=== PATIENT | female | born 1960 | race Hispanic/Latino ===

== ENCOUNTER 2017-06-12 11:13 | Inpatient (IN) | payer OTHER ==
[~2017-06-12] VITALS: Ht 170.2 cm; Wt 79.5 kg
--- NOTE | 2017-06-12 11:17 | ED GENERAL ADULT ---
See Addendum History of Present Illness General Chief Complaint: Abdominal Pain/Flank Pain Stated Complaint: BIBA FOR ABD. PAIN Source: patient Exam Limitations: no limitations Vital Signs & Intake/Output Vital Signs & Intake/Output Vital Signs Date Time Temp Pulse Resp B/P B/P Pulse O2 O2 Flow FiO2 Mean Ox Delivery Rate 06/12 1130 98.9 100 18 183/81 99 Room Air Allergies Coded Allergies: Penicillins (UNKNOWN 09/27/15) Triage Note: ABD PIAN FOR 1 DAY. PT STATES SHE TOOK OTC MEDS WITHOUT RELIEF. +NAUSEA. NO V/D. GLUCOSE ELEVATED. Triage Nurses Notes Reviewed? yes Onset: Abrupt Duration: day(s): (2), constant, continues in ED, getting worse Timing: single episode today Injury Environment: home Severity: moderate, severe Severity Numbers: 7 No Modifying Factors: none LMP (ages 10-50): post menopausal : No Patient currently breastfeeds: No HPI: 56 y/o female past medical history of diabetes presents for evaluation of abdominal pain. Patient states that she first noticed the pain about 2 days ago and has been getting worse. The pain is located in the epigastric area and does not radiate. She states it feels like there is a "knot" In her epigastric area. She has had these symptoms in the past with GERD and feels like it is similar. She has not eaten or drank anything today. Eating does not seem to make pain worse. She denies any alcohol use. No new medications. She does report a previous history of gallstones. No chest pain shortness of breath back pain urinary symptoms, melena, bright red blood per rectum or any other associated symptoms. Taking Pepto-Bismol and Tums without improvement. She was also hyperglycemic. EMS reports levels greater than 500 in route. Patient states that she is on insulin as needed. She is not taking any insulin today. She also states that she does not take any blood pressure medicine. (Daniel Siegel) Past History Travel History Traveled to [place] past 21 day No Medical History Any Pertinent Medical History? see below for history Surgical History Surgical History: non-contributory Psychosocial History What is your primary language Nigerien Family History Hx Contributory? No (Daniel Siegel) Review of Systems Review of Systems Constitutional: Reports: no symptoms. EENTM: Reports: no symptoms. Respiratory: Reports: no symptoms. Cardiovascular: Reports: no symptoms. GI: Reports: see HPI, abdominal pain. Genitourinary: Reports: no symptoms. Musculoskeletal: Reports: no symptoms. Skin: Reports: no symptoms. Neurological/Psychological: Reports: no symptoms. Hematologic/Endocrine: Reports: no symptoms. Immunologic/Allergic: Reports: no symptoms. All Other Systems: Reviewed and Negative (Daniel Siegel) Physical Exam Physical Exam General Appearance: well developed/nourished, no apparent distress, alert, awake Head: atraumatic, normal appearance Eyes: Bilateral: normal appearance, PERRL, EOMI. Ears, Nose, Throat: normal pharynx, normal ENT inspection, hearing grossly normal Neck: normal inspection, supple, full range of motion Respiratory: normal breath sounds, chest non-tender, no respiratory distress, lungs clear Cardiovascular: regular rate/rhythm, normal peripheral pulses Peripheral Pulses: 2+ radial (R), 2+ radial (L) Gastrointestinal: normal bowel sounds, soft, no organomegaly, tenderness ( epigastric) Back: normal inspection, normal range of motion, no vertebral tenderness Extremities: right below the knee amputation, no swelling in the left lower extremity, full range of motion bilateral upper extremities Neurologic/Psych: no motor/sensory deficits, awake, alert, oriented x 3 Skin: intact, normal color, warm/dry Core Measures ACS in differential dx? Yes No ASA d/t ruled out CVA/TIA Diagnosis: No Sepsis Present: No Sepsis Focused Exam Completed? No (Daniel Siegel) Progress Differential Diagnoses I considered the following diagnoses in my evaluation of the patient: [Peptic ulcer disease, gastritis, GERD, pancreatitis, cholangitis, renal colic, AAA, acute coronary syndrome] Plan of Care: Orders Procedure Date/time Status Nothing by Mouth 06/12 D Active LACTIC ACID 06/12 1417 Active OXYGEN SETUP (GEN) 06/12 1312 Active Saline Lock 06/12 1312 Active Admit to inpatient 06/12 1312 Active Vital Signs 06/12 1312 Active Activity/Ambulation 06/12 1312 Active Code Status 06/12 1312 Active US-LIMITED ABDOMEN 06/12 1259 Active Add-on Test (ER Only) 06/12 1258 Active TRIGLYCERIDES 06/12 1143 Complete MAGNESIUM 06/12 1143 Complete ETHANOL 06/12 1143 Complete MIXED VENOUS BLOOD GAS (GEN) 06/12 1124 Complete Telemetry/Orthopedic Brace Maker 06/12 1118 Active TROPONIN LEVEL 06/12 111 Complete SERUM OSMOLALITY 06/12 111 Complete LACTIC ACID 06/12 111 Complete ACETONE 06/12 111 Complete EKG 06/12 1116 Active URINALYSIS 06/12 111 Complete LIPASE 06/12 111 Complete C-REACTIVE PROTEIN 06/12 1115 Complete COMPREHENSIVE METABOLIC PANEL 06/12 1115 Complete CBC WITHOUT DIFFERENTIAL 06/12 111 Complete Current Medications Sig/Christina Start time Last Medication Dose Stop Time Status Admin Sodium Chloride 1,000 ML BOLUS ONE 06/12 1300 AC (Normal Saline 0.9%) 06/12 1359 Laboratory Tests 06/12/17 1143: Serum Osmolality 307 H, Lactic Acid 2.6 H, Troponin I < 0.01, Serum Alcohol < 10.0 06/12/17 1143: Anion Gap 18 H, Estimated GFR > 60, BUN/Creatinine Ratio 27.1 H, Glucose 841 * H, Calcium 10.1, Magnesium 1.9, Total Bilirubin 0.4, AST 15, ALT 37, Alkaline Phosphatase 191 H, C-Reactive Prot, Quant 4.6 H, Total Protein 6.9, Albumin 3.9, Globulin 3.0, Albumin/Globulin Ratio 1.3, Triglycerides 208 H, Lipase 9655 H, CBC w Diff MAN DIFF ORDERED, RBC 4.59, MCV 82.9, MCH 27.3, RDW 13.9, MPV 11.3 H, Gran % 89.3 H, Lymphocytes % 6.3 L, Monocytes % 3.8, Eosinophils % 0.4, Basophils % 0.2, Absolute Granulocytes 11.5 H, Absolute Lymphocytes 0.8 L , Absolute Monocytes 0.5, Absolute Eosinophils 0, Absolute Basophils 0, Platelet Estimate ADEQUATE, Anisocytosis 1+, PUBS MCHC 32.9 L, Acetone Level NEGATIVE, Urinalysis LIGHT H, Urine Color YEL, Urine Clarity CLEAR, Urine pH 6.5, Ur Specific [place] 1.010, Urine Protein TRACE H, Urine Ketones TRACE H, Urine Nitrite NEG, Urine Bilirubin NEG, Urine Urobilinogen 0.2, Ur Leukocyte Esterase NEG, Ur Microscopic SEDIMENT EXAMINED, Urine RBC 1-3, Urine Bacteria RARE H, Urine Hemoglobin TRACE-INTACT, Urine Glucose >=1000 H 06/12/17 1136: Bicarbonate Actual 21 L, Mixed VBG pH 7.38, Mixed VBG pCO2 37 L, Mixed VBG O2 Saturation 35, Carboxyhemoglobin 1.1 L, O2 Concentration % RA, Phlebotomy Draw Site LAC VENOUS Patient seen and evaluated. She is currently hyperglycemic with a sugar of 841. Potassium is within normal limits. 10 units subcutaneous insulin ordered. Patient will also be given 2 L of normal saline. A repeat sugar an hour. Her anion gap is 18 pH 738 negative acetone. Patient has a lipase of greater than 9000. She denies any alcohol use. No new medications. She has a history of gallstones and is status post cholecystectomy. CT scan does not show any gallstones but does show evidence of pancreatitis. Ultrasound ordered for further evaluation. Triglycerides mildly elevated. Patient will be admitted to the hospital for IV fluids, GI consult, IV pain control, insulin, serial labs, monitoring of vital signs. Case discussed with Dr Paulino and he agrees. Diagnostic Imaging: Viewed by Me: CT Scan. Discussed w/RAD: CT Scan. Radiology Impression: PATIENT: IRENA BUTLER PRESENT AGE: 56 PATIENT ACCOUNT NO: [id number] : 60 LOCATION: [facility] ORDERING PHYSICIAN: Dainel MEADOWS SERVICE DATE: 06/12/17 EXAM TYPE: CAT - CT ABD & PELVIS W/O IV CONTRAS EXAMINATION: CT ABDOMEN AND PELVIS WITHOUT CONTRAST CLINICAL INFORMATION: Epigastric abdominal pain for 2 days. COMPARISON: There are no prior studies for comparison. TECHNIQUE: Multidetector volumetric imaging was performed from the superior aspect of the liver through the pubic symphysis. Sagittal and coronal reformatted images were obtained on the technologist's workstation. DLP: 759.08 mGy-cm FINDINGS: LUNG BASES: The visualized lung bases are unremarkable. LIVER, GALLBLADDER, AND BILIARY TREE: The liver is normal in size, shape, and attenuation. There is a small calcification in the posterior aspect of the right lobe of the liver. No biliary ductal dilatation is present. The gallbladder is surgically absent. PANCREAS: There are prominent peripancreatic inflammatory changes and small stranded areas of fluid present in the region of the uncinate process adjacent to the C-sweep of the duodenum as well as along the tail of the pancreas extending around the left pararenal region. The pancreas is partially fatty replaced, with no focal pancreatic mass lesion identified. No loculated fluid collection is present. SPLEEN: Normal ADRENAL GLANDS: Normal KIDNEYS AND URETERS : The kidneys are normal in size, shape, and attenuation. No hydronephrosis, hydroureter, or calculi seen. No perinephric stranding. BLADDER: Unremarkable. GASTROINTESTINAL TRACT: The small and large bowel are unremarkable. The appendix is nonvisualized. ABDOMINAL WALL: No significant hernia is appreciated. LYMPH NODES: No pathologically enlarged lymph nodes are present.. VASCULAR: Minimal abdominal aortic calcified plaque extending into the iliac arteries. No aneurysmal dilation of the abdominal aorta. PELVIC VISCERA: The uterus is unremarkable, no adnexal mass lesions are noted. OSSEOUS STRUCTURES: No focal osseous lesions, no aggressive osseous lesions noted. IMPRESSION: 1. Peripancreatic inflammatory changes within the mesenteric fat with small strands of free fluid present adjacent to the uncinate process and along the tail of the pancreas. No loculated fluid collections or pancreatic pseudocyst is present at this time. No pancreatic mass lesion is present at this time. The findings are suggestive of acute pancreatitis. 2. As noted above, the gallbladder is surgically absent. DICTATED BY: Huong Combs MD DATE/TIME DICTATED:06/12/171308 EAR NOSE THROAT SURGEON:CRYSTAL DATE/TIME TRANSCRIBED:06/12/171308 CONFIDENTIAL, DO NOT COPY WITHOUT APPROPRIATE AUTHORIZATION. <Electronically signed in Other Vendor System> Initial ED EKG: NORMAL SINUS RHYTHM, PROBABLE LEFT ATRIAL ABN (Daniel Siegel) Departure Departure Disposition: STILL A PATIENT Condition: Stable Clinical Impression Primary Impression: Acute pancreatitis Qualifiers: Pancreatitis type: unspecified pancreatitis type Acute pancreatitis complication: unspecified Qualified Code: K85.90 - Acute pancreatitis without necrosis or infection, unspecified Secondary Impressions: Hyperglycemia Referrals: Moe Ochoa MD Departure Forms: Customer Survey General Discharge Information Admission Note Spoke With: Mirta Chavez MD Documentation of Exam: Documentation of any treatments & extenuating circumstances including Concerns Regarding Discharge (functional status, medication knowledge or non-compliance, living conditions, etc.) that warrant an admission rather than observation: [IV fluids, nothing by mouth, serial labs, IV pain control, insulin, monitoring of vital signs, GI consult, medication management] (Daniel Siegel) PA/UROLOGIST Co-Sign Statement Statement: ED Attending supervision documentation- x I saw and evaluated the patient. I have also reviewed all the pertinent lab results and diagnostic results. I agree with the findings and the plan of care as documented in the PA's/UROLOGIST's documentation. Abdominal pain, nausea hyperglycemia, elevated lipase [] I have reviewed the ED Record and agree with the PA's/UROLOGIST's documentation. [] Additions or exceptions (if any) to the PAs/UROLOGIST's note and plan are summarized below: [] (Jefferson CURIEL,Benito) Critical Care Note Critical Care Note Critical Care Time: non-applicable (Daniel Siegel) ED Attending Observation Initial Observation Note: I have seen and personally examined IRENA BUTLER on 06/12/17 at 1343. I agree with the current emergency department documentation. The disposition (admission or discharge) is uncertain at this time, she needs a period of observation for the following reason(s): The ED Nurse caring for this patient has been personally informed as to what the patient is being observed for. (Daniel Siegel)
[2017-06-12 11:59] LABS: ABSOLUTE BASOPHIL COUNT 0 /CUMM (0.0-0.2); ABSOLUTE EOSINOPHIL COUNT 0 /CUMM (0.0-0.7); ABSOLUTE GRANULOCYTE CT 11.5 /CUMM (1.4-6.5); ABSOLUTE LYMPH COUNT 0.8 /CUMM (1.2-3.4); ABSOLUTE MONOCYTE COUNT 0.5 /CUMM (0.10-0.60); BASOPHIL % 0.2 % (0.0-2.0); EOSINOPHIL % 0.4 % (0-5); GRANULOCYTE % 89.3 % (42.2-75.2); MEAN CORPUSCULAR HGB 27.3 PG (27.0-31.0); MEAN CORPUSCULAR HGB CONC 32.9 G/DL (33.0-37.0); MEAN CORPUSCULAR VOLUME 82.9 FL (81.0-99.0); MEAN PLATELET VOLUME 11.3 FL (7.4-10.4); PLATELET COUNT 282 /CUMM (130-400); RBC DISTRIBUTION WIDTH 13.9 % (11.5-14.5); RED BLOOD CELL CT 4.59 /CUMM (4.20-5.40); WHITE BLOOD CELL COUNT 12.9 /CUMM (4.8-10.8)
--- NOTE | 2017-06-12 13:21 | CT SCAN REPORT ---
EXAMINATION: CT ABDOMEN AND PELVIS WITHOUT CONTRAST CLINICAL INFORMATION: Epigastric abdominal pain for 2 days. COMPARISON: There are no prior studies for comparison. TECHNIQUE: Multidetector volumetric imaging was performed from the superior aspect of the liver through the pubic symphysis. Sagittal and coronal reformatted images were obtained on the technologist's workstation. DLP: 759.08 mGy-cm FINDINGS: LUNG BASES: The visualized lung bases are unremarkable. LIVER, GALLBLADDER, AND BILIARY TREE: The liver is normal in size, shape, and attenuation. There is a small calcification in the posterior aspect of the right lobe of the liver. No biliary ductal dilatation is present. The gallbladder is surgically absent. PANCREAS: There are prominent peripancreatic inflammatory changes and small stranded areas of fluid present in the region of the uncinate process adjacent to the C-sweep of the duodenum as well as along the tail of the pancreas extending around the left pararenal region. The pancreas is partially fatty replaced, with no focal pancreatic mass lesion identified. No loculated fluid collection is present. SPLEEN: Normal ADRENAL GLANDS: Normal KIDNEYS AND URETERS: The kidneys are normal in size, shape, and attenuation. No hydronephrosis, hydroureter, or calculi seen. No perinephric stranding. BLADDER: Unremarkable. GASTROINTESTINAL TRACT: The small and large bowel are unremarkable. The appendix is nonvisualized. ABDOMINAL WALL: No significant hernia is appreciated. LYMPH NODES: No pathologically enlarged lymph nodes are present.. VASCULAR: Minimal abdominal aortic calcified plaque extending into the iliac arteries. No aneurysmal dilation of the abdominal aorta. PELVIC VISCERA: The uterus is unremarkable, no adnexal mass lesions are noted. OSSEOUS STRUCTURES: No focal osseous lesions, no aggressive osseous lesions noted. IMPRESSION: 1. Peripancreatic inflammatory changes within the mesenteric fat with small strands of free fluid present adjacent to the uncinate process and along the tail of the pancreas. No loculated fluid collections or pancreatic pseudocyst is present at this time. No pancreatic mass lesion is present at this time. The findings are suggestive of acute pancreatitis. 2. As noted above, the gallbladder is surgically absent.
--- NOTE | 2017-06-12 15:18 | History & Physical ---
General Information and HPI Allergies/Medications Allergies: Coded Allergies: Penicillins (UNKNOWN 09/27/15) Past History Travel History Traveled to [place] past 21 day No Surgical History Surgical History: non-contributory Core Measures/Misc (02/04) Acute Coronary Syndrome ACS Diagnosis: No Congestive Heart Failure Congestive Heart Failure Diagnosis No Cerebrovascular Accident CVA/TIA Diagnosis: No VTE (View Protocol) VTE Risk Factors Age>40 No Mechanical VTE Prophylaxis d/t N/A MechProphylax Ordered No VTE Pharm Prophylaxis d/t NA PharmProphylax ordered Sepsis (View protocol) Sepsis Present: No
--- NOTE | 2017-06-12 15:21 | ULTRASOUND REPORT ---
EXAMINATION: ABDOMINAL ULTRASOUND LIMITED CLINICAL INFORMATION: Epigastric pain right upper quadrant pain. COMPARISON: Same day abdominal and pelvic CT. TECHNIQUE: Real-time imaging of the right upper quadrant abdominal viscera. FINDINGS: PANCREAS: The pancreas is poorly visualized due to overlying bowel gas. LIVER: The liver is of normal size and diffuse increased echogenicity without focal lesions nor intrahepatic biliary ductal dilation. GALLBLADDER: Due to cholecystectomy COMMON BILE DUCT: The common duct is not visualized. RIGHT KIDNEY: The right kidney is not demonstrated. FREE FLUID: None. IMPRESSION: Liver of diffuse increased echogenicity without focal lesions. The appearance is nonspecific, but consistent with fatty infiltration. Status post cholecystectomy. Limited examination secondary to the patient's inability to recline.
--- NOTE | 2017-06-12 16:00 | History & Physical ---
Christie Garcia 06/12/17 1557: General Information and HPI MD Statement: I have seen and personally examined IRENA BUTLER and documented this H&P. The patient is a 56 year old F who presented with a patient stated chief complaint of [abdominal pain]. Source of Information: patient, family Exam Limitations: poor historian History of Present Illness: 56 y/o female with a PMH of RA, scleroderma, T2DM, PVD s/p below and above knee amputation of RLE at [facility] in 2012 and 2014, and stent placemnt in LLE about 3 months ago, with a chronic non-healing ulcer of the LLE, GERD, hypothyroidism, opioid abuse on Methadone (82 mg daily) who presents to the ED with c/o excruciating epigastric pain asociated with non-bloody, bilous vomitus. According to the patient she was in her USOH until yesterday afternoon when she had tomato soup with a grilled sandwich shortly after which she started to experinece severe non-radiating, epigastric pain associated with multiple episodes of non-bloody, emesis. Deneis any recent URI, NSAID use, or any hx of trauma to her abdomen. States that she took Tumms and peptobismuth taht did not help with her pain. SHe has been unable to tolerate anything PO and so decided to come to [facility] ER today. ROS negative for fever, chills, cough, CP, diarrhea, dysuria. Of note patient follows with Dr. Lopez and was scheduled to see him in office today for dressing and evaluation of her LLE wound. She has no primary fashion photographer. FSGs usually run in the 300's as per the patient. She follows with Dr. Ayala at [facility] for RA and scleroderma and DR. Nguyen did her ampuatation. She gets 82mg of Methadone form [facility] in [place]. Last hospital admission was for a stent in her left leg about 3 months ago at [facility]. Allergies/Medications Allergies: Coded Allergies: Penicillins (UNKNOWN 09/27/15) Home Med list Aspirin (Ecotrin*) 81 MG TABLET.DR 1 TAB PO DAILY PVD (Reported) Bupropion HCl (Bupropion HCl Sr) 200 MG TABLET.ER 1 TAB PO DAILY OPIOID ( Reported) Clopidogrel Bisulfate (Plavix) 75 MG TABLET 1 TAB PO DAILY PVD (Reported) Exenatide Microspheres (Bydureon) 2 MG VIAL 2 MG SC QTUES DM (Reported) Insulin Aspart, Recombinant (Novolog Flexpen) 100 UNIT/ML INSULN.PEN 0 SC TID DM (Reported) Insulin Glargine,Hum.rec.anlog (Lantus Solostar) 100 UNIT/ML (3 ML) INSULN.PEN 48 UNIT SC QPM DM (Reported) Levothyroxine Sodium (Synthroid) 75 MCG TABLET 1 TAB PO DAILY HYPOTHYROIDISM (Reported) Losartan Potassium 25 MG TABLET 1 TAB PO DAILY HTN (Reported) Metformin HCl 1,000 MG TABLET 1 TAB PO BID DM (Reported) Omeprazole 20 MG TABLET.DR 1 TAB PO DAILY GERD (Reported) Pravastatin Sodium (Pravachol) 80 MG TABLET 1 TAB PO DAILY PVD (Reported) Sitagliptin Phosphate (Januvia) 100 MG TABLET 1 TAB PO DAILY DM (Reported) Trazodone HCl 100 MG TABLET 1.5 TAB PO QPM SLEEP (Reported) Compliance With Home Meds: UNKNOWN Past History Travel History Traveled to [place] past 21 day No Medical History Cardiovascular: PVD (s/p stent in left leg ) Endocrine: diabetes, hypothyroidism Surgical History Surgical History: cholecystectomy, bleow and above knee amputation of RLE Past Family/Social History Family History Relations & Conditions if any BROTHER *No pertinent family history FH: diabetes mellitus MOTHER FH: diabetes mellitus FATHER Relation not specified for: FH: colon cancer Psychosocial History Where do you live? Home ETOH Use: denies use Illicit Drug Use: denies illicit drug use Functional Ability ADLs Independent: dressing, eating, toileting, bathing. Ambulation: independent IADLs Independent: shopping, housework, finances, food prep, telephone, transportation , medication admin. Employment History Employment Disability Review of Systems Review of Systems Constitutional: Denies: chills, diaphoresis, fever, weakness. EENTM: Denies: visual changes. Cardiovascular: Denies: chest pain, orthopena, palpitations, syncope. Respiratory: Denies: cough, orthopnea, short of breath, sputum production, wheezing. GI: Reports: abdominal pain, nausea, vomiting. Denies: constipation, diarrhea, bloody stool, changes in stool. Genitourinary: Denies: discharge, dysuria, frequency. Musculoskeletal: Denies: joint pain. Neurological/Psychological: Denies: headache, numbness, tingling, tremors. Exam & Diagnostic Data Last 24 Hrs of Vital Signs/I&O Vital Signs Date Time Temp Pulse Resp B/P B/P Pulse O2 O2 Flow FiO2 Mean Ox Delivery Rate 06/12 1525 97.6 93 18 164/86 100 Room Air 06/12 1130 98.9 100 18 183/81 99 Room Air Intake & Output 06/12 1600 06/12 0800 06/12 0000 Intake Total 2000 Output Total Balance 2000 Intake, IV 2000 Intake, Oral 0 Patient 181 lb Weight Weight Reported by Patient Measurement Method Physical Exam General Appearance Alert, Oriented X3, Cooperative, Mild Distress Sepsis Skin Exam (color): Normal for Ethnicity HEENT Atraumatic, PERRLA, EOMI, dry mucous membranes Neck Supple, No JVD, No thryomegaly, No LAD Cardiovascular Regular Rate, Normal S1, Normal S2, No Murmurs Lungs Clear to Auscultation, Normal Air Movement Abdomen Normal Bowel Sounds, Soft, No Tenderness, no CVA tenderness, has a well healed surgical scar along the right subcostal plane, tenderness in epigastrium Neurological Normal Speech, Strength at 5/5 X4 Ext, Normal Tone, Sensation Intact, Cranial Nerves 3-12 NL Extremities has an above knee amputation on RLE, has a chronic 8cm x3cm draining serosanginuous ulcer on her left anterolateral quiroz; no purulence noted; though foul smelling Body Front and Back (Adult) 1) 8cm x3cm chronic non-helasing draining ulcer Last 24 Hrs of Labs/Nikolas: Laboratory Tests 06/12/17 1508: Lactic Acid 1.2 06/12/17 1508: Anion Gap 14, Estimated GFR > 60, BUN/Creatinine Ratio 28.3 H, Glucose 554 *H, Calcium 9.0, Total Bilirubin 0.3, AST 14, ALT 40, Alkaline Phosphatase 153 H, Total Protein 6.2 L, Albumin 3.3 L, Globulin 2.9, Albumin/Globulin Ratio 1.1 06/12/17 1143: Serum Osmolality 307 H, Lactic Acid 2.6 H, Troponin I < 0.01, Serum Alcohol < 10.0 06/12/17 1143: Anion Gap 18 H, Estimated GFR > 60, BUN/Creatinine Ratio 27.1 H, Glucose 841 * H, Calcium 10.1, Magnesium 1.9, Total Bilirubin 0.4, AST 15, ALT 37, Alkaline Phosphatase 191 H, C-Reactive Prot, Quant 4.6 H, Total Protein 6.9, Albumin 3.9, Globulin 3.0, Albumin/Globulin Ratio 1.3, Triglycerides 208 H, Lipase 9655 H, CBC w Diff MAN DIFF ORDERED, RBC 4.59, MCV 82.9, MCH 27.3, RDW 13.9, MPV 11.3 H, Gran % 89.3 H, Lymphocytes % 6.3 L, Monocytes % 3.8, Eosinophils % 0.4, Basophils % 0.2, Absolute Granulocytes 11.5 H, Absolute Lymphocytes 0.8 L , Absolute Monocytes 0.5, Absolute Eosinophils 0, Absolute Basophils 0, Platelet Estimate ADEQUATE, Anisocytosis 1+, PUBS MCHC 32.9 L, Acetone Level NEGATIVE, Urinalysis LIGHT H, Urine Color YEL, Urine Clarity CLEAR, Urine pH 6.5, Ur Specific [place] 1.010, Urine Protein TRACE H, Urine Ketones TRACE H, Urine Nitrite NEG, Urine Bilirubin NEG, Urine Urobilinogen 0.2, Ur Leukocyte Esterase NEG, Ur Microscopic SEDIMENT EXAMINED, Urine RBC 1-3, Urine Bacteria RARE H, Urine Hemoglobin TRACE-INTACT, Urine Glucose >=1000 H 06/12/17 1136: Bicarbonate Actual 21 L, Mixed VBG pH 7.38, Mixed VBG pCO2 37 L, Mixed VBG O2 Saturation 35, Carboxyhemoglobin 1.1 L, O2 Concentration % RA, Phlebotomy Draw Site LAC VENOUS Diagnostic Data EKG Results ST, with HR: 97, normal axis, no ST-T changes Other Results SERVICE DATE: 06/12/17-1259 EXAM TYPE: US - US-LIMITED ABDOMEN FINDINGS: PANCREAS: The pancreas is poorly visualized due to overlying bowel gas. LIVER: The liver is of normal size and diffuse increased echogenicity without focal lesions nor intrahepatic biliary ductal dilation. GALLBLADDER: Due to cholecystectomy COMMON BILE DUCT: The common duct is not visualized. RIGHT KIDNEY: The right kidney is not demonstrated. FREE FLUID: None. IMPRESSION: Liver of diffuse increased echogenicity without focal lesions. The appearance is nonspecific, but consistent with fatty infiltration. Status post cholecystectomy. Limited examination secondary to the patient's inability to recline. SERVICE DATE: 06/12/17 EXAM TYPE: CAT - CT ABD & PELVIS W/O IV CONTRAS FINDINGS: LUNG BASES: The visualized lung bases are unremarkable. LIVER, GALLBLADDER, AND BILIARY TREE: The liver is normal in size, shape, and attenuation. There is a small calcification in the posterior aspect of the right lobe of the liver. No biliary ductal dilatation is present. The gallbladder is surgically absent. PANCREAS: There are prominent peripancreatic inflammatory changes and small stranded areas of fluid present in the region of the uncinate process adjacent to the C-sweep of the duodenum as well as along the tail of the pancreas extending around the left pararenal region. The pancreas is partially fatty replaced, with no focal pancreatic mass lesion identified. No loculated fluid collection is present. SPLEEN: Normal ADRENAL GLANDS: Normal KIDNEYS AND URETERS: The kidneys are normal in size, shape, and attenuation. No hydronephrosis, hydroureter, or calculi seen. No perinephric stranding. BLADDER: Unremarkable. GASTROINTESTINAL TRACT: The small and large bowel are unremarkable. The appendix is nonvisualized. ABDOMINAL WALL: No significant hernia is appreciated. LYMPH NODES: No pathologically enlarged lymph nodes are present.. VASCULAR: Minimal abdominal aortic calcified plaque extending into the iliac arteries. No aneurysmal dilation of the abdominal aorta. PELVIC VISCERA: The uterus is unremarkable, no adnexal mass lesions are noted. OSSEOUS STRUCTURES: No focal osseous lesions, no aggressive osseous lesions noted. IMPRESSION: 1. Peripancreatic inflammatory changes within the mesenteric fat with small strands of free fluid present adjacent to the uncinate process and along the tail of the pancreas. No loculated fluid collections or pancreatic pseudocyst is present at this time. No pancreatic mass lesion is present at this time. The findings are suggestive of acute pancreatitis. 2. As noted above, the gallbladder is surgically absent. Assessment/Plan Assessment: 56-year-old female with a past medical history of diabetes, GERD presents to the ED with chief complaint of abdominal pain. Vitals at the time of admission hypertensive to 183/81, respiratory rate of 18, tachycardic to 100, afebrile saturating 99% on room air. Labs pertinent for leukocytosis with a white blood cell count of 12,400, H&H of 12.5/38.0 and a normal MCV of 82.9, platelet count of 282,000. Serum chemistries pertinent for hyponatremia with a sodium of 129, potassium of 4.9, bicarbonate of 21, anion gap elevated to 18, BUN 19 with a creatinine of 0.7. Shrimp glucose elevated to 841 with a serum osmolality of 307 and lactic acid of 2.6 with repeat wound down to 1.2. Serum calcium was 10.1, magnesium 1.9. These pertinent for an AST/alt of 13/37, pulse of 191, troponins first set less than 0.01 with a C-reactive protein of 4.6. Triglycerides 208 and a lipase of 9655. UA was likely trace amount of proteinuria and ketones. Her acetone level was negative. Serum alcohol was less than 10. Venous post contrast was done which showed a pH of 7.38, bicarbonate of 21, PCO2 of 37 Abdominal ultrasound showed diffuse increased echogenicity of the liver without focal lesions consistent with fatty infiltration, status post cholecystectomy. T of the abdomen pelvis should. Pancreatic inflammatory changes within the mesenteric fat with small strands of free fluid present adjacent to the uncinate process and along the tail of the pancreas, no loculated fluid collections or pancreatic pseudocyst or pancreatic mass lesion at this time. In the ER she received thousand milligrams IV 1 of Tylenol, working 2 mg IV 1, Zofran 4 mg IV 1 and was given normal saline boluses of thousand and 2 was also given 10 units of subcutaneous Novolin insulin Assessment and plan Patient was evaluated by Endo and plan was to admit for insulin drip to ICU, hwoever after recieving 10 units of SC insulin, her BS came down to 544-->396 and she was downgraded to Gen Med. #Acute Pancreatitis - 2/2 gallstone, given abrupt onset vs [facility]. Of note no hx of URI, NSAId, Ca and TG are WNL. - NPO for now - Hydrate aggresively with IVF @250mls/hr. - Pain management with IV Morphine 4mg Q4 PRN as patent is allergic to Dilaudid and Percocet. - Zofran for nausea. #HHS - 2/2 uncontrolled DM - Her FSG is 396. Will admisnter 24 units of levemir x1 now and place her on Novbolog sliding scale as per Dr. Faye's recs. - f/u Endo consult. - Continueto monitor FSG q 4 hrs. - Holding her home regimen. - COntinue to hydrate with IVF;s - F/U BEP @ 10:00pm - Replete electrolytes - F/U BC x2 to ensure she is not bacteremic (highly unlikely) # PVD s/p above knee amputation of RLE and chonic non-healing wound on LLE - [place] vascular consult in AM to be placed. - Wound care - dry dressing change - continue ASA, Plavix and statin #Lactic acidosis - Resolved - 2/2 HHS # hyponatremia - Pseudo given elevated glucose #RA - Continue hydroxycloroquine #Opiod dependence - Confirm methadone form [facility] in [place] in AM - Patient si on 82mg daily. - Contineu Buproproin #GERD - Continue Omeprazole - DVT prophylaxis - hEPARIN 5000iu tid sc - Diet - NPO - Advance as tolerated in AM - Code Status - Full Code As Ranked By This Provider Problem List: 1. Hyperglycemia 2. Acute pancreatitis Qualifiers Pancreatitis type: unspecified pancreatitis type Acute pancreatitis complication: unspecified Qualified Code: K85.90 - Acute pancreatitis without necrosis or infection, unspecified Core Measures/Misc (02/04) Acute Coronary Syndrome ACS Diagnosis: No Congestive Heart Failure Congestive Heart Failure Diagnosis No Cerebrovascular Accident CVA/TIA Diagnosis: No VTE (View Protocol) VTE Risk Factors Age>40 No Mechanical VTE Prophylaxis d/t N/A MechProphylax Ordered No VTE Pharm Prophylaxis d/t NA PharmProphylax ordered Sepsis (View protocol) Sepsis Present: No Resident Review Statement Resident Statement: admitted by resident Mirta Chavez MD 06/12/17 1643: Attending MD Review Statement Attending Statement Attending MD Statement: examined this patient, discuss w/resident/PA/F[employer]ERY DIVISION CHIEF, agreed w/resident/PA/F[employer]ERY DIVISION CHIEF, reviewed EMR data (avail) Attending Assessment/Plan: 56F PMH T2DM, PVD, right AKA presenting with 1 week of worsening epigastric pain , for the past 2-3 days has been unable to tolerate PO and has been vomiting everything she tries to eat, with significant nausea, found to have acute pancreatitis by labs and imaging. No alcohol intake, no recent medication changes. Tender epigastric area on exam, otherwise patient looks well and is comfortable. Labs significant for glucose 844, anion gap 17, lactate 2.6, WBC 12.6. CT abdomen/pelvic shows acute pancreatitis. LFTs normal, no evidence of gallstones. 1. Acute pancreatitis 2. HHS Type 2 3. Lactic acidosis Plan - Admit to ICU - IV hydration - Tylenol IV PRN mild/moderate pain - Morphine 2mg PRN severe pain (patient has adverse reactions to Percocet and Dilaudid) - NPO - Endocrine consult - Monitor fingersticks q4h until <300 - Monitor LFTs - Contact her primary care for records - DVT PPx
--- NOTE | 2017-06-12 16:47 | Admission Certification ---
Admission Certification Certification Statement - As attending physician, I certify that at the time of - admission, based on clinical presentation, severity of - symptoms, need for further diagnostic testing and - therapeutic interventions, and risk of adverse outcomes - without in-hospital treatment, in my clinical assessment, - this patient requires an acute hospital stay for a minimum - of two nights or longer. I have also considered psychsocial - factors such as support system, advanced age, financial - issues, cognitive issues, and failed out-patient treatments, - past re-admission history, safety of patient, and lack of - compliance as applicable. Specific rationale supporting this admission is: Acute pancreatitis with glucose 844
[2017-06-12] MEDS ORDERED: LOSARTAN POTASS25 M1 PO (16:50)
[2017-06-12] MEDS ORDERED: BUPROPION HCL200 M2 PO (16:53)
[2017-06-12] MEDS ORDERED: PRAVACHOL80 M1 PO (17:20)
[2017-06-12] MEDS ORDERED: ASPIRIN EC81 M1 PO (17:20)
[2017-06-12] MEDS ORDERED: LANTUS SOL100 UNIT/1 SC (17:21)
[2017-06-12] MEDS ORDERED: OMEPRAZOLE20 M3 PO (17:21)
[2017-06-12] MEDS ORDERED: NOVOLOG FL100 UNIT/1 SC (17:21)
[2017-06-12] MEDS ORDERED: PLAVIX75 M1 PO (17:21)
[2017-06-12] MEDS ORDERED: METFORMIN HCL1000 M1 PO (17:22)
[2017-06-12] MEDS ORDERED: TRAZODONE HCL100 M1 PO (17:22)
[2017-06-12] MEDS ORDERED: SYNTHROID75 MCG PO (17:22)
[2017-06-12] MEDS ORDERED: JANUVIA100 M1 PO (17:22)
[2017-06-12] MEDS ORDERED: BYDUREON2 M1 SC (17:27)
[2017-06-12 20:05] VITALS: BP 140/82
--- NOTE | 2017-06-12 20:42 | Cons- Endocrinology ---
See Addendum General Information and HPI Consulting Request Date of Consult: 06/12/17 Requested By: Medical eam Reason for Consult: management of uncontrolled diabetes type 2/ HHS Source of Information: patient Exam Limitations: no limitations History of Present Illness: 56 y/o female with a PMH significant for RA, scleroderma, DM type 2, PVD s/p above knee amputation of right LE, and stent placemnt in left LE, chronic non -healing ulcer of the left LE, GERD, hypothyroidism, opioid abuse on Methadone who presented to the ED with c/o excruciating epigastric pain asociated with non -bloody, bilous vomitus. Blood work showed glucose level of 841 along with elevated lipase of 9655, AG 18 and bicarb 21. She received IVF and regular insulin 10 units in ER. Repeat FSG was still Hi. At home, she was on Lantus 48 units at bedtime, Bydureon, metformin 1000 mg twice a day and Novolog coverage before meals according to the scale. Repeat HbA1c is still pending Allergies/Medications Allergies: Coded Allergies: Penicillins (UNKNOWN 09/27/15) Home Med List: Aspirin (Ecotrin*) 81 MG TABLET.DR 1 TAB PO DAILY PVD (Reported) Bupropion HCl (Bupropion HCl Sr) 200 MG TABLET.ER 1 TAB PO DAILY OPIOID ( Reported) Clopidogrel Bisulfate (Plavix) 75 MG TABLET 1 TAB PO DAILY PVD (Reported) Exenatide Microspheres (Bydureon) 2 MG VIAL 2 MG SC QTUES DM (Reported) Insulin Aspart, Recombinant (Novolog Flexpen) 100 UNIT/ML INSULN.PEN 0 SC TID DM (Reported) Insulin Glargine,Hum.rec.anlog (Lantus Solostar) 100 UNIT/ML (3 ML) INSULN.PEN 48 UNIT SC QPM DM (Reported) Levothyroxine Sodium (Synthroid) 75 MCG TABLET 1 TAB PO DAILY HYPOTHYROIDISM (Reported) Losartan Potassium 25 MG TABLET 1 TAB PO DAILY HTN (Reported) Metformin HCl 1,000 MG TABLET 1 TAB PO BID DM (Reported) Omeprazole 20 MG TABLET.DR 1 TAB PO DAILY GERD (Reported) Pravastatin Sodium (Pravachol) 80 MG TABLET 1 TAB PO DAILY PVD (Reported) Sitagliptin Phosphate (Januvia) 100 MG TABLET 1 TAB PO DAILY DM (Reported) Trazodone HCl 100 MG TABLET 1.5 TAB PO QPM SLEEP (Reported) Review of Systems Review of Systems Constitutional: Reports: see HPI. Cardiovascular: Denies: chest pain. Respiratory: Denies: short of breath. GI: Reports: abdominal pain. Genitourinary: Denies: dysuria. Hematologic/Endocrine: Denies: polyuria, polydipsia. Past History Travel History Traveled to [place] past 21 day No Medical History Cardiovascular: PVD (s/p stent in left leg ) Endocrine: diabetes, hypothyroidism Other Medical Hx: RA, Scleroderma Surgical History Surgical History: cholecystectomy, bleow and above knee amputation of RLE Family History Relations & Conditions If Any: BROTHER *No pertinent family history FH: diabetes mellitus MOTHER FH: diabetes mellitus FATHER Relation not specified for: FH: colon cancer Psychosocial History Where Do You Live? Home ETOH Use: denies use Illicit Drug Use: denies illicit drug use Functional Ability ADLs Independent: dressing, eating, toileting, bathing. Ambulation: independent IADLs Independent: shopping, housework, finances, food prep, telephone, transportation , medication admin. Employment History Employment: Disability Exam & Diagnostic Data Last 24 Hrs of Vital Signs/I&O Vital Signs Date Time Temp Pulse Resp B/P B/P Pulse O2 O2 Flow FiO2 Mean Ox Delivery Rate 06/12 2004 98.3 96 19 140/82 99 Room Air 06/12 1932 97.3 83 17 157/74 97 Room Air 06/12 1758 97.1 85 18 140/72 96 Room Air 06/12 1718 97.7 148/58 06/12 1710 101 20 96 06/12 1525 97.6 93 18 164/86 100 Room Air 06/12 1130 98.9 100 18 183/81 99 Room Air Intake & Output 06/12 1600 06/12 0800 06/12 0000 Intake Total 2000 Output Total Balance 2000 Intake, IV 2000 Intake, Oral 0 Patient 181 lb Weight Weight Reported by Patient Measurement Method Physical Exam General Appearance: no apparent distress Neck: normal inspection Respiratory: lungs clear Cardiovascular: regular rate/rhythm Gastrointestinal: tenderness (epigastric area) Extremities: s/p right above knee amputation Labs/Nikolas Results: Laboratory Tests 06/12 06/12 06/12 1508 1508 1143 Chemistry Sodium (137 - 145 mmol/L) 134 L Potassium (3.5 - 5.1 mmol/L) 4.8 Chloride (98 - 107 mmol/L) 99 Carbon Dioxide (22 - 30 mmol/L) 21 L Anion Gap (5 - 16) 14 BUN (7 - 17 mg/dL) 17 Creatinine (0.5 - 1.0 mg/dL) 0.6 Estimated GFR (>60 ml/min) > 60 BUN/Creatinine Ratio (7 - 25 %) 28.3 H Glucose (65 - 99 mg/dL) 554 *H Serum Osmolality (285 - 295 MOSM/KG) 307 H Lactic Acid (0.7 - 2.1 mmol/L) 1.2 2.6 H Calcium (8.4 - 10.2 mg/dL) 9.0 Phosphorus (2.5 - 4.5 mg/dL) 3.6 Total Bilirubin (0.2 - 1.3 mg/dL) 0.3 AST (14 - 36 U/L) 14 ALT (9 - 52 U/L) 40 Alkaline Phosphatase (<127 U/L) 153 H Troponin I (< 0.11 ng/ml) < 0.01 Total Protein (6.3 - 8.2 g/dL) 6.2 L Albumin (3.5 - 5.0 g/dL) 3.3 L Globulin (1.9 - 4.2 gm/dL) 2.9 Albumin/Globulin Ratio (1.1 - 2.2 %) 1.1 TSH (0.270 - 4.200 uIU/mL) 1.860 Free T4 (0.64 - 1.79 ng/dL) 1.68 Toxicology Serum Alcohol (<10 MG/DL) < 10.0 06/12 06/12 1143 1136 Blood Gas Bicarbonate Actual (22 - 26 MEQ/L) 21 L Mixed VBG pH (7.31 - 7.41 PH) 7.38 Mixed VBG pCO2 (41 - 51 TORR) 37 L Mixed VBG O2 Saturation (35 - 45 TORR) 35 Carboxyhemoglobin (1.5 - 5.0 %) 1.1 L O2 Concentration % RA Chemistry Sodium (137 - 145 mmol/L) 129 L Potassium (3.5 - 5.1 mmol/L) 4.9 Chloride (98 - 107 mmol/L) 90 L Carbon Dioxide (22 - 30 mmol/L) 21 L Anion Gap (5 - 16) 18 H BUN (7 - 17 mg/dL) 19 H Creatinine (0.5 - 1.0 mg/dL) 0.7 Estimated GFR (>60 ml/min) > 60 BUN/Creatinine Ratio (7 - 25 %) 27.1 H Glucose (65 - 99 mg/dL) 841 *H Hemoglobin A1c (4.2 - 5.8 %) Pending Calcium (8.4 - 10.2 mg/dL) 10.1 Magnesium (1.6 - 2.3 mg/dL) 1.9 Total Bilirubin (0.2 - 1.3 mg/dL) 0.4 AST (14 - 36 U/L) 15 ALT (9 - 52 U/L) 37 Alkaline Phosphatase (<127 U/L) 191 H C-Reactive Prot, Quant (<1.0 mg/dL) 4.6 H Total Protein (6.3 - 8.2 g/dL) 6.9 Albumin (3.5 - 5.0 g/dL) 3.9 Globulin (1.9 - 4.2 gm/dL) 3.0 Albumin/Globulin Ratio (1.1 - 2.2 %) 1.3 Triglycerides (<150 mg/dL) 208 H Lipase (23 - 300 U/L) 9655 H Hematology CBC w Diff MAN DIFF ORDERED WBC (4.8 - 10.8 /CUMM) 12.9 H RBC (4.20 - 5.40 /CUMM) 4.59 Hgb (12.0 - 16.0 G/DL) 12.5 Hct (37 - 47 %) 38.0 MCV (81.0 - 99.0 FL) 82.9 MCH (27.0 - 31.0 PG) 27.3 RDW (11.5 - 14.5 %) 13.9 Plt Count (130 - 400 /CUMM) 282 MPV (7.4 - 10.4 FL) 11.3 H Gran % (42.2 - 75.2 %) 89.3 H Lymphocytes % (20.5 - 51.1 %) 6.3 L Monocytes % (1.7 - 9.3 %) 3.8 Eosinophils % (0 - 5 %) 0.4 Basophils % (0.0 - 2.0 %) 0.2 Absolute Granulocytes (1.4 - 6.5 /CUMM) 11.5 H Absolute Lymphocytes (1.2 - 3.4 /CUMM) 0.8 L Absolute Monocytes (0.10 - 0.60 /CUMM) 0.5 Absolute Eosinophils (0.0 - 0.7 /CUMM) 0 Absolute Basophils (0.0 - 0.2 /CUMM) 0 Platelet Estimate (ADEQUATE) ADEQUATE Anisocytosis 1+ PUBS MCHC (33.0 - 37.0 G/DL) 32.9 L Miscellaneous Phlebotomy Draw Site LAC VENOUS Toxicology Acetone Level (NEGATIVE) NEGATIVE Urines Urinalysis LIGHT H Urine Color (YEL,AMB,STR) YEL Urine Clarity (CLEAR) CLEAR Urine pH (5.0 - 8.0) 6.5 Ur Specific [place] (1.001 - 1.035) 1.010 Urine Protein (NEG,<30 MG/DL) TRACE H Urine Ketones (NEG) TRACE H Urine Nitrite (NEG) NEG Urine Bilirubin (NEG) NEG Urine Urobilinogen (0.1 - 1.0 EU/dl) 0.2 Ur Leukocyte Esterase (NEG) NEG Ur Microscopic SEDIMENT EXAMINED Urine RBC (0 - 5 /HPF) 1-3 Urine Bacteria (NEG/NONE) RARE H Urine Hemoglobin (NEG) TRACE-INTACT Urine Glucose (N MG/DL) >=1000 H Assessment/Plan Assessment/Plan 56 y/o female with a PMH significant for RA, scleroderma, DM type 2, PVD s/p above knee amputation of right LE, and stent placemnt in left LE, chronic non -healing ulcer of the left LE, GERD, hypothyroidism, opioid abuse on Methadone who presented to the ED with c/o excruciating epigastric pain asociated with non -bloody, bilous vomitus. Blood work showed severe hyperglycemia along with elevated osmolality consistent with HHS. In addition, her lipase is significantly elevated. CT scan demonstrated acute pancreatitis. Management: 1. recommended insulin drip to lower glucose level by 50-100 mg/dl/hour; 2. continue IVF; 3. kepp patient NPO except for ice chips for now; 4. monitor FSGs every 4-6 hours. will follow. Consult Acknowledgment - Thank you for your consult request.
[2017-06-13 05:50] VITALS: BP 142/68
--- NOTE | 2017-06-13 07:31 | PN- Housestaff ---
See Addendum Subjective Follow-up For: Acute pancreatitis Hyperglycemia Subjective: No new treatments. Patient remained afebrile. Seen and examined this morning patient denied any chest pain, short of breath, vomiting, chills, fever, palpitation, lightheadedness and dysuria. Patient reported having nausea this morning and also have her pain is controlled with pain medication. Patient having nonhealing left leg ulcers we will get the wound consult. We confirm her methadone dose at 78 mg every day. We will get records from [facility] and also try to get in touch with his vascular surgeon. Review of Systems Constitutional: Reports: no symptoms. EENTM: Reports: no symptoms. Cardiovascular: Reports: no symptoms. Respiratory: Reports: no symptoms. Gastrointestinal: Reports: abdominal pain, nausea. Genitourinary: Reports: no symptoms. Musculoskeletal: Reports: see HPI. Neurological/Psychological: Reports: no symptoms. Objective Last 24 Hrs of Vital Signs/I&O Vital Signs Date Time Temp Pulse Resp B/P B/P Pulse O2 O2 Flow FiO2 Mean Ox Delivery Rate 06/13 0550 98.4 82 18 142/68 97 06/12 2005 98.3 96 19 140/82 99 Room Air 06/12 1932 97.3 83 17 157/74 97 Room Air 06/12 1758 97.1 85 18 140/72 96 Room Air 06/12 1718 97.7 148/58 06/12 1710 101 20 96 06/12 1525 97.6 93 18 164/86 100 Room Air 06/12 1130 98.9 100 18 183/81 99 Room Air Intake & Output 06/13 1600 06/13 0800 06/13 0000 Intake Total 2200 600 Output Total Balance 2200 600 Intake, IV 2140 600 Intake, Oral 60 0 Number 0 0 Bowel Movements Patient 175 lb Weight Weight Bed scale Measurement Method Physical Exam General Appearance: Alert, Oriented X3, Cooperative Skin Temp/Moisture Exam: Warm/Dry Sepsis Skin Exam (color): Normal for Ethnicity HEENT: Atraumatic, PERRLA, EOMI Neck: Supple Cardiovascular: Normal S1, Normal S2 Lungs: Clear to Auscultation Abdomen: pain in belly with tenderness Neurological: Normal Speech, Normal Tone, right leg AKA, left leg chronic ulcers Assessment/Plan Assessment: 56-year-old female with a past medical history of diabetes, GERD presents to the ED with chief complaint of abdominal pain. Patient was evaluated by Endo and plan was to admit for insulin drip to ICU, hwoever after recieving 10 units of SC insulin, her BS came down to 544-->396 and she was downgraded to Gen Med. Acute Pancreatitis: - May be due to gallstone, given abrupt onset vs HHS. Of note no hx of URI, NSAId, Ca and TG are WNL. - NPO for now - Hydrate aggresively with IVF @250mls/hr. - Pain management with IV Morphine 4mg Q4 PRN as patent is allergic to Dilaudid and Percocet. - Zofran for nausea. HHS: -Due to uncontrolled DM - Her FSG is 396. Will admisnter 24 units of levemir x1 now and place her on Novbolog sliding scale as per Dr. Faye's recs. - f/u Endo consult. - Continueto monitor FSG q 4 hrs. - Holding her home regimen. 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 - Wound care - dry dressing change - continue ASA, Plavix and statin Lactic acidosis: - Resolved - Due to HHS Hyponatremia: - Pseudo given elevated glucose RA: - Continue hydroxycloroquine Opiod dependence: - Confirm methadone form [facility] clinic in [place] in AM - Patient is on 78mg daily. - Contineu Buproproin GERD: - Continue Omeprazole DVT prophylaxis: - s/c heparin Code Status: - Full Code Problem List: 1. Acute pancreatitis 2. Hyperglycemia Pain Ratin Pain Location: abdomen Pain Goal: Pain 4 or less Pain Plan: dilaudid for severe pain Tomorrow's Labs & Rationales: cbc/bep
[2017-06-13 08:22] LABS: ABSOLUTE BASOPHIL COUNT 0 /CUMM (0.0-0.2); ABSOLUTE EOSINOPHIL COUNT 0.1 /CUMM (0.0-0.7); ABSOLUTE GRANULOCYTE CT 9.7 /CUMM (1.4-6.5); ABSOLUTE LYMPH COUNT 0.8 /CUMM (1.2-3.4); ABSOLUTE MONOCYTE COUNT 0.6 /CUMM (0.10-0.60); BASOPHIL % 0.3 % (0.0-2.0); EOSINOPHIL % 0.8 % (0-5); GRANULOCYTE % 86.8 % (42.2-75.2); MEAN CORPUSCULAR HGB 27.7 PG (27.0-31.0); MEAN CORPUSCULAR VOLUME 83.9 FL (81.0-99.0); PLATELET COUNT 222 /CUMM (130-400); RED BLOOD CELL CT 3.49 /CUMM (4.20-5.40)
[2017-06-13 08:52] LABS: HEMATOCRIT 29.3 % (37-47)
[2017-06-13 09:51] LABS: WHITE BLOOD CELL COUNT 11.2 /CUMM (4.8-10.8)
[2017-06-13 14:58] VITALS: BP 151/76
--- NOTE | 2017-06-13 17:41 | PN- Diabetes ---
Assessment/Plan Assessment: 56 y/o female with a PMH significant for RA, scleroderma, DM type 2, PVD s/p above knee amputation of right LE, and stent placemnt in left LE, chronic non -healing ulcer of the left LE, GERD, hypothyroidism, opioid abuse on Methadone who presented to the ED with c/o excruciating epigastric pain asociated with non -bloody, bilous vomitus. Blood work showed severe hyperglycemia along with elevated osmolality consistent with HHS. In addition, her lipase is significantly elevated. CT scan demonstrated acute pancreatitis. Clinically she has been feeling better. She received Levemir 24 units last night. Now she is on Novolog coverage every 4 hours. She is still kept NPO and receiving NS. Her FSGs were 407, 313, 198, 210 and 198. Plan: 1. start Levemir 15 units twice a day; 2. continue the current Novolog coverage every 4 hours; 3. monitor FSGs and electrolytes. will follow Subjective Subjective: She feels better. Objective Last 24 Hrs of Vital Signs/I&O Vital Signs Date Time Temp Pulse Resp B/P B/P Pulse O2 O2 Flow FiO2 Mean Ox Delivery Rate 06/13 1458 99.1 96 20 151/76 06/13 1238 78 132/80 06/13 0550 98.4 82 18 142/68 97 06/12 2004 98.3 96 19 140/82 99 Room Air 06/12 1932 97.3 83 17 157/74 97 Room Air 06/12 1758 97.1 85 18 140/72 96 Room Air Intake & Output 06/13 1600 06/13 0800 06/13 0000 Intake Total 1999 2200 600 Output Total 1000 Balance 1000 2200 600 Intake, IV 1999 2140 600 Intake, Oral 0 60 0 Number 0 0 0 Bowel Movements Output, Urine 1000 Patient 175 lb Weight Weight Bed scale Measurement Method Findings Pertinent Lab/Nikolas Results: Laboratory Tests 06/13 06/13 0646 0005 Chemistry Sodium (137 - 145 mmol/L) 137 140 Potassium (3.5 - 5.1 mmol/L) 4.0 4.2 Chloride (98 - 107 mmol/L) 107 104 Carbon Dioxide (22 - 30 mmol/L) 19 L 23 Anion Gap (5 - 16) 11 13 BUN (7 - 17 mg/dL) 12 13 Creatinine (0.5 - 1.0 mg/dL) 0.5 0.6 Estimated GFR (>60 ml/min) > 60 > 60 Glucose (65 - 99 mg/dL) 170 H 197 H Calcium (8.4 - 10.2 mg/dL) 7.9 L 8.5 Phosphorus (2.5 - 4.5 mg/dL) 2.7 2.8 Magnesium (1.6 - 2.3 mg/dL) 1.7 1.8 Total Bilirubin (0.2 - 1.3 mg/dL) 0.3 0.3 AST (14 - 36 U/L) 27 28 ALT (9 - 52 U/L) 41 39 Albumin (3.5 - 5.0 g/dL) 2.5 L 3.0 L Hematology CBC w Diff NO MAN DIFF REQ WBC (4.8 - 10.8 /CUMM) 11.2 H RBC (4.20 - 5.40 /CUMM) 3.49 L Hgb (12.0 - 16.0 G/DL) 9.7 L Hct (37 - 47 %) 29.3 L MCV (81.0 - 99.0 FL) 83.9 MCH (27.0 - 31.0 PG) 27.7 RDW (11.5 - 14.5 %) 14.0 Plt Count (130 - 400 /CUMM) 222 MPV (7.4 - 10.4 FL) 11.0 H Gran % (42.2 - 75.2 %) 86.8 H Lymphocytes % (20.5 - 51.1 %) 7.1 L Monocytes % (1.7 - 9.3 %) 5.0 Eosinophils % (0 - 5 %) 0.8 Basophils % (0.0 - 2.0 %) 0.3 Absolute Granulocytes (1.4 - 6.5 /CUMM) 9.7 H Absolute Lymphocytes (1.2 - 3.4 /CUMM) 0.8 L Absolute Monocytes (0.10 - 0.60 /CUMM) 0.6 Absolute Eosinophils (0.0 - 0.7 /CUMM) 0.1 Absolute Basophils (0.0 - 0.2 /CUMM) 0 PUBS MCHC (33.0 - 37.0 G/DL) 33.0
[2017-06-13 22:30] VITALS: BP 140/74
[2017-06-14 05:45] VITALS: BP 136/72
--- NOTE | 2017-06-14 07:29 | PN- Housestaff ---
AleksandarIrwinton 06/14/17 0729: Subjective Follow-up For: Acute pancreatitis Hyperglycemia Subjective: No overnight events. Patient remained afebrile overnight. Seen and examined this morning. Patient reported having abdominal pain 5/10 to control with pain medication. Patient denied any nausea vomiting chest pain, palpitation, short of breath, chills, fever and dysuria. There are no patient is nothing by mouth and on IV fluids. We will give her clear fluids and we will check if she has any nausea vomiting or pain. We will decrease her IV fluids. Review of Systems Constitutional: Reports: no symptoms. EENTM: Reports: no symptoms. Cardiovascular: Reports: no symptoms. Respiratory: Reports: no symptoms. Gastrointestinal: Reports: abdominal pain. Genitourinary: Reports: no symptoms. Musculoskeletal: Reports: no symptoms. Neurological/Psychological: Reports: no symptoms. Objective Last 24 Hrs of Vital Signs/I&O Vital Signs Date Time Temp Pulse Resp B/P B/P Pulse O2 O2 Flow FiO2 Mean Ox Delivery Rate 06/14 0545 97.8 88 18 136/72 94 06/13 2230 98.5 94 20 140/74 95 Room Air 06/13 1458 99.1 96 20 151/76 06/13 1238 78 132/80 Intake & Output 06/14 1600 06/14 0800 06/14 0000 Intake Total 2020 Output Total Balance 2020 Intake, IV 2020 Intake, Oral 0 Number 0 Bowel Movements Physical Exam General Appearance: Alert, Oriented X3, Cooperative, No Acute Distress Skin Temp/Moisture Exam: Warm/Dry HEENT: Atraumatic, PERRLA, EOMI Neck: Supple Cardiovascular: Normal S1, Normal S2 Lungs: Clear to Auscultation Abdomen: Soft Neurological: Normal Speech, Normal Tone, right leg AKA. Extremities: LEFT LEG CHRONIC ULCERS Assessment/Plan Assessment: 56-year-old female with a past medical history of diabetes, GERD presents to the ED with chief complaint of abdominal pain. Patient was evaluated by Endo and plan was to admit for insulin drip to ICU, hwoever after recieving 10 units of SC insulin, her BS came down to 544-->396 and she was downgraded to Gen Med. Acute Pancreatitis: -We will advance to diet to clear liquid. -We will continue IV fluids -IV Zofran as needed -IV pain medication as needed -Patient already had cholecystectomy probably pancreatitis is autoimmune or medication induced. HHS: -Due to uncontrolled DM -Her blood sugar levels are under control. -Patient is on insulin NovoLog according to sliding scale -Insulin Levemir 15 twice a day. -We will follow the endocrinology recommendations. 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 - Contineu Buproproin GERD: - Continue Omeprazole DVT prophylaxis: - s/c heparin Code Status: - Full Code Problem List: 1. Hyperglycemia 2. Acute pancreatitis Pain Ratin Pain Location: ABDOMEN Pain Goal: Pain 4 or less Pain Plan: dilaudid for severe pain Tomorrow's Labs & Rationales: cbc/bep Mirta Chavez MD 06/14/17 1230: Attending MD Review Statement Attending Statement Attending MD Statement: examined this patient, discuss w/resident/PA/PRESSROOM SUPERVISOR, agreed w/resident/PA/PRESSROOM SUPERVISOR, reviewed EMR data (avail) Attending Assessment/Plan: 56F PMH T2DM, PVD, right AKA presenting with 1 week of worsening epigastric pain , for the past 2-3 days has been unable to tolerate PO and has been vomiting everything she tries to eat, with significant nausea, found to have acute pancreatitis by labs and imaging. No alcohol intake, no recent medication changes. Tender epigastric area on exam, otherwise patient looks well and is comfortable. Labs significant for glucose 844, anion gap 17, lactate 2.6, WBC 12.6. CT abdomen/pelvic shows acute pancreatitis. LFTs normal, no evidence of gallstones. Labs and pain improved. Tolerating clear liquid diet. 1. Acute pancreatitis 2. HHS Type 2 3. Lactic acidosis Plan - Continue on general medicine - IV hydration - Tylenol IV PRN mild/moderate pain - Morphine 2mg PRN severe pain (patient has adverse reactions to Percocet and Dilaudid) - Advance diet as tolerated - Endocrine consult - Monitor LFTs - Contact her primary care for records - DVT PPx
[2017-06-14 08:29] LABS: ABSOLUTE BASOPHIL COUNT 0 /CUMM (0.0-0.2); ABSOLUTE EOSINOPHIL COUNT 0.1 /CUMM (0.0-0.7); ABSOLUTE GRANULOCYTE CT 8.5 /CUMM (1.4-6.5); ABSOLUTE MONOCYTE COUNT 0.6 /CUMM (0.10-0.60); BASOPHIL % 0.2 % (0.0-2.0); EOSINOPHIL % 1.2 % (0-5); GRANULOCYTE % 83.4 % (42.2-75.2); HEMATOCRIT 29.6 % (37-47); MEAN CORPUSCULAR HGB CONC 33.1 G/DL (33.0-37.0); MEAN CORPUSCULAR VOLUME 84.7 FL (81.0-99.0); MEAN PLATELET VOLUME 10.8 FL (7.4-10.4); PLATELET COUNT 210 /CUMM (130-400); RBC DISTRIBUTION WIDTH 14.3 % (11.5-14.5); WHITE BLOOD CELL COUNT 10.2 /CUMM (4.8-10.8)
--- NOTE | 2017-06-14 08:32 | PN- Diabetes ---
Assessment/Plan Assessment: 56 y/o female with a PMH significant for RA, scleroderma, DM type 2, PVD s/p above knee amputation of right LE, and stent placemnt in left LE, chronic non -healing ulcer of the left LE, GERD, hypothyroidism, opioid abuse on Methadone who presented to the ED with c/o excruciating epigastric pain asociated with non -bloody, bilous vomitus. Blood work showed severe hyperglycemia along with elevated osmolality consistent with HHS. In addition, her lipase is significantly elevated. CT scan demonstrated acute pancreatitis. Her HbA1c was 14.3%. Clinically she has been feeling better. She is on Levemir 15 units twice a day, Novolog coverage every 4 hours. Her FSGs were 186, 159, 115 and 124. Most likely she will be on clear liquid diet. Plan: 1. continue Levemir 15 units twice a day; 2. stop novolog coverage every 4 hours; 3. start Novolog coverage before meals and Novolog coverage at bedtime; 4. recommend clear liquid diet w/o concentrated sweets. 5. monitor FSGs and electrolytes. will follow. Inpatient Diabetes Orders Before Each Meal: Bolus Insulin: Novolog < 80 mg/dl: no coverage 80-100 mg/dl: no coverage 101-120 mg/dl: no coverage 121-150 mg/dl: no coverage 151-200 mg/dl: 2 units 201-250 mg/dl: 4 units 251-300 mg/dl: 6 units 301-350 mg/dl: 8 units 351-400 mg/dl: 10 units > 400 mg/dl: 12 units Bedtime: Bolus Insulin: Novolog < 80 mg/dl: no coverage 80-100 mg/dl: no coverage 101-120 mg/dl: no coverage 121-150 mg/dl: no coverage 151-200 mg/dl: no coverage 201-250 mg/dl: no coverage 251-300 mg/dl: 2 units 301-350 mg/dl: 3 units 351-400 mg/dl: 4 units > 400 mg/dl: 5 units Subjective Subjective: She feels better and would like to eat. Objective Last 24 Hrs of Vital Signs/I&O Vital Signs Date Time Temp Pulse Resp B/P B/P Pulse O2 O2 Flow FiO2 Mean Ox Delivery Rate 06/14 0545 97.8 88 18 136/72 94 06/13 2230 98.5 94 20 140/74 95 Room Air 06/13 1458 99.1 96 20 151/76 06/13 1238 78 132/80 Intake & Output 06/14 1600 06/14 0800 06/14 0000 Intake Total 2019 Output Total Balance 2019 Intake, IV 2020 Intake, Oral 0 Number 0 Bowel Movements Findings Pertinent Lab/Nikolas Results: Laboratory Tests 06/14 0646 Chemistry Sodium Pending Potassium Pending Chloride Pending Carbon Dioxide Pending Anion Gap Pending BUN Pending Creatinine Pending BUN/Creatinine Ratio Pending Hematology CBC w Diff Pending WBC Pending RBC Pending Hgb Pending Hct Pending MCV Pending MCH Pending MCHC Pending RDW Pending Plt Count Pending MPV Pending
--- NOTE | 2017-06-14 09:19 | Cons- Wound Care ---
General Information and HPI Consulting Request Date of Consult: 06/14/17 Requested By: Mirta Chavez MD Reason for Consult: Left lower extremity ulcers present on admission History of Present Illness: Patient is 56-year-old with diabetes peripheral varices status post right leg amputation admitted with acute pancreatitis and found to have chronic left lower extremity ulcers present on admission. Followed by vascular surgery and she reports improve circulation to her left leg after bypass. Wound care has been dry dressing she denies drainage. She does not believe there is evidence of osteomyelitis. Allergies/Medications Allergies: Coded Allergies: Penicillins (UNKNOWN 09/27/15) Home Med List: Aspirin (Ecotrin*) 81 MG TABLET.DR 1 TAB PO DAILY PVD (Reported) Bupropion HCl (Bupropion HCl Sr) 200 MG TABLET.ER 1 TAB PO DAILY OPIOID ( Reported) Clopidogrel Bisulfate (Plavix) 75 MG TABLET 1 TAB PO DAILY PVD (Reported) Exenatide Microspheres (Bydureon) 2 MG VIAL 2 MG SC QTUES DM (Reported) Insulin Aspart, Recombinant (Novolog Flexpen) 100 UNIT/ML INSULN.PEN 0 SC TID DM (Reported) Insulin Glargine,Hum.rec.anlog (Lantus Solostar) 100 UNIT/ML (3 ML) INSULN.PEN 48 UNIT SC QPM DM (Reported) Levothyroxine Sodium (Synthroid) 75 MCG TABLET 1 TAB PO DAILY HYPOTHYROIDISM (Reported) Losartan Potassium 25 MG TABLET 1 TAB PO DAILY HTN (Reported) Metformin HCl 1,000 MG TABLET 1 TAB PO BID DM (Reported) Omeprazole 20 MG TABLET.DR 1 TAB PO DAILY GERD (Reported) Pravastatin Sodium (Pravachol) 80 MG TABLET 1 TAB PO DAILY PVD (Reported) Sitagliptin Phosphate (Januvia) 100 MG TABLET 1 TAB PO DAILY DM (Reported) Trazodone HCl 100 MG TABLET 1.5 TAB PO QPM SLEEP (Reported) Past History Travel History Traveled to [place] past 21 day No Medical History Blood Transfusion Hx: No Neurological: NONE EENT: NONE Cardiovascular: PVD (s/p stent in left leg ) Respiratory: NONE Gastrointestinal: NONE Hepatic: NONE Renal: NONE Musculoskeletal: NONE Psychiatric: anxiety, depression Endocrine: diabetes, hypothyroidism Blood Disorders: NONE Cancer(s): NONE DIRECTOR MARKET RESEARCH/Reproductive: NONE Other Medical Hx: RA, Scleroderma Surgical History Surgical History: cholecystectomy, bleow and above knee amputation of RLE Family History Relations & Conditions If Any: BROTHER *No pertinent family history FH: diabetes mellitus MOTHER FH: diabetes mellitus FATHER Relation not specified for: FH: colon cancer Psychosocial History Where Do You Live? Home Services at Home: Home Health Aide Smoking Status: Former Smoker ETOH Use: denies use Illicit Drug Use: denies illicit drug use Functional Ability ADLs Independent: dressing, eating, toileting, bathing. Ambulation: independent IADLs Independent: shopping, housework, finances, food prep, telephone, transportation , medication admin. Employment History Employment: Disability Exam & Diagnostic Data Vital Signs and I&O Vital Signs Result Date Time Pulse Ox 94 06/14 0545 B/P 136/72 06/14 0545 Temp 97.8 06/14 0545 Pulse 88 06/14 0545 Resp 18 06/14 0545 O2 Delivery Room Air 06/13 2230 Intake & Output 06/14 0000 06/13 1600 06/13 0800 Intake Total 2019 1999 2199 Output Total 1000 Balance 20190 Intake, IV 2019 1999 2139 Intake, Oral 0 0 60 Number 0 0 0 Bowel Movements Output, Urine 1000 Exam of the left lower extremity shows absent palpable pulses over the anterior left leg are several wounds present on admission there is a stage III ulcer measuring approximately 4.5 x 2.5 cm there is several smaller ulcers approximately 1 x 1 cm all have red fill there is no evidence of epithelialization undermining sinus tracking or periwound erythema there is no drainage there is trace edema Assessment/Plan Impression/Plan: 56-year-old woman with diabetes extensive peripheral vascular disease admitted with pancreatitis. Her albumin is significantly low and formal nutritional evaluation should be obtained. Wound care can be cleansing and daily Xeroform. Further evaluation of her vascular status can be obtained by an arterial ultrasound which can be deferred to the outpatient setting if she wishes to continue to get her care locally otherwise return to the care of her prior physicians Consult Acknowledgment - Thank you for your consult request.
[2017-06-14 12:15] VITALS: BP 140/80
[2017-06-14 21:20] VITALS: BP 144/76
[2017-06-15 06:00] VITALS: BP 142/72
--- NOTE | 2017-06-15 07:47 | PN- Housestaff ---
See Addendum Subjective Follow-up For: Acute Pancreatitis Subjective: Patient reports vomiting yesterday clear liquids and epigastric pain 11/27. She currently has mild epigastric pain but will try to tolerate diet today. Review of Systems Constitutional: Reports: see HPI. Objective Last 24 Hrs of Vital Signs/I&O Vital Signs Date Time Temp Pulse Resp B/P B/P Pulse O2 O2 Flow FiO2 Mean Ox Delivery Rate 06/15 06 98.6 86 20 142/72 99 06/14 2120 98.2 94 20 144/76 97 Room Air 06/14 1215 98.0 106 20 140/80 98 Room Air Intake & Output 06/15 0800 06/15 0000 06/14 1600 Intake Total 1920 2600 Output Total 500 2000 Balance 1420 600 Intake, IV 1200 1700 Intake, Oral 720 900 Number 0 0 Bowel Movements Output, Urine 500 1999 Patient 175 lb Weight Physical Exam General Appearance: Alert, Oriented X3, Cooperative, No Acute Distress HEENT: Atraumatic, PERRLA, EOMI, Mucous Membr. moist/pink Neck: Supple, No JVD, No thryomegaly Cardiovascular: Regular Rate, Normal S1, Normal S2 Lungs: Clear to Auscultation, Normal Air Movement Abdomen: No Tenderness, Epigastric pain Extremities: LLE ulcerative wounds to muscle with serosanguinous drainage and venous stasis Current Medications: Current Medications Sig/Christina Start time Last Medication Dose Route Stop Time Status Admin Acetaminophen 1,000 MG Q8P PRN 06/12 1745 AC 06/14 N/A 1 UNIT IV 0445 Alprazolam 0.25 MG ONCE ONE 06/14 2145 DC PO 06/14 2146 Aspirin Buffered 81 MG DAILY 06/13 1000 AC 06/14 PO 0939 Atorvastatin Calcium 80 MG ONCE ONE 06/14 1545 DC PO 06/14 1546 Bupropion HCl 200 MG DAILY 06/13 1000 AC 06/14 PO 0939 Clopidogrel Bisulfate 75 MG DAILY 06/13 1000 AC 06/14 PO 0939 Docusate Sodium 100 MG BID 06/14 1537 AC 06/14 PO 2134 Heparin Sodium 5,000 UNIT Q8 06/120 AC 06/15 (Porcine) SC 0501 Hydroxychloroquine 200 MG BID 06/12 220 AC 06/14 Sulfate PO 213 Insulin Aspart 0 AC & AT BEDTIME 06/14 0818 AC 06/14 SC 1652 Insulin Detemir 15 UNITS BID 06/13 2200 AC 06/14 SC 2134 Levothyroxine Sodium 0.075 MG DAILY AC 06/13 0700 AC 06/15 PO 0501 Losartan Potassium 25 MG DAILY 06/13 1000 AC 06/14 PO 0939 Methadone HCl 80 MG DAILY 06/14 1700 AC 06/14 PO 1651 Methadone HCl 80 MG DAILY 06/13 1609 AC PO Morphine Sulfate 2 MG Q4P PRN 06/13 0745 AC 06/14 IV 1434 Omeprazole 40 MG DAILY AC 06/13 0700 AC 06/15 PO 0501 Ondansetron HCl 4 MG Q6P PRN 06/12 1630 AC 06/13 IV 0811 Pravastatin Sodium 40 MG 1700 06/13 1700 AC 06/14 PO 1621 Simethicone 40 MG ONCE ONE 06/14 1300 DC 06/14 PO 06/14 1301 1446 Sodium Chloride 1,000 ML Q6H 06/12 1645 AC 06/14 IV 06/15 1044 1622 Trazodone HCl 150 MG QPM 06/12 2200 AC PO Last 24 Hrs of Lab/Nikolas Results Last 24 Hrs of Labs/Mics: Laboratory Tests 06/15/17 0716: Sodium Pending, Potassium Pending, Chloride Pending, Carbon Dioxide Pending, Anion Gap Pending, BUN Pending, Creatinine Pending, BUN/Creatinine Ratio Pending , CBC w Diff Pending, WBC Pending, RBC Pending, Hgb Pending, Hct Pending, MCV Pending, MCH Pending, MCHC Pending, RDW Pending, Plt Count Pending, MPV Pending Assessment/Plan Assessment: 56-year-old female with a past medical history of diabetes, GERD presents to the ED with chief complaint of abdominal pain. Patient was evaluated by Endo and plan was to admit for insulin drip to ICU, hwoever after recieving 10 units of SC insulin, her BS came down to 544-->396 and she was downgraded to Gen Med. Acute Pancreatitis: -We will advance to diet from clear liquid to full as tolerated. -IV Zofran as needed -IV pain medication as needed -Patient already had cholecystectomy probably pancreatitis is autoimmune or medication induced. HHS: -Due to uncontrolled DM -Her blood sugar levels are under control. -Patient is on insulin NovoLog according to sliding scale -Insulin Levemir 15 twice a day. -We will follow the endocrinology recommendations. PVD s/p above knee amputation of RLE and chonic non-healing wound on LLE: - Wound care - dry dressing change - continue ASA, Plavix and statin Lactic acidosis:(resolved) - Resolved - Due to HHS Hyponatremia:(resolved) - Pseudo given elevated glucose RA: - Continue hydroxycloroquine Opiod dependence: - continue methadone 80 mg - Patient is on 78mg daily. - Contineu Buproproin GERD: - Continue Omeprazole DVT prophylaxis: - s/c heparin Code Status: - Full Code Problem List: 1. Acute pancreatitis Pain Ratin Pain Location: Epigastric Pain Goal: Remain pain free Pain Plan: Morphine Tomorrow's Labs & Rationales: CBC, BEP
--- NOTE | 2017-06-15 08:27 | PN- Diabetes ---
Assessment/Plan Assessment: 56 y/o female with a PMH significant for RA, scleroderma, DM type 2, PVD s/p above knee amputation of right LE, and stent placemnt in left LE, chronic non -healing ulcer of the left LE, GERD, hypothyroidism, opioid abuse on Methadone who presented to the ED with c/o excruciating epigastric pain asociated with non -bloody, bilous vomitus. Blood work showed severe hyperglycemia along with elevated osmolality consistent with HHS. In addition, her lipase is significantly elevated. CT scan demonstrated acute pancreatitis. Her HbA1c was 14.3%. Clinically she still has abdominal pain. She is on clear liquid diet. She is on Levemir 15 units twice a day, Novolog coverage before meals and Novolog coverage at bedtime. Her FSGs were 110, 190, 301, 174 and 209. Plan: continue the current insulin regimen for now; monitor FSGs and electrolytes. will follow. Subjective Subjective: she still has abdominal pain. Objective Last 24 Hrs of Vital Signs/I&O Vital Signs Date Time Temp Pulse Resp B/P B/P Pulse O2 O2 Flow FiO2 Mean Ox Delivery Rate 06/15 0600 98.6 86 20 142/72 99 06/14 2120 98.2 94 20 144/76 97 Room Air 06/14 1215 98.0 106 20 140/80 98 Room Air Intake & Output 06/15 1600 06/15 0800 06/15 0000 Intake Total 1920 Output Total 500 Balance 1420 Intake, IV 1200 Intake, Oral 720 Number 0 Bowel Movements Output, Urine 500 Findings Pertinent Lab/Nikolas Results: Laboratory Tests 06/15 0716 Chemistry Sodium Pending Potassium Pending Chloride Pending Carbon Dioxide Pending Anion Gap Pending BUN Pending Creatinine Pending BUN/Creatinine Ratio Pending Hematology CBC w Diff Pending WBC Pending RBC Pending Hgb Pending Hct Pending MCV Pending MCH Pending MCHC Pending RDW Pending Plt Count Pending MPV Pending
[2017-06-15 08:46] LABS: ABSOLUTE BASOPHIL COUNT 0 /CUMM (0.0-0.2); ABSOLUTE EOSINOPHIL COUNT 0.2 /CUMM (0.0-0.7); ABSOLUTE LYMPH COUNT 0.8 /CUMM (1.2-3.4); ABSOLUTE MONOCYTE COUNT 0.7 /CUMM (0.10-0.60); BASOPHIL % 0.2 % (0.0-2.0); EOSINOPHIL % 1.6 % (0-5); GRANULOCYTE % 84.4 % (42.2-75.2); MEAN CORPUSCULAR HGB 27.9 PG (27.0-31.0); MEAN CORPUSCULAR HGB CONC 33.1 G/DL (33.0-37.0); MEAN CORPUSCULAR VOLUME 84.3 FL (81.0-99.0); MEAN PLATELET VOLUME 10.7 FL (7.4-10.4); PLATELET COUNT 219 /CUMM (130-400); RBC DISTRIBUTION WIDTH 13.8 % (11.5-14.5); RED BLOOD CELL CT 3.55 /CUMM (4.20-5.40); WHITE BLOOD CELL COUNT 10.7 /CUMM (4.8-10.8)
[2017-06-15 14:55] VITALS: BP 138/74
[2017-06-15 23:00] VITALS: BP 147/75
[2017-06-16 07:01] VITALS: BP 162/82
--- NOTE | 2017-06-16 07:41 | PN- Housestaff ---
AleksandarWindom 06/16/17 0741: Subjective Follow-up For: Acute pancreatitis HHS/uncontrolled diabetes Left leg venous stasis ulcers Subjective: No overnight events. Patient remained afebrile overnight. Seen and examined this morning. Patient reported having nausea and vomiting yesterday. But this morning she is tolerating clear liquid diet. Patient reported having 4/10 abdominal that's intermittent. Patient denied chest pain, palpitation, short of breath, nausea this morning, vomiting, chills, fever, lightheadedness and dysuria. If patient tolerates clear liquid diet was advanced to full liquid. Patient is getting dressing for left leg. Today her fasting blood sugar level is 102 Review of Systems Constitutional: Reports: no symptoms. EENTM: Reports: no symptoms. Cardiovascular: Reports: no symptoms. Respiratory: Reports: no symptoms. Gastrointestinal: Reports: abdominal pain. Genitourinary: Reports: no symptoms. Musculoskeletal: Reports: no symptoms. Neurological/Psychological: Reports: no symptoms. Objective Last 24 Hrs of Vital Signs/I&O Vital Signs Date Time Temp Pulse Resp B/P B/P Pulse O2 O2 Flow FiO2 Mean Ox Delivery Rate 06/16 0701 98.3 81 18 162/82 98 Room Air 06/15 2300 98.7 82 20 147/75 98 Room Air 06/15 1455 98.3 91 20 138/74 98 Room Air 06/15 0949 88 160/92 Intake & Output 06/16 1600 06/16 0800 06/16 0000 Intake Total 360 800 Output Total 300 Balance 60 800 Intake, Oral 360 800 Number 0 0 Bowel Movements Output, 150 Emesis Output, Urine 150 Physical Exam General Appearance: Alert, Oriented X3, Cooperative Skin Temp/Moisture Exam: Warm/Dry Sepsis Skin Exam (color): Normal for Ethnicity HEENT: Atraumatic, PERRLA, EOMI Neck: Supple Cardiovascular: Normal S1, Normal S2 Lungs: dECREASED BREATH SOUNDS B/L Abdomen: Soft Neurological: Normal Speech, Normal Tone Extremities: RIGHT LEG AKA, LEFT LEG VENOUS STASIS ULCERS Assessment/Plan Assessment: 56-year-old female with a past medical history of diabetes, GERD presents to the ED with chief complaint of abdominal pain. Patient was evaluated by Endo and plan was to admit for insulin drip to ICU, hwoever after recieving 10 units of SC insulin, her BS came down to 544-->396 and she was downgraded to Gen Med. Acute Pancreatitis: -IV Zofran as needed -IV pain medication as needed -Patient already had cholecystectomy probably pancreatitis is autoimmune or medication induced. -We will advance to diet from clear liquid to full as tolerated. HHS: -Due to uncontrolled DM -Her blood sugar levels are under control. -Patient is on insulin NovoLog according to sliding scale -Insulin Levemir 15 twice a day. -We will follow the endocrinology recommendations. PVD s/p above knee amputation of RLE and chonic non-healing wound on LLE: -Patient is getting daily dressing with Xeroform. -We will follow the wound care recommendations. - continue ASA, Plavix and statin Lactic acidosis:(resolved) - Resolved - Due to HHS Hyponatremia:(resolved) - Pseudo given elevated glucose RA: - Continue hydroxycloroquine Opiod dependence: -Methadone 78mg daily. - Contineu Buproproin GERD: - Continue Omeprazole DVT prophylaxis: - s/c heparin Code Status: - Full Code Problem List: 1. Hyperglycemia 2. Acute pancreatitis Pain Ratin Pain Location: ABDOMEN Pain Goal: Remain pain free Pain Plan: DILAUDID FOR SEVERE PAIN Tomorrow's Labs & Rationales: CBC/BEP Mirta Chavez MD 06/16/17 1229: Attending MD Review Statement Attending Statement Attending MD Statement: examined this patient, discuss w/resident/PA/PORTABLE TRACK LINE MARKER, agreed w/resident/PA/PORTABLE TRACK LINE MARKER, reviewed EMR data (avail) Attending Assessment/Plan: 56F PMH T2DM, PVD, right AKA presenting with 1 week of worsening epigastric pain , for the past 2-3 days has been unable to tolerate PO and has been vomiting everything she tries to eat, with significant nausea, found to have acute pancreatitis by labs and imaging. No alcohol intake, no recent medication changes. Tender epigastric area on exam, otherwise patient looks well and is comfortable. Labs significant for glucose 844, anion gap 17, lactate 2.6, WBC 12.6. CT abdomen/pelvic shows acute pancreatitis. LFTs normal, no evidence of gallstones. Abdominal pain is persistent but slowly improving. Vomited this morning after meal. Looks better than yesterday. 1. Acute pancreatitis 2. HHS Type 2 3. Lactic acidosis 4. Left lower leg venous stasis ulcer Plan - Continue on general medicine - Continue clear liquid diet - Tylenol IV PRN mild/moderate pain - Morphine 2mg PRN severe pain (patient has adverse reactions to Percocet and Dilaudid) - Continue Xeroform dressings on LLE - Endocrine consult - Monitor LFTs - DVT PPx
[2017-06-16 09:04] LABS: ABSOLUTE BASOPHIL COUNT 0 /CUMM (0.0-0.2); ABSOLUTE EOSINOPHIL COUNT 0.1 /CUMM (0.0-0.7); ABSOLUTE GRANULOCYTE CT 8.6 /CUMM (1.4-6.5); ABSOLUTE LYMPH COUNT 0.7 /CUMM (1.2-3.4); ABSOLUTE MONOCYTE COUNT 0.7 /CUMM (0.10-0.60); BASOPHIL % 0.3 % (0.0-2.0); EOSINOPHIL % 1.4 % (0-5); GRANULOCYTE % 84.5 % (42.2-75.2); HEMATOCRIT 32.2 % (37-47); MEAN CORPUSCULAR HGB 27.5 PG (27.0-31.0); MEAN CORPUSCULAR HGB CONC 32.7 G/DL (33.0-37.0); MEAN CORPUSCULAR VOLUME 84.1 FL (81.0-99.0); MEAN PLATELET VOLUME 10.8 FL (7.4-10.4); PLATELET COUNT 243 /CUMM (130-400); RBC DISTRIBUTION WIDTH 14.2 % (11.5-14.5); RED BLOOD CELL CT 3.83 /CUMM (4.20-5.40)
[2017-06-16 10:03] LABS: WHITE BLOOD CELL COUNT 10.1 /CUMM (4.8-10.8)
[2017-06-16 14:56] VITALS: BP 160/80
--- NOTE | 2017-06-16 16:03 | PN- Diabetes ---
Assessment/Plan Assessment: 56 y/o female with a PMH significant for RA, scleroderma, DM type 2, PVD s/p above knee amputation of right LE, and stent placemnt in left LE, chronic non -healing ulcer of the left LE, GERD, hypothyroidism, opioid abuse on Methadone who presented to the ED with c/o excruciating epigastric pain asociated with non -bloody, bilous vomitus. Blood work showed severe hyperglycemia along with elevated osmolality consistent with HHS. In addition, her lipase is significantly elevated. CT scan demonstrated acute pancreatitis. Her HbA1c was 14.3%. Clinically she still has nausea. She is on Levemir 15 units twice a day, Novolog coverage before meals and Novolog coverage at bedtime. Her FSGs were 102, 171, 250 and 171. Plan: continue the current insulin regimen for now; monitor FSGs. will follow. Subjective Subjective: She still has abdominal pain. Objective Last 24 Hrs of Vital Signs/I&O Vital Signs Date Time Temp Pulse Resp B/P B/P Pulse O2 O2 Flow FiO2 Mean Ox Delivery Rate 06/16 1456 98.2 94 20 160/80 99 Room Air 06/16 0701 98.3 81 18 162/82 98 Room Air 06/15 2300 98.7 82 20 147/75 98 Room Air Intake & Output 06/16 1600 06/16 0800 06/16 0000 Intake Total 730 360 800 Output Total 600 300 Balance 130 60 800 Intake, IV 30 Intake, Oral 700 360 800 Number 0 0 0 Bowel Movements Output, 150 Emesis Output, Urine 600 150 Findings Pertinent Lab/Nikolas Results: Laboratory Tests 06/16 0800 Chemistry Sodium (137 - 145 mmol/L) 139 Potassium (3.5 - 5.1 mmol/L) 3.5 Chloride (98 - 107 mmol/L) 107 Carbon Dioxide (22 - 30 mmol/L) 20 L Anion Gap (5 - 16) 12 BUN (7 - 17 mg/dL) 7 Creatinine (0.5 - 1.0 mg/dL) 0.5 Estimated GFR (>60 ml/min) > 60 BUN/Creatinine Ratio (7 - 25 %) 14.0 Magnesium (1.6 - 2.3 mg/dL) 1.8 Hematology CBC w Diff NO MAN DIFF REQ WBC (4.8 - 10.8 /CUMM) 10.1 RBC (4.20 - 5.40 /CUMM) 3.83 L Hgb (12.0 - 16.0 G/DL) 10.5 L Hct (37 - 47 %) 32.2 L MCV (81.0 - 99.0 FL) 84.1 MCH (27.0 - 31.0 PG) 27.5 MCHC (33.0 - 37.0 G/DL) 32.7 L RDW (11.5 - 14.5 %) 14.2 Plt Count (130 - 400 /CUMM) 243 MPV (7.4 - 10.4 FL) 10.8 H Gran % (42.2 - 75.2 %) 84.5 H Lymphocytes % (20.5 - 51.1 %) 7.2 L Monocytes % (1.7 - 9.3 %) 6.6 Eosinophils % (0 - 5 %) 1.4 Basophils % (0.0 - 2.0 %) 0.3 Absolute Granulocytes (1.4 - 6.5 /CUMM) 8.6 H Absolute Lymphocytes (1.2 - 3.4 /CUMM) 0.7 L Absolute Monocytes (0.10 - 0.60 /CUMM) 0.7 H Absolute Eosinophils (0.0 - 0.7 /CUMM) 0.1 Absolute Basophils (0.0 - 0.2 /CUMM) 0
[2017-06-16 21:31] VITALS: BP 148/70
[2017-06-17 06:13] VITALS: BP 162/76
--- NOTE | 2017-06-17 07:28 | PN- Housestaff ---
AleksandarMtz 06/17/17 0727: Subjective Follow-up For: Acute pancreatitis HHS/uncontrolled diabetes Left leg venous stasis ulcers Subjective: No overnight events. Patient remained afebrile overnight. Seen and examined this morning. She denied any chest pain, short of breath, chills, fever, headache and dysuria. Patient reported having intermittent nausea and intermittent abdominal pain but she is tolerating clear liquid diet. We will advance her diet to full liquids today. Today her fasting blood sugar level is 167. Review of Systems Constitutional: Reports: no symptoms. EENTM: Reports: no symptoms. Cardiovascular: Reports: no symptoms. Respiratory: Reports: no symptoms. Gastrointestinal: Reports: see HPI. Genitourinary: Reports: no symptoms. Musculoskeletal: Reports: no symptoms. Neurological/Psychological: Reports: no symptoms. Objective Last 24 Hrs of Vital Signs/I&O Vital Signs Date Time Temp Pulse Resp B/P B/P Pulse O2 O2 Flow FiO2 Mean Ox Delivery Rate 06/17 0613 97.8 96 20 162/76 97 06/16 2131 98.2 86 18 148/70 97 Room Air 06/16 1456 98.2 94 20 160/80 99 Room Air Intake & Output 06/17 1600 06/17 0800 06/17 0000 Intake Total 600 1000 Output Total 850 700 Balance -250 300 Intake, Oral 600 1000 Output, 100 Emesis Output, Urine 750 700 Physical Exam General Appearance: Alert, Oriented X3, Cooperative Skin Temp/Moisture Exam: Warm/Dry HEENT: Atraumatic, PERRLA, EOMI Neck: Supple Cardiovascular: Normal S1, Normal S2 Lungs: Clear to Auscultation Abdomen: Soft, No Tenderness Neurological: Normal Speech, Normal Tone Extremities: right leg AKA, Left leg chronic venous ulcers Assessment/Plan Assessment: 56-year-old female with a past medical history of diabetes, GERD presents to the ED with chief complaint of abdominal pain. Patient was evaluated by Endo and plan was to admit for insulin drip to ICU, hwoever after recieving 10 units of SC insulin, her BS came down to 544-->396 and she was downgraded to Gen Med. Acute Pancreatitis: -IV Zofran as needed -IV pain medication as needed -Patient already had cholecystectomy probably pancreatitis is autoimmune or medication induced. -We will advance to diet from clear liquid to full as tolerated. HHS: -Due to uncontrolled DM -Her blood sugar levels are under control. -Patient is on insulin NovoLog according to sliding scale -Insulin Levemir 15 twice a day. -We will follow the endocrinology recommendations. PVD s/p above knee amputation of RLE and chonic non-healing wound on LLE: -Patient is getting daily dressing with Xeroform. -We will follow the wound care recommendations. - continue ASA, Plavix and statin Lactic acidosis:(resolved) - Resolved - Due to HHS Hyponatremia:(resolved) - Pseudo given elevated glucose RA: - Continue hydroxycloroquine Opiod dependence: -Methadone 78mg daily. - Contineu Buproproin GERD: - Continue Omeprazole DVT prophylaxis: - s/c heparin Code Status: - Full Code Problem List: 1. Hyperglycemia 2. Acute pancreatitis Pain Ratin Pain Location: none Pain Goal: Remain pain free Pain Plan: pain pathway Tomorrow's Labs & Rationales: cbc/bep Mirta Chavez MD 06/17/17 1326: Attending MD Review Statement Attending Statement Attending MD Statement: examined this patient, discuss w/resident/PA/SERVICE STATION HELPER, agreed w/resident/PA/SERVICE STATION HELPER, reviewed EMR data (avail) Attending Assessment/Plan: 56F PMH T2DM, PVD, right AKA presenting with 1 week of worsening epigastric pain , for the past 2-3 days has been unable to tolerate PO and has been vomiting everything she tries to eat, with significant nausea, found to have acute pancreatitis by labs and imaging. No alcohol intake, no recent medication changes. Tender epigastric area on exam, otherwise patient looks well and is comfortable. Labs significant for glucose 844, anion gap 17, lactate 2.6, WBC 12.6. CT abdomen/pelvic shows acute pancreatitis. LFTs normal, no evidence of gallstones. Feels better today, wants to eat. Still had small episode of vomiting but she thinks this is because she is hungry and tired of broth. Abdominal pain is better. 1. Acute pancreatitis 2. HHS Type 2 3. Lactic acidosis 4. Left lower leg venous stasis ulcer Plan - Continue on general medicine - Full liquid diet - Tylenol IV PRN mild/moderate pain - Morphine 2mg PRN severe pain (patient has adverse reactions to Percocet and Dilaudid) - Continue Xeroform dressings on LLE - Endocrine consult - Monitor LFTs - DVT PPx
[2017-06-17 08:30] LABS: ABSOLUTE BASOPHIL COUNT 0 /CUMM (0.0-0.2); ABSOLUTE EOSINOPHIL COUNT 0.1 /CUMM (0.0-0.7); ABSOLUTE GRANULOCYTE CT 7.3 /CUMM (1.4-6.5); ABSOLUTE LYMPH COUNT 0.7 /CUMM (1.2-3.4); ABSOLUTE MONOCYTE COUNT 0.6 /CUMM (0.10-0.60); BASOPHIL % 0.2 % (0.0-2.0); EOSINOPHIL % 1.7 % (0-5); HEMATOCRIT 30.8 % (37-47); MEAN CORPUSCULAR HGB CONC 32.1 G/DL (33.0-37.0); MEAN PLATELET VOLUME 9.9 FL (7.4-10.4); PLATELET COUNT 251 /CUMM (130-400); RED BLOOD CELL CT 3.67 /CUMM (4.20-5.40); WHITE BLOOD CELL COUNT 8.7 /CUMM (4.8-10.8)
--- NOTE | 2017-06-17 12:37 | PN- Diabetes ---
Assessment/Plan Assessment: 56 y/o female with a PMH significant for RA, scleroderma, DM type 2, PVD s/p above knee amputation of right LE, and stent placemnt in left LE, chronic non -healing ulcer of the left LE, GERD, hypothyroidism, opioid abuse on Methadone who presented to the ED with c/o excruciating epigastric pain asociated with non -bloody, bilous vomitus. Blood work showed severe hyperglycemia along with elevated osmolality consistent with HHS. In addition, her lipase is significantly elevated. CT scan demonstrated acute pancreatitis. Her HbA1c was 14.3%. She is on Levemir 15 units twice a day, Novolog coverage before meals and Novolog coverage at bedtime. Her FSGs were 171, 136, 212, 167 and 181. Her diet was advanced to full liquid diet. Plan: continue the current insulin regimen for now; monitor FSGs. replete K; monitor electrolytes; will follow. Subjective Subjective: She feels better today. Objective Last 24 Hrs of Vital Signs/I&O Vital Signs Date Time Temp Pulse Resp B/P B/P Pulse O2 O2 Flow FiO2 Mean Ox Delivery Rate 06/17 0613 97.8 96 20 162/76 97 06/16 2131 98.2 86 18 148/70 97 Room Air 06/16 1456 98.2 94 20 160/80 99 Room Air Intake & Output 06/17 1600 06/17 0800 06/17 0000 Intake Total 600 1000 Output Total 850 700 Balance -250 300 Intake, Oral 600 1000 Output, 100 Emesis Output, Urine 750 700 Findings Pertinent Lab/Nikolas Results: Laboratory Tests 06/17 0725 Chemistry Sodium (137 - 145 mmol/L) 141 Potassium (3.5 - 5.1 mmol/L) 3.3 L Chloride (98 - 107 mmol/L) 106 Carbon Dioxide (22 - 30 mmol/L) 22 Anion Gap (5 - 16) 13 BUN (7 - 17 mg/dL) 6 L Creatinine (0.5 - 1.0 mg/dL) 0.5 Estimated GFR (>60 ml/min) > 60 BUN/Creatinine Ratio (7 - 25 %) 12.0 Magnesium (1.6 - 2.3 mg/dL) 1.8 Total Bilirubin (0.2 - 1.3 mg/dL) 0.2 Direct Bilirubin (< 0.4 mg/dL) 0.2 AST (14 - 36 U/L) 20 ALT (9 - 52 U/L) 39 Alkaline Phosphatase (<127 U/L) 181 H Total Protein (6.3 - 8.2 g/dL) 5.2 L Albumin (3.5 - 5.0 g/dL) 2.6 L Hematology CBC w Diff NO MAN DIFF REQ WBC (4.8 - 10.8 /CUMM) 8.7 RBC (4.20 - 5.40 /CUMM) 3.67 L Hgb (12.0 - 16.0 G/DL) 9.9 L Hct (37 - 47 %) 30.8 L MCV (81.0 - 99.0 FL) 84.0 MCH (27.0 - 31.0 PG) 27.0 MCHC (33.0 - 37.0 G/DL) 32.1 L RDW (11.5 - 14.5 %) 14.0 Plt Count (130 - 400 /CUMM) 251 MPV (7.4 - 10.4 FL) 9.9 Gran % (42.2 - 75.2 %) 83.0 H Lymphocytes % (20.5 - 51.1 %) 8.5 L Monocytes % (1.7 - 9.3 %) 6.6 Eosinophils % (0 - 5 %) 1.7 Basophils % (0.0 - 2.0 %) 0.2 Absolute Granulocytes (1.4 - 6.5 /CUMM) 7.3 H Absolute Lymphocytes (1.2 - 3.4 /CUMM) 0.7 L Absolute Monocytes (0.10 - 0.60 /CUMM) 0.6 Absolute Eosinophils (0.0 - 0.7 /CUMM) 0.1 Absolute Basophils (0.0 - 0.2 /CUMM) 0
[2017-06-17 14:39] VITALS: BP 130/62
[2017-06-17 21:41] VITALS: BP 130/62
[2017-06-18 06:32] VITALS: BP 112/64
--- NOTE | 2017-06-18 07:23 | PN- Housestaff ---
[place]and[place]ague 06/18/17 0723: Subjective Follow-up For: Acute pancreatitis HHS/uncontrolled diabetes Left leg venous stasis ulcers Subjective: No overnight events. Patient remained afebrile overnight. Seen and examined this morning. Patient reported having nausea and vomiting last after the meal and also intermittent abdominal pain but it's under control with pain medication. Patient denied any chest pain, short of breath, lightheadedness, headache, chills, fever and dysuria. Review of Systems Constitutional: Reports: no symptoms. EENTM: Reports: no symptoms. Cardiovascular: Reports: no symptoms. Respiratory: Reports: no symptoms. Gastrointestinal: Reports: abdominal pain, nausea, vomiting. Genitourinary: Reports: no symptoms. Musculoskeletal: Reports: no symptoms. Neurological/Psychological: Reports: no symptoms. Objective Last 24 Hrs of Vital Signs/I&O Vital Signs Date Time Temp Pulse Resp B/P B/P Pulse O2 O2 Flow FiO2 Mean Ox Delivery Rate 06/18 0632 98.3 75 20 112/64 98 06/17 2141 98.2 83 18 130/62 97 Room Air 06/17 1439 98.9 94 19 130/62 96 Room Air Intake & Output 06/18 1600 06/18 0800 06/18 0000 Intake Total 1000 Output Total 300 500 Balance -300 500 Intake, Oral 1000 Output, Urine 300 500 Physical Exam General Appearance: Alert, Oriented X3, Cooperative Skin Temp/Moisture Exam: Warm/Dry Sepsis Skin Exam (color): Normal for Ethnicity HEENT: Atraumatic, PERRLA, EOMI Neck: Supple Cardiovascular: Normal S1, Normal S2 Lungs: Clear to Auscultation Abdomen: Soft, No Tenderness Neurological: Normal Speech, Normal Tone Extremities: right AKA, LEFT LEG CHRONUIC VENOUS ULCERS Assessment/Plan Assessment: 56-year-old female with a past medical history of diabetes, GERD presents to the ED with chief complaint of abdominal pain. Patient was evaluated by Endo and plan was to admit for insulin drip to ICU, hwoever after recieving 10 units of SC insulin, her BS came down to 544-->396 and she was downgraded to Gen Med. Acute Pancreatitis: -IV Zofran as needed -IV pain medication as needed -Patient already had cholecystectomy probably pancreatitis is autoimmune or medication induced. -We will advanced diet. -Patient may need metoclopramide trial. HHS: -Due to uncontrolled DM -Her blood sugar levels are under control. -Patient is on insulin NovoLog according to sliding scale -Insulin Levemir 20 twice a day. -We will follow the endocrinology recommendations. PVD s/p above knee amputation of RLE and chonic non-healing wound on LLE: -Patient is getting daily dressing with Xeroform. -We will follow the wound care recommendations. - continue ASA, Plavix and statin Lactic acidosis:(resolved) - Resolved - Due to HHS Hyponatremia:(resolved) - Pseudo given elevated glucose RA: - Continue hydroxycloroquine Opiod dependence: -Methadone 78mg daily. - Contineu Buproproin GERD: - Continue Omeprazole DVT prophylaxis: - s/c heparin Code Status: - Full Code Problem List: 1. Hyperglycemia 2. Acute pancreatitis Pain Ratin Pain Location: NONE Pain Goal: Remain pain free Pain Plan: TYLENOL FOR MILD PAIN Tomorrow's Labs & Rationales: CBC/BEP Mirta Chavez MD 06/18/17 1105: Attending MD Review Statement Attending Statement Attending MD Statement: examined this patient, discuss w/resident/PA/RETAIL PERFORMANCE SPECIALIST, agreed w/resident/PA/RETAIL PERFORMANCE SPECIALIST, reviewed EMR data (avail) Attending Assessment/Plan: 56F PMH T2DM, PVD, right AKA presenting with 1 week of worsening epigastric pain , for the past 2-3 days has been unable to tolerate PO and has been vomiting everything she tries to eat, with significant nausea, found to have acute pancreatitis by labs and imaging. No alcohol intake, no recent medication changes. Tender epigastric area on exam, otherwise patient looks well and is comfortable. Labs significant for glucose 844, anion gap 17, lactate 2.6, WBC 12.6. CT abdomen/pelvic shows acute pancreatitis. LFTs normal, no evidence of gallstones. Ate full liquid diet, vomited some of it about 30 minutes later. She is pain free and feels well, but still a bit nauseous. LLE wound is clean and healing well. 1. Acute pancreatitis 2. HHS Type 2 3. Lactic acidosis 4. Left lower leg venous stasis ulcer Plan - Continue on general medicine - Will give PRN Reglan today - Full liquid diet, advance to regular if lunch is tolerated - Tylenol IV PRN mild/moderate pain - Morphine 2mg PRN severe pain (patient has adverse reactions to Percocet and Dilaudid) - Continue Xeroform dressings on LLE - Endocrine consult - Monitor LFTs - DVT PPx - Potential discharge tomorrow if diet can be advanced
[2017-06-18 08:53] LABS: ABSOLUTE BASOPHIL COUNT 0 /CUMM (0.0-0.2); ABSOLUTE EOSINOPHIL COUNT 0.2 /CUMM (0.0-0.7); ABSOLUTE GRANULOCYTE CT 6.5 /CUMM (1.4-6.5); ABSOLUTE LYMPH COUNT 0.9 /CUMM (1.2-3.4); ABSOLUTE MONOCYTE COUNT 0.7 /CUMM (0.10-0.60); BASOPHIL % 0.3 % (0.0-2.0); EOSINOPHIL % 2.3 % (0-5); GRANULOCYTE % 78.1 % (42.2-75.2); HEMATOCRIT 26.6 % (37-47); MEAN CORPUSCULAR HGB 27.8 PG (27.0-31.0); MEAN CORPUSCULAR HGB CONC 33.2 G/DL (33.0-37.0); MEAN CORPUSCULAR VOLUME 83.9 FL (81.0-99.0); MEAN PLATELET VOLUME 9.9 FL (7.4-10.4); PLATELET COUNT 239 /CUMM (130-400); RBC DISTRIBUTION WIDTH 14.2 % (11.5-14.5); RED BLOOD CELL CT 3.17 /CUMM (4.20-5.40); WHITE BLOOD CELL COUNT 8.3 /CUMM (4.8-10.8)
--- NOTE | 2017-06-18 09:17 | PN- Diabetes ---
Assessment/Plan Assessment: 56 y/o female with a PMH significant for RA, scleroderma, DM type 2, PVD s/p above knee amputation of right LE, and stent placemnt in left LE, chronic non -healing ulcer of the left LE, GERD, hypothyroidism, opioid abuse on Methadone who presented to the ED with c/o excruciating epigastric pain asociated with non -bloody, bilous vomitus. Blood work showed severe hyperglycemia along with elevated osmolality consistent with HHS. In addition, her lipase is significantly elevated. CT scan demonstrated acute pancreatitis. Her HbA1c was 14.3%. Her diet was advanced to full liquid diet. But she still vomited last night. She is on Levemir 15 units twice a day, Novolog coverage before meals and Novolog coverage at bedtime. Her FSGs were 181, 349, 396 and 267. Plan: 1. increase Levemir to 20 units twice a day; 2. adjust Novolog coverage before meals; detail see the inpatient DM order; 3. continue the current Novolog coverage at bedtime; 4. monitor FSGs. will follow. Subjective Subjective: she still vomited last night. Objective Last 24 Hrs of Vital Signs/I&O Vital Signs Date Time Temp Pulse Resp B/P B/P Pulse O2 O2 Flow FiO2 Mean Ox Delivery Rate 06/18 0632 98.3 75 20 112/64 98 06/17 2141 98.2 83 18 130/62 97 Room Air 06/17 1439 98.9 94 19 130/62 96 Room Air Intake & Output 06/18 1600 06/18 0800 06/18 0000 Intake Total 1000 Output Total 300 500 Balance -300 500 Intake, Oral 1000 Output, Urine 300 500 Findings Pertinent Lab/Nikolas Results: Laboratory Tests 06/18 0730 Chemistry Sodium (137 - 145 mmol/L) 139 Potassium (3.5 - 5.1 mmol/L) 4.1 Chloride (98 - 107 mmol/L) 107 Carbon Dioxide (22 - 30 mmol/L) 22 Anion Gap (5 - 16) 11 BUN (7 - 17 mg/dL) 7 Creatinine (0.5 - 1.0 mg/dL) 0.6 Estimated GFR (>60 ml/min) > 60 BUN/Creatinine Ratio (7 - 25 %) 11.7 Magnesium (1.6 - 2.3 mg/dL) 1.8 Total Bilirubin (0.2 - 1.3 mg/dL) 0.3 Direct Bilirubin (< 0.4 mg/dL) 0.3 AST (14 - 36 U/L) 20 ALT (9 - 52 U/L) 32 Alkaline Phosphatase (<127 U/L) 168 H Total Protein (6.3 - 8.2 g/dL) 5.1 L Albumin (3.5 - 5.0 g/dL) 2.5 L Hematology CBC w Diff NO MAN DIFF REQ WBC (4.8 - 10.8 /CUMM) 8.3 RBC (4.20 - 5.40 /CUMM) 3.17 L Hgb (12.0 - 16.0 G/DL) 8.8 L Hct (37 - 47 %) 26.6 L MCV (81.0 - 99.0 FL) 83.9 MCH (27.0 - 31.0 PG) 27.8 MCHC (33.0 - 37.0 G/DL) 33.2 RDW (11.5 - 14.5 %) 14.2 Plt Count (130 - 400 /CUMM) 239 MPV (7.4 - 10.4 FL) 9.9 Gran % (42.2 - 75.2 %) 78.1 H Lymphocytes % (20.5 - 51.1 %) 10.7 L Monocytes % (1.7 - 9.3 %) 8.6 Eosinophils % (0 - 5 %) 2.3 Basophils % (0.0 - 2.0 %) 0.3 Absolute Granulocytes (1.4 - 6.5 /CUMM) 6.5 Absolute Lymphocytes (1.2 - 3.4 /CUMM) 0.9 L Absolute Monocytes (0.10 - 0.60 /CUMM) 0.7 H Absolute Eosinophils (0.0 - 0.7 /CUMM) 0.2 Absolute Basophils (0.0 - 0.2 /CUMM) 0
[2017-06-18 15:00] VITALS: BP 162/84
[2017-06-18 22:35] VITALS: BP 140/80
[2017-06-19 06:48] VITALS: BP 136/78
--- NOTE | 2017-06-19 07:23 | PN- Housestaff ---
[place] 06/19/17 0723: Subjective Follow-up For: Acute pancreatitis (IMPROVING) HHS/uncontrolled diabetes Left leg venous stasis ulcers Subjective: No overnight events. Patient remained afebrile overnight. Seen and examined this morning. She denied any chest pain, short of breath, nausea, vomiting, headache and dysuria. Patient reported having intermittent abdominal pain 5/10. Patient also reported lightheadedness whenever she tries to get out of the bed. Patient is tolerating her diet. Her fasting blood sugar level is 178 today. Review of Systems Constitutional: Reports: no symptoms. EENTM: Reports: no symptoms. Cardiovascular: Reports: no symptoms. Respiratory: Reports: no symptoms. Gastrointestinal: Reports: abdominal pain. Genitourinary: Reports: no symptoms. Musculoskeletal: Reports: no symptoms. Neurological/Psychological: Reports: no symptoms. Objective Last 24 Hrs of Vital Signs/I&O Vital Signs Date Time Temp Pulse Resp B/P B/P Pulse O2 O2 Flow FiO2 Mean Ox Delivery Rate 06/19 0814 78 136/78 06/19 0648 98.4 78 18 136/78 96 06/18 2235 98.0 84 20 140/80 97 Room Air 06/18 1500 98.0 97 18 162/84 97 Room Air Room Air 06/18 0920 90 124/48 Intake & Output 06/19 1600 06/19 0800 06/19 0000 Intake Total 240 480 Output Total 400 1200 Balance -160 -720 Intake, Oral 240 480 Output, Urine 400 1200 Physical Exam General Appearance: Alert, Oriented X3, Cooperative, No Acute Distress Skin Temp/Moisture Exam: Warm/Dry Sepsis Skin Exam (color): Normal for Ethnicity HEENT: Atraumatic, PERRLA, EOMI Neck: Supple Cardiovascular: Normal S1, Normal S2 Lungs: Clear to Auscultation Abdomen: Soft, No Tenderness Neurological: Normal Speech, Normal Tone Extremities: RIGHT AKA, LEFT LEG CHRONIC VENOUS ULCERS Assessment/Plan Assessment: 56-year-old female with a past medical history of diabetes, GERD presents to the ED with chief complaint of abdominal pain. Patient was evaluated by Endo and plan was to admit for insulin drip to ICU, hwoever after recieving 10 units of SC insulin, her BS came down to 544-->396 and she was downgraded to Gen Med. Acute Pancreatitis: -IV Zofran as needed -IV pain medication as needed -Patient already had cholecystectomy probably pancreatitis is autoimmune or medication induced. -We will advanced diet. -Patient may need metoclopramide trial. HHS: -Due to uncontrolled DM -Her blood sugar levels are under control. -Patient is on insulin NovoLog according to sliding scale -Insulin Levemir 20 twice a day. -We will follow the endocrinology recommendations. PVD s/p above knee amputation of RLE and chonic non-healing wound on LLE: -Patient is getting daily dressing with Xeroform. -We will follow the wound care recommendations. - continue ASA, Plavix and statin Lactic acidosis:(resolved) - Resolved - Due to HHS Hyponatremia:(resolved) - Pseudo given elevated glucose RA: - Continue hydroxycloroquine Opiod dependence: -Methadone 78mg daily. - Contineu Buproproin GERD: - Continue Omeprazole DVT prophylaxis: - s/c heparin Code Status: - Full Code Problem List: 1. Hyperglycemia 2. Acute pancreatitis Pain Ratin Pain Location: ABDOMEN Pain Goal: Remain pain free Pain Plan: PAIN PATHWAY Tomorrow's Labs & Rationales: NONE Mirta Chavez MD 06/19/17 1239: Attending MD Review Statement Attending Statement Attending MD Statement: examined this patient, discuss w/resident/PA/RESEARCH AGRICULTURAL ENGINEER, agreed w/resident/PA/RESEARCH AGRICULTURAL ENGINEER, reviewed EMR data (avail) Attending Assessment/Plan: 56F PMH T2DM, PVD, right AKA presenting with 1 week of worsening epigastric pain , for the past 2-3 days has been unable to tolerate PO and has been vomiting everything she tries to eat, with significant nausea, found to have acute pancreatitis by labs and imaging. No alcohol intake, no recent medication changes. Tender epigastric area on exam, otherwise patient looks well and is comfortable. Labs significant for glucose 844, anion gap 17, lactate 2.6, WBC 12.6. CT abdomen/pelvic shows acute pancreatitis. LFTs normal, no evidence of gallstones. Tolerating regular diet with only mild nausea, no pain. LLE wound is clean and healing well. 1. Acute pancreatitis 2. HHS Type 2 3. Lactic acidosis 4. Left lower leg venous stasis ulcer Plan - Stable for discharge home - Follow up in wound care center for LLE - Zofran PRN nausea - Continue home medications - Encouraged to avoid alcohol
[2017-06-19 09:06] LABS: ABSOLUTE BASOPHIL COUNT 0 /CUMM (0.0-0.2); ABSOLUTE EOSINOPHIL COUNT 0.2 /CUMM (0.0-0.7); ABSOLUTE GRANULOCYTE CT 5.8 /CUMM (1.4-6.5); ABSOLUTE LYMPH COUNT 1.2 /CUMM (1.2-3.4); ABSOLUTE MONOCYTE COUNT 0.7 /CUMM (0.10-0.60); BASOPHIL % 0.4 % (0.0-2.0); EOSINOPHIL % 2.6 % (0-5); GRANULOCYTE % 73.4 % (42.2-75.2); HEMATOCRIT 28.3 % (37-47); MEAN CORPUSCULAR HGB 27.4 PG (27.0-31.0); MEAN CORPUSCULAR HGB CONC 32.6 G/DL (33.0-37.0); MEAN PLATELET VOLUME 9.8 FL (7.4-10.4); PLATELET COUNT 261 /CUMM (130-400); RBC DISTRIBUTION WIDTH 14.2 % (11.5-14.5); RED BLOOD CELL CT 3.37 /CUMM (4.20-5.40)
[2017-06-19] MEDS ORDERED: DOCUSATE SODIU100 M3 PO ×2 (11:08→18:34)
[2017-06-19] MEDS ORDERED: PLAQUENIL200 M1 PO ×2 (11:08→18:34)
[2017-06-19] MEDS ORDERED: MIRALAX119 GM PO ×2 (11:08→18:34)
[2017-06-19] MEDS ORDERED: METHADONE HCL10 M1 PO ×2 (11:08→18:34)
[2017-06-19] MEDS ORDERED: ZOFRAN4 M2 PO ×2 (11:10→18:34)
--- NOTE | 2017-06-19 11:14 | Discharge Summary ---
Visit Information Visit Dates Admission Date: 06/12/17 Discharge Date: 06/19/17 Hospital Course Course Attending Physician: Mirta Chavez MD Primary Care Physician: Trae Rosas MD Hospital Course: 56 YO F with a PMH significant for RA, scleroderma, DM, PVD s/p right LE AKA with stent placemnt in left LE, chronic non-healing ulcer of the left LE, GERD , hypothyroidism, opioid abuse on Methadone who presented to the ED with c/o excruciating epigastric pain asociated with non-bloody, bilous vomitus. Blood work showed severe hyperglycemia along with elevated osmolality consistent with HHS. In addition, her lipase is significantly elevated. CT scan demonstrated acute pancreatitis. Her HbA1c was 14.3%. ED course: Vitals: Temperature 98.9, pulse 100, respiratory rate 18, blood pressure 183/81, oxygen saturation 99% on room air. Labs: WBC count 12.9, hemoglobin 12.5, hematocrit 38.0, platelet count 282, sodium 134, potassium 4.8, BUN 17, creatinine 0.6, BUN/creatinine ratio 28.3, glucose 554, alkaline phosphatase 153, AST 14, ALT 40, lipase 9655, triglycerides 208. Patient was evaluated by Endo and plan was to admit for insulin drip to ICU, however after recieving 10 units of SC insulin, her BS came down to 544-->396 and she was downgraded to Gen Med. Acute Pancreatitis: Patient was admitted for acute pancreatitis as his lipase was elevated and CT abdomen/pelvis showed peripancreatic inflammatory changes. Patient's acute pancreatitis could be due to medication induced or autoimmune as her gallbladder was already surgically removed. Initially patient was Nothing by mouth and aggressive IV hydration was done. Patient was given IV Protonix and IV antiemetic medications. Later on patient condition got improved and was started clear liquids. We advanced diet as patient tolerated and her IV fluids for discontinued. Her LFTs were monitored that remained normal. Patient was complaining of intermittent nausea and abdominal pain but that was controlled with IV antiemetic medication and patient was given trial metoclopramide considering her long-standing uncontrolled diabetes that can cause gastroparesis. Later on her condition improved and she was tolerating diabetic diet without any complaint and was discharged. Hyperosmolar hyperglycemic State (HHS): Patient admitted with hyperglycemia secondary to uncontrolled diabetes with lactic acidosis. Ketoacidosis was ruled out. Endocrinology consult was obtained and recommendations were followed. Patient was given IV normal saline 10 units of insulin in her blood sugar level started to decrease. Patient blood sugar level was monitored regularly and she was given Levemir and insulin NovoLog according to sliding scale. Her blood sugar level remained under control. Over discharge patient home medications were changed. Sitagliptin was discontinued considering her pancreatitis. Insulin glargine doses were changed to 20 units twice a day. Patient was instructed to follow endocrinology as outpatient. PVD s/p above knee amputation of RLE and chonic non-healing wound on LLE: We continued ASA, Plavix and statin. Wound consult was obtained and recommendations were followed. Patient was getting Xeroform dressing everyday during the hospital stay. Lactic acidosis: Probably due to dehydration. Patient lactic acidosis resolved after IV hydration. Hyponatremia: Probably pseudohyponatremia due to high blood glucose level. Her sodium level came back to normal after IV hydration and decrease blood glucose level. Her sodium level was monitored during the hospital stay. RA: We Continued hydroxycloroquine. Opiod dependence: We continued methadone. GERD: We Continued Omeprazole. DVT prophylaxis: s/c heparin. Code Status: Full Code. Allergies: Coded Allergies: Penicillins (UNKNOWN 09/27/15) Pertinent Lab Results: Abdomen/pelvic CT scan on 06/12/2017: IMPRESSION: 1. Peripancreatic inflammatory changes within the mesenteric fat with small strands of free fluid present adjacent to the uncinate process and along the tail of the pancreas. No loculated fluid collections or pancreatic pseudocyst is present at this time. No pancreatic mass lesion is present at this time. The findings are suggestive of acute pancreatitis. 2. As noted above, the gallbladder is surgically absent. Abdominal ultrasound on 06/12/2017: IMPRESSION: Liver of diffuse increased echogenicity without focal lesions. The appearance is nonspecific, but consistent with fatty infiltration. Status post cholecystectomy. Limited examination secondary to the patient's inability to recline. WAC count 8.0, hemoglobin 9.2, hematocrit 28.3, platelet count 261, sodium 142, potassium 4.0, BUN 5, creatinine 0.5, anion gap 13, total bilirubin 0.1, AST 20, ALT 33, alkaline phosphatase 154. Disposition Summary Disposition Principal Diagnosis: Acute pancreatitis HHS Additional Diagnosis: RA DM PVD GERD Discharge Disposition: home health services Discharge Instructions General Discharge Information Code Status: Full Code Patient's Diet: Diabetic diet Patient's Activity: Self limited Follow-Up Instructions/Appts: Follow up with PCP in one week. Follow up with endocrinology in one week. Sitagliptin was discontinued due to pancreatitis. Insulin glargine doses has been changed to 20 units BID from 48units QPM. Insulin novolog sliding scale has been changed. Medications at Discharge Discharge Medications: Stop taking the following medications: Sitagliptin Phosphate (Januvia) 100 MG TABLET ORAL DAILY Continue taking these medications: Losartan Potassium (Losartan Potassium) 25 MG TABLET 1 Tablet ORAL DAILY Qty = 90 Comments: Last Taken: 06/19/17 Time: 0815AM Bupropion HCl (Bupropion HCl Sr) 200 MG TABLET.ER 1 Tablet ORAL DAILY Comments: Last Taken: 06/19/17 Time: 0815AM Aspirin (Ecotrin*) 81 MG TABLET.DR 1 Tablet ORAL DAILY Comments: Last Taken: 06/19/17 Time: 0815AM Pravastatin Sodium (Pravachol) 80 MG TABLET 1 Tablet ORAL DAILY Comments: Last Taken: 06/19/17 40MG Time: 5PM Omeprazole (Omeprazole) 20 MG TABLET.DR 1 Tablet ORAL DAILY Comments: Last Taken: 06/19/17 Time: 5AM Clopidogrel Bisulfate (Plavix) 75 MG TABLET 1 Tablet ORAL DAILY Comments: Last Taken: 06/19/17 Time: 0815AM Levothyroxine Sodium (Synthroid) 75 MCG TABLET 1 Tablet ORAL DAILY Comments: Last Taken: 06/19/17 Time: 5AM Metformin HCl (Metformin HCl) 1,000 MG TABLET 1 Tablet ORAL TWICE DAILY Comments: NOT GIVEN IN HOSPITAL Trazodone HCl (Trazodone HCl) 100 MG TABLET 1.5 Tablet ORAL Every night Comments: NOT GIVEN IN HOSPITAL Exenatide Microspheres (Bydureon) 2 MG VIAL 2 Milligram Inject into fatty tissue EVERY SUNDAY Comments: NOT GIVEN IN HOSPITAL Start taking the following new medications: Hydroxychlorquine (Plaquenil) 200 MG TABLET 1 Tablet ORAL TWICE DAILY Qty = 30 No Refills Instructions: . Comments: Last Taken: 06/19/17 Time: 0815AM Methadone Hydrochloride (Methadone HCl) 10 MG TABLET 80 Milligram ORAL DAILY Qty = 30 No Refills Instructions: . Comments: Last Taken: 06/19/17 Time: 5PM Docusate Sodium (Docusate Sodium) 100 MG CAPSULE 1 Capsule ORAL TWICE DAILY as needed for constipation Qty = 30 No Refills Instructions: . Comments: Last Taken: 06/19/17 Time: 0815AM Polyethylene Glycol 3350 (Miralax) 17 GRAM/DOSE POWDER 17 Gram ORAL DAILY NEEDED as needed for CONSTIPATION Qty = 1 No Refills Instructions: . Comments: NOT GIVEN Ondansetron HCl (Zofran) 4 MG TABLET 1 Tablet ORAL Every 6-8 Hours as Needed Qty = 15 No Refills Instructions: . Comments: NOT GIVEN The following medications have been changed: Old: Insulin Glargine,Hum.rec.anlog (Lantus Solostar) 100 UNIT/ML (3 ML) INSULN.PEN 20 Unit Inject into fatty tissue TWICE DAILY Qty = 3 New: Insulin Glargine,Hum.rec.anlog (Lantus Solostar) 100 UNIT/ML (3 ML) INSULN.PEN 20 Unit Inject into fatty tissue TWICE DAILY Qty = 3 Instructions: . Comments: LEVEMIR GIVEN IN HOSPITAL Last Taken: 06/19/17 Time: 0815AM Old: Insulin Aspart, Recombinant (Novolog Flexpen) 100 UNIT/ML INSULN.PEN 0 Inject into fatty tissue BEFORE MEALS AND AT BEDTIME Qty = 3 New: Insulin Aspart, Recombinant (Novolog Flexpen) 100 UNIT/ML INSULN.PEN 0 Inject into fatty tissue BEFORE MEALS AND AT BEDTIME Qty = 3 Instructions: BEFORE MEALS. Blood Insulin Sugar Units <80 0 80-150 0 151-199 6 200-250 8 251-300 10 301-350 12 351-400 14 >400 16 units and Call Doctor AT BEDTIME Blood Insulin Sugar Units <80 0 81-150 0 151-299 0 200-250 0 251-300 2 301-350 3 351-400 4 >400 5 and Call Doctor Comments: Last Taken: 06/19/17 Time: 1215PM Copies To: Alison CURIEL,Trae Gillis; Yunier CURIEL,Delaney
--- NOTE | 2017-06-19 11:14 | Patient Discharge Instructions ---
Discharge Instructions General Discharge Information You were seen/treated for: Acute pancreatitis HHS/uncontrolled diabetes Watch for these problems: Abdominal pain, nausea, vomiting, altered mental status, lightheadedness and chest pain, If you experience any of these symptoms please come to ED or call to her primary care physician. Special Instructions: -Follow-up with her primary care physician in one week. -Follow-up with endocrinology in 1 week. -Sitagliptin has been stoped due to pancreatitia and insulin glargine doses has been changed. -Please follow the instructions for meal and bed time coverage with insulin novolog. Diet Recommended Diet: Diabetic Activity Activity Self Limited: Yes Acute Coronary Syndrome Inclusion Criteria At DC or during hospital stay patient has or had the following: ACS DIAGNOSIS No Discharge Core Measures Meds if any: Prescribed or Continued at Discharge Meds if any: NOT Prescribed or Continued at Discharge Congestive Heart Failure Inclusion Criteria At DC or during hospital stay patient has or had the following: CHF DIAGNOSIS No Discharge Core Measures Meds if any: Prescribed or Continued at Discharge Meds if any: NOT Prescribed or Continued at Discharge Cerebrovascular accident Inclusion Criteria At DC or during hospital stay patient has or had the following: CVA/TIA Diagnosis No Discharge Core Measures Meds if any: Prescribed or Continued at Discharge Meds if any: NOT Prescribed or Continued at Discharge Venous thromboembolism Inclusion Criteria VTE Diagnosis No VTE Type NONE VTE Confirmed by (Test) NONE Discharge Core Measures - Per Current guidelines, there needs to be overlap - treatment for the first 5 days of Warfarin therapy. - If discharged on Warfarin prior to 5 days of - overlap therapy, the patient will need to be - assessed for post discharge needs including - *Post discharge parental anticoagulation - *Warfarin and/or parental anticoagulation education - *Follow up date to check INR post discharge At least 5 days overlap therapy as Inpatient No Meds if any: Prescribed or Continued at Discharge Note: Overlap Therapy is Warfarin and Anticoagulant Meds if any: NOT Prescribed or Continued at Discharge
--- NOTE | 2017-06-19 11:45 | PN- Diabetes ---
Assessment/Plan Assessment: 56 y/o female with a PMH significant for RA, scleroderma, DM type 2, PVD s/p above knee amputation of right LE, and stent placemnt in left LE, chronic non -healing ulcer of the left LE, GERD, hypothyroidism, opioid abuse on Methadone who presented to the ED with c/o excruciating epigastric pain asociated with non -bloody, bilous vomitus. Blood work showed severe hyperglycemia along with elevated osmolality consistent with HHS. In addition, her lipase is significantly elevated. CT scan demonstrated acute pancreatitis. Her HbA1c was 14.3%. Her diet was advanced to full liquid diet. But she still vomited last night. She is on Levemir 20 units twice a day, Novolog coverage before meals was adjusted and she is on Novolog coverage at bedtime as well. Her FSGs were 267, 257, 138 and 164. Plan: continue the current insulin regimen for now; monitor FSGs. will follow. Subjective Subjective: She feels better this morning Objective Last 24 Hrs of Vital Signs/I&O Vital Signs Date Time Temp Pulse Resp B/P B/P Pulse O2 O2 Flow FiO2 Mean Ox Delivery Rate 06/19 0814 78 136/78 06/19 0648 98.4 78 18 136/78 96 06/18 2235 98.0 84 20 140/80 97 Room Air 06/18 1500 98.0 97 18 162/84 97 Room Air Room Air Intake & Output 06/19 1600 06/19 0800 06/19 0000 Intake Total 240 480 Output Total 400 1200 Balance -160 -720 Intake, Oral 240 480 Output, Urine 400 1200 Findings Pertinent Lab/Nikolas Results: Laboratory Tests 06/19 0732 Chemistry Sodium (137 - 145 mmol/L) 142 Potassium (3.5 - 5.1 mmol/L) 4.0 Chloride (98 - 107 mmol/L) 106 Carbon Dioxide (22 - 30 mmol/L) 23 Anion Gap (5 - 16) 13 BUN (7 - 17 mg/dL) 5 L Creatinine (0.5 - 1.0 mg/dL) 0.5 Estimated GFR (>60 ml/min) > 60 BUN/Creatinine Ratio (7 - 25 %) 10.0 Total Bilirubin (0.2 - 1.3 mg/dL) 0.1 L Direct Bilirubin (< 0.4 mg/dL) 0.1 AST (14 - 36 U/L) 20 ALT (9 - 52 U/L) 33 Alkaline Phosphatase (<127 U/L) 154 H Total Protein (6.3 - 8.2 g/dL) 5.2 L Albumin (3.5 - 5.0 g/dL) 2.6 L Hematology CBC w Diff NO MAN DIFF REQ WBC (4.8 - 10.8 /CUMM) 8.0 RBC (4.20 - 5.40 /CUMM) 3.37 L Hgb (12.0 - 16.0 G/DL) 9.2 L Hct (37 - 47 %) 28.3 L MCV (81.0 - 99.0 FL) 84.0 MCH (27.0 - 31.0 PG) 27.4 MCHC (33.0 - 37.0 G/DL) 32.6 L RDW (11.5 - 14.5 %) 14.2 Plt Count (130 - 400 /CUMM) 261 MPV (7.4 - 10.4 FL) 9.8 Gran % (42.2 - 75.2 %) 73.4 Lymphocytes % (20.5 - 51.1 %) 14.5 L Monocytes % (1.7 - 9.3 %) 9.1 Eosinophils % (0 - 5 %) 2.6 Basophils % (0.0 - 2.0 %) 0.4 Absolute Granulocytes (1.4 - 6.5 /CUMM) 5.8 Absolute Lymphocytes (1.2 - 3.4 /CUMM) 1.2 Absolute Monocytes (0.10 - 0.60 /CUMM) 0.7 H Absolute Eosinophils (0.0 - 0.7 /CUMM) 0.2 Absolute Basophils (0.0 - 0.2 /CUMM) 0
[2017-06-19] MEDS ORDERED: NOVOLOG FL100 UNIT/1 SC ×2 (13:31→18:34)
[2017-06-19] MEDS ORDERED: LANTUS SOL100 UNIT/1 SC ×2 (13:31→18:34)
[2017-06-19 14:01] VITALS: BP 150/64
== END 2017-06-19 18:14 | disposition home health service (06) | DRG 282 ==
LOC: ERH 11:13 → 2NB 13:12 → ERHI 13:12 → EDBEDREQ 15:33 → ERHI 15:47 → ENRESERV 18:21 → EDBEDREQ 18:47 → ENTRNSPT 19:35 → 2NB 19:53 → EDTRNSPT 19:54 → 2NB 19:54 → CMPTRNSPT 19:55 → 2NB 06-18 20:06 → ENPENDDIS 06-19 11:38 → 2NB 06-19 18:14
PROVIDERS: Internal Medicine Infectious Disease; Physician Assistant Medical; Student in an Organized Health Care Education/Training Program
DX: K85.90 Acute pancreatitis without necrosis or infection, unspecified (principal); E11.65 Type 2 diabetes mellitus with hyperglycemia; Z79.4 Long term (current) use of insulin; Z79.84 Long term (current) use of oral hypoglycemic drugs; E11.00 Type 2 diabetes mellitus with hyperosmolarity without nonketotic hyperglycemic-hyperosmolar coma (NKHHC); I73.9 Peripheral vascular disease, unspecified; Z89.611 Acquired absence of right leg above knee; E87.1 Hypo-osmolality and hyponatremia; M06.9 Rheumatoid arthritis, unspecified; F11.20 Opioid dependence, uncomplicated; E87.2 Acidosis; M34.9 Systemic sclerosis, unspecified; I83.028 Varicose veins of left lower extremity with ulcer other part of lower leg; L97.825 Non-pressure chronic ulcer of other part of left lower leg with muscle involvement without evidence of necrosis; K21.9 Gastro-esophageal reflux disease without esophagitis; E03.9 Hypothyroidism, unspecified
CPT/HCPCS: 2NBSP; 36415; 74176; 81001; 82436; 87040; 93005; 93010; 96374; G0480; J0131; J1644; J2405; J2765

== ENCOUNTER 2017-07-02 15:20 | Inpatient (IN) | payer OTHER ==
[~2017-07-02] VITALS: Ht 170.2 cm; Wt 73.7 kg
[~2017-07-02 15:20] MED LIST: ASPIRIN EC81 M1 PO; BUPROPION HCL200 M2 PO; BYDUREON2 M1 SC; DOCUSATE SODIU100 M3 PO; JANUVIA100 M1 PO; LANTUS SOL100 UNIT/1 SC; LOSARTAN POTASS25 M1 PO; METFORMIN HCL1000 M1 PO; METHADONE HCL10 M1 PO; MIRALAX119 GM PO; NOVOLOG FL100 UNIT/1 SC; OMEPRAZOLE20 M3 PO; PLAQUENIL200 M1 PO; PLAVIX75 M1 PO; PRAVACHOL80 M1 PO; SYNTHROID75 MCG PO; TRAZODONE HCL100 M1 PO; ZOFRAN4 M2 PO
--- NOTE | 2017-07-02 15:29 | ED GI/GU/ABDOMINAL COMPLAINT ---
History of Present Illness General Chief Complaint: Abdominal Pain/Flank Pain Stated Complaint: BIBA ABDOMINAL PAIN,HYPERGLYCEMIA Source: patient, old records Exam Limitations: no limitations Vital Signs & Intake/Output Vital Signs & Intake/Output Vital Signs Date Time Temp Pulse Resp B/P B/P Pulse O2 O2 Flow FiO2 Mean Ox Delivery Rate 07/02 1607 97.1 07/02 1525 109 17 182/89 97 Room Air Allergies Coded Allergies: Penicillins (UNKNOWN 09/27/15) acetaminophen (From TYLENOL) (TOLD NOT TO TAKE DUE TO LIVER ENZYMES 07/02/17) hydromorphone (From DILAUDID) (HIVES 07/02/17) oxycodone (From PERCOCET) (HIVES 07/02/17) Reconcile Medications Aspirin (Ecotrin*) 81 MG TABLET.DR 1 TAB PO DAILY PVD (Reported) Bupropion HCl (Bupropion HCl Sr) 200 MG TABLET.ER 1 TAB PO DAILY OPIOID ( Reported) Clopidogrel Bisulfate (Plavix) 75 MG TABLET 1 TAB PO DAILY PVD (Reported) Docusate Sodium 100 MG CAPSULE 1 CAP PO BID PRN constipation . Exenatide Microspheres (Bydureon) 2 MG VIAL 2 MG SC QTUES DM (Reported) Hydroxychlorquine (Plaquenil) 200 MG TABLET 1 TAB PO BID RA . Insulin Aspart, Recombinant (Novolog Flexpen) 100 UNIT/ML INSULN.PEN 0 SC AC & AT BEDTIME DM BEFORE MEALS. Blood Insulin Sugar Units <80 0 80-150 0 151-199 6 200-250 8 251-300 10 301-350 12 351-400 14 >400 16 units and Call Doctor AT BEDTIME Blood Insulin Sugar Units <80 0 81-150 0 151-299 0 200-250 0 251-300 2 301-350 3 351-400 4 >400 5 and Call Doctor Insulin Glargine,Hum.rec.anlog (Lantus Solostar) 100 UNIT/ML (3 ML) INSULN.PEN 20 UNIT SC BID DM . Levothyroxine Sodium (Synthroid) 75 MCG TABLET 1 TAB PO DAILY HYPOTHYROIDISM (Reported) Losartan Potassium 25 MG TABLET 1 TAB PO DAILY HTN (Reported) Metformin HCl 1,000 MG TABLET 1 TAB PO BID DM (Reported) Methadone Hydrochloride (Methadone HCl) 10 MG TABLET 80 MG PO DAILY@1700 Opiate dependency . Omeprazole 20 MG TABLET.DR 1 TAB PO DAILY GERD (Reported) Ondansetron HCl (Zofran) 4 MG TABLET 1 TAB PO Q6-8P Nausea/vomiting . Polyethylene Glycol 3350 (Miralax) 17 GRAM/DOSE POWDER 17 GM PO DAILY NEEDED PRN CONSTIPATION . Pravastatin Sodium (Pravachol) 80 MG TABLET 1 TAB PO DAILY PVD (Reported) Trazodone HCl 100 MG TABLET 1.5 TAB PO QPM SLEEP (Reported) Triage Note: TO ED BY AMBULANCE WITH ONE DAY OF EPIGASTRIC PAIN, N/V. HX PANCREATITIS. ALSO REPORTS BLOOD GLUCOSE >500 TODAY. Triage Nurses Notes Reviewed? yes LMP (ages 10-50): unknown ? N Is pt currently ? No Onset: Abrupt Duration: day(s): (1-2), constant, continues in ED, getting worse Timing: recent history Quality/Severity: sharpness Severity Numbers: 9 Location: epigastric Radiation: back Activities at Onset: none Prior Abdominal Problems: similar symptoms (ACUTE PANCREATITIS) Past Sexual History: Unobtainable at this time No Modifying Factors: none Modifying Factors: Worsens With: movement, palpation. Associated Symptoms: abdominal pain, nausea/vomiting HPI: 56 year old female past medical history of insulin dependent diabetes acute pancreatitis presents for evaluation of epigastric pain and elevated blood sugar. Patient was recently admitted with similar symptoms 2 AND A half weeks ago. Her numbers were under control until she was discharged. She is noncompliant with her insulin she is not used any today. She also reports that she was noncompliant with her diet increasing fatty foods. She denies any alcohol use. No fevers. The pain is located in the epigastric area radiates to her back. It feels similar to previous pancreatitis. No chest pain shortness of breath hemoptysis lower extremity edema. She reports associated nausea and multiple episodes of vomiting. She has not been tolerating fluids today. Past History Travel History Traveled to [place] past 21 day No Medical History Any Pertinent Medical History? 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/Reproductive: NONE Other Medical Hx: RA, Scleroderma History of MRSA: No History of VRE: No History of CDIFF: No Surgical History Surgical History: cholecystectomy, bleow and above knee amputation of RLE Psychosocial History Who do you live with Patient/Self Services at Home Home Health Aide What is your primary language Upper Sorbian Tobacco Use: Never used Daily Tobacco Use Amount/Type: =< 4 Cigarettes daily ETOH Use: denies use Illicit Drug Use: denies illicit drug use Family History Family History, If Any: BROTHER *No pertinent family history FH: diabetes mellitus MOTHER FH: diabetes mellitus FATHER Relation not specified for: FH: colon cancer Hx Contributory? No Review of Systems Review of Systems Constitutional: Reports: weakness. EENTM: Reports: no symptoms. Respiratory: Reports: no symptoms. Cardiovascular: Reports: no symptoms. GI: Reports: see HPI, abdominal pain, nausea, vomiting. Genitourinary: Reports: no symptoms. Musculoskeletal: Reports: no symptoms. Skin: Reports: no symptoms. Neurological/Psychological: Reports: no symptoms. Hematologic/Endocrine: Reports: no symptoms. Immunologic/Allergic: Reports: no symptoms. All Other Systems: Reviewed and Negative Physical Exam Physical Exam General Appearance: well developed/nourished, no apparent distress, alert, awake , obese Head: atraumatic, normal appearance Eyes: Bilateral: normal appearance, PERRL, EOMI, normal inspection. Ears, Nose, Throat, Mouth: hearing grossly normal, moist mucous membrane, Tympanic normal Neck: normal inspection, supple, full range of motion, NO jvd Respiratory: normal breath sounds, chest non-tender, no respiratory distress, lungs clear Cardiovascular: regular rate/rhythm, normal peripheral pulses Peripheral Pulses: 2+ radial (R), 2+ radial (L) Gastrointestinal: normal bowel sounds, soft, no organomegaly, tenderness ( EPIGASTRIC) Back: normal inspection, normal range of motion, no vertebral tenderness, LUMBAR SPINE AND PARASPINOUS MUSCLES AND PALPATION BILATERALLY Extremities: normal range of motion Neurologic/Psych: no motor/sensory deficits, awake, alert, oriented x 3, normal gait, normal mood/affect Skin: intact, normal color, warm/dry Core Measures ACS in differential dx? No Sepsis Present: No Sepsis Focused Exam Completed? No Progress Differential Diagnosis: AAA, AMI, appendicitis, biliary colic, cholecystitis, gastritis, hepatitis, intrauterine , kidney stone, pancreatitis, peptic ulcer, PUD/GERD, SBO, UTI/pyelo, dka, hhs, SEPSIS, HYPERGLYCEMIA Plan of Care: Orders Procedure Date/time Status LACTIC ACID 07/02 1827 Active US-LIMITED ABDOMEN 07/02 1725 Active MIXED VENOUS BLOOD GAS (GEN) 07/02 1529 Complete EKG 07/02 1529 Active TROPONIN LEVEL 07/02 1527 Complete SERUM OSMOLALITY 07/02 1527 Complete LIPASE 07/02 1527 Complete LACTIC ACID 07/02 1527 Complete COMPREHENSIVE METABOLIC PANEL 07/02 152 Complete CBC WITHOUT DIFFERENTIAL 07/02 1527 Complete ACETONE 07/02 1527 Complete Current Medications Sig/Christina Start time Last Medication Dose Stop Time Status Admin Sodium Chloride 1,000 ML BOLUS ONE 07/02 1730 UNVr (Normal Saline 0.9%) 07/02 182 Laboratory Tests 07/02/17 1641: Bicarbonate Actual 17 L, Mixed VBG pH 7.32, Mixed VBG pCO2 35 L, Mixed VBG O2 Saturation 40, P-50 (Temp Corrected) 97.1, Carboxyhemoglobin 1.0 L, O2 Concentration % RA, Temperature 97.1, O2 Delivery Method RA, Anion Gap 14, Estimated GFR > 60, BUN/Creatinine Ratio 30.0 H, Glucose 849 *H, Serum Osmolality 317 H, Lactic Acid 2.2 H, Calcium 9.7, Total Bilirubin 0.2, AST 16, ALT 36, Alkaline Phosphatase 301 H, Troponin I < 0.01, Total Protein 6.8, Albumin 3.9, Globulin 2.9, Albumin/Globulin Ratio 1.3, Lipase 704 H, Phlebotomy Draw Site RAC, Acetone Level POSITIVE AT 1:2 DIL 07/02/17 1543: CBC w Diff NO MAN DIFF REQ, RBC 4.94, MCV 84.8, MCH 27.3, MCHC 32.2 L, RDW 14.5 , MPV 13.1 H, Gran % 80.4 H, Lymphocytes % 13.5 L, Monocytes % 4.3, Eosinophils % 1.1, Basophils % 0.7, Absolute Granulocytes 9.8 H, Absolute Lymphocytes 1.7, Absolute Monocytes 0.5, Absolute Eosinophils 0.1, Absolute Basophils 0.1 Patient seen and evaluated. She has history of pancreatitis and has epigastric pain radiates to her back that feels like previous episodes. She also reports nausea and vomiting. She is noncompliant with her insulin has not used any all today. Patient's blood sugar currently is 849. She has a lactic acid of 2.2 serum osmole 317 anion gap of 14. Mixed venous blood gas shows a pH of 7.32. Patient is hemodynamically stable. IV fluids ordered. Patient was given 10 units of subcutaneous insulin and started on insulin drip at 8 per hour. Additionally she will get in ultrasound of her pancreas and gallbladder. troponin is negative. EKG shows some tall peaked T waves with a calcium of 5.2. While this is just a slight elevation of the potassium with some EKG changes patient will be treated with calcium gluconate however with the IV fluids and insulin her potassium will likely improve on its own. Patient NOT HAVE any chest pain. No palpitations. Patient will require admission to the ICU for further evaluation and treatment. She'll need IV insulin/insulin drip endocrinology consult, GI consult, IV pain meds, IV fluids, nothing by mouth, serial labs. Case discussed with Dr. Jackson he agrees. Patient to the ICU. Initial ED EKG: normal sinus rhythm, CONSIDER ANTEROSEPTAL INFARCT , PEAKED T WAVES Rhythm Strip: normal sinus rhythm Departure Departure Disposition: STILL A PATIENT Condition: Stable Clinical Impression Primary Impression: DKA (diabetic ketoacidoses) Qualifiers: Diabetes mellitus type: type 1 Diabetes mellitus complication detail: without coma Qualified Code: E10.10 - Type 1 diabetes mellitus with ketoacidosis without coma Referrals: Alison CURIEL,Trae Gillis (PCP/Family) Departure Forms: Customer Survey General Discharge Information Admission Note Spoke With: Julio Abbott MD Documentation of Exam: Documentation of any treatments & extenuating circumstances including Concerns Regarding Discharge (functional status, medication knowledge or non-compliance, living conditions, etc.) that warrant an admission rather than observation: [IV insulin, serial labs, endocrinology consult, monitoring of vital signs, every hour blood sugars, nothing by mouth, IV fluids, GI consult, abdominal ultrasound ]
[2017-07-02 15:52] LABS: ABSOLUTE BASOPHIL COUNT 0.1 /CUMM (0.0-0.2); ABSOLUTE EOSINOPHIL COUNT 0.1 /CUMM (0.0-0.7); ABSOLUTE GRANULOCYTE CT 9.8 /CUMM (1.4-6.5); ABSOLUTE LYMPH COUNT 1.7 /CUMM (1.2-3.4); ABSOLUTE MONOCYTE COUNT 0.5 /CUMM (0.10-0.60); BASOPHIL % 0.7 % (0.0-2.0); EOSINOPHIL % 1.1 % (0-5); HEMATOCRIT 41.9 % (37-47); MEAN CORPUSCULAR HGB 27.3 PG (27.0-31.0); MEAN CORPUSCULAR HGB CONC 32.2 G/DL (33.0-37.0); MEAN CORPUSCULAR VOLUME 84.8 FL (81.0-99.0); MEAN PLATELET VOLUME 13.1 FL (7.4-10.4); RBC DISTRIBUTION WIDTH 14.5 % (11.5-14.5); RED BLOOD CELL CT 4.94 /CUMM (4.20-5.40); WHITE BLOOD CELL COUNT 12.2 /CUMM (4.8-10.8)
[2017-07-02 16:13] LABS: GRANULOCYTE % 80.4 % (42.2-75.2); PLATELET COUNT 377 /CUMM (130-400)
--- NOTE | 2017-07-02 18:02 | History & Physical ---
Christie Garcia 07/02/17 1801: General Information and HPI MD Statement: I have seen and personally examined IRENA BUTLER and documented this H&P. The patient is a 56 year old F who presented with a patient stated chief complaint of [abdominal pain, N/V]. 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 According to the patient she was in her usual state of health up until 2 days ago when she had Belgian food and around midnight yesterday, started to experience epigastric pain that she grades as a 10 out of 10 that was nonradiating. She also endorses episodes of nonbloody emesis about 3-4 times. Denies any fevers, chills, diarrhea, constipation, dysuria, any recent history of sick contact. Apparently after she was discharged from the hospital on June 19 and has been noncompliant with her medications stating that she has missed insulin at least 3-4 times. She states that she's been taking 42 units of insulin at bedtime and 10 units in the morning and never took the 20 twice a day as was stated on discharge. She was scheduled to F/U with Dr. Faye, however her appointment is not due until later this month. She states that her blood sugars for the most part range within the 300-400's. She states that her pain was really bad this morning. She has a health aid at her place and while in pain, she may have said that she wished that she . At that point the health aid called 911 nad she was brought to the ED. Patient denies any SI, HI, however, states that she does not feel like living any more. She endorses that her kids and grandson are th eonly reason why she is still alive, else would have killed herself earlier. Allergies/Medications Allergies: Coded Allergies: Penicillins (UNKNOWN 09/27/15) acetaminophen (From TYLENOL) (TOLD NOT TO TAKE DUE TO LIVER ENZYMES 07/02/17) hydromorphone (From DILAUDID) (HIVES 07/02/17) oxycodone (From PERCOCET) (HIVES 07/02/17) Home Med list Aspirin (Ecotrin*) 81 MG TABLET.DR 1 TAB PO DAILY PVD (Reported) Bupropion HCl (Bupropion HCl Sr) 200 MG TABLET.ER 1 TAB PO DAILY OPIOID ( Reported) Clopidogrel Bisulfate (Plavix) 75 MG TABLET 1 TAB PO DAILY PVD (Reported) Docusate Sodium 100 MG CAPSULE 1 CAP PO BID PRN constipation . Exenatide Microspheres (Bydureon) 2 MG VIAL 2 MG SC QTUES DM (Reported) Hydroxychlorquine (Plaquenil) 200 MG TABLET 1 TAB PO BID RA . Insulin Aspart, Recombinant (Novolog Flexpen) 100 UNIT/ML INSULN.PEN 0 SC AC & AT BEDTIME DM BEFORE MEALS. Blood Insulin Sugar Units <80 0 80-150 0 151-199 6 200-250 8 251-300 10 301-350 12 351-400 14 >400 16 units and Call Doctor AT BEDTIME Blood Insulin Sugar Units <80 0 81-150 0 151-299 0 200-250 0 251-300 2 301-350 3 351-400 4 >400 5 and Call Doctor Insulin Glargine,Hum.rec.anlog (Lantus Solostar) 100 UNIT/ML (3 ML) INSULN.PEN 20 UNIT SC BID DM . Levothyroxine Sodium (Synthroid) 75 MCG TABLET 1 TAB PO DAILY HYPOTHYROIDISM (Reported) Losartan Potassium 25 MG TABLET 1 TAB PO DAILY HTN (Reported) Metformin HCl 1,000 MG TABLET 1 TAB PO BID DM (Reported) Omeprazole 20 MG TABLET.DR 1 TAB PO DAILY GERD (Reported) Ondansetron HCl (Zofran) 4 MG TABLET 1 TAB PO Q6-8P Nausea/vomiting . Polyethylene Glycol 3350 (Miralax) 17 GRAM/DOSE POWDER 17 GM PO DAILY NEEDED PRN CONSTIPATION . Pravastatin Sodium (Pravachol) 80 MG TABLET 1 TAB PO DAILY PVD (Reported) Trazodone HCl 100 MG TABLET 1.5 TAB PO QPM SLEEP (Reported) Compliance With Home Meds: POOR Past History Travel History Traveled to [place] past 21 day No Medical History Neurological: NONE EENT: NONE Cardiovascular: PVD (s/p stent in left leg ) Respiratory: NONE Gastrointestinal: NONE Hepatic: NONE Renal: NONE Musculoskeletal: NONE Psychiatric: anxiety, depression Endocrine: diabetes, hypothyroidism Blood Disorders: NONE Cancer(s): NONE PROGRAM PROFESSIONAL/Reproductive: NONE Other Medical Hx: RA, Scleroderma History of MRSA: No History of VRE: No History of CDIFF: No Surgical History Surgical History: cholecystectomy, bleow and above knee amputation of RLE Past Family/Social History Family History Relations & Conditions if any BROTHER *No pertinent family history FH: diabetes mellitus MOTHER FH: diabetes mellitus FATHER Relation not specified for: FH: colon cancer Psychosocial History Services at Home: Home Health Aide ETOH Use: denies use Illicit Drug Use: denies illicit drug use Functional Ability ADLs Independent: dressing, eating, toileting, bathing. Ambulation: independent IADLs Independent: shopping, housework, finances, food prep, telephone, transportation , medication admin. Sexual History Past Sexual History Unobtainable at this time Review of Systems Review of Systems Constitutional: Denies: chills, diaphoresis, fever, weakness. EENTM: Denies: visual changes. Cardiovascular: Denies: chest pain, edema, orthopena, palpitations, peripheral edema, syncope. Respiratory: Reports: cough, sputum production. Denies: hemoptysis, orthopnea, short of breath, wheezing. GI: Reports: abdominal pain, nausea, vomiting. Denies: constipation, diarrhea, bloody stool, changes in stool. Genitourinary: Denies: dysuria, frequency, hematuria, urgency. Musculoskeletal: Denies: back pain, joint pain, joint swelling. Neurological/Psychological: Reports: depressed, headache. Denies: confusion, numbness, tingling, tremors, unable to move lower ext, unable to move upper ext, weakness. Exam & Diagnostic Data Last 24 Hrs of Vital Signs/I&O Vital Signs Date Time Temp Pulse Resp B/P B/P Pulse O2 O2 Flow FiO2 Mean Ox Delivery Rate 07/02 1840 94 192/89 07/02 1827 97.5 94 16 192/89 98 Room Air 07/02 1814 98.0 97 18 188/86 100 Room Air 07/02 1607 97.1 07/02 1525 109 17 182/89 97 Room Air Intake & Output 07/02 1600 07/02 0800 07/02 0000 Intake Total Output Total Balance Patient 171 lb Weight Weight Reported by Patient Measurement Method Physical Exam General Appearance Alert, Oriented X3, Cooperative, No Acute Distress HEENT Atraumatic, PERRLA, EOMI, very dry mucous membranes Neck Supple, No JVD, No thryomegaly, No LAD Cardiovascular Regular Rate, Normal S1, Normal S2, No Murmurs Lungs Clear to Auscultation, Normal Air Movement Abdomen Normal Bowel Sounds, Soft, tenderness to palpation in the epigastrium Neurological Normal Speech, Normal Tone Extremities 5CM X3CM - NON HEALING ULCER; chronic venous stasis change sin LLE; AKA and stump of RLE, with a well healed surgical wound. Body Front and Back (Adult) 1) 5cm x3cm chronic non-healing ulcer located bernarda-laterally on left quiroz Last 24 Hrs of Labs/Nikolas: Laboratory Tests 07/02/171999: Lactic Acid 2.7 H 07/02/17 2000: Anion Gap 12, Estimated GFR > 60, BUN/Creatinine Ratio 27.1 H, Calcium 9.2, Phosphorus 2.4 L, Magnesium 1.9, Triglycerides 286 H, TSH 3.690, Free T4 1.37 07/02/17 1641: Bicarbonate Actual 17 L, Mixed VBG pH 7.32, Mixed VBG pCO2 35 L, Mixed VBG O2 Saturation 40, P-50 (Temp Corrected) 97.1, Carboxyhemoglobin 1.0 L, O2 Concentration % RA, Temperature 97.1, O2 Delivery Method RA, Anion Gap 14, Estimated GFR > 60, BUN/Creatinine Ratio 30.0 H, Glucose 849 *H, Serum Osmolality 317 H, Lactic Acid 2.2 H, Calcium 9.7, Total Bilirubin 0.2, GGT 61 H, AST 16, ALT 36, Alkaline Phosphatase 301 H, Troponin I < 0.01, Total Protein 6.8, Albumin 3.9, Globulin 2.9, Albumin/Globulin Ratio 1.3, Lipase 704 H, Phlebotomy Draw Site RAC, Acetone Level POSITIVE AT 1:2 DIL 07/02/17 1543: CBC w Diff NO MAN DIFF REQ, RBC 4.94, MCV 84.8, MCH 27.3, MCHC 32.2 L, RDW 14.5 , MPV 13.1 H, Gran % 80.4 H, Lymphocytes % 13.5 L, Monocytes % 4.3, Eosinophils % 1.1, Basophils % 0.7, Absolute Granulocytes 9.8 H, Absolute Lymphocytes 1.7, Absolute Monocytes 0.5, Absolute Eosinophils 0.1, Absolute Basophils 0.1 Microbiology 07/02 2021 BLOOD: Blood Culture - RECD 07/02 2020 UPPER RESP: Surveillance Culture - ORD 07/02 2020 GI: Surveillance Culture - ORD 07/02 1999 BLOOD: Blood Culture - RECD 07/02 1805 URINE ROUT: Urine Culture - ORD 07/02 1805 LOWER RESP: Respiratory Culture - ORD 07/02 1805 LOWER RESP: Gram Stain - ORD Diagnostic Data EKG Results ST; normal sinus HR: 104; normal axis; Tall T waves; no ST-T changes Other Results SERVICE DATE: 07/02/17-1724 EXAM TYPE: US - US-LIMITED ABDOMEN FINDINGS: Exam limited by bowel gas and body habitus. PANCREAS: Obscured by bowel gas. LIVER: Mild increased echogenicity due to fatty change. No focal liver lesion. No intrahepatic bile duct dilatation. Right lobe of liver measures 16.8 cm superior inferior. GALLBLADDER: Status post cholecystectomy. No fluid collection at the gallbladder fossa. COMMON BILE DUCT: Normal in caliber measuring 0.4 cm in diameter. RIGHT KIDNEY: Normal. No hydronephrosis. No renal calculi or focal parenchymal lesions. The kidney measures 10.9 cm in maximum dimension. FREE FLUID: None. IMPRESSION: Diffuse fatty change of liver. Status post cholecystectomy. No bile duct dilatation. No acute abnormality right upper quadrant. 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 Of note patient recently presented to [facility] on 06/12/2017 with similar complaints forDKA. Vitals at the time of admission blood pressure 182/89, tachycardic to 109, afebrile, respiratory rate of 17 saturating 97% on room air. Labs pertinent for leukocytosis with white blood cell count of 12,200, H&H of 13.5/41.9, MCV of 84.8 and a platelet count of 377,000. Serum chemistries reveal hyponatremia with a sodium of 126, potassium 5.2, bicarbonate of 16, anion gap of 14, BUN 24 with a creatinine of 0.8 serum glucose elevated 1948 with an elevated serum osmolality of 317, lactic acid 2.2. LFTs pertinent for an AST/L2 16/36, alkaline phosphatase of 301, first of troponin negative less than 0.01. Lipase elevated to 704. Acetone was positive. Hemoglobin A1c back in May 2017 was 14.3 We his blood gas was obtained which showed a pH of 7.32. In the ER she received normal saline thousand mL 1, 10 units of subcutaneous Novolin, 2 mg of morphine IV 1 and Zofran 4 mg IV 1. Assessment and Plan Admit patient to ICU given HHS 2/2 to noncompliance with medications. #HHS - Hydrate her with NS @ 150mls/hr for now, and switch to 1/2 NS pending repeat BEP. - Insulin drip 2 8 unit/hr and goal to titrate the drip to maintain FSG's between 160-180. - FSG q 1 hr - Spoke with Dr. Ferrera, plan to continue her on isnulin drip overnight with trasnition to SC insulin in AM. - ICU bundle @ 8:00pm, 00:00 and 4:00am for K, Na. - Adjust and decrease fluids to 125mls/hr, pending Na, and K. - Will start her on KCL 40MEq in fluids, if her K is low on the next set of labs. - Endo consult placed with Dr. Ferrera, F.U recs in AM. - NPo for now - Zofran as needed for nasuea. - F/U LA @ 8:00pm, 11:pm and 1:00AM - F/U BCX2, UC, LRC #Hypothryodism - Contnue home dose of levothyroxine and F/U TSH, FT4 # Pancreatitis - Lipase mildly elevated to 704 - Follow-up ultrasound abdomen. - 2/2 gall stone?? - s/p kimberley; F/U GGT. #HTN - hypertensive to 192 systolic, in the setting of not having taken her medications. - Will administer Lopressor 5mg IV x1 - Will D/C losartan given hyperkalemia - Will satrt AMlodipine 5mg daily. #Depression/ Insomnia/ Opiod depenence - Will continue Trazadone, and Well butrin - Psych eval in AM for passive SI. - No sitter for now. # RA/ Scleroderma - Continue Hydroxychloroquine 200mg BID PO #PVD - Continue ASA, Plavix, statin - Wound consult in AM for left lower extremity ulcer - DVT prophlaxis - Heparin 5000IU TID SC - Diet - Npo for now. - Code status - Full Code As Ranked By This Provider Problem List: 1. Hyperglycemia Core Measures/Misc (02/04) Acute Coronary Syndrome ACS Diagnosis: No Congestive Heart Failure Congestive Heart Failure Diagnosis No Cerebrovascular Accident CVA/TIA Diagnosis: No VTE (View Protocol) VTE Risk Factors Age>40 No Mechanical VTE Prophylaxis d/t N/A MechProphylax Ordered No VTE Pharm Prophylaxis d/t NA PharmProphylax ordered Sepsis (View protocol) Sepsis Present: No Resident Review Statement Resident Statement: admitted by resident Julio Abbott MD 07/02/179: Attending MD Review Statement Attending Statement Attending MD Statement: examined this patient, discuss w/resident/PA/GLOBAL MARKETING SPECIALIST, agreed w/resident/PA/GLOBAL MARKETING SPECIALIST, reviewed EMR data (avail), reviewed images, amended to note Attending Assessment/Plan: The patient is a 56 yo female with h/o DM2, HTN, PVD (s/p stents), hypothyroid, HL, GERD who presented in the ED with c/o 2 day h/o epigastric pain after eating food. She also describes emesis x 4 toady with no fever or chills. In ED blood sugar was over 800, lactate was elevated at 2.2, and lipase 704. There is some non-compliance with medication since her recent discharge. She endorses feeling depressed regarding her condition. In the ED she was placed on an insulin drip. She had a similar admission 06/12/17. She was recently tapered off Methadone (h/o opioid use). Physical Exam: VS: T 97.1, P 109, R 17, BP 182/89, PO 97% HEENT: eyes- PERRLA, EOMI tigre- dry mucosa Neck: suppler, no adenopathy Chest: clear Cor: tachy, nl S1, S2 w/o murm Abd: BS+, soft, + mild to mod epigastric tenderness w/o guarding/rebound Ext: no edema, s/p right AKA, non-healing ulcer improved since last admission Labs/Tests - as above Impression/Plan: #Hyperosmolar Hyperglycemic State - with ketosis/acidosis. Patient has been non- compliant with medications. Similar to prior presentation. Now on insulin drip Plan: Admit to ICU on insulin drip. Monitor sugars closely and adjust drip. IV hydration. Endocrinology consult. #Pancreatitis- has had 2 days of epigastric pain. Lipase 740. Abdominal US shows no gallstones, however pancreas obscured by gas. Prior triglycerides normal. Plan: NPO at present and IV fluids. Follow pain symptoms. If pain worsening may need CT. #DM2- non-compliant with medications. Plan: Insulin drip as above. Will need to discuss compliance when ready for discharge. #Hypothyroid- on Levothyroxine. Plan: Continue Levothyroxine. #Depression- patient endorses feeling depressed regarding condition. Plan: Psychiatry consult. #HTN- on Losartan Plan: Continue Losartan if BP allows.
--- NOTE | 2017-07-02 18:12 | ULTRASOUND REPORT ---
EXAMINATION: US ABDOMEN LIMITED CLINICAL INFORMATION: Epigastric pain.. COMPARISON: Ultrasound Limited abdomen 06/12/2017. CT scan abdomen pelvis 06/12/2017 TECHNIQUE: Real-time imaging of the right upper quadrant abdominal viscera. Color Doppler exam used. FINDINGS: Exam limited by bowel gas and body habitus. PANCREAS: Obscured by bowel gas. LIVER: Mild increased echogenicity due to fatty change. No focal liver lesion. No intrahepatic bile duct dilatation. Right lobe of liver measures 16.8 cm superior inferior. GALLBLADDER: Status post cholecystectomy. No fluid collection at the gallbladder fossa. COMMON BILE DUCT: Normal in caliber measuring 0.4 cm in diameter. RIGHT KIDNEY: Normal. No hydronephrosis. No renal calculi or focal parenchymal lesions. The kidney measures 10.9 cm in maximum dimension. FREE FLUID: None. IMPRESSION: Diffuse fatty change of liver. Status post cholecystectomy. No bile duct dilatation. No acute abnormality right upper quadrant.
--- NOTE | 2017-07-02 21:34 | Admission Certification ---
Admission Certification Certification Statement - As attending physician, I certify that at the time of - admission, based on clinical presentation, severity of - symptoms, need for further diagnostic testing and - therapeutic interventions, and risk of adverse outcomes - without in-hospital treatment, in my clinical assessment, - this patient requires an acute hospital stay for a minimum - of two nights or longer. I have also considered psychsocial - factors such as support system, advanced age, financial - issues, cognitive issues, and failed out-patient treatments, - past re-admission history, safety of patient, and lack of - compliance as applicable. Specific rationale supporting this admission is: The patient presents with hyperosmolar, hyperglycemic state (HHS) requiring IV hydration and insulin drip- ICU admission. Also with pancreatitis with lipase 720. Close follow-up of abdominal exam.
[2017-07-03] VITALS: BP 147/70
[2017-07-03 05:12] LABS: ABSOLUTE BASOPHIL COUNT 0 /CUMM (0.0-0.2); ABSOLUTE EOSINOPHIL COUNT 0.2 /CUMM (0.0-0.7); ABSOLUTE GRANULOCYTE CT 5.7 /CUMM (1.4-6.5); ABSOLUTE LYMPH COUNT 2.6 /CUMM (1.2-3.4); ABSOLUTE MONOCYTE COUNT 0.5 /CUMM (0.10-0.60); BASOPHIL % 0.5 % (0.0-2.0); EOSINOPHIL % 2.3 % (0-5); MEAN CORPUSCULAR VOLUME 83.7 FL (81.0-99.0)
[2017-07-03 05:38] LABS: MEAN CORPUSCULAR HGB 27.3 PG (27.0-31.0); MEAN CORPUSCULAR HGB CONC 32.7 G/DL (33.0-37.0); MEAN PLATELET VOLUME 11.8 FL (7.4-10.4); PLATELET COUNT 268 /CUMM (130-400)
[2017-07-03 05:40] LABS: HEMATOCRIT 33.5 % (37-47)
--- NOTE | 2017-07-03 07:40 | Cons- Endocrinology ---
General Information and HPI Consulting Request Date of Consult: 07/03/17 Requested By: medical team Reason for Consult: Uncontrolled diabetes with hyperosmolar state Source of Information: patient, old records Exam Limitations: no limitations History of Present Illness: This 56-year-old woman was in the hospital during the month of May, with uncontrolled diabetes. She was discharged on Levemir 22 units twice a day as well as NovoLog before meals. She readily admits that she began to skip some of her insulin. She developed severe epigastric pain which made her come back to the emergency room. The patient was found to have evidence of acute pancreatitis on her last admission with a lipase of almost 10,[address] scan of peripancreatic stranding. Patient was treated with an insulin drip last night for a hyperosmolar state with mild ketoacidosis. Her lipase during this admission is. This morning her blood sugar in the lab is 192 with a BUN 15 creatinine 0.7 CO2 is 20 anion gap 6 calcium 8.6 albumin 2.6 liver function tests are normal. White blood count was 9.0 and hematocrit 33.5. The patient is receiving D5 half-normal saline with 40 mEq KCl and also remains on the insulin drip. This patient has a past medical history of rheumatoid arthritis, scleroderma, peripheral vascular disease status post [id number] amputation of the right lower leg, stent replacement in the left lower extremity where there is a nonhealing ulcer, hypothyroidism, and opioid abuse. Allergies/Medications Allergies: Coded Allergies: Penicillins (UNKNOWN 09/27/15) hydromorphone (From DILAUDID) (HIVES 07/02/17) Home Med List: Aspirin (Ecotrin*) 81 MG TABLET.DR 1 TAB PO DAILY PVD (Reported) Bupropion HCl (Wellbutrin XL) 150 MG TAB.ER.24H 1 TAB PO QAM anxiety Clopidogrel Bisulfate (Plavix) 75 MG TABLET 1 TAB PO DAILY PVD (Reported) Docusate Sodium 100 MG CAPSULE 1 CAP PO BID PRN constipation . Exenatide Microspheres (Bydureon) 2 MG VIAL 2 MG SC QTUES DM (Reported) Hydroxychlorquine (Plaquenil) 200 MG TABLET 1 TAB PO BID RA . Insulin Aspart, Recombinant (Novolog Flexpen) 100 UNIT/ML INSULN.PEN 0 SC AC & AT BEDTIME DM BEFORE MEALS. Blood Insulin Sugar Units <80 0 80-150 0 151-199 6 200-250 8 251-300 10 301-350 12 351-400 14 >400 16 units and Call Doctor AT BEDTIME Blood Insulin Sugar Units <80 0 81-150 0 151-299 0 200-250 0 251-300 2 301-350 3 351-400 4 >400 5 and Call Doctor Insulin Glargine,Hum.rec.anlog (Lantus Solostar) 100 UNIT/ML (3 ML) INSULN.PEN 20 UNIT SC BID DM . Levothyroxine Sodium (Synthroid) 75 MCG TABLET 1 TAB PO DAILY HYPOTHYROIDISM (Reported) Losartan Potassium 25 MG TABLET 1 TAB PO DAILY HTN (Reported) Metformin HCl 1,000 MG TABLET 1 TAB PO BID DM (Reported) Omeprazole 20 MG TABLET.DR 1 TAB PO DAILY GERD (Reported) Ondansetron HCl (Zofran) 4 MG TABLET 1 TAB PO Q6-8P Nausea/vomiting . Polyethylene Glycol 3350 (Miralax) 17 GRAM/DOSE POWDER 17 GM PO DAILY NEEDED PRN CONSTIPATION . Pravastatin Sodium (Pravachol) 80 MG TABLET 1 TAB PO DAILY PVD (Reported) Ramelteon (Rozerem) 8 MG TABLET 1 TAB PO QHS PRN INSOMNIA Sertraline HCl (Zoloft) 50 MG TABLET 1.5 TAB PO DAILY anxiety Trazodone HCl 100 MG TABLET 0.5-1 TAB PO QPM PRN INSOMNIA (Reported) 1 HOUR APART Review of Systems Review of Systems Constitutional: Denies: chills, fever. Cardiovascular: Denies: chest pain. GI: Reports: abdominal pain, nausea. Genitourinary: Denies: dysuria. Skin: Reports: no symptoms. Neurological/Psychological: Reports: anxiety. Past History Travel History Traveled to [place] past 21 day No Medical History Blood Transfusion Hx: No Neurological: NONE EENT: NONE Cardiovascular: PVD (s/p stent in left leg ) Respiratory: NONE Gastrointestinal: NONE Hepatic: NONE Renal: NONE Musculoskeletal: NONE Psychiatric: anxiety, depression Endocrine: diabetes, hypothyroidism Blood Disorders: NONE Cancer(s): NONE PERSONAL SHOPPER/Reproductive: NONE Other Medical Hx: RA, Scleroderma Surgical History Surgical History: cholecystectomy, bleow and above knee amputation of RLE Family History Relations & Conditions If Any: BROTHER *No pertinent family history FH: diabetes mellitus MOTHER FH: diabetes mellitus FATHER Relation not specified for: FH: colon cancer Psychosocial History Where Do You Live? Home Services at Home: Home Health Aide Smoking Status: Former Smoker ETOH Use: denies use Illicit Drug Use: denies illicit drug use Functional Ability ADLs Independent: dressing, eating, toileting, bathing. Ambulation: independent IADLs Independent: shopping, housework, finances, food prep, telephone, transportation , medication admin. Exam & Diagnostic Data Last 24 Hrs of Vital Signs/I&O Vital Signs Date Time Temp Pulse Resp B/P B/P Pulse O2 O2 Flow FiO2 Mean Ox Delivery Rate 07/03 0400 97 Room Air 07/03 0000 96.9 71 18 147/70 97 Room Air 07/02 2100 97 Room Air 07/02 2027 97.3 79 17 97 Room Air 07/02 2019 162/74 07/02 1842 75 175/77 07/02 1840 94 192/89 07/02 1827 97.5 94 16 192/89 98 Room Air 07/02 1814 98.0 97 18 188/86 100 Room Air 07/02 1607 97.1 07/02 1525 109 17 182/89 97 Room Air Intake & Output 07/03 0800 07/03 0000 07/02 1600 Intake Total 1013 1000 Output Total Balance 1013 1000 Intake, IV 963 1000 Intake, Oral 50 Patient 166 lb 171 lb Weight Weight Reported by Patient Measurement Method Vital Signs Date Time Temp Pulse Resp B/P B/P Pulse O2 O2 Flow FiO2 Mean Ox Delivery Rate 07/03 0400 97 Room Air 07/03 0000 96.9 71 18 147/70 97 Room Air 07/02 2099 97 Room Air 07/02 2027 97.3 79 17 97 Room Air 07/02 2019 162/74 07/02 1842 75 175/77 12 1840 94 192/89 07/02 1827 97.5 94 16 192/89 98 Room Air 07/02 1814 98.0 97 18 188/86 100 Room Air 07/02 1607 97.1 07/02 1525 109 17 182/89 97 Room Air Intake & Output 07/03 0800 07/03 0000 07/02 1600 Intake Total 1013 1000 Output Total Balance 1013 1000 Intake, IV 963 1000 Intake, Oral 50 Patient 166 lb 171 lb Weight Weight Reported by Patient Measurement Method Physical Exam General Appearance: alert, awake, comfortable Head: normal appearance Eyes: Bilateral: normal appearance. Neck: normal inspection Respiratory: normal breath sounds Cardiovascular: regular rate/rhythm Gastrointestinal: normal bowel sounds, tenderness (uppper abdomen) Extremities: left foot bandaged, Right AKA. Labs/Nikolas Results: Laboratory Tests 07/03/17 0445: Anion Gap 6, Estimated GFR > 60, Glucose 192 H, Calcium 8.6, Phosphorus 2.5, Magnesium 1.8, Total Bilirubin < 0.1 L, AST 15, ALT 32, Albumin 2.6 L, CBC w Diff NO MAN DIFF REQ, RBC 4.00 L, MCV 83.7, MCH 27.3, MCHC 32.7 L, RDW 14.0, MPV 11.8 H, Gran % 63.0, Lymphocytes % 28.4, Monocytes % 5.8, Eosinophils % 2.3 , Basophils % 0.5, Absolute Granulocytes 5.7, Absolute Lymphocytes 2.6, Absolute Monocytes 0.5, Absolute Eosinophils 0.2, Absolute Basophils 0 07/03/17 0200: Lactic Acid Cancelled 07/03/17 0030: Lactic Acid 1.2 07/03/17 0030: Anion Gap 8, Estimated GFR > 60, Glucose 156 H, Calcium 8.7, Phosphorus 2.6, Magnesium 1.8, Total Bilirubin < 0.1 L, AST 14, ALT 27, Albumin 2.9 L 07/03/17 0000: Urine Opiates Screen 2724.00 H, Methadone Screen 135, Barbiturate Screen < 60, Ur Phencyclidine Scrn < 6.00, Amphetamines Screen < 100, U Benzodiazepines Scrn < 85, Urine Cocaine Screen < 50, Urine Cannabis Screen < 5.00, Urinalysis LIGHT H, Urine Color YEL, Urine Clarity CLEAR, Urine pH 6.0, Ur Specific [place] 1.015 , Urine Protein 30 H, Urine Ketones 15 H, Urine Nitrite NEG, Urine Bilirubin NEG, Urine Urobilinogen 0.2, Ur Leukocyte Esterase NEG, Ur Microscopic SEDIMENT EXAMINED, Urine RBC 3-5, Urine WBC 1-3 H, Ur Epithelial Cells FEW, Urine Mucus FEW, Micro UA Comment [place] H, Urine Hemoglobin TRACE-INTACT, Urine Glucose >=1000 H 07/02/171999: Lactic Acid 2.7 H 07/02/171999: Anion Gap 12, Estimated GFR > 60, BUN/Creatinine Ratio 27.1 H, Calcium 9.2, Phosphorus 2.4 L, Magnesium 1.9, Triglycerides 286 H, TSH 3.690, Free T4 1.37 07/02/17 1641: Bicarbonate Actual 17 L, Mixed VBG pH 7.32, Mixed VBG pCO2 35 L, Mixed VBG O2 Saturation 40, P-50 (Temp Corrected) 97.1, Carboxyhemoglobin 1.0 L, O2 Concentration % RA, Temperature 97.1, O2 Delivery Method RA, Anion Gap 14, Estimated GFR > 60, BUN/Creatinine Ratio 30.0 H, Glucose 849 *H, Serum Osmolality 317 H, Lactic Acid 2.2 H, Calcium 9.7, Total Bilirubin 0.2, GGT 61 H, AST 16, ALT 36, Alkaline Phosphatase 301 H, Troponin I < 0.01, Total Protein 6.8, Albumin 3.9, Globulin 2.9, Albumin/Globulin Ratio 1.3, Lipase 704 H, Phlebotomy Draw Site RAC, Acetone Level POSITIVE AT 1:2 DIL 07/02/17 1543: CBC w Diff NO MAN DIFF REQ, RBC 4.94, MCV 84.8, MCH 27.3, MCHC 32.2 L, RDW 14.5 , MPV 13.1 H, Gran % 80.4 H, Lymphocytes % 13.5 L, Monocytes % 4.3, Eosinophils % 1.1, Basophils % 0.7, Absolute Granulocytes 9.8 H, Absolute Lymphocytes 1.7, Absolute Monocytes 0.5, Absolute Eosinophils 0.1, Absolute Basophils 0.1 Microbiology 07/02 2199 UPPER RESP: Surveillance Culture - RECD 07/02 2199 GI: Surveillance Culture - RECD 07/02 2021 BLOOD: Blood Culture - RECD 07/02 1999 BLOOD: Blood Culture - RECD 07/02 1805 URINE ROUT: Urine Culture - COLB 07/02 1805 LOWER RESP: Respiratory Culture - COLB 07/02 1805 LOWER RESP: Gram Stain - COLB Diagnostic Data Other Results CT scan from June 12 which shows cristy-pancreatic stranding consistent with acute pancreatitis. Assessment/Plan Assessment/Plan This 56-year-old woman presented with severe epigastric pain and evidence of uncontrolled diabetes with a hyperosmolar state in mild ketoacidosis. It was the abdominal pain that brought her back to the emergency room. Previous CT scan done during her last admission showed evidence consistent with acute pancreatitis including peripancreatic stranding. The patient has been treated with an insulin drip and fluid and electrolyte repletion overnight. This morning her labs are much improved. In view of findings consistent with pancreatitis we should repeat her lipase this morning. Consider repeat CT scan of the abdomen. We should also start a proton pump inhibitor in view of the epigastric pain. GI consult should be obtained. We can convert the patient to subcu insulin this morning based on IV fluids until we are sure it is safe to feed her. We can begin Levemir 20 units twice a day. We should continue D5 half-normal saline with 20 mEq KCl at 1 25 cc/h. We can also begin sliding scale NovoLog every 4 hours while she is n.p.o. and on IV fluids. Sliding scale NovoLog every 4 hours should be less than 150 give no insulin, 151-200 give 4 units NovoLog, 201-250 give 6 units NovoLog, 251-300 give 7 units NovoLog, 301-350 give 8 units NovoLog, 351-400 give 9 units NovoLog. One hour after the first dose of NovoLog and the first dose of Levemir we can shut off the insulin drip. Consult Acknowledgment - Thank you for your consult request.
[2017-07-03 08:00] VITALS: BP 118/50
--- NOTE | 2017-07-03 10:51 | PN- Housestaff ---
See Addendum Subjective Follow-up For: HHS Subjective: No overnight acute events. Patient continues to complain of epigastric pain 8 out of 10. Also reports nausea. Denies fevers chills or any urinary symptoms. Review of Systems Constitutional: Reports: see HPI. Objective Last 24 Hrs of Vital Signs/I&O Vital Signs Date Time Temp Pulse Resp B/P B/P Pulse O2 O2 Flow FiO2 Mean Ox Delivery Rate 07/03 913 67 103/59 07/03 0800 97.1 70 24 118/50 99 Room Air 07/03 0400 97 Room Air 07/03 0000 96.9 71 18 147/70 97 Room Air 07/02 2100 97 Room Air 07/02 202 97.3 79 17 97 Room Air 07/02 2020 162/74 07/02 1842 75 175/77 07/02 1840 94 192/89 07/02 1827 97.5 94 16 192/89 98 Room Air 07/02 1814 98.0 97 18 188/86 100 Room Air 07/02 1607 97.1 07/02 1525 109 17 182/89 97 Room Air Intake & Output 07/03 1600 07/03 0800 07/03 0000 Intake Total 1013 1415 Output Total 500 Balance 1013 915 Intake, IV 963 1365 Intake, Oral 50 50 Output, Urine 500 Patient 166 lb 166 lb Weight Weight Bed scale Measurement Method Physical Exam General Appearance: Alert, Oriented X3, Cooperative, Mild Distress Skin: No Rashes Cardiovascular: Normal S1, Normal S2, No Murmurs Lungs: Clear to Auscultation, Normal Air Movement Abdomen: Normal Bowel Sounds, Soft, epigastric tenderness Neurological: Normal Speech Extremities: No Edema Current Medications: Current Medications Sig/Christina Start time Last Medication Dose Route Stop Time Status Admin Amlodipine Besylate 5 MG DAILY 07/03 1000 AC 07/03 PO 0914 Aspirin Buffered 81 MG DAILY 07/03 1000 AC 07/03 PO 0913 Bupropion HCl 200 MG DAILY 07/02 1818 AC 07/03 PO 0914 Calcium Gluconate 1 GM ONCE ONE 07/02 1800 CAN Sodium Chloride 100 ML IV 07/02 1859 Clopidogrel Bisulfate 75 MG DAILY 07/03 1000 AC 07/03 PO 0914 Docusate Sodium 100 MG BID PRN 07/02 1830 AC PO Heparin Sodium 5,000 UNIT Q8 07/02 2200 AC 07/03 (Porcine) SC 0647 Hydroxychloroquine 200 MG BID 07/02 2200 AC 07/03 Sulfate PO 0914 Influenza Virus 0.5 ML ONCE ONE 07/03 0615 DC 07/03 Vaccine IM 07/03 0616 0746 Insulin Aspart 0 Q4 07/03 1000 AC 07/03 SC 0815 Insulin Detemir 20 UNITS BID 07/03 1000 AC 07/03 SC 0815 Insulin Human Regular 100 UNIT ONCE ONE 07/02 1730 DC 07/02 Sodium Chloride 100 ML IV 07/02 1731 1802 Insulin Human Regular 10 UNITS ONCE ONE 07/02 1715 DC 07/02 SC 07/02 1716 1721 Levothyroxine Sodium 0.075 MG DAILY AC 07/03 0700 AC 07/03 PO 0645 Losartan Potassium 25 MG DAILY 07/02 1819 DC PO Metoprolol Tartrate 0 .STK-MED ONE 07/02 1835 DC IV Metoprolol Tartrate 5 MG ONCE ONE 07/02 1830 DC 07/02 IV 07/02 1831 1840 Morphine Sulfate 2 MG Q4P PRN 07/02 2200 DC 07/02 IV 1926 Morphine Sulfate 2 MG Q2 HRS NEEDED PRN 07/02 2130 AC 07/03 IV 1046 Morphine Sulfate 0 .STK-MED ONE 07/02 1927 DC .ROUTE Morphine Sulfate 0 .STK-MED ONE 07/02 1738 DC .ROUTE Morphine Sulfate 2 MG ONCE ONE 07/02 1730 DC 07/02 IV 07/02 1731 1735 Omeprazole 20 MG DAILY AC 07/03 0700 AC 07/03 PO 0645 Ondansetron HCl 4 MG ONCE ONE 07/02 2200 DC 07/02 IV 07/02 2201 2201 Ondansetron HCl 4 MG Q6P PRN 07/02 1815 AC IV Ondansetron HCl 0 .STK-MED ONE 07/02 1723 DC .ROUTE Ondansetron HCl 4 MG ONCE ONE 07/02 1545 DC 07/02 IV 07/02 1546 1720 Pantoprazole Sodium 40 MG DAILY 07/03 0800 AC 07/03 IV 0913 Phosphate 250 MG PC AND AT BEDTIME 07/03 0900 CAN PO Potassium Chloride 40 MEQ Q8H 07/03 0830 AC 07/03 Dextrose/Sodium 1,000 ML IV 0913 Chloride Potassium Chloride 40 MEQ Q6H 07/02 2200 DC 07/03 Dextrose/Sodium 1,000 ML IV 0642 Chloride Potassium Chloride 40 MEQ 150 MLS/HR 07/02 2130 DC 07/02 IV 2139 Potassium Chloride 20 MEQ Q6H 07/02 2045 DC Sodium Chloride 1,000 ML IV Pravastatin Sodium 20 MG 1700 07/03 1700 AC PO Sodium Chloride 1,000 ML Q6H 07/02 1830 DC IV Sodium Chloride 1,000 ML BOLUS ONE 07/02 1730 DC 07/02 IV 07/02 1829 1827 Sodium Chloride 1,000 ML BOLUS ONE 07/02 1530 DC 07/02 IV 07/02 1629 1717 Trazodone HCl 150 MG QPM 07/02 2200 AC PO Last 24 Hrs of Lab/Nikolas Results Last 24 Hrs of Labs/Mics: Laboratory Tests 07/03/17 0445: Anion Gap 6, Estimated GFR > 60, Glucose 192 H, Calcium 8.6, Phosphorus 2.5, Magnesium 1.8, Total Bilirubin < 0.1 L, AST 15, ALT 32, Albumin 2.6 L, Lipase 352 H, CBC w Diff NO MAN DIFF REQ, RBC 4.00 L, MCV 83.7, MCH 27.3, MCHC 32.7 L, RDW 14.0, MPV 11.8 H, Gran % 63.0, Lymphocytes % 28.4, Monocytes % 5.8, Eosinophils % 2.3, Basophils % 0.5, Absolute Granulocytes 5.7, Absolute Lymphocytes 2.6, Absolute Monocytes 0.5, Absolute Eosinophils 0.2, Absolute Basophils 0 07/03/17 0200: Lactic Acid Cancelled 07/03/17 0030: Lactic Acid 1.2 07/03/17 0030: Anion Gap 8, Estimated GFR > 60, Glucose 156 H, Calcium 8.7, Phosphorus 2.6, Magnesium 1.8, Total Bilirubin < 0.1 L, AST 14, ALT 27, Albumin 2.9 L 07/03/17 0000: Urine Opiates Screen 2724.00 H, Methadone Screen 135, Barbiturate Screen < 60, Ur Phencyclidine Scrn < 6.00, Amphetamines Screen < 100, U Benzodiazepines Scrn < 85, Urine Cocaine Screen < 50, Urine Cannabis Screen < 5.00, Urinalysis LIGHT H, Urine Color YEL, Urine Clarity CLEAR, Urine pH 6.0, Ur Specific [place] 1.015 , Urine Protein 30 H, Urine Ketones 15 H, Urine Nitrite NEG, Urine Bilirubin NEG, Urine Urobilinogen 0.2, Ur Leukocyte Esterase NEG, Ur Microscopic SEDIMENT EXAMINED, Urine RBC 3-5, Urine WBC 1-3 H, Ur Epithelial Cells FEW, Urine Mucus FEW, Micro UA Comment [place] H, Urine Hemoglobin TRACE-INTACT, Urine Glucose >=1000 H 07/02/171999: Lactic Acid 2.7 H 07/02/17 2000: Anion Gap 12, Estimated GFR > 60, BUN/Creatinine Ratio 27.1 H, Calcium 9.2, Phosphorus 2.4 L, Magnesium 1.9, Triglycerides 286 H, TSH 3.690, Free T4 1.37 07/02/17 1641: Bicarbonate Actual 17 L, Mixed VBG pH 7.32, Mixed VBG pCO2 35 L, Mixed VBG O2 Saturation 40, P-50 (Temp Corrected) 97.1, Carboxyhemoglobin 1.0 L, O2 Concentration % RA, Temperature 97.1, O2 Delivery Method RA, Anion Gap 14, Estimated GFR > 60, BUN/Creatinine Ratio 30.0 H, Glucose 849 *H, Serum Osmolality 317 H, Lactic Acid 2.2 H, Calcium 9.7, Total Bilirubin 0.2, GGT 61 H, AST 16, ALT 36, Alkaline Phosphatase 301 H, Troponin I < 0.01, Total Protein 6.8, Albumin 3.9, Globulin 2.9, Albumin/Globulin Ratio 1.3, Lipase 704 H, Phlebotomy Draw Site RAC, Acetone Level POSITIVE AT 1:2 DIL 07/02/17 1543: CBC w Diff NO MAN DIFF REQ, RBC 4.94, MCV 84.8, MCH 27.3, MCHC 32.2 L, RDW 14.5 , MPV 13.1 H, Gran % 80.4 H, Lymphocytes % 13.5 L, Monocytes % 4.3, Eosinophils % 1.1, Basophils % 0.7, Absolute Granulocytes 9.8 H, Absolute Lymphocytes 1.7, Absolute Monocytes 0.5, Absolute Eosinophils 0.1, Absolute Basophils 0.1 Microbiology 07/02 2199 UPPER RESP: Surveillance Culture - RECD 07/02 2199 GI: Surveillance Culture - RECD 07/02 2021 BLOOD: Blood Culture - RECD 07/02 1999 BLOOD: Blood Culture - RECD 07/02 1805 URINE ROUT: Urine Culture - COLB 07/02 1805 LOWER RESP: Respiratory Culture - COLB 07/02 1805 LOWER RESP: Gram Stain - COLB Assessment/Plan Assessment: 56-year-old female with a past medical history of rheumatoid arthritis, scleroderma, and type 2 diabetes, peripheral vascular disease status post below and above knee amputation of right lower extremity at [facility] in 2012 and 2014, stent placement and left lower extremity about 4 months ago with a 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 The patient was admitted to ICU given HHS 2/2 to noncompliance with medications. She is currently being treated and evaluated for following conditions #HHS The patient is currently receiving D5 half-normal saline with 40 mEq KCl and also remains on the insulin drip. -Continue D5 half-normal saline with 20 mEq KCl at 125 cc/h -We are going to begin patient on NovoLog sliding scale every 4 as per Endo recommendations -We are also going to start patient on Levemir 20 units twice a day -One hour after the first dose of NovoLog and the first dose of Levemir we can continue the insulin drip. -NPO for now -Zofran as needed for [place]. #Suspected Pancreatitis Lipase mildly elevated to 704, patient's status post cholecystectomy. -Consider GI consult -Repeat lipase -Consider CT scan of the abdomen as -NPO for now -Cholesterol panel last admission WNL, TAG 286 -Continue Protonix #HTN On presentation hypertensive to 192 systolic, in the setting of not having taken her medications. She has received 5 mg IV Lopressor -Continue amlodipine 5mg daily. #Hypothryodism -Contnue home dose of levothyroxine -TSH, FT4 WNL #Depression/ Insomnia/ Opiod depenence -Continue Trazadone, and Wellbutrin - Psych eval in AM for passive SI. # RA/ Scleroderma -Continue Hydroxychloroquine 200mg BID PO #PVD -Continue ASA, Plavix, statin -Wound consult in AM for left lower extremity ulcer #NPO/DVT prophlaxis Heparin 5000 SC/FC Problem List: 1. Hyperglycemia Pain Ratin Pain Location: epigastric Pain Goal: Pain 4 or less Pain Plan: prn Tomorrow's Labs & Rationales: cbc bep
--- NOTE | 2017-07-03 15:04 | Cons- Gastroenterology ---
General Information and HPI Consulting Request Date of Consult: 07/03/17 Requested By: Julio Abbott MD Reason for Consult: 1. Epigastric pain 2. Elevated lipase Source of Information: patient, Electronic Medical Record Exam Limitations: no limitations History of Present Illness: Ms. Gonzalez is a 56-year-old female with a past medical history of rheumatoid arthritis, scleroderma, and insulin-dependent type 2 diabetes, who presented to [facility] with nausea, vomiting and epigastric pain. 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 She had been discharged from this hospital on June 19 but since that time has not taken her insulin on at least 3-4 occasions. On admission her blood glucose was 849. She states that her blood sugars for the most part range within the 300-400's. Her lipase on admission was 704 and her alk phos was 317. Her alkaline phosphatase has been chronically elevated at anywhere from 1254 to 199. Her albumin is 2.6 and has been steadily declining. She had a HCO3 of 16. Today her lipase is 352. She reports that the epigastric pain/pinpoint, subxiphoid pain begain after eating Telugu food and was accompanied by nausea and vomiting. When she was admitted on June 12 it was for similar complaints. At that time she had a CT Scan of the abdomen and pelvis which is as follows: FINDINGS: LUNG BASES: The visualized lung bases are unremarkable. LIVER, GALLBLADDER, AND BILIARY TREE: The liver is normal in size, shape, and attenuation. There is a small calcification in the posterior aspect of the right lobe of the liver. No biliary ductal dilatation is present. The gallbladder is surgically absent. PANCREAS: There are prominent peripancreatic inflammatory changes and small stranded areas of fluid present in the region of the uncinate process adjacent to the C-sweep of the duodenum as well as along the tail of the pancreas extending around the left pararenal region. The pancreas is partially fatty replaced, with no focal pancreatic mass lesion identified. No loculated fluid collection is present. SPLEEN: Normal ADRENAL GLANDS: Normal KIDNEYS AND URETERS: The kidneys are normal in size, shape, and attenuation. No hydronephrosis, hydroureter, or calculi seen. No perinephric stranding. BLADDER: Unremarkable. GASTROINTESTINAL TRACT: The small and large bowel are unremarkable. The appendix is nonvisualized. ABDOMINAL WALL: No significant hernia is appreciated. LYMPH NODES: No pathologically enlarged lymph nodes are present.. VASCULAR: Minimal abdominal aortic calcified plaque extending into the iliac arteries. No aneurysmal dilation of the abdominal aorta. PELVIC VISCERA: The uterus is unremarkable, no adnexal mass lesions are noted. OSSEOUS STRUCTURES: No focal osseous lesions, no aggressive osseous lesions noted. IMPRESSION: 1. Peripancreatic inflammatory changes within the mesenteric fat with small strands of free fluid present adjacent to the uncinate process and along the tail of the pancreas. No loculated fluid collections or pancreatic pseudocyst is present at this time. No pancreatic mass lesion is present at this time. The findings are suggestive of acute pancreatitis. 2. As noted above, the gallbladder is surgically absent. During her last admission, no further evaluation of her pancreatitis was done other than a CT Scan. She was treated conservatively and discharged to home. Allergies/Medications Allergies: Coded Allergies: Penicillins (UNKNOWN 09/27/15) acetaminophen (From TYLENOL) (TOLD NOT TO TAKE DUE TO LIVER ENZYMES 07/02/17) hydromorphone (From DILAUDID) (HIVES 07/02/17) oxycodone (From PERCOCET) (HIVES 07/02/17) Home Med List: Aspirin (Ecotrin*) 81 MG TABLET.DR 1 TAB PO DAILY PVD (Reported) Bupropion HCl (Bupropion HCl Sr) 200 MG TABLET.ER 1 TAB PO DAILY OPIOID ( Reported) Clopidogrel Bisulfate (Plavix) 75 MG TABLET 1 TAB PO DAILY PVD (Reported) Docusate Sodium 100 MG CAPSULE 1 CAP PO BID PRN constipation . Exenatide Microspheres (Bydureon) 2 MG VIAL 2 MG SC QTUES DM (Reported) Hydroxychlorquine (Plaquenil) 200 MG TABLET 1 TAB PO BID RA . Insulin Aspart, Recombinant (Novolog Flexpen) 100 UNIT/ML INSULN.PEN 0 SC AC & AT BEDTIME DM BEFORE MEALS. Blood Insulin Sugar Units <80 0 80-150 0 151-199 6 200-250 8 251-300 10 301-350 12 351-400 14 >400 16 units and Call Doctor AT BEDTIME Blood Insulin Sugar Units <80 0 81-150 0 151-299 0 200-250 0 251-300 2 301-350 3 351-400 4 >400 5 and Call Doctor Insulin Glargine,Hum.rec.anlog (Lantus Solostar) 100 UNIT/ML (3 ML) INSULN.PEN 20 UNIT SC BID DM . Levothyroxine Sodium (Synthroid) 75 MCG TABLET 1 TAB PO DAILY HYPOTHYROIDISM (Reported) Losartan Potassium 25 MG TABLET 1 TAB PO DAILY HTN (Reported) Metformin HCl 1,000 MG TABLET 1 TAB PO BID DM (Reported) Omeprazole 20 MG TABLET.DR 1 TAB PO DAILY GERD (Reported) Ondansetron HCl (Zofran) 4 MG TABLET 1 TAB PO Q6-8P Nausea/vomiting . Polyethylene Glycol 3350 (Miralax) 17 GRAM/DOSE POWDER 17 GM PO DAILY NEEDED PRN CONSTIPATION . Pravastatin Sodium (Pravachol) 80 MG TABLET 1 TAB PO DAILY PVD (Reported) Trazodone HCl 100 MG TABLET 1.5 TAB PO QPM SLEEP (Reported) Current Medications: Current Medications Sig/Christina Start time Last Medication Dose Route Stop Time Status Admin Amlodipine Besylate 5 MG DAILY 07/03 1000 AC 07/03 PO 0914 Aspirin Buffered 81 MG DAILY 07/03 1000 AC 07/03 PO 0913 Bupropion HCl 200 MG DAILY 07/02 1818 AC 07/03 PO 0914 Calcium Gluconate 1 GM ONCE ONE 07/02 1800 CAN Sodium Chloride 100 ML IV 07/02 1859 Clopidogrel Bisulfate 75 MG DAILY 07/03 1000 AC 07/03 PO 0914 Docusate Sodium 100 MG BID PRN 07/02 1830 AC PO Heparin Sodium 5,000 UNIT Q8 07/02 2200 AC 07/03 (Porcine) SC 1335 Hydroxychloroquine 200 MG BID 07/02 2200 AC 07/03 Sulfate PO 0914 Influenza Virus 0.5 ML ONCE ONE 07/03 0615 DC 07/03 Vaccine IM 07/03 0616 0746 Insulin Aspart 0 Q4 07/03 1000 AC 07/03 SC 1335 Insulin Detemir 20 UNITS BID 07/03 1000 AC 07/03 SC 0815 Insulin Human Regular 100 UNIT ONCE ONE 07/02 1730 DC 07/02 Sodium Chloride 100 ML IV 07/02 1731 1802 Insulin Human Regular 10 UNITS ONCE ONE 07/02 1715 DC 07/02 SC 07/02 1716 1721 Levothyroxine Sodium 0.075 MG DAILY AC 07/03 0700 AC 07/03 PO 0645 Lorazepam 1 MG ONCE ONE 07/03 1330 DC 07/03 IV 07/03 1331 1335 Losartan Potassium 25 MG DAILY 07/02 1819 DC PO Metoprolol Tartrate 0 .STK-MED ONE 07/02 1835 DC IV Metoprolol Tartrate 5 MG ONCE ONE 07/02 1830 DC 07/02 IV 07/02 1831 1840 Morphine Sulfate 2 MG Q4P PRN 07/02 2200 DC 07/02 IV 1926 Morphine Sulfate 2 MG Q2 HRS NEEDED PRN 07/02 2130 AC 07/03 IV 1046 Morphine Sulfate 0 .STK-MED ONE 07/02 1927 DC .ROUTE Morphine Sulfate 0 .STK-MED ONE 07/02 1738 DC .ROUTE Morphine Sulfate 2 MG ONCE ONE 07/02 1730 DC 07/02 IV 07/02 1731 1735 Omeprazole 20 MG DAILY AC 07/03 0700 07/03 PO 0645 Ondansetron HCl 4 MG ONCE ONE 07/02 2200 DC 07/02 IV 07/02 2201 2201 Ondansetron HCl 4 MG Q6P PRN 07/02 1815 AC IV Ondansetron HCl 0 .STK-MED ONE 07/02 1723 DC .ROUTE Ondansetron HCl 4 MG ONCE ONE 07/02 1545 DC 07/02 IV 07/02 1546 1720 Pantoprazole Sodium 40 MG DAILY 07/03 0800 AC 07/03 IV 0913 Phosphate 250 MG PC AND AT BEDTIME 07/03 0900 CAN PO Potassium Chloride 40 MEQ Q8H 07/03 0830 AC 07/03 Dextrose/Sodium 1,000 ML IV 0913 Chloride Potassium Chloride 40 MEQ Q6H 07/02 2200 DC 07/03 Dextrose/Sodium 1,000 ML IV 0642 Chloride Potassium Chloride 40 MEQ 150 MLS/HR 07/02 2130 DC 07/02 IV 2139 Potassium Chloride 20 MEQ Q6H 07/02 2045 DC Sodium Chloride 1,000 ML IV Pravastatin Sodium 20 MG 1700 07/03 1700 AC PO Sodium Chloride 1,000 ML Q6H 07/02 1830 DC IV Sodium Chloride 1,000 ML BOLUS ONE 07/02 1730 DC 07/02 IV 07/02 1829 1827 Sodium Chloride 1,000 ML BOLUS ONE 07/02 1530 DC 07/02 IV 07/02 1629 1717 Trazodone HCl 150 MG QPM 07/02 2200 AC PO Past History Travel History Traveled to [place] past 21 day No Medical History Blood Transfusion Hx: No Neurological: NONE EENT: NONE Cardiovascular: PVD (s/p stent in left leg ) Respiratory: NONE Gastrointestinal: pancreatitis Hepatic: NONE Renal: NONE Musculoskeletal: NONE Psychiatric: anxiety, depression Endocrine: diabetes, hypothyroidism Blood Disorders: NONE Cancer(s): NONE 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 Home Services at Home: Home Health Aide Smoking Status: Former Smoker ETOH Use: denies use Illicit Drug Use: denies illicit drug use Functional Ability ADLs Independent: dressing, eating, toileting, bathing. Ambulation: independent IADLs Independent: shopping, housework, finances, food prep, telephone, transportation , medication admin. Exam & Diagnostic Data Vital Signs and I&O Vital Signs Date Time Temp Pulse Resp B/P B/P Pulse O2 O2 Flow FiO2 Mean Ox Delivery Rate 07/03 0914 67 103/59 07/03 0800 97.1 70 24 118/50 99 Room Air 07/03 0400 97 Room Air 07/03 0000 96.9 71 18 147/70 97 Room Air 07/02 2100 97 Room Air 07/02 2027 97.3 79 17 97 Room Air 07/02 2020 162/74 07/02 1842 75 175/77 07/02 1840 94 192/89 07/02 1827 97.5 94 16 192/89 98 Room Air 07/02 1814 98.0 97 18 188/86 100 Room Air 07/02 1607 97.1 07/02 1525 109 17 182/89 97 Room Air Intake & Output 07/03 1600 07/03 0400 07/02 1600 07/02 0400 07/01 1600 07/01 0400 Intake Total 1013 1415 Output Total 500 Balance 1013 915 Intake, IV 963 1365 Intake, Oral 50 50 Output, Urine 500 Patient 166 lb 166 lb 171 lb Weight Weight Bed scale Reported by Patient Measurement Method Physical Exam General Appearance: alert, awake, anxious Head: atraumatic, normal appearance Eyes: Bilateral: normal appearance. Ears, Nose, Throat: hearing grossly normal Neck: supple, full range of motion Respiratory: normal breath sounds, lungs clear Cardiovascular: regular rate/rhythm, Normal S1 and S2 witout rub, murmur or gallop Gastrointestinal: normal bowel sounds, soft, no organomegaly, tenderness, No rebound or guarding, tenderness in the upper abdomen Extremities: Right Above the knee amputation Neurologic/Psych: alert, oriented x 3 Cranial Nerves: Cranial Nerves II-XII grossly intact Skin: normal color, warm/dry Results Pertinent Lab Results: Laboratory Tests 07/03 07/03 07/03 0445 0200 0030 Chemistry Sodium (137 - 145 mmol/L) 138 Potassium (3.5 - 5.1 mmol/L) 4.4 Chloride (98 - 107 mmol/L) 111 H Carbon Dioxide (22 - 30 mmol/L) 20 L Anion Gap (5 - 16) 6 BUN (7 - 17 mg/dL) 15 Creatinine (0.5 - 1.0 mg/dL) 0.7 Estimated GFR (>60 ml/min) > 60 Glucose (65 - 99 mg/dL) 192 H Lactic Acid (0.7 - 2.1 mmol/L) Cancelled 1.2 Calcium (8.4 - 10.2 mg/dL) 8.6 Phosphorus (2.5 - 4.5 mg/dL) 2.5 Magnesium (1.6 - 2.3 mg/dL) 1.8 Total Bilirubin (0.2 - 1.3 mg/dL) < 0.1 L AST (14 - 36 U/L) 15 ALT (9 - 52 U/L) 32 Albumin (3.5 - 5.0 g/dL) 2.6 L Lipase (23 - 300 U/L) 352 H Hematology CBC w Diff NO MAN DIFF REQ WBC (4.8 - 10.8 /CUMM) 9.0 RBC (4.20 - 5.40 /CUMM) 4.00 L Hgb (12.0 - 16.0 G/DL) 10.9 L Hct (37 - 47 %) 33.5 L MCV (81.0 - 99.0 FL) 83.7 MCH (27.0 - 31.0 PG) 27.3 MCHC (33.0 - 37.0 G/DL) 32.7 L RDW (11.5 - 14.5 %) 14.0 Plt Count (130 - 400 /CUMM) 268 MPV (7.4 - 10.4 FL) 11.8 H Gran % (42.2 - 75.2 %) 63.0 Lymphocytes % (20.5 - 51.1 %) 28.4 Monocytes % (1.7 - 9.3 %) 5.8 Eosinophils % (0 - 5 %) 2.3 Basophils % (0.0 - 2.0 %) 0.5 Absolute Granulocytes (1.4 - 6.5 /CUMM) 5.7 Absolute Lymphocytes (1.2 - 3.4 /CUMM) 2.6 Absolute Monocytes (0.10 - 0.60 /CUMM) 0.5 Absolute Eosinophils (0.0 - 0.7 /CUMM) 0.2 Absolute Basophils (0.0 - 0.2 /CUMM) 0 07/03 07/03 07/02 0030 0000 2000 Chemistry Sodium (137 - 145 mmol/L) 139 Potassium (3.5 - 5.1 mmol/L) 4.4 Chloride (98 - 107 mmol/L) 111 H Carbon Dioxide (22 - 30 mmol/L) 21 L Anion Gap (5 - 16) 8 BUN (7 - 17 mg/dL) 17 Creatinine (0.5 - 1.0 mg/dL) 0.6 Estimated GFR (>60 ml/min) > 60 Glucose (65 - 99 mg/dL) 156 H Lactic Acid (0.7 - 2.1 mmol/L) 2.7 H Calcium (8.4 - 10.2 mg/dL) 8.7 Phosphorus (2.5 - 4.5 mg/dL) 2.6 Magnesium (1.6 - 2.3 mg/dL) 1.8 Total Bilirubin (0.2 - 1.3 mg/dL) < 0.1 L AST (14 - 36 U/L) 14 ALT (9 - 52 U/L) 27 Albumin (3.5 - 5.0 g/dL) 2.9 L Toxicology Urine Opiates Screen (>2000 NG/ML) 2724.00 H Methadone Screen (>300 NG/ML) 135 Barbiturate Screen (>200 NG/ML) < 60 Ur Phencyclidine Scrn (>25 NG/ML) < 6.00 Amphetamines Screen (>1000 NG/ML) < 100 U Benzodiazepines Scrn (>200 NG/ML) < 85 Urine Cocaine Screen (>300 NG/ML) < 50 Urine Cannabis Screen (>50 NG/ML) < 5.00 Urines Urinalysis LIGHT H Urine Color (YEL,AMB,STR) YEL Urine Clarity (CLEAR) CLEAR Urine pH (5.0 - 8.0) 6.0 Ur Specific Noonan (1.001 - 1.035) 1.015 Urine Protein (NEG,<30 MG/DL) 30 H Urine Ketones (NEG) 15 H Urine Nitrite (NEG) NEG Urine Bilirubin (NEG) NEG Urine Urobilinogen (0.1 - 1.0 EU/dl) 0.2 Ur Leukocyte Esterase (NEG) NEG Ur Microscopic SEDIMENT EXAMINED Urine RBC (0 - 5 /HPF) 3-5 Urine WBC (0 - 2 /HPF) 1-3 H Ur Epithelial Cells (NONE,FEW) FEW Urine Mucus (FEW,NONE) FEW Micro UA Comment BUDDING YEAST H Urine Hemoglobin (NEG) TRACE-INTACT Urine Glucose (N MG/DL) >=1000 H 07/02 1641 Blood Gas Bicarbonate Actual (22 - 26 MEQ/L) 17 L Mixed VBG pH (7.31 - 7.41 PH) 7.32 Mixed VBG pCO2 (41 - 51 TORR) 35 L Mixed VBG O2 Saturation (35 - 45 TORR) 40 P-50 (Temp Corrected) 97.1 Carboxyhemoglobin (1.5 - 5.0 %) 1.0 L O2 Concentration % RA Temperature (97.0 - 100.0 FARH) 97.1 O2 Delivery Method RA Chemistry Sodium (137 - 145 mmol/L) 137 126 L Potassium (3.5 - 5.1 mmol/L) 4.0 5.2 H Chloride (98 - 107 mmol/L) 106 96 L Carbon Dioxide (22 - 30 mmol/L) 18 L 16 L Anion Gap (5 - 16) 12 14 BUN (7 - 17 mg/dL) 19 H 24 H Creatinine (0.5 - 1.0 mg/dL) 0.7 0.8 Estimated GFR (>60 ml/min) > 60 > 60 BUN/Creatinine Ratio (7 - 25 %) 27.1 H 30.0 H Glucose (65 - 99 mg/dL) 849 *H Serum Osmolality (285 - 295 MOSM/KG) 317 H Lactic Acid (0.7 - 2.1 mmol/L) 2.2 H Calcium (8.4 - 10.2 mg/dL) 9.2 9.7 Phosphorus (2.5 - 4.5 mg/dL) 2.4 L Magnesium (1.6 - 2.3 mg/dL) 1.9 Total Bilirubin (0.2 - 1.3 mg/dL) 0.2 GGT (12 - 43 U/L) 61 H AST (14 - 36 U/L) 16 ALT (9 - 52 U/L) 36 Alkaline Phosphatase (<127 U/L) 301 H Troponin I (< 0.11 ng/ml) < 0.01 Total Protein (6.3 - 8.2 g/dL) 6.8 Albumin (3.5 - 5.0 g/dL) 3.9 Globulin (1.9 - 4.2 gm/dL) 2.9 Albumin/Globulin Ratio (1.1 - 2.2 %) 1.3 Triglycerides (<150 mg/dL) 286 H Lipase (23 - 300 U/L) 704 H TSH (0.270 - 4.200 uIU/mL) 3.690 Free T4 (0.64 - 1.79 ng/dL) 1.37 Miscellaneous Phlebotomy Draw Site RAC Toxicology Acetone Level (NEGATIVE) POSITIVE AT 1:2 DIL 07/02 1543 Hematology CBC w Diff NO MAN DIFF REQ WBC (4.8 - 10.8 /CUMM) 12.2 H RBC (4.20 - 5.40 /CUMM) 4.94 Hgb (12.0 - 16.0 G/DL) 13.5 Hct (37 - 47 %) 41.9 MCV (81.0 - 99.0 FL) 84.8 MCH (27.0 - 31.0 PG) 27.3 MCHC (33.0 - 37.0 G/DL) 32.2 L RDW (11.5 - 14.5 %) 14.5 Plt Count (130 - 400 /CUMM) 377 MPV (7.4 - 10.4 FL) 13.1 H Gran % (42.2 - 75.2 %) 80.4 H Lymphocytes % (20.5 - 51.1 %) 13.5 L Monocytes % (1.7 - 9.3 %) 4.3 Eosinophils % (0 - 5 %) 1.1 Basophils % (0.0 - 2.0 %) 0.7 Absolute Granulocytes (1.4 - 6.5 /CUMM) 9.8 H Absolute Lymphocytes (1.2 - 3.4 /CUMM) 1.7 Absolute Monocytes (0.10 - 0.60 /CUMM) 0.5 Absolute Eosinophils (0.0 - 0.7 /CUMM) 0.1 Absolute Basophils (0.0 - 0.2 /CUMM) 0.1 Assessment/Plan Assessment/Recommendations: ASSESSMENT: 1. Epigastric Pain. ? whether patient has recurrent acute pancreatitis. No imaging study has been done. Patient has US of the abdomen which is unrevealing. Lipase may be due to lingual lipase in the setting of nausea and vomiting. Epigastric pain may be related as well to nausea and vomiting or due to something other than pancreatitis such as peptic ulcer disease. 2. Hyperosmolar Hyperglycemia -- now treated. 3. Elevated alkaline phosphatase -- ? PBC ? whether underlying problem related to osteoporosis, or other bony problem 4. Rheumatoid Arthritis / Scleroderma -- ? whether it is well controlled or whether these rheumatologic diseases are contributing factors to acute on chronic pancreatitis (intermittent acute recurrent pancreatitis) 5. Elevated Lipase / Pancreatitis -- Unclear whether patient does have pancreatitis or whether this is merely a lab abnormality. TG only high 200s on admission. There do not appear to be any incriminating medications. RECOMMENDATIONS: 1. MRI/MRCP -- to rule out de-isidro stones as well as to evaluate pancreatic body itself. Must be done with and without contrast for pancreatic protocol 2. Check antimitrochondrial antibody 3. after MRI/MRCP and pending those results EGD to rule out peptic ulcer disease. Will also need screening colonoscopy if that has not been done. 4. If above are negative patient will need EUS to look for small duct disease. 5. Serum IgG4. Consult Acknowledgment - Thank you for your consult request.
--- NOTE | 2017-07-03 15:50 | CT SCAN REPORT ---
EXAMINATION: CT ABDOMEN AND PELVIS WITHOUT CONTRAST CLINICAL INFORMATION: Epigastric pain. Evaluate for pancreatic inflammation. COMPARISON: Ultrasound of the right upper quadrant dated 07/02/2017 and 06/12/2017. TECHNIQUE: Multidetector volumetric imaging was performed from the superior aspect of the liver through the pubic symphysis. Sagittal and coronal reformatted images were obtained on the technologist workstation. DLP: 444.38 mGy-cm. FINDINGS: LUNG BASES: Minimal dependent atelectatic changes as seen in the lung bases bilaterally. LIVER, GALLBLADDER, AND BILIARY TREE: The liver is normal in size, shape, and attenuation. The previously seen hepatic steatosis has resolved. No focal hepatic lesion on noncontrast imaging. No biliary ductal dilatation is present. The gallbladder is surgically absent with multiple raulito seen in the gallbladder fossa. No focal fluid collection is seen in the gallbladder fossa. PANCREAS: There is mild residual peripancreatic edema seen, improved when compared to the prior exam. Previously noted thickening of the anterior Gerota's fascia has resolved. Fatty infiltration of the pancreatic head is seen. No pancreatic ductal dilatation is seen. No focal mass is noted. SPLEEN, ADRENAL GLANDS: Unremarkable on noncontrast imaging. KIDNEYS AND URETERS: The kidneys are normal in size, shape, and attenuation. No hydronephrosis, hydroureter, or calculi seen. No perinephric stranding. BLADDER: Unremarkable. PELVIC VISCERA: Unremarkable. GASTROINTESTINAL TRACT: The small and large bowel are unremarkable. The appendix is not seen. ABDOMINAL WALL: No significant hernia is appreciated. Injection granulomas are seen in the anterior abdominal wall. LYMPH NODES, VASCULAR: Mild atherosclerotic vascular calcifications are seen involving the distal abdominal aorta and bifurcation. Abdominal aorta is normal in caliber. No periaortic collections. No significant abdominal or pelvic adenopathy or free fluid collection is seen. OSSEOUS STRUCTURES: There is diffuse osteopenia. No focal suspicious bone lesion noted. Moderate degenerative changes as seen in the hip joints bilaterally. IMPRESSION: 1. Significant decrease in the peripancreatic fat infiltration and edema is seen when compared to the prior exam. Findings are consistent with resolving pancreatitis. Fatty infiltration in the pancreatic head persists. 2. Previously seen hepatic steatosis has also resolved. 3. Status post cholecystectomy with no evidence of biliary obstruction or focal collection in the right upper quadrant.
[2017-07-03 16:00] VITALS: BP 100/52
[2017-07-04] VITALS: BP 108/70
[2017-07-04 06:43] VITALS: BP 124/64
--- NOTE | 2017-07-04 07:34 | PN- Diabetes ---
"Assessment/Plan Assessment: The patient continues to have epigastric pain. She has remained n.p.o. and on IV fluids. The patient is on Levemir 20 units twice a day as well as sliding scale NovoLog every 4 hours. Her last fingerstick blood sugar is 240. The patient also has nausea. She is going to undergo further studies of her pancreas today with an MR||I. CT scan of the abdomen done yesterday shows a significant decrease in the peripancreatic fat infiltration and edema that was seen on the previous scan done a few weeks ago. There is fatty infiltration in the pancreatic head. Plan: Suggest continue with D5 half-normal saline with 20 mEq KCl at 100 cc/h while the patient is n.p.o. Continue the present insulin Including Levemir 20 units twice a day and sliding scale NovoLog every 4 hours. Subjective Subjective: Severe epigastric pain awakened her out of sleep this morning Review of Systems Constitutional: Denies: chills, fever. Cardiovascular: Denies: chest pain. Gastrointestinal: Reports: abdominal pain, nausea. Skin: Reports: no symptoms. Objective Last 24 Hrs of Vital Signs/I&O Vital Signs Date Time Temp Pulse Resp B/P B/P Pulse O2 O2 Flow FiO2 Mean Ox Delivery Rate 07/04 0643 98.3 71 12 124/64 98 Room Air 07/04 0000 97.9 79 18 108/70 99 Room Air 07/03 1600 97.3 68 20 100/52 98 Room Air 07/03 0814 67 103/59 07/03 0800 97.1 70 24 118/50 99 Room Air Intake & Output 07/04 0800 07/04 0000 07/03 1600 Intake Total 900 1083 976.5 Output Total 400 500 Balance 900 683 476.5 Intake, IV 800 963 896.5 Intake, Oral 100 120 80 Number 0 0 Bowel Movements Output, Urine 400 500 Patient 166 lb Weight Weight Bed scale Measurement Method Vital Signs Date Time Temp Pulse Resp B/P B/P Pulse O2 O2 Flow FiO2 Mean Ox Delivery Rate 07/04 0643 98.3 71 12 124/64 98 Room Air 07/04 0000 97.9 79 18 108/70 99 Room Air 07/03 1600 97.3 68 20 100/52 98 Room Air 07/03 0914 67 103/59 07/03 0800 97.1 70 24 118/50 99 Room Air Intake & Output 07/04 0800 07/04 0000 07/03 1600 Intake Total 900 1083 976.5 Output Total 400 500 Balance 900 683 476.5 Intake, IV 800 963 896.5 Intake, Oral 100 120 80 Number 0 0 Bowel Movements Output, Urine 400 500 Patient 166 lb Weight Weight Bed scale Measurement Method Physical Exam General Appearance: alert, awake, mild distress Head: normal appearance Neck: normal inspection Respiratory: normal breath sounds Cardiovascular: regular rate/rhythm Abdomen: tenderness (epigastric) Extremities: left foot bandaged Current Medications: Current Medications Sig/Christina Start time Last Medication Dose Route Stop Time Status Admin Amlodipine Besylate 5 MG DAILY 07/03 1000 AC 07/03 PO 0914 Aspirin Buffered 81 MG DAILY 07/03 1000 AC 07/03 PO 0913 Bupropion HCl 200 MG DAILY 07/02 1818 AC 07/03 PO 0914 Clopidogrel Bisulfate 75 MG DAILY 07/03 1000 AC 07/03 PO 0914 Docusate Sodium 100 MG .STK-MED ONE 07/03 2227 DC PO 07/03 2228 Docusate Sodium 100 MG BID PRN 07/02 1830 AC 07/03 PO 2231 Heparin Sodium 5,000 UNIT Q8 07/02 2200 AC 07/04 (Porcine) SC 0604 Hydroxychloroquine 200 MG BID 07/02 2200 AC 07/03 Sulfate PO 2226 Insulin Aspart 0 Q4 07/03 1000 AC 07/04 SC 0615 Insulin Detemir 20 UNITS BID 07/03 1000 AC 07/03 SC 2224 Levothyroxine Sodium 0.075 MG DAILY AC 07/03 0700 AC 07/04 PO 0604 Lorazepam 1 MG ONCE ONE 07/03 1330 DC 07/03 IV 07/03 1331 1335 Morphine Sulfate 2 MG Q2 HRS NEEDED PRN 07/02 2130 AC 07/04 IV 0616 Omeprazole 20 MG DAILY AC 07/03 0700 AC 07/04 PO 0604 Ondansetron HCl 4 MG Q6P PRN 07/02 1815 AC 07/03 IV 1546 Pantoprazole Sodium 40 MG DAILY 07/03 0800 AC 07/03 IV 0913 Potassium Chloride 40 MEQ Q8H 07/03 0830 AC 07/03 Dextrose/Sodium 1,000 ML IV 2223 Chloride Potassium Chloride 40 MEQ Q6H 07/02 2200 DC 07/03 Dextrose/Sodium 1,000 ML IV 0642 Chloride Pravastatin Sodium 20 MG 1700 07/03 1700 AC 07/03 PO 1629 Trazodone HCl 150 MG QPM 07/02 2200 AC PO Findings Pertinent Lab/Nikolas Results: Laboratory Tests 07/04 0624 Chemistry Sodium Pending Potassium Pending Chloride Pending Carbon Dioxide Pending Anion Gap Pending BUN Pending Creatinine Pending Glucose Pending Calcium Pending Phosphorus Pending Magnesium Pending Total Bilirubin Pending AST Pending ALT Pending Albumin Pending Hematology CBC w Diff Pending WBC Pending RBC Pending Hgb Pending Hct Pending MCV Pending MCH Pending MCHC Pending RDW Pending Plt Count Pending MPV Pending"
[2017-07-04 08:07] LABS: ABSOLUTE BASOPHIL COUNT 0 /CUMM (0.0-0.2); ABSOLUTE EOSINOPHIL COUNT 0.2 /CUMM (0.0-0.7); ABSOLUTE GRANULOCYTE CT 3.8 /CUMM (1.4-6.5); ABSOLUTE LYMPH COUNT 1.6 /CUMM (1.2-3.4); ABSOLUTE MONOCYTE COUNT 0.4 /CUMM (0.10-0.60); BASOPHIL % 0.6 % (0.0-2.0); EOSINOPHIL % 3.8 % (0-5); GRANULOCYTE % 62.4 % (42.2-75.2); HEMATOCRIT 31.3 % (37-47); MEAN CORPUSCULAR HGB 27.9 PG (27.0-31.0); MEAN CORPUSCULAR HGB CONC 33.3 G/DL (33.0-37.0); MEAN CORPUSCULAR VOLUME 83.8 FL (81.0-99.0); MEAN PLATELET VOLUME 12.6 FL (7.4-10.4); PLATELET COUNT 229 /CUMM (130-400); RBC DISTRIBUTION WIDTH 14.6 % (11.5-14.5); RED BLOOD CELL CT 3.73 /CUMM (4.20-5.40)
--- NOTE | 2017-07-04 08:20 | PN- Housestaff ---
See Addendum Subjective Follow-up For: HHS Epigastric pain - likely 2/2 pancreatitis Elevated Alk Phos H/O Scleroderma, RA Subjective: Patient was seen and examined today. Patient reports epigastric pain that is a 7 out of 10 in severity. Patient reports no nausea or vomiting. Denies any chest pain, palpitations, shortness of breath, dysuria/hematuria. Review of Systems Constitutional: Reports: see HPI. Cardiovascular: Reports: no symptoms. Respiratory: Reports: no symptoms. Gastrointestinal: Reports: see HPI. Genitourinary: Reports: no symptoms. Musculoskeletal: Reports: no symptoms. Neurological/Psychological: Reports: anxiety. Objective Last 24 Hrs of Vital Signs/I&O Vital Signs Date Time Temp Pulse Resp B/P B/P Pulse O2 O2 Flow FiO2 Mean Ox Delivery Rate 07/04 1426 97.6 86 18 100/60 100 Room Air 07/04 0958 71 124/64 07/04 0643 98.3 71 12 124/64 98 Room Air 07/04 0000 97.9 79 18 108/70 99 Room Air Intake & Output 07/04 1600 07/04 0800 07/04 0000 Intake Total 989 013 9924 Output Total 560 400 Balance 40 900 683 Intake, IV 500 800 963 Intake, Oral 100 100 120 Number 0 Bowel Movements Output, Urine 560 400 Patient 167 lb Weight Weight Bed scale Measurement Method Physical Exam General Appearance: Alert, Oriented X3, Cooperative, No Acute Distress HEENT: Atraumatic, PERRLA, EOMI, Mucous Membr. moist/pink Cardiovascular: Regular Rate, Normal S1, Normal S2 Lungs: Clear to Auscultation, Normal Air Movement Abdomen: Normal Bowel Sounds, Soft, No Hepatospenomegaly, extremely tender to mild palpation of the epigastric region Neurological: Normal Speech Extremities: No Clubbing, No Cyanosis, No Edema, Normal Pulses, No Tenderness/ Swelling Vascular: Normal Pulses, Pulses Symmetrical Current Medications: Current Medications Sig/Christina Start time Last Medication Dose Route Stop Time Status Admin Amlodipine Besylate 5 MG DAILY 07/03 999 AC 07/04 PO 09 Aspirin Buffered 81 MG DAILY 07/03 1000 AC 07/04 PO 09 Bupropion HCl 200 MG DAILY 07/02 1818 AC 07/04 PO 09 Clopidogrel Bisulfate 75 MG DAILY 07/03 1000 AC 07/04 PO 09 Docusate Sodium 100 MG .STK-MED ONE 07/03 2227 DC PO 07/03 2228 Docusate Sodium 100 MG BID PRN 07/02 1830 AC 07/03 PO 2231 Heparin Sodium 5,000 UNIT Q8 07/02 2200 AC 07/04 (Porcine) SC 1427 Hydroxychloroquine 200 MG BID 07/02 2200 AC 07/04 Sulfate PO 0958 Insulin Aspart 0 Q4 07/03 1000 AC 07/04 SC 1417 Insulin Detemir 20 UNITS BID 07/03 1000 AC 07/04 SC 1012 Levothyroxine Sodium 0.075 MG DAILY AC 07/03 0700 AC 07/04 PO 0604 Lorazepam 1 MG ONCE ONE 07/04 1200 DC 07/04 IV 07/04 1201 1200 Morphine Sulfate 2 MG Q2 HRS NEEDED PRN 07/02 2130 AC 07/04 IV 1751 Omeprazole 20 MG DAILY AC 07/03 0700 AC 07/04 PO 0604 Ondansetron HCl 4 MG Q6P PRN 07/02 1815 AC 07/03 IV 1546 Pantoprazole Sodium 40 MG DAILY 07/03 0800 AC 07/04 IV 1416 Potassium Chloride 40 MEQ Q8H 07/03 0830 AC 07/04 Dextrose/Sodium 1,000 ML IV 0845 Chloride Pravastatin Sodium 20 MG 1700 07/03 1700 AC 07/04 PO 1751 Trazodone HCl 150 MG QPM 07/02 2200 AC PO Last 24 Hrs of Lab/Nikolas Results Last 24 Hrs of Labs/Mics: Laboratory Tests 07/04/17 0624: Anion Gap 7, Estimated GFR > 60, Glucose 235 H, Calcium 9.0, Phosphorus 3.0, Magnesium 1.8, Total Bilirubin 0.1 L, AST 17, ALT 31, Albumin 2.6 L, CBC w Diff NO MAN DIFF REQ, RBC 3.73 L, MCV 83.8, MCH 27.9, MCHC 33.3, RDW 14.6 H, MPV 12.6 H, Gran % 62.4, Lymphocytes % 26.6, Monocytes % 6.6, Eosinophils % 3.8 , Basophils % 0.6, Absolute Granulocytes 3.8, Absolute Lymphocytes 1.6, Absolute Monocytes 0.4, Absolute Eosinophils 0.2, Absolute Basophils 0 Assessment/Plan Assessment: 56-year-old female with a past medical history of rheumatoid arthritis, scleroderma, and type 2 diabetes, peripheral vascular disease status post below and above knee amputation of right lower extremity at [facility] in 2012 and 2014, stent placement and left lower extremity about 4 months ago with a 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 The patient was admitted to ICU given HHS 2/2 to noncompliance with medications. Patient was transferred to telemetry this morning. Patient was seen and evaluated by GI for epigastric pain and suspected pancreatitis state and abdominal CT. Patient had been an MRCP today which showed mild peripancreatic edema with no evidence of pancreatic necrosis or pancreatic fluid collection. Findings consistent with prior CT. There was a small filling defect in the proximal common hepatic bile duct which is likely an artifact. Patient also has mild hepatic steatosis. Other possibilities of pancreatitis include uncontrolled diabetes which is more likely but also autoimmune causes potentially secondary to patient's rheumatoid arthritis/scleroderma. Antimitochondrial antibodies and immunoglobulin panel pending. Patient continues to have epigastric pain however with like to eat today. Have started her on a clear liquid diet today and will advance as tolerated. Patient's sugars are currently the 200s. Patient is being seen by endocrinology. Per recommendations Will continue Levemir 20 units twice a day and NovoLog every 4 hours. She is currently being treated and evaluated for following conditions #HHS/ uncontrolled diabetes The patient is currently receiving D5 half-normal saline with 40 mEq KCl and also remains on the insulin drip. -Continue D5 half-normal saline with 20 mEq KCl at 125 cc/h -We are going to begin patient on NovoLog sliding scale every 4 as per Endo recommendations -We are also going to start patient on Levemir 20 units twice a day -Restarted on a clear liquid diet -Zofran as needed for nasuea. #Mild pancreatitis status post MRCP -GI consulted. Appreciate recommendations -Continue workup for possible etiologies of pancreatitis. -Morphine when necessary for epigastric pain -Continue IV fluid hydration. Advance diet as tolerated. #Elevated Alkaline phosphatase Anti-mitochondrial antibody pending #HTN On presentation hypertensive to 192 systolic, in the setting of not having taken her medications. She has received 5 mg IV Lopressor. Patient's blood pressure is now controlled. -Continue amlodipine 5mg daily. #Hypothryodism -Contnue home dose of levothyroxine -TSH, FT4 WNL #Depression/ Insomnia/ Opiod depenence -Continue Trazadone, and Wellbutrin - Psych eval in AM for passive SI. # RA/ Scleroderma -Continue Hydroxychloroquine 200mg BID PO #PVD -Continue ASA, Plavix, statin -Wound consult in AM for left lower extremity ulcer #Clear liquid diet/DVT prophlaxis Heparin 5000 SC/FC Problem List: 1. Hyperglycemia 2. Acute pancreatitis 3. Uncontrolled diabetes mellitus 4. Elevated serum alkaline phosphatase level Pain Ratin Pain Location: epigastric region Pain Goal: Pain 7 or less Pain Plan: Morphine PRN Tomorrow's Labs & Rationales: cbc bep
--- NOTE | 2017-07-04 09:20 | PN- Gastroenterology ---
Assessment/Plan Assessment/Recommendations: ASSESSMENT: 1. Epigastric Pain. Gradually resolving. Etiology likely multifactorial, due to nausea and vomiting as well as pancreatitis. 3. Elevated alkaline phosphatase -- await AMA. 4. Rheumatoid Arthritis / Scleroderma -- ? whether it is well controlled or whether these rheumatologic diseases are contributing factors to acute on chronic pancreatitis (intermittent acute recurrent pancreatitis) 5. Elevated Lipase / Pancreatitis -- MRI is pending. RECOMMENDATIONS: 1. MRI/MRCP -- pending. Discussed with housestaff that study should be with and without contrast/triple phase for pancreatic protocol. 2. Check antimitrochondrial antibody 3. EGD to rule out peptic ulcer disease which can be done as outpatient. Would change IV protonix to PO q am 30-45 minutes before breakfast. Will also need screening colonoscopy if that has not been done. 4. If above are negative patient will need EUS to look for small duct disease. 5. Serum IgG4. At this time no need for PRSS1, SPINK, etc. Subjective Subjective: Patient is having less abdominal pain. Tolerating diet. No nausea or vomiting. Objective Vital Signs and I&Os Vital Signs Date Time Temp Pulse Resp B/P B/P Pulse O2 O2 Flow FiO2 Mean Ox Delivery Rate 07/04 0643 98.3 71 12 124/64 98 Room Air 07/04 0000 97.9 79 18 108/70 99 Room Air 07/03 1600 97.3 68 20 100/52 98 Room Air Intake & Output 07/04 1600 07/04 0400 07/03 1600 07/03 0400 07/02 1600 07/02 0400 Intake Total 900 1083 1989.5 1415 Output Total 400 500 500 Balance 186 871 7096.5 915 Intake, IV 198 442 6811.5 1365 Intake, Oral 100 120 130 50 Number 0 0 Bowel Movements Output, Urine 400 500 500 Patient 167 lb 166 lb 166 lb 171 lb Weight Weight Bed scale Bed scale Reported by Patient Measurement Method Physical Exam General Appearance: alert, awake, comfortable Head: normal appearance Respiratory: normal breath sounds, lungs clear Cardiovascular: regular rate/rhythm, Normal S1 and S2 Abdomen: normal bowel sounds, soft, non-tender, no organomegaly Neurologic/Psychiatric: oriented x 3, normal mood/affect Skin: normal color, warm/dry Current Medications: Current Medications Sig/Christina Start time Last Medication Dose Route Stop Time Status Admin Amlodipine Besylate 5 MG DAILY 07/03 1000 AC 07/03 PO 0914 Aspirin Buffered 81 MG DAILY 07/03 1000 AC 07/03 PO 0913 Bupropion HCl 200 MG DAILY 07/02 1818 AC 07/03 PO 0914 Clopidogrel Bisulfate 75 MG DAILY 07/03 1000 AC 07/03 PO 0914 Docusate Sodium 100 MG .STK-MED ONE 07/03 2227 DC PO 07/03 2228 Docusate Sodium 100 MG BID PRN 07/02 1830 AC 07/03 PO 2231 Heparin Sodium 5,000 UNIT Q8 07/02 2200 AC 07/04 (Porcine) SC 0604 Hydroxychloroquine 200 MG BID 07/02 2200 AC 07/03 Sulfate PO 2226 Insulin Aspart 0 Q4 07/03 1000 AC 07/04 SC 0615 Insulin Detemir 20 UNITS BID 07/03 1000 AC 07/03 SC 2224 Levothyroxine Sodium 0.075 MG DAILY AC 07/03 0700 AC 07/04 PO 0604 Lorazepam 1 MG ONCE ONE 07/03 1330 DC 07/03 IV 07/03 1331 1335 Morphine Sulfate 2 MG Q2 HRS NEEDED PRN 07/02 2130 AC 07/04 IV 0616 Omeprazole 20 MG DAILY AC 07/03 0700 AC 07/04 PO 0604 Ondansetron HCl 4 MG Q6P PRN 07/02 1815 AC 07/03 IV 1546 Pantoprazole Sodium 40 MG DAILY 07/03 0800 AC 07/03 IV 0913 Potassium Chloride 40 MEQ Q8H 07/03 0830 AC 07/03 Dextrose/Sodium 1,000 ML IV 2223 Chloride Pravastatin Sodium 20 MG 1700 07/03 1700 AC 07/03 PO 1629 Trazodone HCl 150 MG QPM 07/02 2200 AC PO Results Pertinent Lab Results: Laboratory Tests 07/04 07/03 0624 0500 Chemistry Sodium (137 - 145 mmol/L) 139 Potassium (3.5 - 5.1 mmol/L) 4.9 Chloride (98 - 107 mmol/L) 115 H Carbon Dioxide (22 - 30 mmol/L) 16 L Anion Gap (5 - 16) 7 BUN (7 - 17 mg/dL) 8 Creatinine (0.5 - 1.0 mg/dL) 0.6 Estimated GFR (>60 ml/min) > 60 Glucose (65 - 99 mg/dL) 235 H Calcium (8.4 - 10.2 mg/dL) 9.0 Phosphorus (2.5 - 4.5 mg/dL) 3.0 Magnesium (1.6 - 2.3 mg/dL) 1.8 Total Bilirubin (0.2 - 1.3 mg/dL) 0.1 L AST (14 - 36 U/L) 17 ALT (9 - 52 U/L) 31 Albumin (3.5 - 5.0 g/dL) 2.6 L Hematology CBC w Diff NO MAN DIFF REQ WBC (4.8 - 10.8 /CUMM) 6.0 RBC (4.20 - 5.40 /CUMM) 3.73 L Hgb (12.0 - 16.0 G/DL) 10.4 L Hct (37 - 47 %) 31.3 L MCV (81.0 - 99.0 FL) 83.8 MCH (27.0 - 31.0 PG) 27.9 MCHC (33.0 - 37.0 G/DL) 33.3 RDW (11.5 - 14.5 %) 14.6 H Plt Count (130 - 400 /CUMM) 229 MPV (7.4 - 10.4 FL) 12.6 H Gran % (42.2 - 75.2 %) 62.4 Lymphocytes % (20.5 - 51.1 %) 26.6 Monocytes % (1.7 - 9.3 %) 6.6 Eosinophils % (0 - 5 %) 3.8 Basophils % (0.0 - 2.0 %) 0.6 Absolute Granulocytes (1.4 - 6.5 /CUMM) 3.8 Absolute Lymphocytes (1.2 - 3.4 /CUMM) 1.6 Absolute Monocytes (0.10 - 0.60 /CUMM) 0.4 Absolute Eosinophils (0.0 - 0.7 /CUMM) 0.2 Absolute Basophils (0.0 - 0.2 /CUMM) 0 Immunology IgG Total Pending IgG1 Pending IgG2 Pending IgG3 Pending IgG4 Pending Anti-Mitochondrial Ab Pending 07/03 07/03 07/03 2645 0200 0030 Chemistry Sodium (137 - 145 mmol/L) 138 Potassium (3.5 - 5.1 mmol/L) 4.4 Chloride (98 - 107 mmol/L) 111 H Carbon Dioxide (22 - 30 mmol/L) 20 L Anion Gap (5 - 16) 6 BUN (7 - 17 mg/dL) 15 Creatinine (0.5 - 1.0 mg/dL) 0.7 Estimated GFR (>60 ml/min) > 60 Glucose (65 - 99 mg/dL) 192 H Lactic Acid (0.7 - 2.1 mmol/L) Cancelled 1.2 Calcium (8.4 - 10.2 mg/dL) 8.6 Phosphorus (2.5 - 4.5 mg/dL) 2.5 Magnesium (1.6 - 2.3 mg/dL) 1.8 Total Bilirubin (0.2 - 1.3 mg/dL) < 0.1 L AST (14 - 36 U/L) 15 ALT (9 - 52 U/L) 32 Albumin (3.5 - 5.0 g/dL) 2.6 L Triglycerides (<150 mg/dL) 283 H Lipase (23 - 300 U/L) 352 H Hematology CBC w Diff NO MAN DIFF REQ WBC (4.8 - 10.8 /CUMM) 9.0 RBC (4.20 - 5.40 /CUMM) 4.00 L Hgb (12.0 - 16.0 G/DL) 10.9 L Hct (37 - 47 %) 33.5 L MCV (81.0 - 99.0 FL) 83.7 MCH (27.0 - 31.0 PG) 27.3 MCHC (33.0 - 37.0 G/DL) 32.7 L RDW (11.5 - 14.5 %) 14.0 Plt Count (130 - 400 /CUMM) 268 MPV (7.4 - 10.4 FL) 11.8 H Gran % (42.2 - 75.2 %) 63.0 Lymphocytes % (20.5 - 51.1 %) 28.4 Monocytes % (1.7 - 9.3 %) 5.8 Eosinophils % (0 - 5 %) 2.3 Basophils % (0.0 - 2.0 %) 0.5 Absolute Granulocytes (1.4 - 6.5 /CUMM) 5.7 Absolute Lymphocytes (1.2 - 3.4 /CUMM) 2.6 Absolute Monocytes (0.10 - 0.60 /CUMM) 0.5 Absolute Eosinophils (0.0 - 0.7 /CUMM) 0.2 Absolute Basophils (0.0 - 0.2 /CUMM) 0 07/03 07/03 07/02 0030 0000 2000 Chemistry Sodium (137 - 145 mmol/L) 139 Potassium (3.5 - 5.1 mmol/L) 4.4 Chloride (98 - 107 mmol/L) 111 H Carbon Dioxide (22 - 30 mmol/L) 21 L Anion Gap (5 - 16) 8 BUN (7 - 17 mg/dL) 17 Creatinine (0.5 - 1.0 mg/dL) 0.6 Estimated GFR (>60 ml/min) > 60 Glucose (65 - 99 mg/dL) 156 H Lactic Acid (0.7 - 2.1 mmol/L) 2.7 H Calcium (8.4 - 10.2 mg/dL) 8.7 Phosphorus (2.5 - 4.5 mg/dL) 2.6 Magnesium (1.6 - 2.3 mg/dL) 1.8 Total Bilirubin (0.2 - 1.3 mg/dL) < 0.1 L AST (14 - 36 U/L) 14 ALT (9 - 52 U/L) 27 Albumin (3.5 - 5.0 g/dL) 2.9 L Toxicology Urine Opiates Screen (>2000 NG/ML) 2724.00 H Methadone Screen (>300 NG/ML) 135 Barbiturate Screen (>200 NG/ML) < 60 Ur Phencyclidine Scrn (>25 NG/ML) < 6.00 Amphetamines Screen (>1000 NG/ML) < 100 U Benzodiazepines Scrn (>200 NG/ML) < 85 Urine Cocaine Screen (>300 NG/ML) < 50 Urine Cannabis Screen (>50 NG/ML) < 5.00 Urines Urinalysis LIGHT H Urine Color (YEL,AMB,STR) YEL Urine Clarity (CLEAR) CLEAR Urine pH (5.0 - 8.0) 6.0 Ur Specific [place] (1.001 - 1.035) 1.015 Urine Protein (NEG,<30 MG/DL) 30 H Urine Ketones (NEG) 15 H Urine Nitrite (NEG) NEG Urine Bilirubin (NEG) NEG Urine Urobilinogen (0.1 - 1.0 EU/dl) 0.2 Ur Leukocyte Esterase (NEG) NEG Ur Microscopic SEDIMENT EXAMINED Urine RBC (0 - 5 /HPF) 3-5 Urine WBC (0 - 2 /HPF) 1-3 H Ur Epithelial Cells (NONE,FEW) FEW Urine Mucus (FEW,NONE) FEW Micro UA Comment BUDDING YEAST H Urine Hemoglobin (NEG) TRACE-INTACT Urine Glucose (N MG/DL) >=1000 H 07/02 1641 Blood Gas Bicarbonate Actual (22 - 26 MEQ/L) 17 L Mixed VBG pH (7.31 - 7.41 PH) 7.32 Mixed VBG pCO2 (41 - 51 TORR) 35 L Mixed VBG O2 Saturation (35 - 45 TORR) 40 P-50 (Temp Corrected) 97.1 Carboxyhemoglobin (1.5 - 5.0 %) 1.0 L O2 Concentration % RA Temperature (97.0 - 100.0 FARH) 97.1 O2 Delivery Method RA Chemistry Sodium (137 - 145 mmol/L) 137 126 L Potassium (3.5 - 5.1 mmol/L) 4.0 5.2 H Chloride (98 - 107 mmol/L) 106 96 L Carbon Dioxide (22 - 30 mmol/L) 18 L 16 L Anion Gap (5 - 16) 12 14 BUN (7 - 17 mg/dL) 19 H 24 H Creatinine (0.5 - 1.0 mg/dL) 0.7 0.8 Estimated GFR (>60 ml/min) > 60 > 60 BUN/Creatinine Ratio (7 - 25 %) 27.1 H 30.0 H Glucose (65 - 99 mg/dL) 849 *H Serum Osmolality (285 - 295 MOSM/KG) 317 H Lactic Acid (0.7 - 2.1 mmol/L) 2.2 H Calcium (8.4 - 10.2 mg/dL) 9.2 9.7 Phosphorus (2.5 - 4.5 mg/dL) 2.4 L Magnesium (1.6 - 2.3 mg/dL) 1.9 Total Bilirubin (0.2 - 1.3 mg/dL) 0.2 GGT (12 - 43 U/L) 61 H AST (14 - 36 U/L) 16 ALT (9 - 52 U/L) 36 Alkaline Phosphatase (<127 U/L) 301 H Troponin I (< 0.11 ng/ml) < 0.01 Total Protein (6.3 - 8.2 g/dL) 6.8 Albumin (3.5 - 5.0 g/dL) 3.9 Globulin (1.9 - 4.2 gm/dL) 2.9 Albumin/Globulin Ratio (1.1 - 2.2 %) 1.3 Triglycerides (<150 mg/dL) 286 H Lipase (23 - 300 U/L) 704 H TSH (0.270 - 4.200 uIU/mL) 3.690 Free T4 (0.64 - 1.79 ng/dL) 1.37 Miscellaneous Phlebotomy Draw Site RAC Toxicology Acetone Level (NEGATIVE) POSITIVE AT 1:2 DIL 07/02 1543 Hematology CBC w Diff NO MAN DIFF REQ WBC (4.8 - 10.8 /CUMM) 12.2 H RBC (4.20 - 5.40 /CUMM) 4.94 Hgb (12.0 - 16.0 G/DL) 13.5 Hct (37 - 47 %) 41.9 MCV (81.0 - 99.0 FL) 84.8 MCH (27.0 - 31.0 PG) 27.3 MCHC (33.0 - 37.0 G/DL) 32.2 L RDW (11.5 - 14.5 %) 14.5 Plt Count (130 - 400 /CUMM) 377 MPV (7.4 - 10.4 FL) 13.1 H Gran % (42.2 - 75.2 %) 80.4 H Lymphocytes % (20.5 - 51.1 %) 13.5 L Monocytes % (1.7 - 9.3 %) 4.3 Eosinophils % (0 - 5 %) 1.1 Basophils % (0.0 - 2.0 %) 0.7 Absolute Granulocytes (1.4 - 6.5 /CUMM) 9.8 H Absolute Lymphocytes (1.2 - 3.4 /CUMM) 1.7 Absolute Monocytes (0.10 - 0.60 /CUMM) 0.5 Absolute Eosinophils (0.0 - 0.7 /CUMM) 0.1 Absolute Basophils (0.0 - 0.2 /CUMM) 0.1
--- NOTE | 2017-07-04 14:04 | Cons- Psychiatry ---
Psychiatric Consult Date of Consult: 07/04/17 Reason for Consult: "Feels lonely and depressed. ?Passive suicidal ideation." History of Present Illness: 56 but living separately, female, MARQUES from home 07/02/17 @ 1546 with a CC of one day of epigastric pain, N/V, and Hx of pancreatitis. She has a history of methadone maintenance therapy, for opiate use disorder, which she states she weaned herself off in April,. Three years ago, she had a R BKA for complicaiton of her diabetes, and was recovering in [facility]. She subsequently had two revision above the knee, and spent most of the intervening time in that rehab. She had lived in [place] with her and family, but her is no longer able to take care of her. The remain in close contact. [employer] the Person helped place her in [place], where she is in elderly housing, and is the youngest person there. She is lonely, as her family has a difficult time getting to [place] to visit. Her current PP in [place], Dr. Trae Rosas, prescribed bupropion SR 200 mg daily, last filled on 06/13/17 for #30 for 30 days. Also, he prescribes trazodone 150 mg at bedtime, #15 for 30 days. The patient is hoping to get referrals for local PCP and director of government sales, as it is difficult for her to get to [place]. She requires medical transportation with her wheelchair. Allergies: Coded Allergies: Penicillins (UNKNOWN 09/27/15) acetaminophen (From TYLENOL) (TOLD NOT TO TAKE DUE TO LIVER ENZYMES 07/02/17) hydromorphone (From DILAUDID) (HIVES 07/02/17) oxycodone (From PERCOCET) (HIVES 07/02/17) Current Medications: Current Medications Sig/Christina Start time Last Medication Dose Route Stop Time Status Admin Amlodipine Besylate 5 MG DAILY 07/03 1000 AC 07/04 PO 957 Aspirin Buffered 81 MG DAILY 07/03 1000 AC 07/04 PO 957 Bupropion HCl 200 MG DAILY 07/02 1818 AC 07/04 PO 0958 Clopidogrel Bisulfate 75 MG DAILY 07/03 1000 AC 07/04 PO 957 Docusate Sodium 100 MG .STK-MED ONE 02/13 2227 DC PO 02/13 2228 Docusate Sodium 100 MG BID PRN 07/02 1830 AC 07/03 PO 2231 Heparin Sodium 5,000 UNIT Q8 07/02 2200 AC 07/04 (Porcine) SC 0604 Hydroxychloroquine 200 MG BID 07/02 2200 AC 07/04 Sulfate PO 0958 Insulin Aspart 0 Q4 07/03 1000 AC 07/04 SC 1004 Insulin Detemir 20 UNITS BID 07/03 1000 AC 07/04 SC 1012 Levothyroxine Sodium 0.075 MG DAILY AC 07/03 0700 AC 07/04 PO 0604 Lorazepam 1 MG ONCE ONE 07/04 1200 DC IV 07/04 1201 Morphine Sulfate 2 MG Q2 HRS NEEDED PRN 07/02 2130 AC 07/04 IV 1012 Omeprazole 20 MG DAILY AC 07/03 0700 AC 07/04 PO 0604 Ondansetron HCl 4 MG Q6P PRN 07/02 1815 AC 07/03 IV 1546 Pantoprazole Sodium 40 MG DAILY 07/03 0800 AC 07/03 IV 0913 Potassium Chloride 40 MEQ Q8H 07/03 0830 AC 07/04 Dextrose/Sodium 1,000 ML IV 0845 Chloride Pravastatin Sodium 20 MG 1700 07/03 1700 AC 07/03 PO 1629 Trazodone HCl 150 MG QPM 07/02 2200 AC PO Past History Past Medical History Neurological: NONE EENT: NONE Cardiovascular: PVD (s/p stent in left leg ) Respiratory: NONE Gastrointestinal: pancreatitis Hepatic: NONE Renal: NONE Musculoskeletal: NONE Psychiatric: anxiety, depression Endocrine: diabetes, hypothyroidism Blood Disorders: NONE Cancer(s): NONE CORD TIRE BUILDER/Reproductive: NONE Past Surgical History Surgical History: cholecystectomy, below and above knee amputation of RLE Stent to LLE Psychosocial History Strengths/Capabilities: Motivated for treatment. Physical Limitations (Interventions): Right above the knee amputation, uses a wheel chair. Psychiatric Treatment History Psych Treatment Psychiatric Treatment Yes Inpatient Treatment No Outpatient Treatment Yes Location of Treatment Originally at [facility], now with PCP Reason for Treatment Depression Dates of Treatment Current Response to Treatment Unknown Diagnosis: F32.9 MDD, unspecified Hx opiate use disorder, in remission, and recently off methadone maint. Tx. R/O Anxiety, unspecified. Risk Factors: history of suicide atmpts, isolate/no social support, lives alone Substance Use/Abuse History Drug Use/Abuse Substances Used/Abused Yes Substance Used/Abused Other (list in comments) (Prescribed, then street opiate) First Use 15-20 years ago after left knee injury, opiates prescribed by Last Used Ten years ago, the patient entered methadone treatment program How much used/taken UNK How often Daily For how long 5-10 years Substance Abuse Treatment Substance Abuse Treatment Past Substance Abuse TX Yes Inpatient Treatment No Outpatient Treatment Yes Location of Treatment Unknown methadone clinic Reason for Treatment Opiate use d/o Dates of Treatment Approx. [id number] Response to Treatment Improved Assessment/Plan Mental Status Orientation: Person, Place, Situation Affect: WNL Speech: WNL Neuro-vegetative: Anhedonia, Sleep Disturbance Mental Status Exam: Alert and oriented. Denies current AH or VH, but describes a male and a female arguing, the content is not recognizable. She also reports seeing shadows once in a while. She reports 1-1/2 to 2 hours of sleep at home. She is happy that she had 3 hours of sleep last night. She describes having bad mood swings. The patient denies current suicidal or homicidal ideation. She reports a suicide attempt in 1983 by taking a handful (?10) of unknown pills. The stressor was the continual screaming of her one year old son, while caring for her daughter, now 34 y.o. Her mother came over, discovered the attempt and induced vomiting; the patient did not receive follow up treatment. She denies use of alcohol or other street drugs; she denies cravings. Denies SI or HI. Lab Results: Laboratory Tests 07/04 0624 Chemistry Sodium (137 - 145 mmol/L) 139 Potassium (3.5 - 5.1 mmol/L) 4.9 Chloride (98 - 107 mmol/L) 115 H Carbon Dioxide (22 - 30 mmol/L) 16 L Anion Gap (5 - 16) 7 BUN (7 - 17 mg/dL) 8 Creatinine (0.5 - 1.0 mg/dL) 0.6 Estimated GFR (>60 ml/min) > 60 Glucose (65 - 99 mg/dL) 235 H Calcium (8.4 - 10.2 mg/dL) 9.0 Phosphorus (2.5 - 4.5 mg/dL) 3.0 Magnesium (1.6 - 2.3 mg/dL) 1.8 Total Bilirubin (0.2 - 1.3 mg/dL) 0.1 L AST (14 - 36 U/L) 17 ALT (9 - 52 U/L) 31 Albumin (3.5 - 5.0 g/dL) 2.6 L Hematology CBC w Diff NO MAN DIFF REQ WBC (4.8 - 10.8 /CUMM) 6.0 RBC (4.20 - 5.40 /CUMM) 3.73 L Hgb (12.0 - 16.0 G/DL) 10.4 L Hct (37 - 47 %) 31.3 L MCV (81.0 - 99.0 FL) 83.8 MCH (27.0 - 31.0 PG) 27.9 MCHC (33.0 - 37.0 G/DL) 33.3 RDW (11.5 - 14.5 %) 14.6 H Plt Count (130 - 400 /CUMM) 229 MPV (7.4 - 10.4 FL) 12.6 H Gran % (42.2 - 75.2 %) 62.4 Lymphocytes % (20.5 - 51.1 %) 26.6 Monocytes % (1.7 - 9.3 %) 6.6 Eosinophils % (0 - 5 %) 3.8 Basophils % (0.0 - 2.0 %) 0.6 Absolute Granulocytes (1.4 - 6.5 /CUMM) 3.8 Absolute Lymphocytes (1.2 - 3.4 /CUMM) 1.6 Absolute Monocytes (0.10 - 0.60 /CUMM) 0.4 Absolute Eosinophils (0.0 - 0.7 /CUMM) 0.2 Absolute Basophils (0.0 - 0.2 /CUMM) 0 Diffential Diagnosis: F32.9 MDD, unspecified Hx of post- depression, resulting in a suicide attempt by pharmacy. Hx opiate use disorder, in remission, and recently off methadone maint. Tx. R/O Anxiety, unspecified. Impression: The patient feels abandoned in [place], but tried to maintain contact with her family in [place]. She would like to move closer. She is not currently suicidal, but thinks that her loneliness is a stress factor that caused her to express passive SI several days ago. She is interested in coming to [facility], and we will get her an intake appointment when her discharge date is known. Failed medications: Lyrica - Stopped due to increased suicidal ideation. Gabapentin - For neuropathic pain, but ineffective. Zoloft - On a small dose, her estimate, for 6 months, not effective. This may be worth another trial. Lexapro - She is uncertain if she has tried this. Provisional Treatment Plan: 1. The patient will need psychiatric followup after discharge. Please advise of the discharge date when known, and we will procur an intake appointment. 2. Minimize the use of benzodiazepines. 3. Referral to local PCP and endocrinology. 4. If assured followup, we may initiate an SSRI for depression and anxiety. Patient: [phone] Daughter, Rosy: [phone] We will continue to follow.
[2017-07-04 14:26] VITALS: BP 100/60
--- NOTE | 2017-07-04 16:07 | MRI REPORT ---
EXAMINATION: MR ABDOMEN WITHOUT AND WITH CONTRAST CLINICAL INFORMATION: Epigastric pain. Nausea, vomiting, elevated lipase. CT findings positive. MRP with and without contrast, pancreatic protocol. Triple phase. Presumptive diagnosis of pancreatitis. COMPARISON: CT scan of the abdomen and pelvis dated 07/03/2017 and ultrasound of the right upper quadrant dated 07/02/2017 and 06/12/2017. CT scan of the abdomen and pelvis dated 06/12/2017. TECHNIQUE: An MRI scan of the abdomen was performed using multiple imaging sequences and imaging planes. As per the MRCP protocol, heavily T2-weighted 3-D high-resolution MRCP sequences were obtained in the coronal plane along with thin and thick slab coronal images and coronal MIP reconstructions on the technologist workstation under concurrent physician supervision. Gadavist 8 mL intravenous was given and postcontrast enhanced dynamic evaluation was performed. FINDINGS: Evaluation is limited due to patient's extreme claustrophobia and anxiety, despite premedication with IV Ativan. Patient would not tolerate repeat image acquisition. LIVER, GALLBLADDER, BILIARY TREE: Liver normal size and demonstrates diffuse loss in signal on opposed phase sequences, consistent with hepatic steatosis. No focal cystic or solid mass. The patient is status post cholecystectomy. Mild central intrahepatic and extrahepatic ductal dilatation is seen. The common bile duct measures 1.0 cm and tapers distally to approximately 0.6 cm. In region of the common hepatic duct, which measures approximately 0.9 cm in diameter, an elongated 1.4 x 0.4 cm low signal filling defect is seen (series 3, image 13). This is seen on a single image and is most consistent with volume averaging with adjacent postcholecystectomy clips, as seen on the CT scan. Less likely, findings may be related to volume averaging with adjacent gas-filled loops of bowel. Subtle nonobstructing common hepatic duct stone is felt to be also much less likely. The cystic duct remnant appears unremarkable. Hepatic and portal veins patent. PANCREAS: There is mild diffuse atrophy of the pancreas with fatty infiltration in the pancreatic head seen. Postcontrast, there is uniform enhancement of the pancreas with no evidence of pancreatic necrosis. No pancreatic ductal dilatation is seen. Pancreatic duct measures approximately 0.2 cm in diameter. There is minimal edema in the peripancreatic fat, similar to the previous CT scan. No peripancreatic collection is seen. SPLEEN: Normal size and appearance. Splenic vein patent. ADRENAL GLANDS AND KIDNEYS: Adrenal glands normal. Kidneys bilaterally symmetric in size and function. No focal mass, hydronephrosis, or perinephric stranding. BOWEL LOOPS: Grossly within normal limits. LYMPHOVASCULAR STRUCTURES: Abdominal aorta normal in caliber. No periaortic collections. No abdominal adenopathy or free fluid collection. BONES: Within normal limits to the extent included. IMPRESSION: 1. Very mild peripancreatic edema is seen, consistent with mild pancreatitis. No evidence of pancreatic necrosis or walled off peripancreatic fluid collection is seen. Findings are similar to the prior CT scan from yesterday. 2. Small filling defect is seen in the proximal common hepatic duct, likely artifactual, related to volume averaging with adjacent postcholecystectomy clip. Subtle choledocholithiasis is not entirely excluded, but is felt to be much less likely. Serial MRI scan followup could be performed for reassessment if clinically indicated. 3. Mild hepatic steatosis.
[2017-07-04 20:40] VITALS: BP 140/70
[2017-07-05 06:46] VITALS: BP 140/72
--- NOTE | 2017-07-05 08:27 | PN- Diabetes ---
Assessment/Plan Assessment: The patient continues to have epigastric pain. The patient is on Levemir 20 units twice a day as well as sliding scale NovoLog every 4 hours. He is still on IV fluids with D5 half-normal saline. She is eating breakfast this morning. Plan: Suggest that we can change her NovoLog to before meals. Continue Levemir 20 units twice a day. Reduce the rate of the patient's IV fluid to 50 cc/h. If the patient eats well we can discontinue her IV fluids. Sliding scale NovoLog before meals should be 80-150 give 4 units NovoLog, 151- 200 give 6 units NovoLog, 201-250 give 7 units NovoLog, 251-300 give 8 units NovoLog, 301-350 give 9 units NovoLog, 351-400 give 10 units NovoLog. Objective Last 24 Hrs of Vital Signs/I&O Vital Signs Date Time Temp Pulse Resp B/P B/P Pulse O2 O2 Flow FiO2 Mean Ox Delivery Rate 07/05 0804 7 140/72 07/05 0646 98.2 76 19 140/72 98 Room Air 07/04 2040 98.1 90 19 140/70 100 Room Air 07/04 1426 97.6 86 18 100/60 100 Room Air 07/04 0958 71 124/64 Intake & Output 07/05 1600 07/05 0800 07/05 0000 Intake Total 680 440 Output Total 600 350 Balance 80 90 Intake, IV 200 200 Intake, Oral 480 240 Output, Urine 600 350 Patient 167 lb Weight Vital Signs Date Time Temp Pulse Resp B/P B/P Pulse O2 O2 Flow FiO2 Mean Ox Delivery Rate 07/05 0804 7 140/72 07/05 0646 98.2 76 19 140/72 98 Room Air 07/04 2040 98.1 90 19 140/70 100 Room Air 07/04 1426 97.6 86 18 100/60 100 Room Air 07/04 0958 71 124/64 Intake & Output 07/05 1600 07/05 0800 07/05 0000 Intake Total 680 440 Output Total 600 350 Balance 80 90 Intake, IV 200 200 Intake, Oral 480 240 Output, Urine 600 350 Patient 167 lb Weight Current Medications: Current Medications Sig/Christina Start time Last Medication Dose Route Stop Time Status Admin Amlodipine Besylate 5 MG DAILY 07/03 1000 AC 07/05 PO 08 Aspirin Buffered 81 MG DAILY 07/03 1000 AC 07/05 PO 0804 Bupropion HCl 200 MG DAILY 07/02 1818 AC 07/05 PO 0804 Clopidogrel Bisulfate 75 MG DAILY 07/03 1000 AC 07/05 PO 0804 Docusate Sodium 100 MG BID PRN 07/02 1830 AC 07/03 PO 2231 Heparin Sodium 5,000 UNIT Q8 07/02 2200 AC 07/05 (Porcine) SC 0551 Hydroxychloroquine 200 MG BID 07/02 2200 AC 07/05 Sulfate PO 0804 Insulin Aspart 0 Q4 07/03 1000 AC 07/05 SC 0803 Insulin Detemir 20 UNITS BID 07/03 1000 AC 07/05 SC 0803 Levothyroxine Sodium 0.075 MG DAILY AC 07/03 0700 AC 07/05 PO 0551 Lorazepam 1 MG ONCE ONE 07/04 2030 DC 07/04 IV 07/04 2030 221 Lorazepam 1 MG ONCE ONE 07/04 1200 DC 07/04 IV 07/04 1201 1200 Morphine Sulfate 2 MG Q2 HRS NEEDED PRN 07/02 2130 AC 07/05 IV 0801 Omeprazole 20 MG DAILY AC 07/03 0700 AC 07/05 PO 0551 Ondansetron HCl 4 MG Q6P PRN 07/02 1815 AC 07/03 IV 1546 Pantoprazole Sodium 40 MG DAILY 07/03 0800 AC 07/05 IV 0733 Potassium Chloride 40 MEQ Q8H 07/03 0830 AC 07/05 Dextrose/Sodium 1,000 ML IV 0148 Chloride Pravastatin Sodium 20 MG 1700 07/03 1700 AC 07/04 PO 1751 Trazodone HCl 150 MG QPM 07/02 2200 AC 07/04 PO 2139 Findings Pertinent Lab/Nikolas Results: Laboratory Tests 07/05 0646 Chemistry Sodium (137 - 145 mmol/L) 141 Potassium (3.5 - 5.1 mmol/L) 4.4 Chloride (98 - 107 mmol/L) 115 H Carbon Dioxide (22 - 30 mmol/L) 18 L Anion Gap (5 - 16) 8 BUN (7 - 17 mg/dL) 4 L Creatinine (0.5 - 1.0 mg/dL) 0.7 Estimated GFR (>60 ml/min) > 60 BUN/Creatinine Ratio (7 - 25 %) 5.7 L Hematology CBC w Diff Pending WBC Pending RBC Pending Hgb Pending Hct Pending MCV Pending MCH Pending MCHC Pending RDW Pending Plt Count Pending MPV Pending
--- NOTE | 2017-07-05 08:28 | PN- Housestaff ---
Matthew Licea MD 07/05/1727: Subjective Follow-up For: dka/hhs pancreatitis dm Subjective: patient is sitting in bed and eating breakfast her only complaint is epigastric tenderness at this time no fevers or chills Review of Systems Constitutional: Reports: see HPI. Objective Last 24 Hrs of Vital Signs/I&O Vital Signs Date Time Temp Pulse Resp B/P B/P Pulse O2 O2 Flow FiO2 Mean Ox Delivery Rate 07/05 1330 98.6 97 20 110/60 98 07/05 0804 7 140/72 07/05 0646 98.2 76 19 140/72 98 Room Air 07/04 2040 98.1 90 19 140/70 100 Room Air Intake & Output 07/05 1600 07/05 0800 07/05 0000 Intake Total 240 680 440 Output Total 850 600 350 Balance -610 80 90 Intake, IV 200 200 Intake, Oral 240 480 240 Number 1 Bowel Movements Output, Urine 850 600 350 Patient 73.709 kg 75.75 kg Weight Weight Bed scale Measurement Method Physical Exam General Appearance: Alert, Oriented X3, Cooperative, No Acute Distress Cardiovascular: Regular Rate, Normal S1, Normal S2, No Murmurs Lungs: Clear to Auscultation, Normal Air Movement Abdomen: Normal Bowel Sounds, Soft, No Masses, significant epigastric tenderness on palpation Extremities: No Clubbing, No Cyanosis, No Edema, Normal Pulses Assessment/Plan Assessment: 56 year old female with a PMH of rheumatoid arthritis, scleroderma, diabetes mellitus, peripheral vascular disease s/p AKA, LLE stent placement and chronic nonhealing ulcer, GERD, hypothyroidism, and opioid abuse (presently off methadone) presented to the ED with abdominal pain, nausea and vomiting. HHS-DM: Acetone positive, low bicarbonate, VBG 7.32, serum glucose 850 on presentation Was previously on insulin drip and dextrose intravenous fluids with potassium Endocrinology consulted, appreciate recommendations Continue Levemir 20 units BID Accuchecks TIDAC/HS Advanced to regular diet Novolog insulin sliding scale Zofran as needed for nausea Mild pancreatitis status post MRCP Lipase 700 -> 350, ~10,000 last month Triglycerides 280, denies EtOH Recurrent acute pancreatitis GI consulted, appreciate recommendations MRCP Very mild peripancreatic edema is seen, consistent with mild pancreatitis. No evidence of pancreatic necrosis or walled off peripancreatic fluidcollection is seen. Findings are similar to the prior CT scan from yesterday. Small filling defect is seen in the proximal common hepatic duct, likely artifactual, related to volume averaging with adjacent postcholecystectomy clip. Subtle choledocholithiasis is not entirely excluded. Sendouts for possible etiologies of pancreatitis pending Outpatient colonoscopy with GI Elevated Alkaline phosphatase Anti-mitochondrial antibody pending HTN: Continue amlodipine 5mg daily Hypothyroidism: TSH and free T4 wnl Continue home dose of levothyroxine Depression/ Insomnia/Opioid dependence Continue Trazadone and Wellbutrin Psych evaluation, trial SSRI, minimize benzoes, outpatient followup Patient requesting ativan for sleep, ordered melatonin, avoid benzoes during the night RA/Scleroderma Continue Hydroxychloroquine 200mg BID PO PVD Continue ASA, Plavix, statin Wound consult in AM for left lower extremity ulcer Diabetic diet DVT ppx-heparin 5000 units subcutaneous q8h Full Code Problem List: 1. DKA (diabetic ketoacidoses) 2. Hyperglycemia 3. Acute pancreatitis 4. Uncontrolled diabetes mellitus 5. Elevated serum alkaline phosphatase level Pain Ratin Pain Location: epigastric Pain Goal: Pain 4 or less Pain Plan: prn Tomorrow's Labs & Rationales: Mirta Ratliff MD 07/05/17 1403: Attending MD Review Statement Attending Statement Attending MD Statement: examined this patient, discuss w/resident/PA/ROTOR COIL TAPER, agreed w/resident/PA/ROTOR COIL TAPER, reviewed EMR data (avail) Attending Assessment/Plan: 56F PMH T2DM, PVD, right AKA presenting with 1 week of worsening epigastric pain , for the past 2-3 days has been unable to tolerate PO and has been vomiting everything she tries to eat, with significant nausea, found to have acute pancreatitis by labs and imaging. No alcohol intake, no recent medication changes. Tender epigastric area on exam, otherwise patient looks well and is comfortable. Found to have HHS on admission, placed on insulin drip, now improved. MRCP shows only acute pancreatitis. Abdominal pain is persistent but slowly improving. Vomited this morning after meal. Looks better than yesterday. 1. Acute pancreatitis 2. HHS Type 2 3. Lactic acidosis 4. Left lower leg venous stasis ulcer Plan - Continue on general medicine - Continue clear liquid diet - Tylenol IV PRN mild/moderate pain - Morphine 2mg PRN severe pain (patient has adverse reactions to Percocet and Dilaudid) - Continue Xeroform dressings on LLE - Endocrine consult - Monitor LFTs - DVT PPx
[2017-07-05 08:31] LABS: ABSOLUTE BASOPHIL COUNT 0 /CUMM (0.0-0.2); ABSOLUTE EOSINOPHIL COUNT 0.2 /CUMM (0.0-0.7); ABSOLUTE GRANULOCYTE CT 2.6 /CUMM (1.4-6.5); ABSOLUTE LYMPH COUNT 1.7 /CUMM (1.2-3.4); ABSOLUTE MONOCYTE COUNT 0.4 /CUMM (0.10-0.60); BASOPHIL % 0.5 % (0.0-2.0); EOSINOPHIL % 4.5 % (0-5); GRANULOCYTE % 52.8 % (42.2-75.2); HEMATOCRIT 31.1 % (37-47); MEAN CORPUSCULAR HGB 27.9 PG (27.0-31.0); MEAN CORPUSCULAR HGB CONC 33.3 G/DL (33.0-37.0); MEAN CORPUSCULAR VOLUME 83.9 FL (81.0-99.0); MEAN PLATELET VOLUME 11.9 FL (7.4-10.4); PLATELET COUNT 220 /CUMM (130-400); RBC DISTRIBUTION WIDTH 14.8 % (11.5-14.5); RED BLOOD CELL CT 3.71 /CUMM (4.20-5.40); WHITE BLOOD CELL COUNT 4.9 /CUMM (4.8-10.8)
[2017-07-05 13:30] VITALS: BP 110/60
[2017-07-05 22:21] VITALS: BP 122/60
[2017-07-06 07:19] VITALS: BP 118/54
--- NOTE | 2017-07-06 07:58 | PN- Diabetes ---
Assessment/Plan Assessment: The patient continues to have epigastric pain. The patient is on Levemir 20 units twice a day as well as sliding scale NovoLog every 4 hours. She is eating breakfast well this morning. Her blood sugars began to run high late in the day yesterday. Fingerstick blood sugar at 8 AM was 194, noontime 345, suppertime 278, and bedtime to 235. This morning her fingerstick blood sugar is 315. Plan: Suggest increase Levemir to 24 units twice a day. In addition increased sliding scale NovoLog before meals. Sliding scale NovoLog before meals should be 80-150 give 6 units NovoLog, 151-200 give 8 units NovoLog, 201-250 give 9 units NovoLog , 251 -300 give 10 units NovoLog, 301-350 give 11 units NovoLog, 351-400 give 12 units NovoLog. A separate bedtime sliding scale should be written. Bedtime sliding scale NovoLog should be less than 250 give no insulin to 251-300 give 2 units NovoLog, 301-350 give 3 units NovoLog, 351-400 give 4 units NovoLog. Subjective Subjective: Feels very anxious Review of Systems Constitutional: Denies: chills, fever. Cardiovascular: Denies: chest pain. Respiratory: Denies: short of breath. Gastrointestinal: Reports: abdominal pain, nausea. Objective Last 24 Hrs of Vital Signs/I&O Vital Signs Date Time Temp Pulse Resp B/P B/P Pulse O2 O2 Flow FiO2 Mean Ox Delivery Rate 07/0619 97.4 74 20 118/54 98 07/05 2221 97.7 84 20 122/60 97 Room Air 07/05 1330 98.6 97 20 110/60 98 Intake & Output 07/06 1600 07/06 0800 07/06 0000 Intake Total 240 240 Output Total 800 375 Balance -560 -135 Intake, Oral 240 240 Output, Urine 800 375 Vital Signs Date Time Temp Pulse Resp B/P B/P Pulse O2 O2 Flow FiO2 Mean Ox Delivery Rate 07/06/84 07/06 0719 97.4 74 20 118/54 98 07/05 2221 97.7 84 20 122/60 97 Room Air 07/05 1330 98.6 97 20 110/60 98 Intake & Output 07/06 1600 07/06 0800 07/06 0000 Intake Total 240 240 Output Total 800 375 Balance -560 -135 Intake, Oral 240 240 Output, Urine 800 375 Physical Exam General Appearance: alert, awake, comfortable Head: normal appearance Neck: normal inspection Respiratory: normal breath sounds Cardiovascular: regular rate/rhythm Abdomen: normal bowel sounds Current Medications: Current Medications Sig/Christina Start time Last Medication Dose Route Stop Time Status Admin Amlodipine Besylate 5 MG DAILY 07/03 1000 AC 07/06 PO 0745 Aspirin Buffered 81 MG DAILY 07/03 1000 AC 07/06 PO 0745 Bupropion HCl 200 MG DAILY 07/02 1818 AC 07/06 PO 0745 Clopidogrel Bisulfate 75 MG DAILY 07/03 1000 AC 07/06 PO 0745 Docusate Sodium 100 MG BID PRN 07/02 1830 AC 07/03 PO 2231 Heparin Sodium 5,000 UNIT Q8 07/02 2200 AC 07/06 (Porcine) SC 0609 Hydroxychloroquine 200 MG BID 07/02 2200 AC 07/06 Sulfate PO 0745 Insulin Aspart 0 TIDAC 07/05 1200 AC 07/06 SC 0746 Insulin Aspart 0 Q4 07/03 1000 DC 07/05 SC 0803 Insulin Detemir 20 UNITS BID 07/03 1000 AC 07/06 SC 0746 Levothyroxine Sodium 0.075 MG DAILY AC 07/03 0700 AC 07/06 PO 0608 Melatonin 5 MG AT BEDTIME 07/05 2200 AC 07/05 PO 2237 Morphine Sulfate 2 MG Q2 HRS NEEDED PRN 07/02 2130 AC 07/06 IV 0801 Omeprazole 20 MG DAILY AC 07/03 0700 AC 07/06 PO 0608 Ondansetron HCl 4 MG Q6P PRN 07/02 1815 AC 07/03 IV 1546 Pantoprazole Sodium 40 MG DAILY 07/03 0800 DC 07/05 IV 0733 Potassium Chloride 40 MEQ Q8H 07/03 0830 DC 07/05 Dextrose/Sodium 1,000 ML IV 0148 Chloride Pravastatin Sodium 20 MG 1700 07/03 1700 AC 07/05 PO 1658 Sertraline HCl 50 MG DAILY 07/06 1000 AC 07/06 PO 0801 Trazodone HCl 150 MG QPM 07/02 2200 AC 07/04 PO 2139 Findings Pertinent Lab/Nikolas Results: Laboratory Tests 07/06 0652 Chemistry Sodium Pending Potassium Pending Chloride Pending Carbon Dioxide Pending Anion Gap Pending BUN Pending Creatinine Pending BUN/Creatinine Ratio Pending Total Bilirubin Pending Direct Bilirubin Pending AST Pending ALT Pending Alkaline Phosphatase Pending Total Protein Pending Albumin Pending
--- NOTE | 2017-07-06 08:47 | PN- Housestaff ---
See Addendum Subjective Follow-up For: dka/hhs pancreatitis dm SI Subjective: patient currently has a sitter after expressing SI yesterday she states she is extremely anxious about being discharged from the hospital she doesn't want to return to her [address]th floor apartment in [place] she is unhappy and lonely there she states her SI was a threat said in anger to her catalytic case operator Marquita at [facility] but hedges that she doesn't know what she is capable of and had attempt in the past patients blood sugars remain high >300 this morning, complains of abdominal pain not related to eating Review of Systems Constitutional: Reports: see HPI. Objective Last 24 Hrs of Vital Signs/I&O Vital Signs Date Time Temp Pulse Resp B/P B/P Pulse O2 O2 Flow FiO2 Mean Ox Delivery Rate 07/06 0745 118/84 07/06 0719 97.4 74 20 118/54 98 07/05 2221 97.7 84 20 122/60 97 Room Air 07/05 1330 98.6 97 20 110/60 98 Intake & Output 07/06 1600 07/06 0800 07/06 0000 Intake Total 240 240 Output Total 800 375 Balance -560 -135 Intake, Oral 240 240 Output, Urine 800 375 Physical Exam General Appearance: Alert, Oriented X3, Cooperative, No Acute Distress, eating breakfast, doesnt appear to be in pain at rest Cardiovascular: Regular Rate, Normal S1, Normal S2, No Murmurs Lungs: Clear to Auscultation, Normal Air Movement Abdomen: Normal Bowel Sounds, Soft, No Masses, epigastric tenderness, with voluntary guarding Extremities: No Clubbing, No Cyanosis, No Edema, R AKA, LLE chronic ulcer Current Medications: Current Medications Sig/Christina Start time Last Medication Dose Route Stop Time Status Admin Amlodipine Besylate 5 MG DAILY 07/03 1000 AC 07/06 PO 0745 Aspirin Buffered 81 MG DAILY 07/03 1000 AC 07/06 PO 0745 Bupropion HCl 200 MG DAILY 07/02 1818 AC 07/06 PO 0745 Clopidogrel Bisulfate 75 MG DAILY 07/03 1000 AC 07/06 PO 0745 Docusate Sodium 100 MG BID PRN 07/02 1830 AC 07/03 PO 2231 Heparin Sodium 5,000 UNIT Q8 07/02 2199 AC 07/06 (Porcine) SC 0609 Hydroxychloroquine 200 MG BID 07/02 2199 AC 07/06 Sulfate PO 0745 Insulin Aspart 0 AT BEDTIME 07/06 2200 AC SC Insulin Aspart 0 TIDAC 07/05 1200 AC 07/06 SC 0746 Insulin Detemir 24 UNITS BID 07/06 1000 AC SC Insulin Detemir 20 UNITS BID 07/03 1000 DC 07/06 SC 0746 Levothyroxine Sodium 0.075 MG DAILY AC 07/03 0700 AC 07/06 PO 0608 Melatonin 5 MG AT BEDTIME 07/05 2200 AC 07/05 PO 2237 Morphine Sulfate 2 MG Q2 HRS NEEDED PRN 07/02 2130 AC 07/06 IV 0801 Omeprazole 20 MG DAILY AC 07/03 0700 AC 07/06 PO 0608 Ondansetron HCl 4 MG Q6P PRN 07/02 1815 AC 07/03 IV 1546 Pantoprazole Sodium 40 MG DAILY 07/03 0800 DC 07/05 IV 0733 Pravastatin Sodium 20 MG 1700 07/03 1700 AC 07/05 PO 1658 Sertraline HCl 50 MG DAILY 07/06 1000 AC 07/06 PO 0801 Trazodone HCl 150 MG QPM 07/02 2200 AC 07/04 PO 2139 Last 24 Hrs of Lab/Nikolas Results Last 24 Hrs of Labs/Mics: Laboratory Tests 07/06/17 0652: Anion Gap 8, Estimated GFR > 60, BUN/Creatinine Ratio 10.0, Total Bilirubin 0.1 L, Direct Bilirubin 0.1, AST 13 L, ALT 28, Alkaline Phosphatase 116, Total Protein 5.0 L, Albumin 2.6 L Assessment/Plan Assessment: 56 year old female with a PMH of rheumatoid arthritis, scleroderma, diabetes mellitus, peripheral vascular disease s/p AKA, LLE stent placement and chronic nonhealing ulcer, GERD, hypothyroidism, and opioid abuse (presently off methadone) presented to the ED with abdominal pain, nausea and vomiting. HHS-DM: Acetone positive, low bicarbonate, VBG 7.32, serum glucose 850 on presentation Was previously on insulin drip and dextrose intravenous fluids with potassium Endocrinology consulted, appreciate recommendations Increased Levemir to 24 units BID Accuchecks TIDAC/HS Tolerating diet Novolog insulin sliding scale increased and night time coverage Zofran as needed for nausea Mild pancreatitis: Epigastric tenderness persists Lipase 700 -> 350, ~10,000 last month Triglycerides 280, denies EtOH Recurrent acute pancreatitis GI consulted, appreciate recommendations MRCP Very mild peripancreatic edema is seen, consistent with mild pancreatitis. No evidence of pancreatic necrosis or walled off peripancreatic fluidcollection is seen. Findings are similar to the prior CT scan from yesterday. Small filling defect is seen in the proximal common hepatic duct, likely artifactual, related to volume averaging with adjacent postcholecystectomy clip. Subtle choledocholithiasis is not entirely excluded. Sendouts for possible etiologies of pancreatitis pending Outpatient colonoscopy with GI Elevated Alkaline phosphatase Anti-mitochondrial antibody pending HTN: Continue amlodipine 5mg daily Hypothyroidism: TSH and free T4 wnl Continue home dose of levothyroxine Depression/ Insomnia/Opioid dependence: Expressed SI, 1:1 sitter pending psychiatry reevaluation Continue Trazadone and Wellbutrin, added Zoloft 50mg daily Psych evaluation, minimize benzoes, outpatient intake appointment 07/19/17 Patient requesting ativan for sleep, ordered melatonin, avoid benzoes during the night RA/Scleroderma Continue Hydroxychloroquine 200mg BID PO PVD Continue ASA, Plavix, statin Daily xeroform with DPD dressing change daily for wound care of left lower extremity ulcer Diabetic diet-restrict carbohydrates DVT ppx-heparin 5000 units subcutaneous q8h Full Code Problem List: 1. Acute pancreatitis 2. Hyperglycemia 3. DKA (diabetic ketoacidoses) 4. Uncontrolled diabetes mellitus 5. Elevated serum alkaline phosphatase level Pain Ratin Pain Location: epigastric Pain Goal: Pain 4 or less Pain Plan: prn Tomorrow's Labs & Rationales: bep
--- NOTE | 2017-07-06 10:18 | PN- Psychiatry ---
Assessment/Plan Impression: The patient was distraught about going home to [place], where she live in elderly housing and is isolated from her family. She made the suicidal statement because she had an unrealistic expectation that we could help her find a better living situation closer to her former home in [facility]. She is depressed and lonely, and said she would jump out of the window at the housing out of anger, with no intent. Due to her remote history of a suicide attempt by taking ten pills as a young mother, the team was concerned, and placed a 1:1 safety monitor with her yesterday. The patient is not suicidal and has been counseled on making suicidal statements that are not true. She is encouraged to report intrusive suicidal thoughts by calling 911 immediately. She verbalizes understanding of this safety plan, and promises to remain safe at home and here in the hospital. The patient had received one dose of sertraline 50 mg PO daily today, but she remains on bupropion SR 200 mg PO daily. Rather than discharge the patient on a cross-taper, there would be less chance of complications arising if we discontinue the sertraline and continue the bupropion, as before the hospital. She can discuss with her new gamewell operator at [facility] a change in antidepressant, preferably one with better efficacy in anxiety disorder. She recently had several one-time doses of lorazepam, which she is asking to be discharged with, but we have concerns about this, due to increased chance of fall. Suggestion: 1. Stop sertraline. 2. Change trazodone to 50 mg PO one hour before bedtime, as needed, for insomnia. 3. The patient has an intake appointment at [facility] on 07/19/17 at 1030. She has the card with this information. Thank you for this consult. Psychiatry is signing off. Subjective Subjective: Alert and oriented Denies current visual or auditory hallucinations. She reports that sometimes during the day, she sees a shadow. She denies suicidal or homicidal ideation and states that the statement she made yesterday about jumping through the window was in anger, and she had no intent. She reports anxiety, but is calm and appropriate without psychomotor agitation or retardation. She reports racing thoughts at night and poor sleep. As noted before, her sleep is disturbed, and is likely responsible for her visual disturbances. She has taken trazodone in the past. At trazodone 50 or 100 mg, she had no symptoms, but developed pruritis at 150 mg PO at bedtime. She is willing to consider trazodone at 50 mg to help with sleep. She has never taken risperidone, Abilify, Zyprexa or lithium, and there is no family history of bipolar disorder. Insight and judgement are moderate. Review of Systems Neurological/Psychological: Reports: anxiety. Objective Last 24 Hrs of Vital Signs/I&O Vital Signs Date Time Temp Pulse Resp B/P B/P Pulse O2 O2 Flow FiO2 Mean Ox Delivery Rate 07/06 0745 118/84 07/06 0719 97.4 74 20 118/54 98 07/05 2221 97.7 84 20 122/60 97 Room Air 07/05 1330 98.6 97 20 110/60 98 Intake & Output 07/06 1600 07/06 0800 07/06 0000 Intake Total 240 240 Output Total 800 375 Balance -560 -135 Intake, Oral 240 240 Output, Urine 800 375 Physical Exam: Not performed. Physical Exam General Appearance: no apparent distress, alert, awake Neurologic/Psychiatric: alert, oriented x 3 Current Medications: Current Medications Sig/Christina Start time Last Medication Dose Route Stop Time Status Admin Amlodipine Besylate 5 MG DAILY 07/03 1000 AC 07/06 PO 0745 Aspirin Buffered 81 MG DAILY 07/03 1000 AC 07/06 PO 0745 Bupropion HCl 200 MG DAILY 07/02 1818 AC 07/06 PO 0745 Clopidogrel Bisulfate 75 MG DAILY 07/03 1000 AC 07/06 PO 0745 Docusate Sodium 100 MG BID PRN 07/02 1830 AC 07/03 PO 2231 Heparin Sodium 5,000 UNIT Q8 07/02 2200 AC 07/06 (Porcine) SC 0609 Hydroxychloroquine 200 MG BID 07/02 220 AC 07/06 Sulfate PO 0745 Insulin Aspart 0 AT BEDTIME 07/06 2200 AC SC Insulin Aspart 0 TIDAC 07/05 1200 AC 07/06 SC 0746 Insulin Detemir 24 UNITS BID 07/06 1000 AC SC Insulin Detemir 20 UNITS BID 07/03 1000 DC 07/06 SC 0746 Levothyroxine Sodium 0.075 MG DAILY AC 07/03 0700 AC 07/06 PO 0608 Melatonin 5 MG AT BEDTIME 07/05 2200 AC 07/05 PO 2237 Morphine Sulfate 2 MG Q2 HRS NEEDED PRN 07/02 2130 AC 07/06 IV 0801 Omeprazole 20 MG DAILY AC 07/03 0700 AC 07/06 PO 0608 Ondansetron HCl 4 MG Q6P PRN 07/02 1815 AC 07/03 IV 1546 Pantoprazole Sodium 40 MG DAILY 07/03 0800 DC 07/05 IV 0733 Pravastatin Sodium 20 MG 1700 07/03 1700 AC 07/05 PO 1658 Sertraline HCl 50 MG DAILY 07/06 1000 AC 07/06 PO 0801 Trazodone HCl 150 MG QPM 07/02 2200 AC 07/04 PO 2139 Results Last 24 Hrs of Labs/Mics: Laboratory Tests 07/06 0652 Chemistry Sodium (137 - 145 mmol/L) 138 Potassium (3.5 - 5.1 mmol/L) 4.6 Chloride (98 - 107 mmol/L) 112 H Carbon Dioxide (22 - 30 mmol/L) 18 L Anion Gap (5 - 16) 8 BUN (7 - 17 mg/dL) 7 Creatinine (0.5 - 1.0 mg/dL) 0.7 Estimated GFR (>60 ml/min) > 60 BUN/Creatinine Ratio (7 - 25 %) 10.0 Total Bilirubin (0.2 - 1.3 mg/dL) 0.1 L Direct Bilirubin (< 0.4 mg/dL) 0.1 AST (14 - 36 U/L) 13 L ALT (9 - 52 U/L) 28 Alkaline Phosphatase (<127 U/L) 116 Total Protein (6.3 - 8.2 g/dL) 5.0 L Albumin (3.5 - 5.0 g/dL) 2.6 L
[2017-07-06 13:58] VITALS: BP 120/60
--- NOTE | 2017-07-06 16:53 | PN- Gastroenterology ---
Assessment/Plan GI Assessment/Recommendations: ASSESSMENT: 1. Diabetes Mellitus, Insulin-Dependent. Generally poor diabetic control 2. Pancreatitis -- Mild by MRI. Has intra and extra-hepatic ductal dilatation. This may be related to post-cholecystectomy ampullary stenosis. However, other etiologies must also be ruled out. No CBD or intrahepatic stones noted. 3. Rheumatoid Arthritis 4. Elevated Alk Phos -- Await AMA. Although most likely related to bony destruction in the setting of RA. RECOMMENDATIONS: 1. Would refer to Department of GI at [facility] for outpatient follow up. 2, Counselling regarding improvement of diabetic control 3. GI will see intermittently. At this time no acute GI intervention warranted. Please do not hesitate to contact us as needed. Subjective Subjective: Patient complains of mild epigastric pain. Tolerating diet. No nausea or vomiting. Is with sitter due to expression of suicidal ideation. Had MRI yesterday, the results area as follows: IMPRESSION: 1. Very mild peripancreatic edema is seen, consistent with mild pancreatitis. No evidence of pancreatic necrosis or walled off peripancreatic fluid collection is seen. Findings are similar to the prior CT scan from yesterday. 2. Small filling defect is seen in the proximal common hepatic duct, likely artifactual, related to volume averaging with adjacent postcholecystectomy clip. Subtle choledocholithiasis is not entirely excluded, but is felt to be much less likely. Serial MRI scan followup could be performed for reassessment if clinically indicated. 3. Mild hepatic steatosis. Objective Vital Signs and I&Os Vital Signs Date Time Temp Pulse Resp B/P B/P Pulse O2 O2 Flow FiO2 Mean Ox Delivery Rate 07/06 1358 97.6 83 20 120/60 94 Room Air 07/06 1204 Room Air 07/06 0745 118/84 07/06 0719 97.4 74 20 118/54 98 07/05 2221 97.7 84 20 122/60 97 Room Air Intake & Output 07/06 1600 07/06 0400 07/05 1600 07/05 0400 07/04 0400 Intake Total 890 240 025 926 2600 1083 Output Total 849 657 5141 350 560 400 Balance 90 -135 -530 90 940 683 Intake, IV 045 577 4961 963 Intake, Oral 890 240 720 240 200 120 Number 1 0 Bowel Movements Output, Urine 215 746 0446 350 560 400 Patient 163 lb 167 lb 167 lb Weight Weight Bed scale Bed scale Measurement Method Physical Exam General Appearance: alert, awake, anxious Head: atraumatic Respiratory: normal breath sounds, lungs clear Cardiovascular: regular rate/rhythm, Normal S1 and S2 Abdomen: normal bowel sounds, soft, non-tender Neurologic/Psychiatric: awake, alert, oriented x 3, abnormal mood and affect Skin: normal color, warm/dry Current Medications: Current Medications Sig/Christina Start time Last Medication Dose Route Stop Time Status Admin Amlodipine Besylate 5 MG DAILY 07/03 1000 AC 07/06 PO 0745 Aspirin Buffered 81 MG DAILY 07/03 1000 AC 07/06 PO 0745 Bupropion HCl 200 MG DAILY 07/02 1818 AC 07/06 PO 0745 Clopidogrel Bisulfate 75 MG DAILY 07/03 1000 AC 07/06 PO 0745 Docusate Sodium 100 MG BID PRN 07/02 1830 AC 07/03 PO 2231 Heparin Sodium 5,000 UNIT Q8 07/02 2200 AC 07/06 (Porcine) SC 1344 Hydroxychloroquine 200 MG BID 07/02 2200 AC 07/06 Sulfate PO 0745 Insulin Aspart 0 AT BEDTIME 07/06 2200 AC SC Insulin Aspart 0 TIDAC 07/05 1200 AC 07/06 SC 1235 Insulin Detemir 24 UNITS BID 07/06 1000 AC 07/06 SC 1120 Insulin Detemir 20 UNITS BID 07/03 1000 DC 07/06 SC 0746 Levothyroxine Sodium 0.075 MG DAILY AC 07/03 0700 AC 07/06 PO 0608 Melatonin 5 MG AT BEDTIME 07/05 2200 AC 07/05 PO 2237 Morphine Sulfate 2 MG Q2 HRS NEEDED PRN 07/02 2130 AC 07/06 IV 1344 Omeprazole 20 MG DAILY AC 07/03 0700 AC 07/06 PO 0608 Ondansetron HCl 4 MG Q6P PRN 07/02 1815 AC 07/03 IV 1546 Patient Medication 1 ED ONE ONE 07/06 1145 DC Teaching ED 07/06 1146 Pravastatin Sodium 20 MG 1700 07/03 1700 AC 07/05 PO 1658 Sertraline HCl 50 MG DAILY 07/06 1000 DC 07/06 PO 0801 Trazodone HCl 50 MG QPM 07/06 2200 AC PO Trazodone HCl 150 MG QPM 07/02 2200 DC 07/04 PO 2139 Results Pertinent Lab Results: Laboratory Tests 07/06 07/05 0652 0646 Chemistry Sodium (137 - 145 mmol/L) 138 141 Potassium (3.5 - 5.1 mmol/L) 4.6 4.4 Chloride (98 - 107 mmol/L) 112 H 115 H Carbon Dioxide (22 - 30 mmol/L) 18 L 18 L Anion Gap (5 - 16) 8 8 BUN (7 - 17 mg/dL) 7 4 L Creatinine (0.5 - 1.0 mg/dL) 0.7 0.7 Estimated GFR (>60 ml/min) > 60 > 60 BUN/Creatinine Ratio (7 - 25 %) 10.0 5.7 L Total Bilirubin (0.2 - 1.3 mg/dL) 0.1 L Direct Bilirubin (< 0.4 mg/dL) 0.1 AST (14 - 36 U/L) 13 L ALT (9 - 52 U/L) 28 Alkaline Phosphatase (<127 U/L) 116 Total Protein (6.3 - 8.2 g/dL) 5.0 L Albumin (3.5 - 5.0 g/dL) 2.6 L Hematology CBC w Diff NO MAN DIFF REQ WBC (4.8 - 10.8 /CUMM) 4.9 RBC (4.20 - 5.40 /CUMM) 3.71 L Hgb (12.0 - 16.0 G/DL) 10.4 L Hct (37 - 47 %) 31.1 L MCV (81.0 - 99.0 FL) 83.9 MCH (27.0 - 31.0 PG) 27.9 MCHC (33.0 - 37.0 G/DL) 33.3 RDW (11.5 - 14.5 %) 14.8 H Plt Count (130 - 400 /CUMM) 220 MPV (7.4 - 10.4 FL) 11.9 H Gran % (42.2 - 75.2 %) 52.8 Lymphocytes % (20.5 - 51.1 %) 33.8 Monocytes % (1.7 - 9.3 %) 8.4 Eosinophils % (0 - 5 %) 4.5 Basophils % (0.0 - 2.0 %) 0.5 Absolute Granulocytes (1.4 - 6.5 /CUMM) 2.6 Absolute Lymphocytes (1.2 - 3.4 /CUMM) 1.7 Absolute Monocytes (0.10 - 0.60 /CUMM) 0.4 Absolute Eosinophils (0.0 - 0.7 /CUMM) 0.2 Absolute Basophils (0.0 - 0.2 /CUMM) 0 07/04 0624 Chemistry Sodium (137 - 145 mmol/L) 139 Potassium (3.5 - 5.1 mmol/L) 4.9 Chloride (98 - 107 mmol/L) 115 H Carbon Dioxide (22 - 30 mmol/L) 16 L Anion Gap (5 - 16) 7 BUN (7 - 17 mg/dL) 8 Creatinine (0.5 - 1.0 mg/dL) 0.6 Estimated GFR (>60 ml/min) > 60 Glucose (65 - 99 mg/dL) 235 H Calcium (8.4 - 10.2 mg/dL) 9.0 Phosphorus (2.5 - 4.5 mg/dL) 3.0 Magnesium (1.6 - 2.3 mg/dL) 1.8 Total Bilirubin (0.2 - 1.3 mg/dL) 0.1 L AST (14 - 36 U/L) 17 ALT (9 - 52 U/L) 31 Albumin (3.5 - 5.0 g/dL) 2.6 L Hematology CBC w Diff NO MAN DIFF REQ WBC (4.8 - 10.8 /CUMM) 6.0 RBC (4.20 - 5.40 /CUMM) 3.73 L Hgb (12.0 - 16.0 G/DL) 10.4 L Hct (37 - 47 %) 31.3 L MCV (81.0 - 99.0 FL) 83.8 MCH (27.0 - 31.0 PG) 27.9 MCHC (33.0 - 37.0 G/DL) 33.3 RDW (11.5 - 14.5 %) 14.6 H Plt Count (130 - 400 /CUMM) 229 MPV (7.4 - 10.4 FL) 12.6 H Gran % (42.2 - 75.2 %) 62.4 Lymphocytes % (20.5 - 51.1 %) 26.6 Monocytes % (1.7 - 9.3 %) 6.6 Eosinophils % (0 - 5 %) 3.8 Basophils % (0.0 - 2.0 %) 0.6 Absolute Granulocytes (1.4 - 6.5 /CUMM) 3.8 Absolute Lymphocytes (1.2 - 3.4 /CUMM) 1.6 Absolute Monocytes (0.10 - 0.60 /CUMM) 0.4 Absolute Eosinophils (0.0 - 0.7 /CUMM) 0.2 Absolute Basophils (0.0 - 0.2 /CUMM) 0
--- NOTE | 2017-07-06 17:05 | Patient Discharge Instructions ---
Discharge Instructions General Discharge Information You were seen/treated for: acute pancreatitis diabetic ketoacidosis Special Instructions: Please follow up with your library specialist, bailing machine operator, and primary care physican within two weeks of discharge. Acute Coronary Syndrome Inclusion Criteria At DC or during hospital stay patient has or had the following: ACS DIAGNOSIS No Discharge Core Measures Meds if any: Prescribed or Continued at Discharge Meds if any: NOT Prescribed or Continued at Discharge Congestive Heart Failure Inclusion Criteria At DC or during hospital stay patient has or had the following: CHF DIAGNOSIS No Discharge Core Measures Meds if any: Prescribed or Continued at Discharge Meds if any: NOT Prescribed or Continued at Discharge Cerebrovascular accident Inclusion Criteria At DC or during hospital stay patient has or had the following: CVA/TIA Diagnosis No Discharge Core Measures Meds if any: Prescribed or Continued at Discharge Meds if any: NOT Prescribed or Continued at Discharge Venous thromboembolism Inclusion Criteria VTE Diagnosis No VTE Type NONE VTE Confirmed by (Test) NONE Discharge Core Measures - Per Current guidelines, there needs to be overlap - treatment for the first 5 days of Warfarin therapy. - If discharged on Warfarin prior to 5 days of - overlap therapy, the patient will need to be - assessed for post discharge needs including - *Post discharge parental anticoagulation - *Warfarin and/or parental anticoagulation education - *Follow up date to check INR post discharge At least 5 days overlap therapy as Inpatient No Meds if any: Prescribed or Continued at Discharge Note: Overlap Therapy is Warfarin and Anticoagulant Meds if any: NOT Prescribed or Continued at Discharge
[2017-07-06 21:43] VITALS: BP 122/70
--- NOTE | 2017-07-06 23:06 | Proc Note Colonoscopy ---
See Addendum Colonoscopy Procedure Medical History: unchanged Mental Status: alert/oriented Heart/Lung Eval Prior to Sedation: within normal limits Candidate for Sedation? Yes Date of Last Colonoscopy: 07/06/2017 a.m. Procedure Date: 07/06/17 Procedure Type: Proctoscopy with Control of Bleeding Collection Supervisor: MD Chua Deborah E. Indications: 1. Rectal Bleeding 2. Acute Drop in Hgb/Hct 3. Acute Blood Loss Anemia 4. Hypotension Meds Received: GETA Patient's Tolerance: good Complications: none Extent Reached: Rectum Prep: good Procedure: The patient took a split dose colonic preparation after which they were NPO for an appropriate time prior to procedure. Note: Informed consent was obtained prior to procedure. Risks and benefits of procedure were discussed with patient. Potential complications discussed included perforation, bleeding, abdominal pain, and adverse reaction to medications. It was explained that iany or all of these complications could result in the need for extended hospitalization, emergency surgery, transfusion of packed red blood cells (with the risk of HIV or hepatitis virus), intubation with mechanical ventilation, and possible need for antibiotics. It was further explained that an existing tumor polyp or mucosal abnormality might not be identified at the time of the procedure thus resulting in a missed opportunity for early diagnosis and treatment of a gastrointestinal malignancy or disease with possible interval development of a gastrointestinal cancer or other disease with possible worsening of clinical condition in the interval between endoscopies. It was also discussed that complications are not limited to those listed above. Possible alternatives to endoscopic treatment or evaluation were discussed. All questions were answered. Continuous EKG and blood pressure monitors were attached. Supplemental oxygen was provided with O2 Sat monitoring. Patient was placed in the left lateral decubitus position. A surgical timeout was performed. All persons in the room were identified. All concerns were expressed and answered. Intubation and Sedation was administered by anesthesia and titrated to comfort prior to starting procdedure. A digital rectal exam was performed. There was normal tone and no masses. The Olympus CHF 180AL video colonoscope was advanced under direct vision to the rectum. There was a large clot filling the rectum which the patient expelled. The large 1.5 cm diverticulum with 2 endoclips was visualized. 1:10,000 and epinephrine 12 mL was injected around the diverticulum but not within the diverticulum. Injections were made approximately 1/2-1 cm from the diverticular at. There is appropriate blanching of the mucosa. The area was irrigated and continued oozing was noted. A large clot was evacuated from the rectum. Using a cold polypectomy snare and cold biopsy forceps the roof of the clot within the diverticulum was removed. The base of the diverticulum had stable adherent clot which was not removed. Oozing was noted at the base of the diverticulum adjacent to the endoclips. Using BiCAP electrocautery at a setting of 10 W 3 applications were made to the area. The area was irrigated and observed for 2 minutes. There was no further oozing noted. Specimens Removed: None Findings: 1.5 cm diverticulum with active oozing in the rectum with [address] Impression: 1.5 cm diverticulum with active oozing in the rectum with [address] Recommendations: 1. After current unit of blood has finished transfusing would obtain stat H&H 2. Would transfuse to keep hemoglobin greater than 7 3. For recurrent bleeding would call Josefa Chua M.D. immediately. I have given the attending physician, Dr. Kerns, my cell phone number so that she can call me directly at home. I will help facilitate a call to interventional radiology. I do not believe that a third attempt at endoscopic control of bleeding would be warranted at this point 4. Serial H&H every 4 hours 4 5. Call Josefa Chua M.D. immediately for any change in clinical condition 6. IV normal saline Followup Colonscopy Screen In: in 10 years CC: Katherine CURIEL,Maggy
[2017-07-07 07:40] VITALS: BP 128/74
--- NOTE | 2017-07-07 09:26 | PN- Housestaff ---
Shilo CURIEL,[facility] 07/07/17 0925: Subjective Follow-up For: Pancreatitis Subjective: Patient is seen and examined at bedside. She is complaining of intermittent epigastric pain and was requesting additional pain medication. She otherwise does not endorse any vomiting, increased nausea, fever or diarrhea. Review of Systems Constitutional: Reports: see HPI. Objective Last 24 Hrs of Vital Signs/I&O Vital Signs Date Time Temp Pulse Resp B/P B/P Pulse O2 O2 Flow FiO2 Mean Ox Delivery Rate 07/07 0752 82 124/80 07/07 0740 98.4 82 20 128/74 97 Room Air 07/06 2143 98.2 90 20 122/70 97 Room Air 07/06 1935 Room Air 07/06 1540 Room Air 07/06 1358 97.6 83 20 120/60 94 Room Air Intake & Output 07/07 1600 07/07 0800 07/07 0000 Intake Total Output Total 1000 500 Balance -1000 -500 Output, Urine 1000 500 Physical Exam General Appearance: Alert, Oriented X3, Cooperative Other Physical Findings: Cardiovascular: Regular Rate, Normal S1, Normal S2, No Murmurs Lungs: Clear to Auscultation, Normal Air Movement Abdomen: Normal Bowel Sounds, Soft, No Masses, mild epigastric tenderness, with voluntary guarding Extremities: No Clubbing, No Cyanosis, No Edema, R AKA, LLE chronic ulcer Current Medications: Current Medications Sig/Christina Start time Last Medication Dose Route Stop Time Status Admin Amlodipine Besylate 5 MG DAILY 07/03 1000 AC 07/07 PO 0752 Aspirin Buffered 81 MG DAILY 07/03 1000 AC 07/07 PO 0751 Bupropion HCl 200 MG DAILY 07/02 1818 AC 07/07 PO 0753 Clopidogrel Bisulfate 75 MG DAILY 07/03 1000 AC 07/07 PO 0753 Docusate Sodium 100 MG BID PRN 07/02 1830 AC 07/03 PO 2231 Heparin Sodium 5,000 UNIT Q8 07/02 2199 AC 07/07 (Porcine) SC 0548 Hydroxychloroquine 200 MG BID 07/02 2199 AC 07/07 Sulfate PO 0752 Insulin Aspart 0 AT BEDTIME 07/06 2200 AC 07/06 SC 2150 Insulin Aspart 0 TIDAC 07/05 1200 AC 07/07 SC 0754 Insulin Detemir 24 UNITS BID 07/06 1000 AC 07/07 SC 0754 Levothyroxine Sodium 0.075 MG DAILY AC 07/03 0700 AC 07/07 PO 0548 Melatonin 5 MG AT BEDTIME 07/05 2200 AC 07/06 PO 2151 Morphine Sulfate 2 MG Q2 HRS NEEDED PRN 07/02 2130 AC 07/07 IV 1049 Omeprazole 20 MG DAILY AC 07/03 0700 AC 07/07 PO 0548 Ondansetron HCl 4 MG Q6P PRN 07/02 1815 AC 07/03 IV 1546 Pravastatin Sodium 20 MG 1700 07/03 1700 AC 07/06 PO 1656 Trazodone HCl 50 MG QPM 07/06 2200 AC PO Assessment/Plan Assessment: 56 year old female with a PMH of rheumatoid arthritis, scleroderma, diabetes mellitus, peripheral vascular disease s/p AKA, LLE stent placement and chronic nonhealing ulcer, GERD, hypothyroidism, and opioid abuse (presently off methadone) presented to the ED with abdominal pain, nausea and vomiting. Mild pancreatitis: Epigastric tenderness persists. Switch patient's diet from regular to liquids for now and will advance as tolerated. Her persistent epigastric discomfort which is also associated with food intake secondary form gastroparesis and that the patient is diabetic with very poor glycemic control for a while. Lipase 700 -> 350, ~10,000 last month Triglycerides 280, denies EtOH Recurrent acute pancreatitis GI consulted, appreciate recommendations MRCP Very mild peripancreatic edema is seen, consistent with mild pancreatitis. No evidence of pancreatic necrosis or walled off peripancreatic fluidcollection is seen. Findings are similar to the prior CT scan from yesterday. Small filling defect is seen in the proximal common hepatic duct, likely artifactual, related to volume averaging with adjacent postcholecystectomy clip. Subtle choledocholithiasis is not entirely excluded. Sendouts for possible etiologies of pancreatitis pending Outpatient colonoscopy with GI Elevated Alkaline phosphatase Anti-mitochondrial antibody pending HTN: Continue amlodipine 5mg daily Hypothyroidism: TSH and free T4 wnl Continue home dose of levothyroxine RA/Scleroderma Continue Hydroxychloroquine 200mg BID PO PVD Continue ASA, Plavix, statin Daily xeroform with DPD dressing change daily for wound care of left lower extremity ulcer Diabetic diet-restrict carbohydrates DVT ppx-heparin 5000 units subcutaneous q8h Full Code Problem List: 1. Hyperglycemia 2. Acute pancreatitis Pain Ratin Pain Location: EPIGASTRIC Pain Goal: Remain pain free Pain Plan: PER PATHWAY Tomorrow's Labs & Rationales: CBC BEP Kathy CURIELRomajia 07/07/17 1627: Attending MD Review Statement Attending Statement Attending MD Statement: examined this patient, discuss w/resident/PA/EGG SORTER, agreed w/resident/PA/EGG SORTER, reviewed EMR data (avail) Attending Assessment/Plan: 56F PMH T2DM, PVD, right AKA presenting with 1 week of worsening epigastric pain , for the past 2-3 days has been unable to tolerate PO and has been vomiting everything she tries to eat, with significant nausea, found to have acute pancreatitis by labs and imaging. No alcohol intake, no recent medication changes. Tender epigastric area on exam, otherwise patient looks well and is comfortable. Found to have HHS on admission, placed on insulin drip, now improved. MRCP shows only acute pancreatitis. Abdominal pain is persistent but slowly improving. Able to tolerate regular diet today, did not vomit, but still has pain. She reported depression due to her living situation. 1. Acute pancreatitis 2. HHS Type 2 3. Left lower leg venous stasis ulcer Plan - Continue on general medicine - Regular diet - Tylenol IV PRN mild/moderate pain - Morphine 2mg PRN severe pain (patient has adverse reactions to Percocet and Dilaudid) - Continue Xeroform dressings on LLE - Endocrine consult - Monitor LFTs - DVT PPx - PT eval for possible STR
--- NOTE | 2017-07-07 12:36 | PN- Diabetes ---
Assessment/Plan Diabetes Assessment: The patient states that her upper abdominal pain is severe. Her diet was changed back to full liquids because of the pain. Her blood sugars yesterday were high and this morning her blood sugars 266 before breakfast and 266 again before lunch. Plan: Suggest continue 24 units of Levemir twice a day. We will adjust the patient's sliding scale NovoLog. Suggest NovoLog sliding scale before meals be changed to 80-150 give 8 units NovoLog, 151-200 give 10 units NovoLog, 201-250 give 11 units NovoLog, 251-300 give 12 units NovoLog, 301-350 give 13 units NovoLog, 351-400 give 14 units NovoLog. Bedtime sliding scale NovoLog should stay the same. Subjective Subjective: Complains of epigastric pain Review of Systems Constitutional: Denies: chills, fever. Cardiovascular: Denies: chest pain. Respiratory: Denies: cough, short of breath. Gastrointestinal: Reports: abdominal pain (epigastric). Skin: Reports: no symptoms. Objective Last 24 Hrs of Vital Signs/I&O Vital Signs Date Time Temp Pulse Resp B/P B/P Pulse O2 O2 Flow FiO2 Mean Ox Delivery Rate 07/07 0752 82 124/80 07/07 0740 98.4 82 20 128/74 97 Room Air 07/06 2143 98.2 90 20 122/70 97 Room Air 07/06 1935 Room Air 07/06 1540 Room Air 07/06 1358 97.6 83 20 120/60 94 Room Air Intake & Output 07/07 1600 07/07 0800 07/07 0000 Intake Total Output Total 1000 500 Balance -1000 -500 Output, Urine 1000 500 Vital Signs Date Time Temp Pulse Resp B/P B/P Pulse O2 O2 Flow FiO2 Mean Ox Delivery Rate 07/07 0752 82 124/80 07/07 0740 98.4 82 20 128/74 97 Room Air 07/063 98.2 90 20 122/70 97 Room Air 07/06 1935 Room Air 07/06 1540 Room Air 07/06 1358 97.6 83 20 120/60 94 Room Air Intake & Output 07/07 1600 07/07 0800 07/07 0000 Intake Total Output Total 1000 500 Balance -1000 -500 Output, Urine 1000 500 Physical Exam General Appearance: alert, awake, comfortable Head: normal appearance Neck: normal inspection Respiratory: normal breath sounds Cardiovascular: regular rate/rhythm Abdomen: normal bowel sounds Current Medications: Current Medications Sig/Christina Start time Last Medication Dose Route Stop Time Status Admin Amlodipine Besylate 5 MG DAILY 07/03 1000 AC 07/07 PO 0752 Aspirin Buffered 81 MG DAILY 07/03 1000 AC 07/07 PO 0751 Bupropion HCl 200 MG DAILY 07/02 1818 AC 07/07 PO 0753 Clopidogrel Bisulfate 75 MG DAILY 07/03 1000 AC 07/07 PO 0753 Docusate Sodium 100 MG BID PRN 07/02 1830 AC 07/03 PO 2231 Heparin Sodium 5,000 UNIT Q8 07/02 2200 AC 07/07 (Porcine) SC 0548 Hydroxychloroquine 200 MG BID 07/02 2200 AC 07/07 Sulfate PO 0752 Insulin Aspart 0 AT BEDTIME 07/06 2200 AC 07/06 SC 2150 Insulin Aspart 0 TIDAC 07/05 1200 AC 07/07 SC 0754 Insulin Detemir 24 UNITS BID 07/06 1000 AC 07/07 SC 0754 Levothyroxine Sodium 0.075 MG DAILY AC 07/03 0700 AC 07/07 PO 0548 Melatonin 5 MG AT BEDTIME 07/05 2200 AC 07/06 PO 2151 Morphine Sulfate 2 MG Q2 HRS NEEDED PRN 07/02 2130 AC 07/07 IV 1049 Omeprazole 20 MG DAILY AC 07/03 0700 AC 07/07 PO 0548 Ondansetron HCl 4 MG Q6P PRN 07/02 1815 AC 07/03 IV 1546 Pravastatin Sodium 20 MG 1700 07/03 1700 AC 07/06 PO 1656 Trazodone HCl 50 MG QPM 07/06 2200 AC PO
[2017-07-07 13:52] VITALS: BP 100/52
[2017-07-07 21:31] VITALS: BP 118/64
[2017-07-08 07:00] VITALS: BP 138/76
[2017-07-08 08:02] LABS: ABSOLUTE BASOPHIL COUNT 0 /CUMM (0.0-0.2); ABSOLUTE EOSINOPHIL COUNT 0.3 /CUMM (0.0-0.7); ABSOLUTE GRANULOCYTE CT 3.5 /CUMM (1.4-6.5); ABSOLUTE LYMPH COUNT 1.6 /CUMM (1.2-3.4); ABSOLUTE MONOCYTE COUNT 0.5 /CUMM (0.10-0.60); BASOPHIL % 0.5 % (0.0-2.0); GRANULOCYTE % 59.1 % (42.2-75.2); HEMATOCRIT 32.5 % (37-47); MEAN CORPUSCULAR HGB CONC 33.3 G/DL (33.0-37.0); MEAN CORPUSCULAR VOLUME 84.1 FL (81.0-99.0); MEAN PLATELET VOLUME 11.1 FL (7.4-10.4); PLATELET COUNT 244 /CUMM (130-400); RBC DISTRIBUTION WIDTH 14.9 % (11.5-14.5); RED BLOOD CELL CT 3.86 /CUMM (4.20-5.40); WHITE BLOOD CELL COUNT 5.9 /CUMM (4.8-10.8)
--- NOTE | 2017-07-08 08:13 | PN- Housestaff ---
See Addendum Subjective Follow-up For: dka/hhs pancreatitis dm SI Subjective: patient is still having complaints of epigastric abdominal pain that radiates to her back but is tolerating her diet well, improved with oral analgesics awaiting discharge planning blood sugars in 200s on current insulin regimen Review of Systems Constitutional: Reports: see HPI. Objective Last 24 Hrs of Vital Signs/I&O Vital Signs Date Time Temp Pulse Resp B/P B/P Pulse O2 O2 Flow FiO2 Mean Ox Delivery Rate 07/08 0827 74 138/76 07/08 0700 98.7 74 20 138/76 94 07/07 2131 97.7 77 20 118/64 97 Room Air 07/07 1352 98.3 79 20 100/52 96 Physical Exam General Appearance: Alert, Oriented X3, Cooperative, No Acute Distress Lungs: Clear to Auscultation, Normal Air Movement Abdomen: Normal Bowel Sounds, Soft, No Masses, epigastric pain on palpation Extremities: No Clubbing, No Cyanosis, No Edema, Normal Pulses, R AKA Current Medications: Current Medications Sig/Christina Start time Last Medication Dose Route Stop Time Status Admin Acetaminophen 650 MG Q6P PRN 07/08 1000 AC PO Acetaminophen 1,000 MG Q8P PRN 07/07 1930 DC 07/08 N/A 1 UNIT IV 0226 Amlodipine Besylate 5 MG DAILY 07/03 1000 AC 07/08 PO 0827 Aspirin Buffered 81 MG DAILY 07/03 1000 AC 07/08 PO 0823 Bupropion HCl 200 MG DAILY 07/02 1818 AC 07/08 PO 0827 Clopidogrel Bisulfate 75 MG DAILY 07/03 1000 AC 07/08 PO 0827 Docusate Sodium 100 MG BID PRN 07/02 1830 AC 07/03 PO 2231 Heparin Sodium 5,000 UNIT Q8 07/02 2200 AC 07/08 (Porcine) SC 0536 Hydroxychloroquine 200 MG BID 07/02 220 AC 07/08 Sulfate PO 0827 Insulin Aspart 0 AT BEDTIME 07/06 2200 AC 07/07 SC 2151 Insulin Aspart 0 TIDAC 07/05 1200 AC 07/08 SC 0821 Insulin Detemir 24 UNITS BID 07/06 1000 AC 07/08 SC 0822 Levothyroxine Sodium 0.075 MG DAILY AC 07/03 0700 AC 07/08 PO 0536 Melatonin 5 MG AT BEDTIME 07/05 2200 AC 07/07 PO 2150 Morphine Sulfate 2 MG Q4 HRS NEEDED PRN 07/07 1930 DC 07/08 IV 0740 Morphine Sulfate 2 MG Q2 HRS NEEDED PRN 07/02 2130 DC 07/07 IV 1607 Omeprazole 20 MG DAILY AC 07/03 0700 AC 07/08 PO 0536 Ondansetron HCl 4 MG Q6P PRN 07/02 1815 AC 07/03 IV 1546 Oxycodone HCl 5 MG Q6P PRN 07/08 1000 AC 07/08 PO 1059 Pravastatin Sodium 20 MG 1700 07/03 1700 AC 07/07 PO 1606 Trazodone HCl 50 MG QPM 07/06 2200 AC PO Last 24 Hrs of Lab/Nikolas Results Last 24 Hrs of Labs/Mics: Laboratory Tests 07/08/17 0701: Anion Gap 8, Estimated GFR > 60, BUN/Creatinine Ratio 18.6, Total Bilirubin 0.1 L, Direct Bilirubin 0.1, AST 20, ALT 25, Alkaline Phosphatase 108, Total Protein 5.4 L, Albumin 3.0 L, CBC w Diff NO MAN DIFF REQ, RBC 3.86 L, MCV 84.1, MCH 28.0, MCHC 33.3, RDW 14.9 H, MPV 11.1 H, Gran % 59.1, Lymphocytes % 27.2, Monocytes % 8.2, Eosinophils % 5.0, Basophils % 0.5, Absolute Granulocytes 3.5, Absolute Lymphocytes 1.6, Absolute Monocytes 0.5, Absolute Eosinophils 0.3, Absolute Basophils 0 Assessment/Plan Assessment: 56 year old female with a PMH of rheumatoid arthritis, scleroderma, diabetes mellitus, peripheral vascular disease s/p AKA, LLE stent placement and chronic nonhealing ulcer, GERD, hypothyroidism, and opioid abuse (presently off methadone) presented to the ED with abdominal pain, nausea and vomiting. HHS-DM: Acetone positive, low bicarbonate, VBG 7.32, serum glucose 850 on presentation Was previously on insulin drip and dextrose intravenous fluids with potassium Endocrinology consulted, appreciate recommendations Increased Levemir to 24 units BID Accuchecks TIDAC/HS Restricted carbohydrate diet Novolog insulin sliding scale increased and night time coverage Zofran as needed for nausea Mild pancreatitis: Epigastric tenderness persists Lipase 700 -> 350, ~10,000 last month Triglycerides 280, denies EtOH Recurrent acute pancreatitis MRCP Very mild peripancreatic edema is seen, consistent with mild pancreatitis. No evidence of pancreatic necrosis or walled off peripancreatic fluidcollection is seen. Findings are similar to the prior CT scan from yesterday. Small filling defect is seen in the proximal common hepatic duct, likely artifactual, related to volume averaging with adjacent postcholecystectomy clip. Subtle choledocholithiasis is not entirely excluded. Outpatient colonoscopy with GI Elevated Alkaline phosphatase Anti-mitochondrial antibody negative HTN: Continue amlodipine 5mg daily Hypothyroidism: TSH and free T4 wnl Continue home dose of levothyroxine Depression/ Insomnia/Opioid dependence: Expressed SI, not actively suicidal Continue Trazadone and Wellbutrin Psych evaluation, minimize benzoes, outpatient intake appointment 07/19/17 Patient requesting ativan for sleep, ordered melatonin, avoid benzoes during the night RA/Scleroderma Continue Hydroxychloroquine 200mg BID PO PVD Continue ASA, Plavix, statin Daily xeroform with DPD dressing change daily for wound care of left lower extremity ulcer Diabetic diet-restrict carbohydrates DVT ppx-heparin 5000 units subcutaneous q8h Full Code PT evaluation for discharge planning Problem List: 1. Acute pancreatitis 2. Hyperglycemia 3. DKA (diabetic ketoacidoses) 4. Uncontrolled diabetes mellitus 5. Elevated serum alkaline phosphatase level Pain Ratin Pain Location: epigastric Pain Goal: Pain 4 or less Pain Plan: prn Tomorrow's Labs & Rationales: none Pain Plan: prn Tomorrow's Labs & Rationales: none
--- NOTE | 2017-07-08 10:18 | PN- Diabetes ---
Assessment/Plan Diabetes Assessment: Patient still complains of some abdominal pain in the epigastric area. She is able to eat. The patient's blood sugars yesterday were 266 before breakfast, 253 before lunch , 307 before dinner, and 191 at bedtime. Her sugar before breakfast this morning is 199. Plan: Suggest continue the same insulin. The patient's diet has been advanced to solids again and we will see how her sugars do today. Subjective Subjective: Still has epigastric pain Review of Systems Constitutional: Denies: chills, fever. Cardiovascular: Denies: chest pain. Respiratory: Denies: short of breath. Gastrointestinal: Reports: abdominal pain (epigastric), nausea. Denies: vomiting. Skin: Reports: no symptoms. Objective Last 24 Hrs of Vital Signs/I&O Vital Signs Date Time Temp Pulse Resp B/P B/P Pulse O2 O2 Flow FiO2 Mean Ox Delivery Rate 07/08 826 74 138/76 02/ 0700 98.7 74 20 138/76 94 07/07 2131 97.7 77 20 118/64 97 Room Air 07/07 1352 98.3 79 20 100/52 96 Vital Signs Date Time Temp Pulse Resp B/P B/P Pulse O2 O2 Flow FiO2 Mean Ox Delivery Rate 07/08 826 74 138/76 02/18 0700 98.7 74 20 138/76 94 07/07 2131 97.7 77 20 118/64 97 Room Air 07/07 1352 98.3 79 20 100/52 96 Physical Exam General Appearance: alert, awake, comfortable Head: normal appearance Neck: normal inspection Respiratory: normal breath sounds Cardiovascular: regular rate/rhythm Abdomen: normal bowel sounds, soft Current Medications: Current Medications Sig/Christina Start time Last Medication Dose Route Stop Time Status Admin Acetaminophen 650 MG Q6P PRN 07/08 1000 AC PO Acetaminophen 1,000 MG Q8P PRN 07/07 1930 DC 07/08 N/A 1 UNIT IV 0226 Amlodipine Besylate 5 MG DAILY 07/03 1000 AC 07/08 PO 08 Aspirin Buffered 81 MG DAILY 07/03 1000 AC 07/08 PO 08 Bupropion HCl 200 MG DAILY 07/02 1818 AC 07/08 PO 08 Clopidogrel Bisulfate 75 MG DAILY 07/03 1000 AC 07/08 PO 08 Docusate Sodium 100 MG BID PRN 07/02 1830 AC 07/03 PO 2231 Heparin Sodium 5,000 UNIT Q8 07/02 2199 AC 07/08 (Porcine) SC 0536 Hydroxychloroquine 200 MG BID 07/02 2199 AC 07/08 Sulfate PO 0827 Insulin Aspart 0 AT BEDTIME 07/06 220 AC 07/07 SC 2151 Insulin Aspart 0 TIDAC 07/05 1200 AC 07/08 SC 0821 Insulin Detemir 24 UNITS BID 07/06 1000 AC 07/08 SC 0822 Levothyroxine Sodium 0.075 MG DAILY AC 07/03 07 AC 07/08 PO 0536 Melatonin 5 MG AT BEDTIME 07/05 220 AC 07/07 PO 2150 Morphine Sulfate 2 MG Q4 HRS NEEDED PRN 07/07 1930 DC 07/08 IV 0740 Morphine Sulfate 2 MG Q2 HRS NEEDED PRN 07/02 2130 DC 07/07 IV 1607 Omeprazole 20 MG DAILY AC 07/03 0700 AC 07/08 PO 0536 Ondansetron HCl 4 MG Q6P PRN 07/02 1815 AC 07/03 IV 1546 Oxycodone HCl 5 MG Q6P PRN 07/08 1000 AC PO Pravastatin Sodium 20 MG 1700 07/03 1700 AC 07/07 PO 1606 Trazodone HCl 50 MG QPM 07/06 220 AC PO Findings Pertinent Lab/Nikolas Results: Laboratory Tests 07/08 0701 Chemistry Sodium (137 - 145 mmol/L) 141 Potassium (3.5 - 5.1 mmol/L) 4.2 Chloride (98 - 107 mmol/L) 108 H Carbon Dioxide (22 - 30 mmol/L) 25 Anion Gap (5 - 16) 8 BUN (7 - 17 mg/dL) 13 Creatinine (0.5 - 1.0 mg/dL) 0.7 Estimated GFR (>60 ml/min) > 60 BUN/Creatinine Ratio (7 - 25 %) 18.6 Total Bilirubin (0.2 - 1.3 mg/dL) 0.1 L Direct Bilirubin (< 0.4 mg/dL) 0.1 AST (14 - 36 U/L) 20 ALT (9 - 52 U/L) 25 Alkaline Phosphatase (<127 U/L) 108 Total Protein (6.3 - 8.2 g/dL) 5.4 L Albumin (3.5 - 5.0 g/dL) 3.0 L Hematology CBC w Diff NO MAN DIFF REQ WBC (4.8 - 10.8 /CUMM) 5.9 RBC (4.20 - 5.40 /CUMM) 3.86 L Hgb (12.0 - 16.0 G/DL) 10.8 L Hct (37 - 47 %) 32.5 L MCV (81.0 - 99.0 FL) 84.1 MCH (27.0 - 31.0 PG) 28.0 MCHC (33.0 - 37.0 G/DL) 33.3 RDW (11.5 - 14.5 %) 14.9 H Plt Count (130 - 400 /CUMM) 244 MPV (7.4 - 10.4 FL) 11.1 H Gran % (42.2 - 75.2 %) 59.1 Lymphocytes % (20.5 - 51.1 %) 27.2 Monocytes % (1.7 - 9.3 %) 8.2 Eosinophils % (0 - 5 %) 5.0 Basophils % (0.0 - 2.0 %) 0.5 Absolute Granulocytes (1.4 - 6.5 /CUMM) 3.5 Absolute Lymphocytes (1.2 - 3.4 /CUMM) 1.6 Absolute Monocytes (0.10 - 0.60 /CUMM) 0.5 Absolute Eosinophils (0.0 - 0.7 /CUMM) 0.3 Absolute Basophils (0.0 - 0.2 /CUMM) 0
[2017-07-08 13:57] VITALS: BP 110/68
[2017-07-08 22:01] VITALS: BP 134/70
[2017-07-09 06:58] VITALS: BP 128/68
--- NOTE | 2017-07-09 08:15 | PN- Housestaff ---
See Addendum Subjective Follow-up For: DKA Subjective: patients abdominal pain is much improved today tolerating a diet without much discomfort reportedly feeling very anxious still desires to go to rehab for physical therapy Review of Systems Constitutional: Reports: see HPI. Objective Last 24 Hrs of Vital Signs/I&O Vital Signs Date Time Temp Pulse Resp B/P B/P Pulse O2 O2 Flow FiO2 Mean Ox Delivery Rate 07/09 1008 Room Air 07/09 0946 Room Air 07/09 0938 Room Air 07/09 0919 128/68 07/09 0658 98.7 85 20 128/68 97 07/08 2201 98.2 88 20 134/70 98 Room Air 07/08 1357 98.2 85 18 110/68 97 Intake & Output 07/09 1600 07/09 0800 07/09 0000 Intake Total 480 250 Output Total 350 Balance 480 -100 Intake, IV 0 10 Intake, Oral 480 240 Number 0 0 Bowel Movements Output, Urine 350 Physical Exam General Appearance: Alert, Oriented X3, Cooperative, No Acute Distress Cardiovascular: Regular Rate, Normal S1, Normal S2, No Murmurs Lungs: Clear to Auscultation, Normal Air Movement Abdomen: Normal Bowel Sounds, Soft, No Masses, mild epigastric tenderness to palpation, improved Extremities: right AKA, LLE ulcer dressed Current Medications: Current Medications Sig/Christina Start time Last Medication Dose Route Stop Time Status Admin Acetaminophen 650 MG Q6P PRN 07/08 1000 AC PO Amlodipine Besylate 5 MG DAILY 07/03 1000 AC 07/09 PO 0919 Aspirin Buffered 81 MG DAILY 07/03 1000 AC 07/09 PO 0918 Bupropion HCl 200 MG DAILY 07/02 1818 AC 07/09 PO 0918 Clopidogrel Bisulfate 75 MG DAILY 07/03 1000 AC 07/09 PO 0918 Docusate Sodium 100 MG BID PRN 07/02 1830 AC 07/03 PO 2231 Heparin Sodium 5,000 UNIT Q8 07/02 2199 AC 07/09 (Porcine) SC 0526 Hydroxychloroquine 200 MG BID 07/02 220 AC 07/09 Sulfate PO 0918 Insulin Aspart 0 AT BEDTIME 07/06 2200 AC 07/08 SC 2200 Insulin Aspart 0 TIDAC 07/05 1200 AC 07/09 SC 0920 Insulin Detemir 24 UNITS BID 07/06 1000 AC 07/09 SC 0919 Levothyroxine Sodium 0.075 MG DAILY AC 07/03 0700 AC 07/09 PO 0526 Melatonin 5 MG AT BEDTIME 07/05 2200 AC 07/08 PO 2159 Omeprazole 20 MG DAILY AC 07/03 0700 AC 07/09 PO 0526 Ondansetron HCl 4 MG Q6P PRN 07/02 1815 AC 07/03 IV 1546 Oxycodone HCl 5 MG Q6P PRN 07/08 1000 AC 07/09 PO 0920 Pravastatin Sodium 20 MG 1700 07/03 1700 AC 07/08 PO 1616 Trazodone HCl 50 MG QPM 07/06 2200 AC PO Assessment/Plan Assessment: 56 year old female with a PMH of rheumatoid arthritis, scleroderma, diabetes mellitus, peripheral vascular disease s/p AKA, LLE stent placement and chronic nonhealing ulcer, GERD, hypothyroidism, and opioid abuse (presently off methadone) presented to the ED with abdominal pain, nausea and vomiting. HHS-DM: Acetone positive, low bicarbonate, VBG 7.32, serum glucose 850 on presentation Was previously on insulin drip and dextrose intravenous fluids with potassium Endocrinology consulted, appreciate recommendations Increased Levemir to 24 units BID Accuchecks TIDAC/HS Restricted carbohydrate diet Novolog insulin sliding scale increased and night time coverage Zofran as needed for nausea Will continue current insulin regimen on discharge Mild pancreatitis: Epigastric tenderness persists Lipase 700 -> 350, ~10,000 last month Triglycerides 280, denies EtOH Recurrent acute pancreatitis MRCP Very mild peripancreatic edema is seen, consistent with mild pancreatitis. No evidence of pancreatic necrosis or walled off peripancreatic fluidcollection is seen. Findings are similar to the prior CT scan from yesterday. Small filling defect is seen in the proximal common hepatic duct, likely artifactual, related to volume averaging with adjacent postcholecystectomy clip. Subtle choledocholithiasis is not entirely excluded. Outpatient colonoscopy with GI Elevated Alkaline phosphatase Anti-mitochondrial antibody negative HTN: Continue amlodipine 5mg daily Hypothyroidism: TSH and free T4 wnl Continue home dose of levothyroxine Depression/ Insomnia/Opioid dependence: Expressed SI, not actively suicidal Continue Trazadone and Wellbutrin Psych evaluation, minimize benzoes, outpatient intake appointment 07/19/17 Patient requesting ativan for sleep Consider adding low dose benzodiazepine to bridge until psychiatry followup RA/Scleroderma Continue Hydroxychloroquine 200mg BID PO PVD Continue ASA, Plavix, statin Daily xeroform with DPD dressing change daily for wound care of left lower extremity ulcer Diabetic diet-restrict carbohydrates DVT ppx-heparin 5000 units subcutaneous q8h Full Code PT evaluating for discharge planning, likely STR Problem List: 1. Acute pancreatitis 2. Hyperglycemia 3. Uncontrolled diabetes mellitus 4. Elevated serum alkaline phosphatase level Pain Ratin Pain Location: n/a Pain Goal: Pain 4 or less Pain Plan: prn Tomorrow's Labs & Rationales: none
--- NOTE | 2017-07-09 08:21 | PN- Diabetes ---
Assessment/Plan Diabetes Assessment: Patient is feeling a little better. Her abdominal pain she states is less. She feels very agitated however. Plan: Suggest if the patient goes to rehab today that she be discharged on her present insulin. Subjective Subjective: Abdominal pain is less but feels agitated Review of Systems Constitutional: Denies: chills, fever. Cardiovascular: Denies: chest pain. Respiratory: Denies: short of breath. Skin: Reports: no symptoms. Objective Last 24 Hrs of Vital Signs/I&O Vital Signs Date Time Temp Pulse Resp B/P B/P Pulse O2 O2 Flow FiO2 Mean Ox Delivery Rate 07/09 0658 98.7 85 20 128/68 97 07/08 2201 98.2 88 20 134/70 98 Room Air 07/08 1357 98.2 85 18 110/68 97 07/08 0827 74 138/76 Intake & Output 07/09 1600 07/09 0800 07/09 0000 Intake Total 480 250 Output Total 350 Balance 480 -100 Intake, IV 0 10 Intake, Oral 480 240 Number 0 0 Bowel Movements Output, Urine 350 Vital Signs Date Time Temp Pulse Resp B/P B/P Pulse O2 O2 Flow FiO2 Mean Ox Delivery Rate 07/09 0658 98.7 85 20 128/68 97 07/08 2201 98.2 88 20 134/70 98 Room Air 07/08 1357 98.2 85 18 110/68 97 07/08 0827 74 138/76 Intake & Output 07/09 1600 07/09 0800 07/09 0000 Intake Total 480 250 Output Total 350 Balance 480 -100 Intake, IV 0 10 Intake, Oral 480 240 Number 0 0 Bowel Movements Output, Urine 350 Current Medications: Current Medications Sig/Christina Start time Last Medication Dose Route Stop Time Status Admin Acetaminophen 650 MG Q6P PRN 07/08 1000 AC PO Acetaminophen 1,000 MG Q8P PRN 07/07 1930 DC 07/08 N/A 1 UNIT IV 0226 Amlodipine Besylate 5 MG DAILY 07/03 1000 AC 07/08 PO 08 Aspirin Buffered 81 MG DAILY 07/03 1000 AC 07/08 PO 0823 Bupropion HCl 200 MG DAILY 07/02 1818 AC 07/08 PO 08 Clopidogrel Bisulfate 75 MG DAILY 07/03 1000 AC 07/08 PO 08 Docusate Sodium 100 MG BID PRN 07/02 1830 AC 07/03 PO 2231 Heparin Sodium 5,000 UNIT Q8 07/02 2199 AC 07/09 (Porcine) SC 0526 Hydroxychloroquine 200 MG BID 07/02 2199 AC 07/08 Sulfate PO 2159 Insulin Aspart 0 AT BEDTIME 07/06 2200 AC 07/08 SC 2200 Insulin Aspart 0 TIDAC 07/05 1200 AC 07/08 SC 1748 Insulin Detemir 24 UNITS BID 07/06 1000 AC 07/08 SC 2200 Levothyroxine Sodium 0.075 MG DAILY AC 07/03 0700 AC 07/09 PO 0526 Melatonin 5 MG AT BEDTIME 07/05 2199 AC 07/08 PO 2159 Morphine Sulfate 2 MG Q4 HRS NEEDED PRN 07/07 1930 DC 07/08 IV 0740 Omeprazole 20 MG DAILY AC 07/03 0700 AC 07/09 PO 0526 Ondansetron HCl 4 MG Q6P PRN 07/02 1815 AC 07/03 IV 1546 Oxycodone HCl 5 MG Q6P PRN 07/08 1000 AC 07/09 PO 0346 Pravastatin Sodium 20 MG 1700 07/03 1700 AC 07/08 PO 1616 Trazodone HCl 50 MG QPM 07/06 220 AC PO
--- NOTE | 2017-07-09 09:32 | Discharge Summary ---
Visit Information Visit Dates Admission Date: 07/02/17 Discharge Date: 07/10/17 Hospital Course Course Attending Physician: Mirta Chavez MD Primary Care Physician: Trae Rosas MD Hospital Course: 56 year old female with a PMH of rheumatoid arthritis, scleroderma, diabetes mellitus, PVD s/p AKA, LLE stent placement and chronic nonhealing ulcer, GERD, hypothyroidism, and history of opioid dependence presented with abdominal pain, nausea and vomiting and was found to be in diabetic ketoacidosis/HHS type II and recurrent acute pancreatitis. The patient's symptoms began with abdominal pain, nausea, and vomiting after eating. The patient had a previous hospitalization for acute pancreatitis. She stopped taking her insulin and on arrival was found to be in a non anion gap metabolic acidosis with detectable ketones in the serum and severe hyperglycemia >800. The patient was started on an insulin drip in intensive care and given intravascular volume replacement with crystalloid and potassium. The patient's metabolic abnormalities resolved quickly thereafter the patient's long and short acting insulin regimen were restarted and titrated as her diet was gradually advanced because of recurrent acute pancreatitis. The patient was evaluated by both endocrinology and gastroenterology because of her abdominal pain.The patient underwent an MRCP that showed very mild peripancreatic edema, consistent with mild pancreatitis. The patient's pain gradually improved with bowel rest and analgesics. Outpatient follow up with gastroenterology to evaluate for peptic ulcer disease and screening colonoscopy was recommended. The patient's hospital course was notable for suicidal ideation for which psychiatry was consulted. She was continued on trazodone and wellbutrin. SSRI/SNRI initiation was deferred until an outpatient intake appoint at [facility] on 07/19/17. The patient was requesting benzodiazepines for severe anxiety which were not given, her wellbutrin was titrated down from 200mg to 150mg and zoloft started at 75mg, with the goal of stopping wellbutrin and achieving a therapeutic dose of zoloft alone as an outpatient. The patient was determined to not be at increased risk to her self or others at this time. Physical therapy evaluated the patient and recommended discharging to short term rehabilitation to return patient to baseline given her right above the knee amputation, severe peripheral vascular disease, and left lower extremity wound. The patient was recommended to follow up with endocrinology, gastroenterology, psychiatry, and her primary care physician within two weeks of discharge. The patient should also have follow up for dressing changes and local wound care for her chronic left lower extremity ulcer. Allergies: Coded Allergies: Penicillins (UNKNOWN 09/27/15) hydromorphone (From DILAUDID) (HIVES 07/02/17) Disposition Summary Disposition Principal Diagnosis: Diabetic ketoacidosis HHS Type II Acute pancreatitis Left lower extremity ulcer Additional Diagnosis: Diabetes mellitus, PVD s/p R AKA, LLE stent placement and chronic nonhealing ulcer Rheumatoid arthritis Discharge Disposition: SNF Discharge Instructions General Discharge Information Code Status: Full Code Patient's Diet: Diabetic diet Patient's Activity: Requires assistance, right AKA, goals to return to baseline Follow-Up Instructions/Appts: Please follow up with endocrinology, gastroenterology, and your primary care physician within two weeks of discharge. Medications at Discharge Discharge Medications: Stop taking the following medications: Bupropion HCl (Bupropion HCl Sr) 200 MG TABLET.ER ORAL DAILY Continue taking these medications: Losartan Potassium (Losartan Potassium) 25 MG TABLET 1 Tablet ORAL DAILY Qty = 90 Comments: Last Taken: 06/19/17 Time: 0815AM Aspirin (Ecotrin*) 81 MG TABLET.DR 1 Tablet ORAL DAILY Comments: Last Taken: 06/19/17 Time: 0815AM Pravastatin Sodium (Pravachol) 80 MG TABLET 1 Tablet ORAL DAILY Comments: Last Taken: 06/19/17 40MG Time: 5PM Omeprazole (Omeprazole) 20 MG TABLET.DR 1 Tablet ORAL DAILY Comments: Last Taken: 06/19/17 Time: 5AM Clopidogrel Bisulfate (Plavix) 75 MG TABLET 1 Tablet ORAL DAILY Comments: Last Taken: 06/19/17 Time: 0815AM Levothyroxine Sodium (Synthroid) 75 MCG TABLET 1 Tablet ORAL DAILY Comments: Last Taken: 06/19/17 Time: 5AM Metformin HCl (Metformin HCl) 1,000 MG TABLET 1 Tablet ORAL TWICE DAILY Comments: NOT GIVEN IN HOSPITAL Trazodone HCl (Trazodone HCl) 100 MG TABLET 0.5-1 Tablet ORAL Every night as needed for INSOMNIA Qty = 30 Instructions: 1 HOUR APART Comments: NOT GIVEN IN HOSPITAL Exenatide Microspheres (Bydureon) 2 MG VIAL 2 Milligram Inject into fatty tissue EVERY SUNDAY Comments: NOT GIVEN IN HOSPITAL Hydroxychlorquine (Plaquenil) 200 MG TABLET 1 Tablet ORAL TWICE DAILY Qty = 30 Instructions: . Comments: Last Taken: 06/19/17 Time: 0815AM Docusate Sodium (Docusate Sodium) 100 MG CAPSULE 1 Capsule ORAL TWICE DAILY as needed for constipation Qty = 30 Instructions: . Comments: Last Taken: 06/19/17 Time: 0815AM Polyethylene Glycol 3350 (Miralax) 17 GRAM/DOSE POWDER 17 Gram ORAL DAILY NEEDED as needed for CONSTIPATION Qty = 1 Instructions: . Comments: NOT GIVEN Ondansetron HCl (Zofran) 4 MG TABLET 1 Tablet ORAL Every 6-8 Hours as Needed Qty = 15 Instructions: . Comments: NOT GIVEN Insulin Aspart, Recombinant (Novolog Flexpen) 100 UNIT/ML INSULN.PEN 0 Inject into fatty tissue BEFORE MEALS AND AT BEDTIME Qty = 3 Instructions: BEFORE MEALS. Blood Insulin Sugar Units <80 0 80-150 0 151-199 6 200-250 8 251-300 10 301-350 12 351-400 14 >400 16 units and Call Doctor AT BEDTIME Blood Insulin Sugar Units <80 0 81-150 0 151-299 0 200-250 0 251-300 2 301-350 3 351-400 4 >400 5 and Call Doctor Comments: Last Taken: 06/19/17 Time: 1215PM Insulin Glargine,Hum.rec.anlog (Lantus Solostar) 100 UNIT/ML (3 ML) INSULN.PEN 20 Unit Inject into fatty tissue TWICE DAILY Qty = 3 Instructions: . Comments: LEVEMIR GIVEN IN HOSPITAL Last Taken: 06/19/17 Time: 0815AM Start taking the following new medications: Sertraline HCl (Zoloft) 50 MG TABLET 1.5 Tablet ORAL DAILY Qty = 45 No Refills Bupropion HCl (Wellbutrin XL) 150 MG TAB.ER.24H 1 Tablet ORAL Every Morning Qty = 30 No Refills Ramelteon (Rozerem) 8 MG TABLET 1 Tablet ORAL TAKE AT BEDTIME as needed for INSOMNIA Qty = 30 No Refills Copies To: Alison CURIEL,Trae Gillis; Iban CURIEL,Gilberto Tuttle Attending MD Review Statement Documenting Attending: Kathy CURIEL,Mirta
--- NOTE | 2017-07-09 14:04 | PN- Psychiatry ---
Assessment/Plan Impression: The patient's chief compliant during the interview is inability to sleep. She had not taken the trazodone 50 mg qHS, as she had forgotten our discussion 3 days ago, acknowledging that she had had pruritis with a higher dose, but had had success with 50 or 100 mg. We had not started a cross-taper from bupropion sr 200 mg PO daily to sertraline on 07/06/17, as she was discharging to home over the weekend, and we did not want her to risk instability on a change in these medications. Today, we understand that she will discharge to a STR today, where she can be monitored during the taper. The purpose of the taper is to help relieve her anxiety, which we feel bupropion may be antagonizing. The patient has tolerated sertraline in the past, but does not recall the reason for discontinuation. Suggestion: 1. Please begin to cross-taper from bupropion SR/Wellbutrin 200 mg PO daily to sertraline/Zoloft: a. Reduce bupropion SR to 150 mg PO daily b. Start sertraline 75 mg PO daily c. Further cross-taper by psychiatry at the STR/receiving facility 2. Please request a psychiatric evaluation at the STR. 3. Please continue trazodone 50 mg PO at bedtime as needed for insomnia. May repeat one hour later. 4. The patient has an intake appointment at [facility] on 07/19/17 at 1030, at [address] [place] [address]. She has the card with this information. If the patient will be unable to make this appointment, please ask the receiving facility to call us at [phone] to reset the appointment. Subjective Subjective: Alert and oriented. Denies auditory or visual hallucinations, but is having some blurry vision. Poor sleep, and has not been taking trazodone 50 mg PO qHS PRN Denies suicidal ideation. Review of Systems Neurological/Psychological: Reports: anxiety, other (Insomnia). Objective Last 24 Hrs of Vital Signs/I&O Vital Signs Date Time Temp Pulse Resp B/P B/P Pulse O2 O2 Flow FiO2 Mean Ox Delivery Rate 07/09 1008 Room Air 07/09 0946 Room Air 07/09 0938 Room Air 07/09 0919 128/68 07/09 0658 98.7 85 20 128/68 97 07/08 220 98.2 88 20 134/70 98 Room Air Intake & Output 07/09 1600 07/09 0800 07/09 0000 Intake Total 480 250 Output Total 350 Balance 480 -100 Intake, IV 0 10 Intake, Oral 480 240 Number 0 0 Bowel Movements Output, Urine 350 Physical Exam: Not performed Physical Exam Neurologic/Psychiatric: awake, alert, oriented x 3 Current Medications: Current Medications Sig/Christina Start time Last Medication Dose Route Stop Time Status Admin Acetaminophen 650 MG Q6P PRN 07/08 1000 AC PO Amlodipine Besylate 5 MG DAILY 07/03 1000 AC 07/09 PO 0919 Aspirin Buffered 81 MG DAILY 07/03 1000 AC 07/09 PO 0918 Bupropion HCl 200 MG DAILY 07/02 1818 AC 07/09 PO 0918 Clopidogrel Bisulfate 75 MG DAILY 07/03 1000 AC 07/09 PO 0918 Docusate Sodium 100 MG BID PRN 07/02 1830 AC 07/03 PO 2231 Heparin Sodium 5,000 UNIT Q8 07/02 2200 AC 07/09 (Porcine) SC 0526 Hydroxychloroquine 200 MG BID 07/02 220 AC 07/09 Sulfate PO 0918 Insulin Aspart 0 AT BEDTIME 07/06 2200 AC 07/08 SC 2200 Insulin Aspart 0 TIDAC 07/05 1200 AC 07/09 SC 1204 Insulin Detemir 24 UNITS BID 07/06 1000 AC 07/09 SC 0919 Levothyroxine Sodium 0.075 MG DAILY AC 07/03 0700 AC 07/09 PO 0526 Melatonin 5 MG AT BEDTIME 07/05 2200 AC 07/08 PO 2159 Omeprazole 20 MG DAILY AC 07/03 0700 AC 07/09 PO 0526 Ondansetron HCl 4 MG Q6P PRN 07/02 1815 AC 07/03 IV 1546 Oxycodone HCl 5 MG Q6P PRN 07/08 1000 AC 07/09 PO 0920 Pravastatin Sodium 20 MG 1700 07/03 1700 AC 07/08 PO 1616 Trazodone HCl 50 MG QPM 07/06 2200 AC PO Results Last 24 Hrs of Labs/Mics: Laboratory Tests 07/08 0701 Chemistry Sodium (137 - 145 mmol/L) 141 Potassium (3.5 - 5.1 mmol/L) 4.2 Chloride (98 - 107 mmol/L) 108 H Carbon Dioxide (22 - 30 mmol/L) 25 Anion Gap (5 - 16) 8 BUN (7 - 17 mg/dL) 13 Creatinine (0.5 - 1.0 mg/dL) 0.7 Estimated GFR (>60 ml/min) > 60 BUN/Creatinine Ratio (7 - 25 %) 18.6 Total Bilirubin (0.2 - 1.3 mg/dL) 0.1 L Direct Bilirubin (< 0.4 mg/dL) 0.1 AST (14 - 36 U/L) 20 ALT (9 - 52 U/L) 25 Alkaline Phosphatase (<127 U/L) 108 Total Protein (6.3 - 8.2 g/dL) 5.4 L Albumin (3.5 - 5.0 g/dL) 3.0 L Hematology CBC w Diff NO MAN DIFF REQ WBC (4.8 - 10.8 /CUMM) 5.9 RBC (4.20 - 5.40 /CUMM) 3.86 L Hgb (12.0 - 16.0 G/DL) 10.8 L Hct (37 - 47 %) 32.5 L MCV (81.0 - 99.0 FL) 84.1 MCH (27.0 - 31.0 PG) 28.0 MCHC (33.0 - 37.0 G/DL) 33.3 RDW (11.5 - 14.5 %) 14.9 H Plt Count (130 - 400 /CUMM) 244 MPV (7.4 - 10.4 FL) 11.1 H Gran % (42.2 - 75.2 %) 59.1 Lymphocytes % (20.5 - 51.1 %) 27.2 Monocytes % (1.7 - 9.3 %) 8.2 Eosinophils % (0 - 5 %) 5.0 Basophils % (0.0 - 2.0 %) 0.5 Absolute Granulocytes (1.4 - 6.5 /CUMM) 3.5 Absolute Lymphocytes (1.2 - 3.4 /CUMM) 1.6 Absolute Monocytes (0.10 - 0.60 /CUMM) 0.5 Absolute Eosinophils (0.0 - 0.7 /CUMM) 0.3 Absolute Basophils (0.0 - 0.2 /CUMM) 0
[2017-07-09 15:09] VITALS: BP 142/70
[2017-07-09 21:32] VITALS: BP 146/72
[2017-07-10 05:46] VITALS: BP 128/64
--- NOTE | 2017-07-10 07:01 | PN- Housestaff ---
Anuja CURIEL,Matthew 07/10/17 0701: Subjective Follow-up For: DKA acute pancreatitis Subjective: no complaints of abdominal pain today tolerating a diet without discomfort reporting less anxiety today slept well overnight Review of Systems Constitutional: Reports: see HPI. Objective Last 24 Hrs of Vital Signs/I&O Vital Signs Date Time Temp Pulse Resp B/P B/P Pulse O2 O2 Flow FiO2 Mean Ox Delivery Rate 07/10 0910 128/64 07/10 0546 98.8 84 20 128/64 97 07/09 2132 98.1 86 17 146/72 98 07/09 1509 98.4 93 18 142/70 97 Room Air Intake & Output 07/10 1600 07/10 0800 07/10 0000 Intake Total 480 240 Output Total Balance 480 240 Intake, IV 0 0 Intake, Oral 480 240 Number 0 0 Bowel Movements Physical Exam General Appearance: Alert, Oriented X3, Cooperative, No Acute Distress Cardiovascular: Regular Rate, Normal S1, Normal S2, No Murmurs Lungs: Clear to Auscultation, Normal Air Movement Abdomen: Normal Bowel Sounds, Soft, No Tenderness, No Masses Extremities: No Clubbing, No Cyanosis, No Edema, Normal Pulses, R AKA, LLE ulcer Current Medications: Current Medications Sig/Christina Start time Last Medication Dose Route Stop Time Status Admin Acetaminophen 650 MG Q6P PRN 07/08 1000 AC PO Amlodipine Besylate 5 MG DAILY 07/03 1000 AC 07/10 PO 0910 Aspirin Buffered 81 MG DAILY 07/03 1000 AC 07/10 PO 0910 Bupropion HCl 150 MG DAILY 07/10 1000 AC 07/10 PO 0759 Bupropion HCl 200 MG DAILY 07/02 1818 DC 07/09 PO 0918 Clopidogrel Bisulfate 75 MG DAILY 07/03 1000 AC 07/10 PO 0910 Docusate Sodium 100 MG BID PRN 07/02 1830 AC 07/03 PO 2231 Heparin Sodium 5,000 UNIT Q8 07/02 2199 AC 07/10 (Porcine) SC 0605 Hydroxychloroquine 200 MG BID 07/02 2199 AC 07/10 Sulfate PO 0910 Insulin Aspart 0 AT BEDTIME 07/06 2200 AC 07/08 SC 2200 Insulin Aspart 0 TIDAC 07/05 1200 AC 07/10 SC 0800 Insulin Detemir 24 UNITS BID 07/06 1000 AC 07/10 SC 0910 Levothyroxine Sodium 0.075 MG DAILY AC 07/03 0700 AC 07/10 PO 0605 Melatonin 5 MG AT BEDTIME 07/05 2200 AC 07/09 PO 213 Omeprazole 20 MG DAILY AC 07/03 0700 AC 07/10 PO 0605 Ondansetron HCl 4 MG Q6P PRN 07/02 1815 AC 07/03 IV 1546 Oxycodone HCl 5 MG Q6P PRN 07/08 1000 AC 07/10 PO 0312 Pravastatin Sodium 20 MG 1700 07/03 1700 AC 07/09 PO 1733 Ramelteon 8 MG ONCE A WEEK 07/09 2330 AC 07/09 PO 2350 Sertraline HCl 75 MG 0800 07/10 0800 AC 07/10 PO 0800 Trazodone HCl 50 MG QPM 07/06 220 AC 07/09 PO 2138 Assessment/Plan Assessment: 56 year old female with a PMH of rheumatoid arthritis, scleroderma, diabetes mellitus, peripheral vascular disease s/p AKA, LLE stent placement and chronic nonhealing ulcer, GERD, hypothyroidism, and opioid abuse (presently off methadone) presented to the ED with abdominal pain, nausea and vomiting. HHS-DM: Acetone positive, low bicarbonate, VBG 7.32, serum glucose 850 on presentation Was previously on insulin drip and dextrose intravenous fluids with potassium Endocrinology consulted, appreciate recommendations Increased Levemir to 24 units BID Accuchecks TIDAC/HS Restricted carbohydrate diet Novolog insulin sliding scale increased and night time coverage Zofran as needed for nausea Will continue current insulin regimen on discharge Mild pancreatitis: Epigastric tenderness persists Lipase 700 -> 350, ~10,000 last month Triglycerides 280, denies EtOH Recurrent acute pancreatitis MRCP Very mild peripancreatic edema is seen, consistent with mild pancreatitis. No evidence of pancreatic necrosis or walled off peripancreatic fluidcollection is seen. Findings are similar to the prior CT scan from yesterday. Small filling defect is seen in the proximal common hepatic duct, likely artifactual, related to volume averaging with adjacent postcholecystectomy clip. Subtle choledocholithiasis is not entirely excluded. Outpatient colonoscopy with GI Elevated Alkaline phosphatase Anti-mitochondrial antibody negative HTN: Continue amlodipine 5mg daily Hypothyroidism: TSH and free T4 wnl Continue home dose of levothyroxine Depression/ Insomnia/Opioid dependence: Expressed SI, not actively suicidal Continue Trazadone qhs prn Wellbutrin decreased to 150mg Zoloft started at 75mg daily Goal of titrating off wellbutrin until therapeutic dose of zoloft obtained Psych evaluation, minimize benzoes, outpatient intake appointment 07/19/17 RA/Scleroderma Continue Hydroxychloroquine 200mg BID PO PVD Continue ASA, Plavix, statin Daily xeroform with DPD dressing change daily for wound care of left lower extremity ulcer Diabetic diet-restrict carbohydrates DVT ppx-heparin 5000 units subcutaneous q8h Full Code Discharge today to [facility] Problem List: 1. Acute pancreatitis 2. DKA (diabetic ketoacidoses) 3. Hyperglycemia 4. Uncontrolled diabetes mellitus Pain Ratin Pain Location: n/a Pain Goal: Pain 4 or less Pain Plan: prn Tomorrow's Labs & Rationales: none, discharge Mirta Chavez MD 07/10/17 1052: Attending MD Review Statement Attending Statement Attending MD Statement: examined this patient, discuss w/resident/PA/ASH CONVEYOR OPERATOR, agreed w/resident/PA/ASH CONVEYOR OPERATOR, reviewed EMR data (avail) Attending Assessment/Plan: 56F PMH T2DM, PVD, right AKA presenting with 1 week of worsening epigastric pain , for the past 2-3 days has been unable to tolerate PO and has been vomiting everything she tries to eat, with significant nausea, found to have acute pancreatitis by labs and imaging. No alcohol intake, no recent medication changes. Tender epigastric area on exam, otherwise patient looks well and is comfortable. Found to have HHS on admission, placed on insulin drip, now improved. MRCP shows only acute pancreatitis. 1. Acute pancreatitis 2. Type 2 DKA 3. Left lower leg venous stasis ulcer Plan - Stable for discharge to [facility] - Regular diet - Continue Xeroform dressings on LLE - Tylenol for pain - Follow endocrine recommendations - Outpatient endocrine follow up
[2017-07-10] MEDS ORDERED: WELLBUTRIN XL150 M2 PO (07:52)
[2017-07-10] MEDS ORDERED: ZOLOFT50 M1 PO (07:52)
[2017-07-10] MEDS ORDERED: ROZEREM8 M1 PO (07:52)
--- NOTE | 2017-07-10 08:22 | PN- Diabetes ---
Assessment/Plan Diabetes Assessment: The patient states her abdominal pain is somewhat less. Her fingerstick blood sugars yesterday were 252 before breakfast, 286 before lunch, 212 at suppertime and 208 at bedtime. This morning her sugar was also 208 before breakfast. The patient is on Levemir 24 units twice a day and NovoLog sliding scale before meals starting with 8 units for 80-150. Plan: Suggest continue the present insulin. The patient sugars are in a satisfactory range. If she wishes to use Lantus instead of Levemir when she is outside of the hospital I would give Lantus 24 units twice a day. Her NovoLog dose should be continued as written. Subjective Subjective: Feels somewhat anxious Objective Last 24 Hrs of Vital Signs/I&O Vital Signs Date Time Temp Pulse Resp B/P B/P Pulse O2 O2 Flow FiO2 Mean Ox Delivery Rate 07/10 0546 98.8 84 20 128/64 97 07/09 2132 98.1 86 17 146/72 98 07/09 1509 98.4 93 18 142/70 97 Room Air 07/09 1008 Room Air 07/09 0946 Room Air 07/09 0938 Room Air 07/09 918 128/68 Intake & Output 07/10 1600 07/10 0800 07/10 0000 Intake Total 480 240 Output Total Balance 480 240 Intake, IV 0 0 Intake, Oral 480 240 Number 0 0 Bowel Movements Vital Signs Date Time Temp Pulse Resp B/P B/P Pulse O2 O2 Flow FiO2 Mean Ox Delivery Rate 07/10 0546 98.8 84 20 128/64 97 07/09 2132 98.1 86 17 146/72 98 07/09 1509 98.4 93 18 142/70 97 Room Air 07/09 1008 Room Air 07/09 0946 Room Air 07/09 0938 Room Air 07/09 918 128/68 Intake & Output 07/10 1600 07/10 0800 07/10 0000 Intake Total 480 240 Output Total Balance 480 240 Intake, IV 0 0 Intake, Oral 480 240 Number 0 0 Bowel Movements Current Medications: Current Medications Sig/Christina Start time Last Medication Dose Route Stop Time Status Admin Acetaminophen 650 MG Q6P PRN 07/08 1000 AC PO Amlodipine Besylate 5 MG DAILY 07/03 1000 AC 07/09 PO 09 Aspirin Buffered 81 MG DAILY 07/03 1000 AC 07/09 PO 09 Bupropion HCl 150 MG DAILY 07/10 1000 AC 07/10 PO 0759 Bupropion HCl 200 MG DAILY 07/02 1818 DC 07/09 PO 0918 Clopidogrel Bisulfate 75 MG DAILY 07/03 1000 AC 07/09 PO 0918 Docusate Sodium 100 MG BID PRN 07/02 1830 AC 07/03 PO 2231 Heparin Sodium 5,000 UNIT Q8 07/02 2200 AC 07/10 (Porcine) SC 06 Hydroxychloroquine 200 MG BID 07/02 2200 AC 07/09 Sulfate PO 2139 Insulin Aspart 0 AT BEDTIME 07/06 2200 AC 07/08 SC 2200 Insulin Aspart 0 TIDAC 07/05 1200 AC 07/10 SC 0800 Insulin Detemir 24 UNITS BID 07/06 1000 AC 07/09 SC 2140 Levothyroxine Sodium 0.075 MG DAILY AC 07/03 0700 AC 07/10 PO 0605 Melatonin 5 MG AT BEDTIME 07/05 2200 AC 07/09 PO 2139 Omeprazole 20 MG DAILY AC 07/03 0700 AC 07/10 PO 0605 Ondansetron HCl 4 MG Q6P PRN 07/02 1815 AC 07/03 IV 1546 Oxycodone HCl 5 MG Q6P PRN 07/08 1000 AC 07/10 PO 0312 Pravastatin Sodium 20 MG 1700 07/03 1700 AC 07/09 PO 1733 Ramelteon 8 MG ONCE A WEEK 07/09 2330 AC 07/09 PO 2350 Sertraline HCl 75 MG 0800 07/10 0800 AC 07/10 PO 0800 Trazodone HCl 50 MG QPM 07/06 2200 AC 07/09 PO 2139 Findings Pertinent Lab/Nikolas Results:
[2017-07-10 11:34] VITALS: BP 128/64
== END 2017-07-10 13:45 | DRG 420 ==
LOC: ERH 15:20 → CRI 17:46 → ERHI 17:46 → ENTRNSPT 20:38 → CMPTRNSPT 21:06 → CRI 21:11 → 1NO 07-03 22:44 → 2NB 07-04 19:47 → ENPENDDIS 07-10 10:54 → 2NB 07-10 13:45
PROVIDERS: Internal Medicine; Internal Medicine Infectious Disease; Physician Assistant Medical; Radiology Vascular & Interventional Radiology; Student in an Organized Health Care Education/Training Program
DX: E11.00 Type 2 diabetes mellitus with hyperosmolarity without nonketotic hyperglycemic-hyperosmolar coma (NKHHC) (principal); Z79.4 Long term (current) use of insulin; E87.2 Acidosis; K85.90 Acute pancreatitis without necrosis or infection, unspecified; L97.829 Non-pressure chronic ulcer of other part of left lower leg with unspecified severity; I73.9 Peripheral vascular disease, unspecified; M06.9 Rheumatoid arthritis, unspecified; M34.9 Systemic sclerosis, unspecified; Z89.611 Acquired absence of right leg above knee; Z95.9 Presence of cardiac and vascular implant and graft, unspecified; K21.9 Gastro-esophageal reflux disease without esophagitis; F11.10 Opioid abuse, uncomplicated; Z88.6 Allergy status to analgesic agent; Z88.5 Allergy status to narcotic agent; Z88.0 Allergy status to penicillin; Z79.82 Long term (current) use of aspirin; F41.9 Anxiety disorder, unspecified; F32.9 Major depressive disorder, single episode, unspecified; Z90.49 Acquired absence of other specified parts of digestive tract; Z83.3 Family history of diabetes mellitus; R00.0 Tachycardia, unspecified; G47.00 Insomnia, unspecified; Z87.891 Personal history of nicotine dependence; Z91.14 Patient's other noncompliance with medication regimen; R74.8 Abnormal levels of other serum enzymes
CPT/HCPCS: 1NSP; 2NBSP; 75661; 83520; CCU; 36415; 36592; 74176; 74183; 80307; 81001; 82436; 87040; 87070; 87086; 93005; 93010; 96372; 96374; 96375; 97162-GP; 99232; A9579; J0131; J0610; J1644; J1815; J2060; J2405; J3480; J3490; J7042

== ENCOUNTER 2017-07-14 14:27 | Emergency (ER) | payer OTHER ==
[~2017-07-14] VITALS: Ht 170.2 cm; Wt 73.0 kg
[~2017-07-14 14:27] MED LIST changes: +ROZEREM8 M1 PO; +WELLBUTRIN XL150 M2 PO; +ZOLOFT50 M1 PO
--- NOTE | 2017-07-14 14:28 | ED GENERAL ADULT ---
History of Present Illness General Chief Complaint: Abdominal Pain/Flank Pain Stated Complaint: BIBA ABD PAIN Source: patient Exam Limitations: poor historian Vital Signs & Intake/Output Vital Signs & Intake/Output Vital Signs Date Time Temp Pulse Resp B/P B/P Pulse O2 O2 Flow FiO2 Mean Ox Delivery Rate 07/14 1432 98.3 99 16 141/93 99 Room Air Room Air Allergies Coded Allergies: Penicillins (UNKNOWN 09/27/15) hydromorphone (From DILAUDID) (HIVES 07/02/17) Reconcile Medications Aspirin (Ecotrin*) 81 MG TABLET.DR 1 TAB PO DAILY PVD (Reported) Bupropion HCl (Wellbutrin XL) 150 MG TAB.ER.24H 1 TAB PO QAM anxiety Clopidogrel Bisulfate (Plavix) 75 MG TABLET 1 TAB PO DAILY PVD (Reported) Docusate Sodium 100 MG CAPSULE 1 CAP PO BID PRN constipation . Exenatide Microspheres (Bydureon) 2 MG VIAL 2 MG SC QTUES DM (Reported) Hydroxychlorquine (Plaquenil) 200 MG TABLET 1 TAB PO BID RA . Insulin Aspart, Recombinant (Novolog Flexpen) 100 UNIT/ML INSULN.PEN 0 SC AC & AT BEDTIME DM BEFORE MEALS. Blood Insulin Sugar Units <80 0 80-150 0 151-199 6 200-250 8 251-300 10 301-350 12 351-400 14 >400 16 units and Call Doctor AT BEDTIME Blood Insulin Sugar Units <80 0 81-150 0 151-299 0 200-250 0 251-300 2 301-350 3 351-400 4 >400 5 and Call Doctor Insulin Glargine,Hum.rec.anlog (Lantus Solostar) 100 UNIT/ML (3 ML) INSULN.PEN 20 UNIT SC BID DM . Levothyroxine Sodium (Synthroid) 75 MCG TABLET 1 TAB PO DAILY HYPOTHYROIDISM (Reported) Losartan Potassium 25 MG TABLET 1 TAB PO DAILY HTN (Reported) Metformin HCl 1,000 MG TABLET 1 TAB PO BID DM (Reported) Omeprazole 20 MG TABLET.DR 1 TAB PO DAILY GERD (Reported) Ondansetron HCl (Zofran) 4 MG TABLET 1 TAB PO Q6-8P Nausea/vomiting . Polyethylene Glycol 3350 (Miralax) 17 GRAM/DOSE POWDER 17 GM PO DAILY NEEDED PRN CONSTIPATION . Pravastatin Sodium (Pravachol) 80 MG TABLET 1 TAB PO DAILY PVD (Reported) Ramelteon (Rozerem) 8 MG TABLET 1 TAB PO QHS PRN INSOMNIA Sertraline HCl (Zoloft) 50 MG TABLET 1.5 TAB PO DAILY anxiety Trazodone HCl 100 MG TABLET 0.5-1 TAB PO QPM PRN INSOMNIA (Reported) 1 HOUR APART Triage Nurses Notes Reviewed? yes Onset: Abrupt Duration: day(s): Timing: recent history HPI: 07/14/17 2:46 PM 56-year-old female presents to the emergency department for epigastric and periumbilical abdominal pain. She also admits to one episode of vomiting no fever. No diarrhea. She says she has a past medical history of pancreatitis. Past History Medical History Any Pertinent Medical History? 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 No Review of Systems Review of Systems Constitutional: Denies: fever. EENTM: Reports: no symptoms. Respiratory: Reports: no symptoms. Cardiovascular: Reports: no symptoms. GI: Reports: abdominal pain, vomiting. Genitourinary: Reports: no symptoms. Musculoskeletal: Reports: no symptoms. Skin: Reports: no symptoms. Neurological/Psychological: Reports: no symptoms. Hematologic/Endocrine: Reports: no symptoms. Immunologic/Allergic: Reports: no symptoms. Physical Exam Physical Exam General Appearance: alert, awake, anxious, moderate distress Head: atraumatic, normal appearance Eyes: Bilateral: normal appearance, PERRL, EOMI. Ears, Nose, Throat: normal pharynx, normal ENT inspection Neck: normal inspection, supple, full range of motion Respiratory: normal breath sounds, chest non-tender, no respiratory distress Cardiovascular: tachycardia Peripheral Pulses: 4+ radial (R), 4+ radial (L) Gastrointestinal: soft, tenderness Back: decreased range of motion Extremities: pedal edema, RBKA Neurologic/Psych: no motor/sensory deficits, awake, alert, oriented x 3 Skin: intact, normal color, warm/dry Core Measures ACS in differential dx? No CVA/TIA Diagnosis: No Sepsis Present: No Sepsis Focused Exam Completed? No Progress Differential Diagnoses I considered the following diagnoses in my evaluation of the patient: [ PANCREATITIS,DIVERTICULITIS, GASTROPARESIS] Plan of Care: Orders Procedure Date/time Status Add-on Test (ER Only) 07/14 1504 Active TROPONIN LEVEL 07/14 1455 Complete LIPASE 07/14 1455 Complete COMPREHENSIVE METABOLIC PANEL 07/14 1455 Complete CBC WITHOUT DIFFERENTIAL 07/14 1455 Complete ACETONE 07/14 1455 Complete EKG 07/14 1455 Active Laboratory Tests 07/14/17 1515: Anion Gap 12, Estimated GFR > 60, BUN/Creatinine Ratio 34.3 H, Glucose 278 H, Calcium 9.4, Total Bilirubin 0.2, AST 17, ALT 28, Alkaline Phosphatase 138 H, Troponin I < 0.01, Total Protein 6.4, Albumin 3.6, Globulin 2.8, Albumin/ Globulin Ratio 1.3, Lipase 371 H, CBC w Diff NO MAN DIFF REQ, RBC 4.17 L, MCV 84.5, MCH 27.9, MCHC 33.0, RDW 14.4, MPV 10.3, Gran % 72.7, Lymphocytes % 17.7 L, Monocytes % 6.8, Eosinophils % 2.4, Basophils % 0.4, Absolute Granulocytes 7.8 H, Absolute Lymphocytes 1.9, Absolute Monocytes 0.7 H, Absolute Eosinophils 0.3, Absolute Basophils 0, Acetone Level NEGATIVE IVF, PAIN MEDS, CT SCAN, LABS Labs essentially unremarkable. The patient received IV fluids and IV Tylenol. Her pain improved. CT scan of the abdomen and pelvis shows no significant acute changes.PATIENT: IRENA BUTLER PRESENT AGE: 56 PATIENT ACCOUNT NO: [id number] : 60 LOCATION: [facility] ORDERING PHYSICIAN: Gab Moore DO SERVICE DATE: 07/14/17-1506 EXAM TYPE: CAT - CT ABD & PELVIS W IV CONTRAST EXAMINATION: CT ABDOMEN AND PELVIS WITH CONTRAST CLINICAL INFORMATION: Abdominal pain COMPARISON: CT of abdomen and pelvis 07/03/2017 TECHNIQUE: Multidetector volumetric imaging was performed of the abdomen and pelvis following IV administration of 95 mL of Optiray 320 intravenous contrast. Sagittal and coronal reformatted images were obtained on the technologist's workstation. DLP: 617 mGy-cm FINDINGS: LUNG BASES: The visualized lung bases are unremarkable. LIVER, GALLBLADDER, AND BILIARY TREE: Liver is diffusely low in attenuation. No focal lesion. No significant hepatic biliary dilatation. Focal calcification of the right lobe. Gallbladder surgically absent. PANCREAS: There is mild peripancreatic fat stranding. The pancreas appears relatively normal in size compared to the prior CT. The pancreas enhances normally.. SPLEEN: Unremarkable. ADRENAL GLANDS: Unremarkable. KIDNEYS AND URETERS: The kidneys are normal in size, shape, and attenuation. No hydronephrosis, hydroureter, or calculi seen. No perinephric stranding. BLADDER: Unremarkable. GASTROINTESTINAL TRACT: There are no dilated loops of small or large bowel. No significant diverticula. ABDOMINAL WALL: No significant hernia is appreciated. LYMPH NODES: Normal. VASCULAR: Unremarkable. PELVIC VISCERA: Uterus and ovaries appear normal. OSSEOUS STRUCTURES: Unremarkable. IMPRESSION: 1. Resolving pancreatic inflammation compared to CT 07/03/2017. Mild peripancreatic stranding. 2. No significant diverticulosis. 3. Hepatic steatosis. 4. Status post cholecystectomy. DICTATED BY: Gianna Rios MD DATE/TIME DICTATED:07/14/171703 POLE FRAMER MACHINE:CRYSTAL DATE/TIME TRANSCRIBED:07/14/171703 CONFIDENTIAL, DO NOT COPY WITHOUT APPROPRIATE AUTHORIZATION. <Electronically signed in Other Vendor System> SIGNED BY: Gianna Rios MD 07/14/171717 Initial ED EKG: PENDING Departure Departure Disposition: STILL A PATIENT Condition: Stable Clinical Impression Primary Impression: Abdominal pain Referrals: Alison CURIEL,Trae Gillis (PCP/Family) Departure Forms: Customer Survey General Discharge Information Comments Follow up with Dr Ochoa in 72 hours The patient was discharged to [facility] Critical Care Note Critical Care Note Critical Care Time: non-applicable
[2017-07-14 15:25] LABS: ABSOLUTE BASOPHIL COUNT 0 /CUMM (0.0-0.2); ABSOLUTE LYMPH COUNT 1.9 /CUMM (1.2-3.4); ABSOLUTE MONOCYTE COUNT 0.7 /CUMM (0.10-0.60); GRANULOCYTE % 72.7 % (42.2-75.2); MEAN PLATELET VOLUME 10.3 FL (7.4-10.4); RBC DISTRIBUTION WIDTH 14.4 % (11.5-14.5)
[2017-07-14 15:29] LABS: ABSOLUTE EOSINOPHIL COUNT 0.3 /CUMM (0.0-0.7); ABSOLUTE GRANULOCYTE CT 7.8 /CUMM (1.4-6.5); BASOPHIL % 0.4 % (0.0-2.0); EOSINOPHIL % 2.4 % (0-5); HEMATOCRIT 35.3 % (37-47); MEAN CORPUSCULAR HGB 27.9 PG (27.0-31.0); MEAN CORPUSCULAR VOLUME 84.5 FL (81.0-99.0); PLATELET COUNT 266 /CUMM (130-400); RED BLOOD CELL CT 4.17 /CUMM (4.20-5.40)
[2017-07-14 15:31] LABS: WHITE BLOOD CELL COUNT 10.7 /CUMM (4.8-10.8)
--- NOTE | 2017-07-14 17:18 | CT SCAN REPORT ---
EXAMINATION: CT ABDOMEN AND PELVIS WITH CONTRAST CLINICAL INFORMATION: Abdominal pain COMPARISON: CT of abdomen and pelvis 07/03/2017 TECHNIQUE: Multidetector volumetric imaging was performed of the abdomen and pelvis following IV administration of 95 mL of Optiray 320 intravenous contrast. Sagittal and coronal reformatted images were obtained on the technologist's workstation. DLP: 617 mGy-cm FINDINGS: LUNG BASES: The visualized lung bases are unremarkable. LIVER, GALLBLADDER, AND BILIARY TREE: Liver is diffusely low in attenuation. No focal lesion. No significant hepatic biliary dilatation. Focal calcification of the right lobe. Gallbladder surgically absent. PANCREAS: There is mild peripancreatic fat stranding. The pancreas appears relatively normal in size compared to the prior CT. The pancreas enhances normally.. SPLEEN: Unremarkable. ADRENAL GLANDS: Unremarkable. KIDNEYS AND URETERS: The kidneys are normal in size, shape, and attenuation. No hydronephrosis, hydroureter, or calculi seen. No perinephric stranding. BLADDER: Unremarkable. GASTROINTESTINAL TRACT: There are no dilated loops of small or large bowel. No significant diverticula. ABDOMINAL WALL: No significant hernia is appreciated. LYMPH NODES: Normal. VASCULAR: Unremarkable. PELVIC VISCERA: Uterus and ovaries appear normal. OSSEOUS STRUCTURES: Unremarkable. IMPRESSION: 1. Resolving pancreatic inflammation compared to CT 07/03/2017. Mild peripancreatic stranding. 2. No significant diverticulosis. 3. Hepatic steatosis. 4. Status post cholecystectomy.
[2017-07-14 18:37] VITALS: BP 158/80
== END 2017-07-14 19:06 ==
LOC: ERH 14:27
PROVIDERS: Emergency Medicine
DX: R10.13 Epigastric pain (principal); R10.33 Periumbilical pain
CPT/HCPCS: 74177; 93005; 93010; 96374; 96375; J0131; J2405

== ENCOUNTER 2017-10-31 11:08 | Inpatient (IN) | payer OTHER ==
[~2017-10-31] VITALS: Ht 167.6 cm; Wt 78.2 kg
[~2017-10-31 11:08] MED LIST changes: +ACEPHEN650 M1 PR; +ACETAMINOPHEN325 M2 PO; +ALEVE220 M2 PO; +ALPRAZOLAM0.25 M1 PO; +B-12 DOTS500 MCG PO; +BISACODYL10 M1 RC; +BYDUREON P2 MG/0.65 SC; +COLACE100 M1 PO; +COZAAR25 M1 PO; +DICYCLOMINE HCL10 M1 PO; +FERRETTS106 MG PO; +FISH OIL 500 M1 EAC1 PO; +FLEET ENEMA133 ML RC; +GUAIFENESI100 MG/5 M PO; +HYDROCODON-ACE1 EAC2 PO; +HYDROXYCHLOROQ200 M2 PO; +LANTUS100 UNIT/1 SC; +LEVOTHYROXINE75 MCG PO; +LIDODERM1 EACH TOP; +MAGNESIUM OXID400 M1 PO; +MELATONIN3 M4 PO; +METHADONE10 MG/1 M2 PO; +MILK OF MA400 MG/52 PO; +NEURONTIN300 M1 PO; +OMEPRAZOLE20 M2 PO; +REFRESH TEARS15 ML OP; +SENNA8.6 M3 PO; +SERTRALINE HCL25 MG PO; +TRAZODONE HCL50 M1 PO; +TUMS300 MG PO; +VITAMIN D350000 UNIT PO; +WELLBUTRIN SR200 M2 PO; +ZOFRAN ODT4 M1 SL
--- NOTE | 2017-10-31 11:40 | ED GENERAL ADULT ---
History of Present Illness General Chief Complaint: General Adult Stated Complaint: BIBA LOW BLOOD SUGAR Source: patient Exam Limitations: no limitations Vital Signs & Intake/Output Vital Signs & Intake/Output Vital Signs Date Time Temp Pulse Resp B/P B/P Pulse O2 O2 Flow FiO2 Mean Ox Delivery Rate 10/31 1338 98.2 76 18 142/71 100 Room Air 10/31 1123 96.8 90 16 164/88 97 Room Air Allergies Coded Allergies: ibuprofen (Intermediate, HIVES 09/12/17) oxycodone (From PERCOCET) (Intermediate, HIVES 09/12/17) Penicillins (UNKNOWN 09/27/15) hydromorphone (From DILAUDID) (HIVES 07/02/17) trazodone (UNKNOWN 07/19/17) Reconcile Medications Alprazolam 0.25 MG TABLET 1 TAB PO BID ANXIETY (Reported) Aspirin (Ecotrin*) 81 MG TABLET.DR 1 TAB PO DAILY PVD (Reported) Aspirin (Ecotrin*) 81 MG TABLET.DR 1 TAB PO DAILY HEART HEALTH (Reported) Bupropion HCl (Wellbutrin Sr) 200 MG TABLET.ER 1 TAB PO DAILY ANXIETY ( Reported) Clopidogrel Bisulfate (Plavix) 75 MG TABLET 1 TAB PO DAILY PVD (Reported) Cyanocobalamin (Vitamin B-12) (B-12 Dots) 500 MCG TABLET 1 TAB PO 1700 VITAMIN SUPPORT (Reported) Docusate Sodium (Colace) 100 MG CAPSULE 1 CAP PO TID CONSTIPATION (Reported) Exenatide Microspheres (Bydureon) 2 MG VIAL 2 MG SC QTUES DM (Reported) Hydroxychloroquine Sulfate 200 MG TABLET 1 TAB PO BID ARTHRITIS (Reported) Insulin Aspart, Recombinant (Novolog Flexpen) 100 UNIT/ML INSULN.PEN 0 SC AC & AT BEDTIME DM BEFORE MEALS. Blood Insulin Sugar Units <80 0 80-150 0 151-199 6 200-250 8 251-300 10 301-350 12 351-400 14 >400 16 units and Call Doctor AT BEDTIME Blood Insulin Sugar Units <80 0 81-150 0 151-299 0 200-250 0 251-300 2 301-350 3 351-400 4 >400 5 and Call Doctor Insulin-Lantus (Lantus) 100 UNIT/ML VIAL 52 UNITS SC QAM DM (Reported) Insulin-Lantus (Lantus) 100 UNIT/ML VIAL 12 UNITS SC QHS DM (Reported) Levothyroxine Sodium 75 MCG TABLET 1 TAB PO DAILY AC THYROID (Reported) Losartan Potassium 25 MG TABLET 1 TAB PO DAILY HTN (Reported) Melatonin 5 MG TABLET 1 TAB PO QPM SLEEP (Reported) Metformin HCl 1,000 MG TABLET 1 TAB PO BID DM (Reported) Omeprazole 20 MG TABLET.DR 1 TAB PO DAILY GERD (Reported) Pravastatin Sodium (Pravachol) 80 MG TABLET 1 TAB PO DAILY PVD (Reported) Trazodone HCl 100 MG TABLET 0.5-1 TAB PO QPM PRN INSOMNIA (Reported) 1 HOUR APART Triage Nurses Notes Reviewed? yes Onset: Gradual Duration: day(s): Timing: constant HPI: 57 y/o female with h/o DM, hypothyroid, anxiety, depression, RA, scleroderma, PVD, right AKA presenting with hyperglycemia and leg wound. Has had chronic non- healing ulcer to left lower leg for several years, but now draining yellow discharge with foul smell over the past few days. Has not had any abx course. This morning felt light headed so she pressed her life alert button, on EMS arrival glucose was over 600. Reports she takes short acting insulin before meals and lantus BID. Last insulin was her lantus dose last night, no insulin today. Reports med compliance with her meds, will occasionally have a missed dose, but none recently. Denies fevers, nausea, vomiting. (Dawna Francis) Past History Travel History Traveled to [place] past 21 day No Medical History Any Pertinent Medical History? 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 No (Dawna Francis) Review of Systems Review of Systems Constitutional: Reports: no symptoms. EENTM: Reports: no symptoms. Respiratory: Reports: no symptoms. Cardiovascular: Reports: no symptoms. GI: Reports: no symptoms. Genitourinary: Reports: no symptoms. Musculoskeletal: Reports: no symptoms. Skin: Reports: see HPI. Neurological/Psychological: Reports: no symptoms. Hematologic/Endocrine: Reports: no symptoms. Immunologic/Allergic: Reports: no symptoms. (Dawna Francis) Physical Exam Physical Exam General Appearance: well developed/nourished, no apparent distress, alert, awake , comfortable Head: atraumatic, normal appearance Eyes: Bilateral: normal appearance. Neck: normal inspection Respiratory: normal breath sounds, lungs clear Cardiovascular: regular rate/rhythm Gastrointestinal: soft, non-tender Back: normal inspection Extremities: Oval shaped ulcer to lateral aspect of distal LLE with scant yellow drainage and foul smell. DP and PT pulses not palpable, but audible with doppler. Neurologic/Psych: awake, alert, oriented x 3, normal mood/affect Skin: normal color, warm/dry Core Measures ACS in differential dx? No CVA/TIA Diagnosis: No Sepsis Present: No Sepsis Focused Exam Completed? No (Dawna Francis) Progress Differential Diagnoses I considered the following diagnoses in my evaluation of the patient: [Vascular ulcer vs wound infection vs cellulitis vs abscess vs sepsis vs osteo vs nec fasc ] Plan of Care: Orders Procedure Date/time Status Heart Healthy Diet 10/31 D Active LACTIC ACID 10/31 1451 Active ED Holding Orders 10/31 1438 Active Admit to inpatient 10/31 1438 Active Vital Signs 10/31 1438 Active Code Status 10/31 1438 Active Patient Data 10/31 1431 Active Add-on Test (ER Only) 10/31 1330 Active TROPONIN LEVEL 10/31 1250 Complete MIXED VENOUS BLOOD GAS (GEN) 10/31 1151 Complete BLOOD CULTURE 10/31 1151 Active URINALYSIS 10/31 1151 Complete LACTIC ACID 10/31 1151 Complete COMPREHENSIVE METABOLIC PANEL 10/31 1151 Complete CBC WITHOUT DIFFERENTIAL 10/31 1151 Complete EKG 10/31 1151 Active Current Medications Sig/Christina Start time Last Medication Dose Stop Time Status Admin Acetaminophen/ 1 TAB ONCE ONE 10/31 1430 UNVr Codeine Phosphate 10/31 1431 (Tylenol #3) Laboratory Tests 10/31/17 1250: Anion Gap 15, Estimated GFR > 60, BUN/Creatinine Ratio 22.9, Glucose 606 *H, Lactic Acid 2.0, Calcium 9.7, Total Bilirubin 0.3, AST 29, ALT 32, Alkaline Phosphatase 209 H, Troponin I < 0.01, Total Protein 6.9, Albumin 3.9, Globulin 3.0, Albumin/Globulin Ratio 1.3, CBC w Diff NO MAN DIFF REQ, RBC 4.52, MCV 84.0, MCH 28.4, MCHC 33.8, RDW 14.0, MPV 12.3 H, Gran % 75.7 H, Lymphocytes % 18.1 L, Monocytes % 5.0, Eosinophils % 1.0, Basophils % 0.2, Absolute Granulocytes 5.7, Absolute Lymphocytes 1.4, Absolute Monocytes 0.4, Absolute Eosinophils 0.1, Absolute Basophils 0, Urine Color YEL, Urine Clarity CLEAR, Urine pH 7.0, Ur Specific [place] 1.015, Urine Protein 100 H, Urine Ketones NEG, Urine Nitrite NEG, Urine Bilirubin NEG, Urine Urobilinogen 0.2, Ur Leukocyte Esterase NEG, Ur Microscopic SEDIMENT EXAMINED, Urine RBC 3-5, Urine WBC RARE, Ur Epithelial Cells FEW, Urine Bacteria FEW H, Micro UA Comment BUDDING YEAST H, Urine Hemoglobin TRACE-INTACT, Urine Glucose >=1000 H 10/31/17 1248: Bicarbonate Actual 22, Mixed VBG pH 7.41, Mixed VBG pCO2 35 L, Mixed VBG O2 Saturation 54 H, Carboxyhemoglobin 2.6, O2 Concentration % RA, O2 Delivery Method RA, Phlebotomy Draw Site RIGHT FORARM Microbiology 10/31 1405 BLOOD: Blood Culture - RECD 10/31 1400 BLOOD: Blood Culture - RECD Covered with van for wound infection. Labs remarkable for hyperglycemia to over 600, likely from infection, no evidence of DKA. Given 2L NS bolus and 5 units sq insulin. EKG shows new LBBB, no CP, trop neg. Discussed with hospitalist, MOD, and EDMD. Will admit to [facility] for wound infection and hyperglycemia. Initial ED EKG: NSR, rate (80), LBBB (Dawna Francis) Departure Departure Disposition: STILL A PATIENT Condition: Stable Clinical Impression Primary Impression: Wound infection Secondary Impressions: Hyperglycemia Referrals: Gabriela CURIEL,Moe Manrique Departure Forms: Customer Survey General Discharge Information Admission Note Spoke With: Julio Abbott MD Documentation of Exam: Documentation of any treatments & extenuating circumstances including Concerns Regarding Discharge (functional status, medication knowledge or non-compliance, living conditions, etc.) that warrant an admission rather than observation: [IV abx, IV fluids, continued insulin, bgl checks, wound care] (Dawna Francis) PA/BUS SYSTEM OPERATOR Co-Sign Statement Statement: ED Attending supervision documentation- [X] I saw and evaluated the patient. I have also reviewed all the pertinent lab results and diagnostic results. I agree with the findings and the plan of care as documented in the PA's/BUS SYSTEM OPERATOR's documentation. [X] I have reviewed the ED Record and agree with the PA's/BUS SYSTEM OPERATOR's documentation. [] Additions or exceptions (if any) to the PAs/BUS SYSTEM OPERATOR's note and plan are summarized below: [Patient to be admitted for hyperglycemia and cellulitis. Patient is requiring IV antibiotics, IV fluids, wound consult] (Gunnar CURIEL,Gilberto Pompa) Critical Care Note Critical Care Note Critical Care Time: 30-74 min (Dawna Francis)
[2017-10-31] MEDS ORDERED: MELATONIN5 M7 PO (12:19)
[2017-10-31 13:03] LABS: ABSOLUTE BASOPHIL COUNT 0 /CUMM (0.0-0.2); ABSOLUTE EOSINOPHIL COUNT 0.1 /CUMM (0.0-0.7); ABSOLUTE GRANULOCYTE CT 5.7 /CUMM (1.4-6.5); ABSOLUTE LYMPH COUNT 1.4 /CUMM (1.2-3.4); ABSOLUTE MONOCYTE COUNT 0.4 /CUMM (0.10-0.60); BASOPHIL % 0.2 % (0.0-2.0); GRANULOCYTE % 75.7 % (42.2-75.2); MEAN CORPUSCULAR HGB 28.4 PG (27.0-31.0); MEAN CORPUSCULAR HGB CONC 33.8 G/DL (33.0-37.0); MEAN PLATELET VOLUME 12.3 FL (7.4-10.4); PLATELET COUNT 221 /CUMM (130-400); RED BLOOD CELL CT 4.52 /CUMM (4.20-5.40); WHITE BLOOD CELL COUNT 7.5 /CUMM (4.8-10.8)
--- NOTE | 2017-10-31 13:05 | RADIOLOGY REPORT ---
EXAMINATION: XR TIBIA AND FIBULA, LEFT CLINICAL INFORMATION: Left leg wound. COMPARISON: None TECHNIQUE: AP and lateral views of the left tibia and fibula were obtained. FINDINGS: The 5-6 cm long soft tissue lucency in the lateral aspect of the mid third of the leg is consistent with a wound. No soft tissue gas in this area. There is chronic, smooth, undulating periosteal new bone formation along the surface of the underlying fibula. No aggressive periosteal reaction. No lytic bone destruction, suspicious sclerosis or fracture. Bones have normal alignment at the knee and ankle. IMPRESSION: 1. Soft tissue wound at the lateral aspect of the mid third of the left leg. 2. Deep to the wound, there is a chronic, smooth, undulating periosteal reaction of the fibular cortex. The periosteal reaction could be reactive to a chronic, deep wound. No radiographic evidence of an inflammatory process involving the medullary cavity. No overt osteomyelitis. However, MR imaging of the leg could be performed if there is a high clinical suspicion.
--- NOTE | 2017-10-31 14:34 | History & Physical ---
Ayesha CURIEL,[facility] 10/31/17 1433: General Information and HPI MD Statement: I have seen and personally examined IRENA BUTLER and documented this H&P. The patient is a 57 year old F who presented with a patient stated chief complaint of []. Source of Information: patient Exam Limitations: no limitations History of Present Illness: 57 year old female with a PMH of rheumatoid arthritis, scleroderma, diabetes mellitus, PVD s/p AKA, LLE stent placement and chronic nonhealing ulcer, GERD, hypothyroidism, pancreatitis and history of opioid dependence presented to the ED with complains of discharge from her ulcer. The patient has had chronic ulcer on her left leg for years now which has never healed fully. However, since the past 3-4 days she has been noticing significant yellowish-purulent drainage from her ulcer along with significant pain. She normally changes her dressing once every other day but for the past 3 days she has had to change them every day. She also has noticed erythema around the site which has been expanding along with tenderness. She denies any fevers or chills. She is mostly wheelchair bound at baseline. She feels she has been more unsteady lately and could've bumped her leg recently. Of note, she did not take her Levemir this morning. Allergies/Medications Allergies: Coded Allergies: ibuprofen (Intermediate, HIVES 09/12/17) oxycodone (From PERCOCET) (Intermediate, HIVES 09/12/17) Penicillins (UNKNOWN 09/27/15) hydromorphone (From DILAUDID) (HIVES 07/02/17) trazodone (UNKNOWN 07/19/17) Home Med list Aspirin (Ecotrin*) 81 MG TABLET.DR 1 TAB PO DAILY HEART HEALTH (Reported) Bupropion HCl (Wellbutrin Sr) 200 MG TABLET.ER 1 TAB PO DAILY ANXIETY ( Reported) Clopidogrel Bisulfate (Plavix) 75 MG TABLET 1 TAB PO DAILY PVD (Reported) Cyanocobalamin (Vitamin B-12) (B-12 Dots) 500 MCG TABLET 1 TAB PO 1700 VITAMIN SUPPORT (Reported) Docusate Sodium (Colace) 100 MG CAPSULE 1 CAP PO TID CONSTIPATION (Reported) Exenatide Microspheres (Bydureon) 2 MG VIAL 2 MG SC QTUES DM (Reported) Hydroxychloroquine Sulfate 200 MG TABLET 1 TAB PO BID ARTHRITIS (Reported) Insulin Aspart, Recombinant (Novolog Flexpen) 100 UNIT/ML INSULN.PEN 0 SC AC & AT BEDTIME DM BEFORE MEALS. Blood Insulin Sugar Units <80 0 80-150 0 151-199 6 200-250 8 251-300 10 301-350 12 351-400 14 >400 16 units and Call Doctor AT BEDTIME Blood Insulin Sugar Units <80 0 81-150 0 151-299 0 200-250 0 251-300 2 301-350 3 351-400 4 >400 5 and Call Doctor Insulin-Lantus (Lantus) 100 UNIT/ML VIAL 52 UNITS SC QAM DM (Reported) Insulin-Lantus (Lantus) 100 UNIT/ML VIAL 12 UNITS SC QHS DM (Reported) Levothyroxine Sodium 75 MCG TABLET 1 TAB PO DAILY AC THYROID (Reported) Losartan Potassium 25 MG TABLET 1 TAB PO DAILY HTN (Reported) Melatonin 5 MG TABLET 1 TAB PO QPM SLEEP (Reported) Metformin HCl 1,000 MG TABLET 1 TAB PO BID DM (Reported) Omeprazole 20 MG TABLET.DR 1 TAB PO DAILY GERD (Reported) Pravastatin Sodium (Pravachol) 80 MG TABLET 1 TAB PO DAILY PVD (Reported) Past History Travel History Traveled to [place] past 21 day No Medical History Neurological: NONE EENT: NONE Cardiovascular: PVD (s/p stent in left leg ) Respiratory: NONE Gastrointestinal: pancreatitis Hepatic: NONE Renal: NONE Musculoskeletal: RT LEG ABOVE KNEE AMPUTAT Psychiatric: anxiety, depression Endocrine: diabetes, hypothyroidism Blood Disorders: NONE Cancer(s): NONE 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 Ambulation: independent IADLs Independent: shopping, housework, finances, food prep, telephone, transportation , medication admin. Review of Systems Review of Systems Constitutional: Denies: chills, fever. EENTM: Reports: no symptoms. Cardiovascular: Denies: chest pain, palpitations. Respiratory: Reports: cough. GI: Reports: no symptoms. Genitourinary: Reports: no symptoms. Musculoskeletal: Reports: joint pain, muscle pain. Skin: Reports: change in skin color. Neurological/Psychological: Reports: no symptoms. Exam & Diagnostic Data Last 24 Hrs of Vital Signs/I&O Vital Signs Date Time Temp Pulse Resp B/P B/P Pulse O2 O2 Flow FiO2 Mean Ox Delivery Rate 10/31 1338 98.2 76 18 142/71 100 Room Air 10/31 1123 96.8 90 16 164/88 97 Room Air Intake & Output 10/31 1600 10/31 0800 10/31 0000 Intake Total 2000 Output Total Balance 2000 Intake, Oral 2000 Patient 145 lb Weight Weight Estimated Measurement Method Physical Exam General Appearance Alert, Oriented X3, Cooperative, Mild Distress Skin No Rashes, No Breakdown Skin Temp/Moisture Exam: Warm/Dry Sepsis Skin Exam (color): Normal for Ethnicity HEENT Atraumatic Cardiovascular Normal S1, Normal S2, systolic click Lungs Normal Air Movement, decreased breath sounds in RLL Abdomen Soft, No Tenderness Neurological Normal Speech Extremities right AKA with well healed stump ulcer on lateral aspect of left lower extremity without any drainage but with erythema and warm to touch Last 24 Hrs of Labs/Nikolas: Laboratory Tests 10/31/17 1451: Lactic Acid Cancelled 10/31/17 1250: Anion Gap 15, Estimated GFR > 60, BUN/Creatinine Ratio 22.9, Glucose 606 *H, Serum Osmolality 315 H, Lactic Acid 2.0, Calcium 9.7, Total Bilirubin 0.3, AST 29, ALT 32, Alkaline Phosphatase 209 H, Troponin I < 0.01, Total Protein 6.9, Albumin 3.9, Globulin 3.0, Albumin/Globulin Ratio 1.3, CBC w Diff NO MAN DIFF REQ, RBC 4.52, MCV 84.0, MCH 28.4, MCHC 33.8, RDW 14.0, MPV 12.3 H, Gran % 75.7 H, Lymphocytes % 18.1 L, Monocytes % 5.0, Eosinophils % 1.0, Basophils % 0.2, Absolute Granulocytes 5.7, Absolute Lymphocytes 1.4, Absolute Monocytes 0.4, Absolute Eosinophils 0.1, Absolute Basophils 0, Urine Color YEL, Urine Clarity CLEAR, Urine pH 7.0, Ur Specific [place] 1.015, Urine Protein 100 H, Urine Ketones NEG, Urine Nitrite NEG, Urine Bilirubin NEG, Urine Urobilinogen 0.2, Ur Leukocyte Esterase NEG, Ur Microscopic SEDIMENT EXAMINED, Urine RBC 3-5, Urine WBC RARE, Ur Epithelial Cells FEW, Urine Bacteria FEW H, Micro UA Comment BUDDING YEAST H, Urine Hemoglobin TRACE-INTACT, Urine Glucose >=1000 H 10/31/17 1248: Bicarbonate Actual 22, Mixed VBG pH 7.41, Mixed VBG pCO2 35 L, Mixed VBG O2 Saturation 54 H, Carboxyhemoglobin 2.6, O2 Concentration % RA, O2 Delivery Method RA, Phlebotomy Draw Site RIGHT FORARM Microbiology 10/31 1405 BLOOD: Blood Culture - RECD 10/31 1400 BLOOD: Blood Culture - RECD Assessment/Plan Assessment: 56 year old female with a PMH of rheumatoid arthritis, scleroderma, diabetes mellitus, PVD s/p AKA, LLE stent placement and chronic nonhealing ulcer, GERD, hypothyroidism, and history of opioid dependence presented with complains of discharge from her ulcer. Assessment: 1. Diabetic Leg Ulcer 2. Hyperglycemia 3. Hyperkalemia 4. History of diabetes 5. History of RA, Scleroderma Plan: * Admit patient to general medicine floor * Start IV Vancomycin and Ceftazidime to cover for MRSA and Pseudomonas. * Vascular consult * Arterial doppler of left lower extremity to assess for PVD and stent patency. * Her blood sugar is significantly elevated to 600. Her serum osmolality is also high * Wound consult in the morning. * Check ESR and CRP. Her Xray is equivocal for osteomyelitis. Though this seems unlikely at this time. * Follow up blood cultures * Endocrinology consult * Hold Oral hypogluycemics * Insulin SS with Accucheks * Levemir 30 units in am and 12 units at night * Diet: Diabetic * DVT Prophylaxis: SC Lovenox * Code: Full Code As Ranked By This Provider Problem List: 1. Hyperglycemia Core Measures/Misc (02/04) Acute Coronary Syndrome ACS Diagnosis: No Congestive Heart Failure Congestive Heart Failure Diagnosis No Cerebrovascular Accident CVA/TIA Diagnosis: No VTE (View Protocol) VTE Risk Factors Age>40 No Mechanical VTE Prophylaxis d/t N/A MechProphylax Ordered No VTE Pharm Prophylaxis d/t NA PharmProphylax ordered Sepsis (View protocol) Sepsis Present: No If YES complete Sepsis Event Note If YES complete Sepsis Event Note Jeremias CURIEL,[facility] 10/31/17 1548: Core Measures/Misc (02/04) Sepsis (View protocol) If YES complete Sepsis Event Note If YES complete Sepsis Event Note Attending MD Review Statement Attending Statement Attending MD Statement: examined this patient, discuss w/resident/PA/SVP GROUP DIRECTOR, agreed w/resident/PA/SVP GROUP DIRECTOR, reviewed EMR data (avail), discussed with nursing, discussed with case mgmt, reviewed images, amended to note Attending Assessment/Plan: 57 y/o F with pmh sig for rheumatoid arthritis, scleroderma, diabetes mellitus, PVD s/p AKA, LLE stent placement and chronic nonhealing ulcer, GERD, hypothyroidism, pancreatitis and history of opioid dependence presented left lower extremity open wound. She claims that she always has some kind of open wound which sometimes closes but not all the way. The reason she presented was because it started to have age colored discharge since yesterday and it was excruciatingly painful. She also noticed some redness around the area. She said that normally this is not red and she also noticed that her left big toe was getting erythematous. She denies any fevers or chills. She has been admitted before with hyperosmolar state. Her blood sugar also was extremely high with more than 600 on her BEP she is a diabetic regimen but blood sugars are not under control. She denies any fevers, chills. She does have history of right AKA in the past. In the emergency room patient received vancomycin. She claims that Tylenol has not controlled her pain and she wants something stronger. Vital Signs Date Time Temp Pulse Resp B/P B/P Pulse O2 O2 Flow FiO2 Mean Ox Delivery Rate 10/31 1338 98.2 76 18 142/71 100 Room Air 10/31 1123 96.8 90 16 164/88 97 Room Air on exam; aox3, nad. cv; s1,s2, rrr resp; clear abd; soft, nt, bs+ ext; lle open wound, no discharge noted, sorounding erythema with some warmth and tender on touching. + erythema left big toe. Right AKA. Laboratory Tests 10/31 10/31 1451 1250 Chemistry Sodium (137 - 145 mmol/L) 135 L Potassium (3.5 - 5.1 mmol/L) 5.2 H Chloride (98 - 107 mmol/L) 98 Carbon Dioxide (22 - 30 mmol/L) 22 Anion Gap (5 - 16) 15 BUN (7 - 17 mg/dL) 16 Creatinine (0.5 - 1.0 mg/dL) 0.7 Estimated GFR (>60 ml/min) > 60 BUN/Creatinine Ratio (7 - 25 %) 22.9 Glucose (65 - 99 mg/dL) 606 *H Lactic Acid (0.7 - 2.1 mmol/L) Cancelled 2.0 Calcium (8.4 - 10.2 mg/dL) 9.7 Total Bilirubin (0.2 - 1.3 mg/dL) 0.3 AST (14 - 36 U/L) 29 ALT (9 - 52 U/L) 32 Alkaline Phosphatase (<127 U/L) 209 H Troponin I (< 0.11 ng/ml) < 0.01 Total Protein (6.3 - 8.2 g/dL) 6.9 Albumin (3.5 - 5.0 g/dL) 3.9 Globulin (1.9 - 4.2 gm/dL) 3.0 Albumin/Globulin Ratio (1.1 - 2.2 %) 1.3 Hematology CBC w Diff NO MAN DIFF REQ WBC (4.8 - 10.8 /CUMM) 7.5 RBC (4.20 - 5.40 /CUMM) 4.52 Hgb (12.0 - 16.0 G/DL) 12.8 Hct (37 - 47 %) 38.0 MCV (81.0 - 99.0 FL) 84.0 MCH (27.0 - 31.0 PG) 28.4 MCHC (33.0 - 37.0 G/DL) 33.8 RDW (11.5 - 14.5 %) 14.0 Plt Count (130 - 400 /CUMM) 221 MPV (7.4 - 10.4 FL) 12.3 H Gran % (42.2 - 75.2 %) 75.7 H Lymphocytes % (20.5 - 51.1 %) 18.1 L Monocytes % (1.7 - 9.3 %) 5.0 Eosinophils % (0 - 5 %) 1.0 Basophils % (0.0 - 2.0 %) 0.2 Absolute Granulocytes (1.4 - 6.5 /CUMM) 5.7 Absolute Lymphocytes (1.2 - 3.4 /CUMM) 1.4 Absolute Monocytes (0.10 - 0.60 /CUMM) 0.4 Absolute Eosinophils (0.0 - 0.7 /CUMM) 0.1 Absolute Basophils (0.0 - 0.2 /CUMM) 0 Urines Urine Color (YEL,AMB,STR) YEL Urine Clarity (CLEAR) CLEAR Urine pH (5.0 - 8.0) 7.0 Ur Specific [place] (1.001 - 1.035) 1.015 Urine Protein (NEG,<30 MG/DL) 100 H Urine Ketones (NEG) NEG Urine Nitrite (NEG) NEG Urine Bilirubin (NEG) NEG Urine Urobilinogen (0.1 - 1.0 EU/dl) 0.2 Ur Leukocyte Esterase (NEG) NEG Ur Microscopic SEDIMENT EXAMINED Urine RBC (0 - 5 /HPF) 3-5 Urine WBC (0 - 2 /HPF) RARE Ur Epithelial Cells (NONE,FEW) FEW Urine Bacteria (NEG/NONE) FEW H Micro UA Comment BUDDING YEAST H Urine Hemoglobin (NEG) TRACE-INTACT Urine Glucose (N MG/DL) >=1000 H 10/31 1248 Blood Gas Bicarbonate Actual (22 - 26 MEQ/L) 22 Mixed VBG pH (7.31 - 7.41 PH) 7.41 Mixed VBG pCO2 (41 - 51 TORR) 35 L Mixed VBG O2 Saturation (35 - 45 TORR) 54 H Carboxyhemoglobin (1.5 - 5.0 %) 2.6 O2 Concentration % RA O2 Delivery Method RA Miscellaneous Phlebotomy Draw Site RIGHT FORARM EKG>> sinus rythm. Xray: left Tibia/Fibula IMPRESSION: 1. Soft tissue wound at the lateral aspect of the mid third of the left leg. 2. Deep to the wound, there is a chronic, smooth, undulating periosteal reaction of the fibular cortex. The periosteal reaction could be reactive to a chronic, deep wound. No radiographic evidence of an inflammatory process involving the medullary cavity. No overt osteomyelitis. However, MR imaging of the leg could be performed if there is a high clinical suspicion. A/P; 57 y/o F with pmh sig for rheumatoid arthritis, scleroderma, diabetes mellitus, PVD s/p AKA, LLE stent placement and chronic nonhealing ulcer, GERD, hypothyroidism, pancreatitis and history of opioid dependence admitted with left lower extremity diabetic infected ulcer. Patient also has history of scleroderma therefore chronic skin condition doesn't help with the healing process. She was also hyperglycemic in the emergency room but this was not DKA as her anion gap was normal. Patient admitted to medicine. Her blood sugars will be controlled with basal and sliding scale insulin. Patient will get frequent Accu-Cheks. She received vancomycin in the emergency room. With a diabetic wound ulcer which is infected , we need to cover pseudomonas along with MRSA. Will continue Vanco/Ceftaz. Can narrow abx pending cx. Arterial Duplex, Vascular surgery consult. WOund care consult. IVFs, Endo consult for diabetes. She should be continued on her home medications other than oral hypoglycemics. She will be covered with insulin and follow Endo recs. . Please obtain blood cultures and follow-up on the blood cultures. Antibiotics can be tailored according to the blood cultures. DVT prophylaxis: Lovenox. Douglas CURIEL,[facility] 10/31/171911: Core Measures/Misc (02/04) Sepsis (View protocol) If YES complete Sepsis Event Note If YES complete Sepsis Event Note Resident Review Statement Resident Statement: examined this patient, discussed with purchasing internship, agreed with purchasing internship Other Findings: This is a 57-year-old female with past medical history significant for RA on hydroxychloroquine, scleroderma, uncontrolled diabetes mellitus with neuropathy, severe peripheral vascular disease with stent placement in left lower extremity and AKA of RLE, hypothyroidism, GERD, chronic nonhealing ulcers, who comes in for CC of pain and erythema in LLE. She states that she has had chronic ulcers in her lower extremity for years. However for the past 3 days she has noted worsening drainage, pain and erythema. Denies any fevers, chills, headache, nausea, vomiting, polyuria or polydipsia. She uses a wheelchair at baseline and has sustained several falls recently. She does endorse some trauma to the area of ulceration. She changes her dressings in her lower extremity every other day. She used to see home specialist but no longer does so any more. She states that she is very compliant with her diabetes regimen that her blood sugars at home are usually in the 300s and 350s range. Plan: This is a [age]-year-old female with past medical history of RA on hydroxychloroquine, scleroderma, diabetes mellitus with severe PAD, BKA, left lower extremity stent placement, chronic nonhealing ulcers, GERD, hypothyroidism , who comes in for chief complaint of worsening pain, erythema and discharge in her left lower extremity. 1. Left lower extremity cellulitis: Patient has large open ulcer without obvious drainage. However surrounding area is tender to palpation, slightly warm to touch and erythematous. She does have history of severe PAD, scleroderma and uncontrolled diabetes which makes wound healing very difficult. At this time we will start covering her for cellulitis and obtain vascular surgery consult to possibly address her nonhealing ulcers. * Check ESR * Check CRP * Start patient on ceftaz and Vanco. Note that she states that she has a penicillin allergy (rash). * Follow-up blood culture * Obtain vascular surgery consult * Arterial Doppler of left lower extremity * Con't ASA and Clopidogrel tomorrow 2. Hyperglycemia: Patient has previous history of HHS. Her blood sugars over 600 at this time. She denies any polyuria, polydipsia, headache, nausea, vomiting, confusion, seizure or any change in mental status. VBG shows nml pH and adequate bicarb. No evidence of renal failure. No evidence of DKA, Sosm is 315, while this is high, given constellation of labs, it doesn't seem like pt is in full-blown HHS. Suspect that this is just poorly controlled hyperglycemia. * Resume home insulin regimen * Check serum osmolarity * Start aggressive IV hydration * Obtain endocrinology consult * Diabetic diet * Hold home oral hypoglycemics including metformin. Hold Exenatide. * Finger stick (initially q2, but will resume TIDAC/HS once she trends in right direction) 3. Hypokalemia: This will likely resolve once patient gets fluid and her usual insulin. Continue to monitor 4. RA and scleroderma: * Continue hydroxychloroquine 5. Hypertension: Patient has blood pressure between 142/72 and 178/87. * Continue losartan 25 mg 6. Hypothyroidism: * Continue levothyroxine 75 g 7. Hyperlipidemia: * Continue pravastatin 80 mg 8. GERD: * Continue PPI FC Chem ppx CC3
[2017-10-31 16:00] VITALS: BP 142/72
--- NOTE | 2017-10-31 16:45 | PN- Student ---
Subjective Subjective: HPI: 57 y/o F with PMHx of RA, scleroderma, DM on insulin, PVD s/p AKA, LLE stent placement (about a year ago by patient), chronic nonhealing ulcer, GERD, hypothyrodism, opioid dependant. Patient presented to the ED with a chief complain of right lower leg carlie pain that come and go and radiate up to the leg. Patient have a nonhealing chronic ulcer in the lower left leg that is been producing an beige color since three day prio to admission. Also noted redness at the area. Denied fever or chills. Social: smoker of pack every three daywho quit 20 years ago, ocassional drinker, no illicit drugs PSHx: appendicitis, cheolecystitis, tubal ligation, AKA Objective Objective: Vital Signs Date Time Temp Pulse Resp B/P B/P Pulse O2 O2 Flow FiO2 Mean Ox Delivery Rate 10/31 1652 97 Room Air 10/31 1615 97.4 76 18 178/87 97 10/31 1338 98.2 76 18 142/71 100 Room Air 10/31 1123 96.8 90 16 164/88 97 Room Air Intake & Output 10/31 1600 10/31 0800 10/31 0000 Intake Total 2000 Output Total Balance 2000 Intake, Oral 2000 Patient 145 lb Weight Weight Estimated Measurement Method PE: General= alert and oriented HEENT= NCAT, anicteric sclera, moist oral mucosa CVS= normal S1 and S2, regular rate and rythm, midsystolic ejection click sound Lungs= clrear bilateral Abdomen= +BS, soft, nontender, nondistended Extremities= L-stump, with tenderness to palpation, weel healed scar. R- 3cm x 10cm oval chronic nonhealed ulcer without bone or muscle exposed. Redness around the ulcer and venous stasis skin changes in the area as well Results Results: Laboratory Tests 10/31/17 1451: Lactic Acid Cancelled 10/31/17 1250: Anion Gap 15, Estimated GFR > 60, BUN/Creatinine Ratio 22.9, Glucose 606 *H, Serum Osmolality 315 H, Lactic Acid 2.0, Calcium 9.7, Total Bilirubin 0.3, AST 29, ALT 32, Alkaline Phosphatase 209 H, Troponin I < 0.01, Total Protein 6.9, Albumin 3.9, Globulin 3.0, Albumin/Globulin Ratio 1.3, CBC w Diff NO MAN DIFF REQ, RBC 4.52, MCV 84.0, MCH 28.4, MCHC 33.8, RDW 14.0, MPV 12.3 H, Gran % 75.7 H, Lymphocytes % 18.1 L, Monocytes % 5.0, Eosinophils % 1.0, Basophils % 0.2, Absolute Granulocytes 5.7, Absolute Lymphocytes 1.4, Absolute Monocytes 0.4, Absolute Eosinophils 0.1, Absolute Basophils 0, Urine Color YEL, Urine Clarity CLEAR, Urine pH 7.0, Ur Specific [place] 1.015, Urine Protein 100 H, Urine Ketones NEG, Urine Nitrite NEG, Urine Bilirubin NEG, Urine Urobilinogen 0.2, Ur Leukocyte Esterase NEG, Ur Microscopic SEDIMENT EXAMINED, Urine RBC 3-5, Urine WBC RARE, Ur Epithelial Cells FEW, Urine Bacteria FEW H, Micro UA Comment BUDDING [place]AST H, Urine Hemoglobin TRACE-INTACT, Urine Glucose >=1000 H 10/31/17 1248: Bicarbonate Actual 22, Mixed VBG pH 7.41, Mixed VBG pCO2 35 L, Mixed VBG O2 Saturation 54 H, Carboxyhemoglobin 2.6, O2 Concentration % RA, O2 Delivery Method RA, Phlebotomy Draw Site RIGHT FORARM Microbiology 10/31 1405 BLOOD: Blood Culture - RECD 10/31 1400 BLOOD: Blood Culture - RECD Assessment/Plan Assessment: 57 y/o F with PMHx of RA, scleroderma, DM on insulin, PVD s/p AKA, LLE stent placement, chronic nonhealing ulcer, GERD, hypothyroidism, pancreatitis and history of opioid dependence admitted with left lower extremity diabetic ulcer. Patient is afebrile without leukocytosis and x-ray was not subjective of osteomyelitis. Cellulitis from ulcer is suspected eventhough no fever or leukocytosis, she will be cover for pseudomonas and MRSA for now. Also, hyperglycemia was found in the 606 with serum osmolality of 315 for which HHS is suspected. Patient does not have ketones in the urine, DKA is no suspected. Potassium of 5.2 is noted. ABG not impresive. Anion gap was normal. DVT prophylaxis: Lovenox. Plan: monitor vitals sliding scale insulin Accu-Cheks Levemir 12 unit SC PM, levemir 30 unit AM IVF Vanco 1g daily IV and Fortaz 1g Q8 IV Arterial Duplex and Vascular surgery consult due to recent stent placement and rule-out any arterial pathology. DT and PT was palpated Wound care consult Endo consult for diabetes insulin pending cx
[2017-10-31 22:05] VITALS: BP 102/60
[2017-11-01 06:36] VITALS: BP 100/60
--- NOTE | 2017-11-01 07:17 | PN- Housestaff ---
Ayesha CURIEL,[facility] 11/01/17 0716: Subjective Follow-up For: Leg Ulcer Subjective: Patient seen and examined. Reports doing okay. Still has significant pain in her leg but denies any further discharge from her ulcer. Review of Systems Constitutional: Reports: no symptoms. Objective Last 24 Hrs of Vital Signs/I&O Vital Signs Date Time Temp Pulse Resp B/P B/P Pulse O2 O2 Flow FiO2 Mean Ox Delivery Rate 11/01 0636 97.7 71 20 100/60 94 Room Air 10/31 2205 98.4 74 19 102/60 93 Room Air 10/31 1803 142/72 10/31 1652 97 Room Air 10/31 1615 97.4 76 18 178/87 97 10/31 1600 98.2 79 17 142/72 98 Room Air 10/31 1338 98.2 76 18 142/71 100 Room Air 10/31 1123 96.8 90 16 164/88 97 Room Air Intake & Output 11/01 0800 11/01 0000 10/31 1600 Intake Total 200 1460 2000 Output Total 600 Balance 161 843 6055 Intake, IV 500 Intake, Oral 408 310 4399 Output, Urine 600 Patient 173 lb 145 lb Weight Weight Bed scale Estimated Measurement Method Physical Exam General Appearance: Alert, Oriented X3, Cooperative, Mild Distress Skin: No Rashes, No Breakdown Skin Temp/Moisture Exam: Warm/Dry Sepsis Skin Exam (color): Normal for Ethnicity HEENT: Atraumatic Cardiovascular: Normal S1, Normal S2, No Murmurs Lungs: Normal Air Movement Abdomen: Soft, No Tenderness Neurological: Normal Speech Extremities: Right AKA, ulcer on lateral aspect of left quiroz, with mild pus drainage. Last 24 Hrs of Lab/Nikolas Results Last 24 Hrs of Labs/Mics: Laboratory Tests 11/01/17 0705: Anion Gap 10, Estimated GFR > 60, BUN/Creatinine Ratio 22.9, Hemoglobin A1c Pending, C-React Prot High Sens 11.9 H, TSH 3.010, Thyroxine (T4) 11.0 H, CBC w Diff NO MAN DIFF REQ, RBC 3.93 L, MCV 84.6, MCH 28.5, MCHC 33.7, RDW 13.6, MPV 11.9 H, Gran % 66.7, Lymphocytes % 23.1, Monocytes % 7.1, Eosinophils % 2.5 , Basophils % 0.6, Absolute Granulocytes 4.0, Absolute Lymphocytes 1.4, Absolute Monocytes 0.4, Absolute Eosinophils 0.2, Absolute Basophils 0, ESR Westergren Pending 10/31/17 1900: Troponin I < 0.01 10/31/17 1451: Lactic Acid Cancelled 10/31/17 1250: Anion Gap 15, Estimated GFR > 60, BUN/Creatinine Ratio 22.9, Glucose 606 *H, Serum Osmolality 315 H, Lactic Acid 2.0, Calcium 9.7, Total Bilirubin 0.3, AST 29, ALT 32, Alkaline Phosphatase 209 H, Troponin I < 0.01, Total Protein 6.9, Albumin 3.9, Globulin 3.0, Albumin/Globulin Ratio 1.3, CBC w Diff NO MAN DIFF REQ, RBC 4.52, MCV 84.0, MCH 28.4, MCHC 33.8, RDW 14.0, MPV 12.3 H, Gran % 75.7 H, Lymphocytes % 18.1 L, Monocytes % 5.0, Eosinophils % 1.0, Basophils % 0.2, Absolute Granulocytes 5.7, Absolute Lymphocytes 1.4, Absolute Monocytes 0.4, Absolute Eosinophils 0.1, Absolute Basophils 0, Urine Color YEL, Urine Clarity CLEAR, Urine pH 7.0, Ur Specific [place] 1.015, Urine Protein 100 H, Urine Ketones NEG, Urine Nitrite NEG, Urine Bilirubin NEG, Urine Urobilinogen 0.2, Ur Leukocyte Esterase NEG, Ur Microscopic SEDIMENT EXAMINED, Urine RBC 3-5, Urine WBC RARE, Ur Epithelial Cells FEW, Urine Bacteria FEW H, Micro UA Comment BUDDING YEAST H, Urine Hemoglobin TRACE-INTACT, Urine Glucose >=1000 H 10/31/17 1248: Bicarbonate Actual 22, Mixed VBG pH 7.41, Mixed VBG pCO2 35 L, Mixed VBG O2 Saturation 54 H, Carboxyhemoglobin 2.6, O2 Concentration % RA, O2 Delivery Method RA, Phlebotomy Draw Site RIGHT FORARM Microbiology 10/31 1405 BLOOD: Blood Culture - RECD 10/31 1400 BLOOD: Blood Culture - RECD Assessment/Plan Assessment: 56 year old female with a PMH of rheumatoid arthritis, scleroderma, diabetes mellitus, PVD s/p AKA, LLE stent placement and chronic nonhealing ulcer, GERD, hypothyroidism, and history of opioid dependence presented to ED with complains of discharge from her ulcer. Assessment: 1. Diabetic Leg Ulcer 2. Hyperglycemia 3. Hyperkalemia - resolved 4. History of diabetes 5. History of RA, Scleroderma Plan: * Discontinue IV Vancomycin and Ceftazidime as per ID. * Will observer off antibiotics while awaiting MRI to assess for osteomyelitis. * Her CRP and ESR are elevated. * Arterial doppler of left lower extremity showed findings suggestive of peripheral vascular disease of the left lower extremity. * CTA runoff of lower extremities for better assessment - pending. * She was evaluated by vascular surgery this morning. She will be scheduled for an angiogram on Sunday. Will need to be NPO on Sunday. * Her blood sugar was significantly elevated on admission. She is noncompliant with her insulin. * Her HbA1c is 16.5. * Wound care with Aquacel Ag daily for wound dressing. * Follow up blood cultures * Insulin SS (adjusted per Endo recs) with Accucheks * Levemir 24 units BID * Diet: Diabetic * DVT Prophylaxis: SC Lovenox * Code: Full Code Problem List: 1. Hyperglycemia Pain Ratin Pain Location: none Pain Goal: Remain pain free Pain Plan: none Tomorrow's Labs & Rationales: none Angie Gomez 11/01/17 1500: Attending MD Review Statement Attending Statement Attending MD Statement: examined this patient, discuss w/resident/PA/REVOLVING INVENTORY CLERK, agreed w/resident/PA/REVOLVING INVENTORY CLERK, reviewed EMR data (avail), discussed with nursing, discussed with case mgmt Attending Assessment/Plan: Patient seen and examined at bedside. Chronic venous ulcer of left lower extremity nonhealing with cellulitis and infection and questionable osteomyelitis underlying-patient seen by vascular surgery and the plan is to await the results of CTA with runoff. Vascular planning to take her to OR on Sunday for angiogram based on today's CTA results. Continue on IV vancomycin and ceftazidime for now. We will follow up on MRI results. Uncontrolled diabetes mellitus-patient's A1c level is 16.5. And so she's been noncompliant with her insulin and has not taken her medicines regularly over the last 1 years. Her blood sugars are better controlled compared to at admission and endocrine is following her closely. Encouraged her to be compliant with her medications as that'll help with the healing of her ulcer and infection. Patient already has a above-knee amputation on the right lower extremity.
--- NOTE | 2017-11-01 07:23 | Cons- Endocrinology ---
General Information and HPI Consulting Request Date of Consult: 11/01/17 Requested By: medical team Reason for Consult: uncontrolled diabetes Source of Information: patient, old records Exam Limitations: no limitations History of Present Illness: This 57-year-old woman came to emergency room because of drainage in her left lower leg in the pretibial area. She states there is been a wound there for quite some time but recently it is started to drain some tannish fluid. The patient has diabetes associated with diabetic neuropathy. She also has some peripheral vascular disease and is status post an evswt-jxc-[id number] amputation in the right leg. Her diabetes has been poorly controlled as an outpatient. She is not sure of her insulin doses. The patient's last admission to the hospital was June 2017. The patient at that time she was treated for pancreatitis. She has multiple medical problems in the past including a history of rheumatoid arthritis, or peripheral vascular disease, placement of a stent in her left lower leg hypothyroidism, and opioid abuse. On her last admission the patient was on 24 units of Levemir twice a day as well as sliding scale NovoLog starting with 6 units for 80-150 before meals. Allergies/Medications Allergies: Coded Allergies: ibuprofen (Intermediate, HIVES 09/12/17) oxycodone (From PERCOCET) (Intermediate, HIVES 09/12/17) Penicillins (UNKNOWN 09/27/15) hydromorphone (From DILAUDID) (HIVES 07/02/17) trazodone (UNKNOWN 07/19/17) Home Med List: Aspirin (Ecotrin*) 81 MG TABLET.DR 1 TAB PO DAILY HEART HEALTH (Reported) Bupropion HCl (Wellbutrin Sr) 200 MG TABLET.ER 1 TAB PO DAILY ANXIETY ( Reported) Clopidogrel Bisulfate (Plavix) 75 MG TABLET 1 TAB PO DAILY PVD (Reported) Cyanocobalamin (Vitamin B-12) (B-12 Dots) 500 MCG TABLET 1 TAB PO 1700 VITAMIN SUPPORT (Reported) Docusate Sodium (Colace) 100 MG CAPSULE 1 CAP PO TID CONSTIPATION (Reported) Exenatide Microspheres (Bydureon) 2 MG VIAL 2 MG SC QTUES DM (Reported) Hydroxychloroquine Sulfate 200 MG TABLET 1 TAB PO BID ARTHRITIS (Reported) Insulin Aspart, Recombinant (Novolog Flexpen) 100 UNIT/ML INSULN.PEN 0 SC AC & AT BEDTIME DM BEFORE MEALS. Blood Insulin Sugar Units <80 0 80-150 0 151-199 6 200-250 8 251-300 10 301-350 12 351-400 14 >400 16 units and Call Doctor AT BEDTIME Blood Insulin Sugar Units <80 0 81-150 0 151-299 0 200-250 0 251-300 2 301-350 3 351-400 4 >400 5 and Call Doctor Insulin-Lantus (Lantus) 100 UNIT/ML VIAL 52 UNITS SC QAM DM (Reported) Insulin-Lantus (Lantus) 100 UNIT/ML VIAL 12 UNITS SC QHS DM (Reported) Levothyroxine Sodium 75 MCG TABLET 1 TAB PO DAILY AC THYROID (Reported) Losartan Potassium 25 MG TABLET 1 TAB PO DAILY HTN (Reported) Melatonin 5 MG TABLET 1 TAB PO QPM SLEEP (Reported) Metformin HCl 1,000 MG TABLET 1 TAB PO BID DM (Reported) Omeprazole 20 MG TABLET.DR 1 TAB PO DAILY GERD (Reported) Pravastatin Sodium (Pravachol) 80 MG TABLET 1 TAB PO DAILY PVD (Reported) Review of Systems Review of Systems Constitutional: Denies: chills, fever. Cardiovascular: Denies: chest pain. Respiratory: Denies: short of breath. Genitourinary: Denies: dysuria. Skin: Reports: lesions (left lower leg). Past History Travel History Traveled to [place] past 21 day No Medical History Blood Transfusion Hx: No Neurological: NONE EENT: NONE Cardiovascular: PVD (s/p stent in left leg ), MITRAL VALVE PROLAPSE Respiratory: NONE Gastrointestinal: pancreatitis Hepatic: NONE Renal: NONE Musculoskeletal: RT LEG ABOVE KNEE AMPUTAT Psychiatric: anxiety, depression Endocrine: diabetes, hypothyroidism Blood Disorders: NONE Cancer(s): NONE INTERPRETIVE PROGRAM COORDINATOR/Reproductive: NONE Other Medical Hx: RA, Scleroderma Surgical History Surgical History: cholecystectomy, below and above knee amputation of RLE Stent to LLE Family History Relations & Conditions If Any: BROTHER *No pertinent family history FH: diabetes mellitus MOTHER FH: diabetes mellitus FATHER Relation not specified for: FH: colon cancer Psychosocial History Where Do You Live? Home Services at Home: Home Health Aide Smoking Status: Former Smoker Functional Ability ADLs Independent: dressing, eating, toileting, bathing. Ambulation: independent IADLs Independent: shopping, housework, finances, food prep, telephone, transportation , medication admin. Exam & Diagnostic Data Last 24 Hrs of Vital Signs/I&O Vital Signs Date Time Temp Pulse Resp B/P B/P Pulse O2 O2 Flow FiO2 Mean Ox Delivery Rate 11/01 0636 97.7 71 20 100/60 94 Room Air 10/31 2205 98.4 74 19 102/60 93 Room Air 10/31 1803 142/72 10/31 1652 97 Room Air 10/31 1615 97.4 76 18 178/87 97 10/31 1600 98.2 79 17 142/72 98 Room Air 10/31 1338 98.2 76 18 142/71 100 Room Air 10/31 1123 96.8 90 16 164/88 97 Room Air Intake & Output 11/01 0800 11/01 0000 10/31 1600 Intake Total 200 1460 2000 Output Total 600 Balance 328 720 5837 Intake, IV 500 Intake, Oral 015 751 7517 Output, Urine 600 Patient 173 lb 145 lb Weight Weight Bed scale Estimated Measurement Method Vital Signs Date Time Temp Pulse Resp B/P B/P Pulse O2 O2 Flow FiO2 Mean Ox Delivery Rate 11/01 0636 97.7 71 20 100/60 94 Room Air 10/31 2205 98.4 74 19 102/60 93 Room Air 10/31 1803 142/72 10/31 1652 97 Room Air 10/31 1615 97.4 76 18 178/87 97 10/31 1600 98.2 79 17 142/72 98 Room Air 10/31 1338 98.2 76 18 142/71 100 Room Air 10/31 1123 96.8 90 16 164/88 97 Room Air Intake & Output 11/01 0800 11/01 0000 10/31 1600 Intake Total 200 1460 2000 Output Total 600 Balance 600 981 1736 Intake, IV 500 Intake, Oral 225 253 4012 Output, Urine 600 Patient 173 lb 145 lb Weight Weight Bed scale Estimated Measurement Method Physical Exam General Appearance: alert, awake, comfortable Head: normal appearance Neck: normal inspection Cardiovascular: regular rate/rhythm Gastrointestinal: normal bowel sounds, soft Assessment/Plan Assessment/Plan This 57-year-old woman has a history of diabetes with neuropathy. She presents with drainage from her chronic wound in the left pretibial area. X-ray of that area shows some periosteal reaction. She could have underlying osteomyelitis. I will check the patient's hemoglobin A1c. With regard to her insulin I would place the patient on Levemir 24 units twice a day. In addition sliding scale NovoLog before meals should be 80-150 give 6 units NovoLog, 151-200 give 8 units NovoLog, 201-250 give 9 units NovoLog, 251- 300 give 10 units NovoLog, 301-350 give 11 units NovoLog, 351 400 give 12 units NovoLog. A separate sliding scale NovoLog should be written at bedtime. Sliding scale NovoLog at bedtime is less than 250 give no insulin, 251-300 give 2 units NovoLog, 301-350 give 3 units NovoLog, 351-400 give 4 units NovoLog. We should monitor the patient's blood sugar 4 times a day. We should continue the patient's usual dose of levothyroxine and check her thyroid function tests including a free T4 and TSH. The patient needs an MRI of her left lower leg because it is likely she does have osteomyelitis in that area. Consult Acknowledgment - Thank you for your consult request.
--- NOTE | 2017-11-01 07:24 | PN- Student ---
See Addendum Subjective Subjective: No acute events last night. Patient seen and examined this morning. Complaining of burning sensation over the left leg, headache, and could not slep last night. Denied SOB, chest pain. Objective Objective: Vital Signs Date Time Temp Pulse Resp B/P B/P Pulse O2 O2 Flow FiO2 Mean Ox Delivery Rate 11/01 0636 97.7 71 20 100/60 94 Room Air 10/31 2205 98.4 74 19 102/60 93 Room Air 10/31 1803 142/72 10/31 1652 97 Room Air 10/31 1615 97.4 76 18 178/87 97 10/31 1600 98.2 79 17 142/72 98 Room Air 10/31 1338 98.2 76 18 142/71 100 Room Air 10/31 1123 96.8 90 16 164/88 97 Room Air Intake & Output 11/01 0800 11/01 0000 10/31 1600 Intake Total 200 1460 2000 Output Total 600 Balance 810 201 2990 Intake, IV 500 Intake, Oral 152 365 0841 Output, Urine 600 Patient 173 lb 145 lb Weight Weight Bed scale Estimated Measurement Method PE: General= alert and oriented HEENT= NCAT, anicteric sclera, moist oral mucosa CVS= normal S1 and S2, regular rate and rythm, midsystolic ejection click sound Lungs= clrear bilateral Abdomen= +BS, soft, nontender, nondistended Extremities= R-stump, with tenderness to palpation, weel healed scar. L- 3cm x 10cm oval chronic nonhealed ulcer without bone or muscle exposed. Redness around the ulcer and venous stasis skin changes in the area as well Results Results: Laboratory Tests 11/01/17 0705: Anion Gap 10, Estimated GFR > 60, BUN/Creatinine Ratio 22.9, C-React Prot High Sens 11.9 H, CBC w Diff NO MAN DIFF REQ, RBC 3.93 L, MCV 84.6, MCH 28.5, MCHC 33.7, RDW 13.6, MPV 11.9 H, Gran % 66.7, Lymphocytes % 23.1, Monocytes % 7.1, Eosinophils % 2.5, Basophils % 0.6, Absolute Granulocytes 4.0, Absolute Lymphocytes 1.4, Absolute Monocytes 0.4, Absolute Eosinophils 0.2, Absolute Basophils 0, ESR Westergren Pending 10/31/17 1900: Troponin I < 0.01 10/31/17 1451: Lactic Acid Cancelled 10/31/17 1250: Anion Gap 15, Estimated GFR > 60, BUN/Creatinine Ratio 22.9, Glucose 606 *H, Serum Osmolality 315 H, Lactic Acid 2.0, Calcium 9.7, Total Bilirubin 0.3, AST 29, ALT 32, Alkaline Phosphatase 209 H, Troponin I < 0.01, Total Protein 6.9, Albumin 3.9, Globulin 3.0, Albumin/Globulin Ratio 1.3, CBC w Diff NO MAN DIFF REQ, RBC 4.52, MCV 84.0, MCH 28.4, MCHC 33.8, RDW 14.0, MPV 12.3 H, Gran % 75.7 H, Lymphocytes % 18.1 L, Monocytes % 5.0, Eosinophils % 1.0, Basophils % 0.2, Absolute Granulocytes 5.7, Absolute Lymphocytes 1.4, Absolute Monocytes 0.4, Absolute Eosinophils 0.1, Absolute Basophils 0, Urine Color YEL, Urine Clarity CLEAR, Urine pH 7.0, Ur Specific [place] 1.015, Urine Protein 100 H, Urine Ketones NEG, Urine Nitrite NEG, Urine Bilirubin NEG, Urine Urobilinogen 0.2, Ur Leukocyte Esterase NEG, Ur Microscopic SEDIMENT EXAMINED, Urine RBC 3-5, Urine WBC RARE, Ur Epithelial Cells FEW, Urine Bacteria FEW H, Micro UA Comment BUDDING YEAST H, Urine Hemoglobin TRACE-INTACT, Urine Glucose >=1000 H 10/31/17 1248: Bicarbonate Actual 22, Mixed VBG pH 7.41, Mixed VBG pCO2 35 L, Mixed VBG O2 Saturation 54 H, Carboxyhemoglobin 2.6, O2 Concentration % RA, O2 Delivery Method RA, Phlebotomy Draw Site RIGHT FORARM Microbiology 10/31 1405 BLOOD: Blood Culture - RECD 10/31 1400 BLOOD: Blood Culture - RECD Assessment/Plan Assessment: 57 y/o F with PMHx of RA, scleroderma, DM on insulin, PVD s/p AKA, LLE stent placement, chronic nonhealing ulcer, GERD, hypothyroidism, pancreatitis and history of opioid dependence admitted with left lower extremity diabetic ulcer. Patient is afebrile without leukocytosis and x-ray was not subjective of osteomyelitis. Cellulitis from ulcer is suspected eventhough no fever or leukocytosis, she will be cover for pseudomonas and MRSA for now. Also, hyperglycemia was found in the 606 with serum osmolality of 315 for which HHS is suspected. Patient does not have ketones in the urine, DKA is unlikely. Potassium of 5.2 is noted. ABG not impresive. Anion gap was normal. Pending MRI to rule-out osteomyelitis. Pending blood cx. Pending CTA abd with run-off. Possible angiogram next Sunday, patient will need risk assessment. Arerial Dupplex showed PVD of the left lower extremity with primarily inflow disease and focal stenosis within the popliteal artery HgA1C is 16.5, patient did reported not taking the insulin and was reducated on the importance of doing it. T4 is elevated, but TSH is in the normal range all in the setting of hx of hypothyroidism. Plan: Aftab to ngen med monitor vitals sliding scale insulin Accu-Cheks Levemir 12 unit SC PM, levemir 30 unit AM IVF Vanco 1g daily IV and Fortaz 1g Q8 IV Arterial Duplex and Vascular surgery consult due to recent stent placement and rule-out any arterial pathology. DT and PT was palpated insulin Diet- diabetic DVT- SC levonox Code-full
[2017-11-01 07:54] LABS: ABSOLUTE BASOPHIL COUNT 0 /CUMM (0.0-0.2); ABSOLUTE EOSINOPHIL COUNT 0.2 /CUMM (0.0-0.7); ABSOLUTE LYMPH COUNT 1.4 /CUMM (1.2-3.4); ABSOLUTE MONOCYTE COUNT 0.4 /CUMM (0.10-0.60); BASOPHIL % 0.6 % (0.0-2.0); EOSINOPHIL % 2.5 % (0-5); GRANULOCYTE % 66.7 % (42.2-75.2); HEMATOCRIT 33.2 % (37-47); MEAN CORPUSCULAR HGB 28.5 PG (27.0-31.0); MEAN CORPUSCULAR HGB CONC 33.7 G/DL (33.0-37.0); MEAN CORPUSCULAR VOLUME 84.6 FL (81.0-99.0); MEAN PLATELET VOLUME 11.9 FL (7.4-10.4); PLATELET COUNT 173 /CUMM (130-400); RBC DISTRIBUTION WIDTH 13.6 % (11.5-14.5); RED BLOOD CELL CT 3.93 /CUMM (4.20-5.40); WHITE BLOOD CELL COUNT 5.9 /CUMM (4.8-10.8)
--- NOTE | 2017-11-01 08:06 | ULTRASOUND REPORT ---
EXAMINATION: US DUPLEX LOWER EXTREMITY ARTERY/GRAFT LIMITED, LEFT CLINICAL INFORMATION: 57-year-old female with nonhealing wounds. History of left lower extremity stent. COMPARISON: None TECHNIQUE: Grayscale, color and spectral Doppler imaging was obtained of the deep arterial system of the left lower extremity. FINDINGS: Patent deep arterial system of the left lower extremity. Abnormal monophasic waveforms are present throughout the majority of the left lower extremity. Focally elevated velocities within the popliteal artery suggest segmental stenosis. IMPRESSION: Ultrasound findings suggest peripheral vascular disease of the left lower extremity, primarily inflow disease. A focal stenosis within the popliteal artery is also suspected. This can be further evaluated with bilateral lower extremity CTA.
--- NOTE | 2017-11-01 09:59 | Cons- Wound Care ---
General Information and HPI Consulting Request Date of Consult: 11/01/17 Requested By: Jeremias CURIEL,Koki Reason for Consult: Left lower extremity ulcer present on admission History of Present Illness: Patient is 57-year-old with history of diabetes scleroderma rheumatoid arthritis peripheral vascular disease status post right ojlyy-iqo-ekug amputation who is admitted because of increasing pain and drainage from a chronic left lower extremity ulcer. Patient has history of stenting of the left leg in the distant past without recent vascular follow-up . Her ultrasound continues to show significant inflow disease . Allergies/Medications Allergies: Coded Allergies: ibuprofen (Intermediate, HIVES 09/12/17) oxycodone (From PERCOCET) (Intermediate, HIVES 09/12/17) Penicillins (UNKNOWN 09/27/15) hydromorphone (From DILAUDID) (HIVES 07/02/17) trazodone (UNKNOWN 07/19/17) Home Med List: Aspirin (Ecotrin*) 81 MG TABLET.DR 1 TAB PO DAILY HEART HEALTH (Reported) Bupropion HCl (Wellbutrin Sr) 200 MG TABLET.ER 1 TAB PO DAILY ANXIETY ( Reported) Clopidogrel Bisulfate (Plavix) 75 MG TABLET 1 TAB PO DAILY PVD (Reported) Cyanocobalamin (Vitamin B-12) (B-12 Dots) 500 MCG TABLET 1 TAB PO 1700 VITAMIN SUPPORT (Reported) Docusate Sodium (Colace) 100 MG CAPSULE 1 CAP PO TID CONSTIPATION (Reported) Exenatide Microspheres (Bydureon) 2 MG VIAL 2 MG SC QTUES DM (Reported) Hydroxychloroquine Sulfate 200 MG TABLET 1 TAB PO BID ARTHRITIS (Reported) Insulin Aspart, Recombinant (Novolog Flexpen) 100 UNIT/ML INSULN.PEN 0 SC AC & AT BEDTIME DM BEFORE MEALS. Blood Insulin Sugar Units <80 0 80-150 0 151-199 6 200-250 8 251-300 10 301-350 12 351-400 14 >400 16 units and Call Doctor AT BEDTIME Blood Insulin Sugar Units <80 0 81-150 0 151-299 0 200-250 0 251-300 2 301-350 3 351-400 4 >400 5 and Call Doctor Insulin-Lantus (Lantus) 100 UNIT/ML VIAL 52 UNITS SC QAM DM (Reported) Insulin-Lantus (Lantus) 100 UNIT/ML VIAL 12 UNITS SC QHS DM (Reported) Levothyroxine Sodium 75 MCG TABLET 1 TAB PO DAILY AC THYROID (Reported) Losartan Potassium 25 MG TABLET 1 TAB PO DAILY HTN (Reported) Melatonin 5 MG TABLET 1 TAB PO QPM SLEEP (Reported) Metformin HCl 1,000 MG TABLET 1 TAB PO BID DM (Reported) Omeprazole 20 MG TABLET.DR 1 TAB PO DAILY GERD (Reported) Pravastatin Sodium (Pravachol) 80 MG TABLET 1 TAB PO DAILY PVD (Reported) Review of Systems Review of Systems: Patient has significant localized pain Past History Travel History Traveled to [place] past 21 day No Medical History Blood Transfusion Hx: No Neurological: NONE EENT: NONE Cardiovascular: PVD (s/p stent in left leg ), MITRAL VALVE PROLAPSE Respiratory: NONE Gastrointestinal: pancreatitis Hepatic: NONE Renal: NONE Musculoskeletal: RT LEG ABOVE KNEE AMPUTAT Psychiatric: anxiety, depression Endocrine: diabetes, hypothyroidism Blood Disorders: NONE Cancer(s): NONE CPR AMBULANCE DRIVER/Reproductive: NONE Other Medical Hx: RA, Scleroderma Surgical History Surgical History: cholecystectomy, below and above knee amputation of RLE Stent to LLE Family History Relations & Conditions If Any: BROTHER *No pertinent family history FH: diabetes mellitus MOTHER FH: diabetes mellitus FATHER Relation not specified for: FH: colon cancer Psychosocial History Where Do You Live? Home Services at Home: Home Health Aide Smoking Status: Former Smoker Functional Ability ADLs Independent: dressing, eating, toileting, bathing. Ambulation: independent IADLs Independent: shopping, housework, finances, food prep, telephone, transportation , medication admin. Exam & Diagnostic Data Vital Signs and I&O Vital Signs Result Date Time B/P 100/60 11/01 0755 Temp 97.7 11/01 0755 Pulse 71 11/01 0755 Resp 20 11/01 0755 Pulse Ox 94 11/01 0636 O2 Delivery Room Air 11/01 0636 Intake & Output 11/01 0000 10/31 1600 10/31 0800 Intake Total 1460 2000 Output Total 600 Balance 860 2000 Intake, IV 500 Intake, Oral 960 2000 Output, Urine 600 Patient 173 lb 145 lb Weight Weight Bed scale Estimated Measurement Method Physical Exam: Exam of the left leg shows there to be absent pulses there is approximately 5 x 2.5 cm well demarcated ulcer with red and yellow fill. There is no exposed bone sinus tracking therte is mild chronic edema Assessment/Plan Impression/Plan: 57-year-old with history of rheumatoid arthritis scleroderma diabetes peripheral vascular disease status post right AKA admitted with increasing pain and drainage from the left lower extremity chronic ulcer. The etiology of the ulcer is secondary to both venous disease and arterial inflow disease . Recommend wound cleansing Aquacel Ag daily for wound dressing . Vascular surgery evaluation . Consider further imaging to exclude osteomyelitis given the duration of the ulcer ccontinue antibiotics pending culture results Consult Acknowledgment - Thank you for your consult request.
--- NOTE | 2017-11-01 13:03 | Cons- Vascular Surgery ---
See Addendum General Information and HPI Consulting Request Date of Consult: 11/01/17 Requested By: Jeremias CURIEL,Koki Reason for Consult: Chronic left leg wound Source of Information: patient History of Present Illness: 57 y/o f w/ hx of DM, scleroderma, RA with pad s/p right aka by dr. mcintyre 2014 now with chronic left pre-tibial wound for a long time. She was admitted to hospital for foul drainage from the wound. denies history of smoking. mostly wheelchair bound. Allergies/Medications Allergies: Coded Allergies: ibuprofen (Intermediate, HIVES 09/12/17) oxycodone (From PERCOCET) (Intermediate, HIVES 09/12/17) Penicillins (UNKNOWN 09/27/15) hydromorphone (From DILAUDID) (HIVES 07/02/17) trazodone (UNKNOWN 07/19/17) Home Med List: Aspirin (Ecotrin*) 81 MG TABLET.DR 1 TAB PO DAILY HEART HEALTH (Reported) Bupropion HCl (Wellbutrin Sr) 200 MG TABLET.ER 1 TAB PO DAILY ANXIETY ( Reported) Clopidogrel Bisulfate (Plavix) 75 MG TABLET 1 TAB PO DAILY PVD (Reported) Cyanocobalamin (Vitamin B-12) (B-12 Dots) 500 MCG TABLET 1 TAB PO 1700 VITAMIN SUPPORT (Reported) Docusate Sodium (Colace) 100 MG CAPSULE 1 CAP PO TID CONSTIPATION (Reported) Exenatide Microspheres (Bydureon) 2 MG VIAL 2 MG SC QTUES DM (Reported) Hydroxychloroquine Sulfate 200 MG TABLET 1 TAB PO BID ARTHRITIS (Reported) Insulin Aspart, Recombinant (Novolog Flexpen) 100 UNIT/ML INSULN.PEN 0 SC AC & AT BEDTIME DM BEFORE MEALS. Blood Insulin Sugar Units <80 0 80-150 0 151-199 6 200-250 8 251-300 10 301-350 12 351-400 14 >400 16 units and Call Doctor AT BEDTIME Blood Insulin Sugar Units <80 0 81-150 0 151-299 0 200-250 0 251-300 2 301-350 3 351-400 4 >400 5 and Call Doctor Insulin-Lantus (Lantus) 100 UNIT/ML VIAL 52 UNITS SC QAM DM (Reported) Insulin-Lantus (Lantus) 100 UNIT/ML VIAL 12 UNITS SC QHS DM (Reported) Levothyroxine Sodium 75 MCG TABLET 1 TAB PO DAILY AC THYROID (Reported) Losartan Potassium 25 MG TABLET 1 TAB PO DAILY HTN (Reported) Melatonin 5 MG TABLET 1 TAB PO QPM SLEEP (Reported) Metformin HCl 1,000 MG TABLET 1 TAB PO BID DM (Reported) Omeprazole 20 MG TABLET.DR 1 TAB PO DAILY GERD (Reported) Pravastatin Sodium (Pravachol) 80 MG TABLET 1 TAB PO DAILY PVD (Reported) Past History Medical History Blood Transfusion Hx: No Neurological: NONE EENT: NONE Cardiovascular: PVD (s/p stent in left leg ), MITRAL VALVE PROLAPSE Respiratory: NONE Gastrointestinal: pancreatitis Hepatic: NONE Renal: NONE Musculoskeletal: RT LEG ABOVE KNEE AMPUTAT Psychiatric: anxiety, depression Endocrine: diabetes, hypothyroidism Blood Disorders: NONE Cancer(s): NONE HAND FOLDER/Reproductive: NONE Other Medical Hx: RA, Scleroderma Surgical History Pertinent Surgical History: cholecystectomy, below and above knee amputation of RLE Stent to LLE Family History Relations & Conditions If Any: BROTHER *No pertinent family history FH: diabetes mellitus MOTHER FH: diabetes mellitus FATHER Relation not specified for: FH: colon cancer Psychosocial History Where Do You Live? Home Services at Home: Home Health Aide Smoking Status: Former Smoker Functional Ability ADLs Independent: dressing, eating, toileting, bathing. Ambulation: independent IADLs Independent: shopping, housework, finances, food prep, telephone, transportation , medication admin. Review of Systems Review of Systems: 12 point review of systems performe.d Exam & Diagnostic Data Vital Signs and I&O Vital Signs Date Time Temp Pulse Resp B/P B/P Pulse O2 O2 Flow FiO2 Mean Ox Delivery Rate 11/01 0755 97.7 71 20 100/60 11/01 0636 97.7 71 20 100/60 94 Room Air 10/31 2205 98.4 74 19 102/60 93 Room Air 10/31 1803 142/72 10/31 1652 97 Room Air 10/31 1615 97.4 76 18 178/87 97 10/31 1600 98.2 79 17 142/72 98 Room Air 10/31 1338 98.2 76 18 142/71 100 Room Air Intake & Output 11/01 1600 11/01 0800 11/01 0000 10/31 1600 10/31 0800 10/31 0000 Intake Total 200 1460 2000 Output Total 600 Balance 728 939 8870 Intake, IV 500 Intake, Oral 427 270 0052 Output, Urine 600 Patient 172 lb 173 lb 145 lb Weight Weight Bed scale Estimated Measurement Method right aka wound well healed. left pre tibial ulcer appears cleaned. non palpable pedal/dp pulses. femoral pulse diffiuclt to palpable because of body habitus and patient position in wheel chair. Assessment/Plan Assessment/Plan 57 y/o f w/ hx of dm, pad with chronic left leg wound. -i reviewed the arterial duplex and it appears she has signfiicant sfa/popliteal disease. I would like to obtain CTA abd/pelvis with runoff. -will plan to perform angiogram of the left leg next week possibly sunday. needs clearance for procedure Consult Acknowledgment - Thank you for your consult request.
--- NOTE | 2017-11-01 14:48 | Cons- Infect Disease ---
General Information and HPI Consulting Request Date of Consult: 11/01/17 Requested By: Koki Mcdowell MD Reason for Consult: Rule out cellulitis of the left lower extremity Source of Information: patient, old records History of Present Illness: This is a 57-year-old woman with a history of rheumatoid arthritis, scleroderma, maintained on Plaquenil, hypothyroidism, recurrent pancreatitis, opioid dependence and diabetes, with peripheral vascular disease, status post right AKA and left lower extremity stent with a chronic left lower extremity ulcer, of unclear duration, admitted on October 31 after presenting to the emergency room with several days of increasing pain, drainage, erythema and edema of the left leg with no fevers or chills. On admission she was afebrile. Laboratory data revealed a white blood cell count of 7.5, glucose 606, BUN/creatinine 16 and 0.7 , alkaline phosphatase 209. Urinalysis 3-5 RBC/rare WBCs. X-ray of the left tibia/fibula revealed a chronic, smooth, undulating periosteal reaction of the fibular cortex. Arterial Doppler of the left leg revealed peripheral vascular disease, primarily inflow disease, with a focal stenosis within the popliteal artery. She was begun on Vancomycin and Ceftazidime and has remained afebrile since admission. She was evaluated by Vascular surgery and underwent a CTA of the abdomen and pelvis with runoff earlier today, which revealed left SFA/ popliteal disease, for which she is scheduled for an angiogram next week. She also underwent an MRI today, with results pending. Allergies/Medications Allergies: Coded Allergies: ibuprofen (Intermediate, HIVES 09/12/17) oxycodone (From PERCOCET) (Intermediate, HIVES 09/12/17) Penicillins (UNKNOWN 09/27/15) hydromorphone (From DILAUDID) (HIVES 07/02/17) trazodone (UNKNOWN 07/19/17) Home Med List: Aspirin (Ecotrin*) 81 MG TABLET.DR 1 TAB PO DAILY HEART HEALTH (Reported) Bupropion HCl (Wellbutrin Sr) 200 MG TABLET.ER 1 TAB PO DAILY ANXIETY ( Reported) Clopidogrel Bisulfate (Plavix) 75 MG TABLET 1 TAB PO DAILY PVD (Reported) Cyanocobalamin (Vitamin B-12) (B-12 Dots) 500 MCG TABLET 1 TAB PO 1700 VITAMIN SUPPORT (Reported) Docusate Sodium (Colace) 100 MG CAPSULE 1 CAP PO TID CONSTIPATION (Reported) Exenatide Microspheres (Bydureon) 2 MG VIAL 2 MG SC QTUES DM (Reported) Hydroxychloroquine Sulfate 200 MG TABLET 1 TAB PO BID ARTHRITIS (Reported) Insulin Aspart, Recombinant (Novolog Flexpen) 100 UNIT/ML INSULN.PEN 0 SC AC & AT BEDTIME DM BEFORE MEALS. Blood Insulin Sugar Units <80 0 80-150 0 151-199 6 200-250 8 251-300 10 301-350 12 351-400 14 >400 16 units and Call Doctor AT BEDTIME Blood Insulin Sugar Units <80 0 81-150 0 151-299 0 200-250 0 251-300 2 301-350 3 351-400 4 >400 5 and Call Doctor Insulin-Lantus (Lantus) 100 UNIT/ML VIAL 52 UNITS SC QAM DM (Reported) Insulin-Lantus (Lantus) 100 UNIT/ML VIAL 12 UNITS SC QHS DM (Reported) Levothyroxine Sodium 75 MCG TABLET 1 TAB PO DAILY AC THYROID (Reported) Losartan Potassium 25 MG TABLET 1 TAB PO DAILY HTN (Reported) Melatonin 5 MG TABLET 1 TAB PO QPM SLEEP (Reported) Metformin HCl 1,000 MG TABLET 1 TAB PO BID DM (Reported) Omeprazole 20 MG TABLET.DR 1 TAB PO DAILY GERD (Reported) Pravastatin Sodium (Pravachol) 80 MG TABLET 1 TAB PO DAILY PVD (Reported) Past History Travel History Traveled to [place] past 21 day No Medical History Blood Transfusion Hx: No Neurological: NONE EENT: NONE Cardiovascular: PVD (s/p stent in left leg ), MITRAL VALVE PROLAPSE Respiratory: NONE Gastrointestinal: pancreatitis Hepatic: NONE Renal: NONE Psychiatric: anxiety, depression Endocrine: diabetes, hypothyroidism Blood Disorders: NONE 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 Home Services at Home: Home Health Aide Smoking Status: Former Smoker Functional Ability ADLs Independent: dressing, eating, toileting, bathing. Ambulation: independent IADLs Independent: shopping, housework, finances, food prep, telephone, transportation , medication admin. Review of Systems Review of Systems All Other Systems: Reviewed and Negative Exam & Diagnostic Data Last 24 Hrs of Vital Signs/I&O Vital Signs Date Time Temp Pulse Resp B/P B/P Pulse O2 O2 Flow FiO2 Mean Ox Delivery Rate 11/01 0755 97.7 71 20 100/60 11/01 0636 97.7 71 20 100/60 94 Room Air 10/31 2205 98.4 74 19 102/60 93 Room Air 10/31 1803 142/72 10/31 1652 97 Room Air 10/31 1615 97.4 76 18 178/87 97 10/31 1600 98.2 79 17 142/72 98 Room Air Intake & Output 11/01 1600 11/01 0800 11/01 0000 Intake Total 124 571 6426 Output Total 300 600 Balance 40 200 860 Intake, IV 500 Intake, Oral 340 200 960 Output, Urine 300 600 Patient 172 lb 173 lb Weight Weight Bed scale Measurement Method Physical Exam Other Physical Findings: She is awake and alert in no acute distress. She is afebrile. Skin reveals no rash. HEENT exam is negative. Neck is supple with no adenopathy. Lungs are clear. Heart regular rhythm with no murmur. Abdomen is soft, nontender with positive bowel sounds. Back no CVA tenderness. Extremities status post right AKA; ulcer on the anterior aspect of the left leg appears clean, with minimal surrounding erythema and edema, tender to palpation; pulses 1+ and equal. Neuro neuropathy left foot. Last 24 Hours of Lab Results: Laboratory Tests 11/01 10/31 10/31 0705 1900 1451 Chemistry Sodium (137 - 145 mmol/L) 139 Potassium (3.5 - 5.1 mmol/L) 4.1 Chloride (98 - 107 mmol/L) 105 Carbon Dioxide (22 - 30 mmol/L) 24 Anion Gap (5 - 16) 10 BUN (7 - 17 mg/dL) 16 Creatinine (0.5 - 1.0 mg/dL) 0.7 Estimated GFR (>60 ml/min) > 60 BUN/Creatinine Ratio (7 - 25 %) 22.9 Hemoglobin A1c (4.2 - 5.8 %) 16.5 H Lactic Acid Cancelled Troponin I (< 0.11 ng/ml) < 0.01 C-React Prot High Sens (1.0 - 3.0 mg/L) 11.9 H TSH (0.270 - 4.200 uIU/mL) 3.010 Thyroxine (T4) (4.5 - 10.9 ug/dL) 11.0 H Hematology CBC w Diff NO MAN DIFF REQ WBC (4.8 - 10.8 /CUMM) 5.9 RBC (4.20 - 5.40 /CUMM) 3.93 L Hgb (12.0 - 16.0 G/DL) 11.2 L Hct (37 - 47 %) 33.2 L MCV (81.0 - 99.0 FL) 84.6 MCH (27.0 - 31.0 PG) 28.5 MCHC (33.0 - 37.0 G/DL) 33.7 RDW (11.5 - 14.5 %) 13.6 Plt Count (130 - 400 /CUMM) 173 MPV (7.4 - 10.4 FL) 11.9 H Gran % (42.2 - 75.2 %) 66.7 Lymphocytes % (20.5 - 51.1 %) 23.1 Monocytes % (1.7 - 9.3 %) 7.1 Eosinophils % (0 - 5 %) 2.5 Basophils % (0.0 - 2.0 %) 0.6 Absolute Granulocytes (1.4 - 6.5 /CUMM) 4.0 Absolute Lymphocytes (1.2 - 3.4 /CUMM) 1.4 Absolute Monocytes (0.10 - 0.60 /CUMM) 0.4 Absolute Eosinophils (0.0 - 0.7 /CUMM) 0.2 Absolute Basophils (0.0 - 0.2 /CUMM) 0 ESR Westergren (0 - 20 MM) 40 H Last 24 Hours of Nikolas Results: Blood cultures October 31 negative Diagnostic Data Recent Imaging Findings: X-ray of the left tibia/fibula revealed a chronic, smooth, undulating periosteal reaction of the fibular cortex. Arterial Doppler of the left leg revealed peripheral vascular disease, primarily inflow disease, with a focal stenosis within the popliteal artery. Assessment/Plan Assessment/Plan Impression: This is a 57-year-old woman with a history of rheumatoid arthritis and scleroderma, maintained on Plaquenil, opioid dependence and diabetes, with peripheral vascular disease, status post right AKA and left lower extremity stent with a chronic left lower extremity ulcer, of unclear duration, admitted on October 31 with several days of increasing pain, drainage, erythema and edema of the left leg, found to be afebrile with a normal white blood cell count and with an arterial Doppler of the left leg revealing focal stenosis within the left popliteal artery. Her primary complaint appears to be pain, which may well be ischemic in nature, given the findings of her arterial Doppler and CTA of the abdomen and pelvis. She has no fever or leukocytosis to suggest an infectious process and minimal evidence of inflammation of the leg; therefore feel that she can be followed off antibiotics. Her x-ray does suggest the possibility of an underlying osteomyelitis, and she has undergone MRI, with the results pending. If the MRI does suggest osteomyelitis she will then require a bone biopsy for confirmation and culture. Suggestion: 1. Further evaluation/management of her peripheral vascular disease per Vascular surgery 2. Follow-up MRI results 3. Discontinue Vancomycin and Ceftazidime and follow off antibiotics pending above Consult Acknowledgment - Thank you for your consult request.
--- NOTE | 2017-11-01 16:57 | MRI REPORT ---
EXAMINATION: MR TIBIA AND FIBULA WITHOUT AND WITH CONTRAST, LEFT CLINICAL INFORMATION: Osteomyelitis. Deep ulcer on the left lateral lower extremity. COMPARISON: X-ray 10/31/2017. TECHNIQUE: MRI in a high-field magnet with and without contrast, 7.5 mL Gadavist. FINDINGS: Technologist notes indicate involuntary motion, patient anxious. Repeat sequences could not be obtained. Motion artifact degrading images with associated limitations. In particular, there is motion artifact degrading the axial STIR sequence. As seen on the recent x-ray, is a soft tissue wound in the lateral aspect of the middle third of the leg. This extends over a distance of approximately 5.6 cm craniocaudal, 2.1 cm AP. No significant soft tissue edema or enhancement is evident in the region of the wound. No focal fluid collections seen. There is nonspecific subcutaneous edema along the posterior aspect of the leg, without focal fluid collections. Motion artifact on the axial STIR sequences limiting evaluation. In the provided sequences, there are periosteal changes noted in the fibula in the region of the wound. No acute cortical or marrow edema or abnormal enhancement is seen to indicate acute osteomyelitis. No MRI findings to suggest osteomyelitis in the tibia. There is mild diffuse edema in the medial gastrocnemius muscle, nonspecific. The visualized tendons appear intact. IMPRESSION: 1. Motion artifact degrading images with associated limitation. 2. Soft tissue wound along the lateral aspect of the middle third of the leg. No evidence of significant cellulitis or focal fluid collections in the underlying soft tissues. 3. Periosteal changes in the fibula underlying the region of the wound. This appears chronic. No MRI findings to suggest acute osteomyelitis at this stage. 4. Nonspecific subcutaneous edema in the posterior aspect of the leg, clinically correlate for significance.
--- NOTE | 2017-11-01 17:38 | CT SCAN REPORT ---
EXAMINATION: CT ANGIOGRAPHY WITH RUNOFF CLINICAL INFORMATION: Peripheral vascular disease. Nonhealing ulcer. Question history of left lower extremity stent. COMPARISON: Arterial ultrasound left lower extremity 10/31/2017. TECHNIQUE: CT angiography of the abdomen, pelvis, and bilateral lower extremity runoff performed without and with contrast. 95 mL of Optiray 320. Maximum intensity projection vascular images were produced and reviewed. DLP: 1114\H\ \N\mGy-cm FINDINGS: The upper abdominal aorta is normal in caliber. There is mild to moderate circumferential plaque in the juxtarenal an infrarenal aortic segments. At the aortic bifurcation the patent lumen of the aorta measures 0.8 x 0.8 cm which is probably hemodynamically significant. On the right moderate hemodynamically significant disease in the common iliac artery. The external iliac artery is small in caliber but patent. There is a moderate 50% stenosis in the common iliac artery above the bifurcation. The SFA occludes proximally. The profunda femoral artery tapers distally. There is a above knee amputation. On the left, moderate to severe common iliac level disease. The external iliac artery is patent. The internal iliac artery is mildly diseased. Common femoral artery is mildly diseased. There is mild diffuse SFA disease in the upper two thirds of the SFA. In the distal SFA there is a focal short segment occlusion with muscular collateralization around the occlusion. There is a moderate above knee popliteal artery stenosis. There is three-vessel runoff. The right renal artery is patent. The left renal artery is patent. The celiac and SMA are patent. The MARY is patent. Lung bases are clear. Fatty liver. Cholecystectomy. Pancreas and spleen unremarkable. Adrenal glands unremarkable. lobulation of the kidneys. No discrete mass. No hydroureteronephrosis. Urinary bladder unremarkable. Uterus and adnexa are unremarkable. Small and large bowel unremarkable. No adenopathy. Degenerative changes in the spine. IMPRESSION: Moderate aortoiliac inflow disease, left greater than right. Left lower extremity: Diffuse SFA disease with mild disease in the proximal two thirds and a short segment occlusive lesion in the distal SFA. Moderate focal stenosis above knee popliteal artery. Patent three-vessel runoff. Right lower extremity: Chronically occluded superficial femoral artery. Mildly diseased profunda femoral artery. Above knee amputation.
[2017-11-01 22:17] VITALS: BP 142/80
[2017-11-02 06:55] VITALS: BP 90/60
--- NOTE | 2017-11-02 07:14 | PN- Housestaff ---
Ayesha CURIEL,[facility] 11/02/17 0713: Subjective Follow-up For: Leg Ulcer GPC in blood Subjective: Patient seen and examined. Complains of lightheadedness while lying down but no dizziness. her blood pressure was low this morning. No other complaints. Review of Systems Constitutional: Reports: no symptoms. Objective Last 24 Hrs of Vital Signs/I&O Vital Signs Date Time Temp Pulse Resp B/P B/P Pulse O2 O2 Flow FiO2 Mean Ox Delivery Rate 11/02 0655 98.3 74 20 90/60 98 Room Air 11/01 2217 98.1 83 20 142/80 96 Room Air 11/01 0755 97.7 71 20 100/60 Intake & Output 11/02 0800 11/02 0000 11/01 1600 Intake Total 270 340 Output Total 300 Balance 270 40 Intake, IV 20 Intake, Oral 250 340 Output, Urine 300 Patient 172 lb Weight Physical Exam General Appearance: Alert, Oriented X3, Cooperative, Mild Distress Skin: No Rashes, No Breakdown Skin Temp/Moisture Exam: Warm/Dry Sepsis Skin Exam (color): Normal for Ethnicity HEENT: Atraumatic Cardiovascular: Normal S1, Normal S2, No Murmurs Lungs: Clear to Auscultation, Normal Air Movement Abdomen: Soft, No Tenderness Neurological: Normal Speech Extremities: Right AKA with well healed stump Left leg has an ulcer on lateral aspect with mild yellow fill. Last 24 Hrs of Lab/Nikolas Results Last 24 Hrs of Labs/Mics: Laboratory Tests 11/02/17 0935: Anion Gap 11, Estimated GFR > 60, BUN/Creatinine Ratio 21.4 Assessment/Plan Assessment: 56 year old female with a PMH of rheumatoid arthritis, scleroderma, diabetes mellitus, PVD s/p AKA, LLE stent placement and chronic nonhealing ulcer, GERD, hypothyroidism, and history of opioid dependence presented to ED with complains of discharge from her ulcer. Assessment: 1. Diabetic Leg Ulcer 2. Hyperglycemia 3. Hyperkalemia - resolved 4. History of diabetes 5. History of RA, Scleroderma Plan: * Continue off antibiotics. * Await final cultures. * Her CRP and ESR are elevated. * Arterial doppler of left lower extremity showed findings suggestive of peripheral vascular disease of the left lower extremity. * CTA runoff of lower extremities showed moderate aortoiliac inflow disease, left greater than right. * She will be scheduled for an angiogram on Sunday. Will need to be NPO on Sunday. * Her blood sugar are still elevated but per Endo will observe her on the current regimen for now. * Her HbA1c is 16.5. * Losartan has been discontinued due to low blood pressure * Wound care with Aquacel Ag daily for wound dressing. * Insulin SS with Accucheks * Levemir 24 units BID * Diet: Diabetic * DVT Prophylaxis: SC Lovenox * Code: Full Code On the weekend Dr Licea will be covering on 11/[address] Wen on 11/04 Problem List: 1. Wound infection Pain Ratin Pain Location: none Pain Goal: Remain pain free Pain Plan: none Tomorrow's Labs & Rationales: CBC, BEP Angie Gomez 11/02/17 1316: Attending MD Review Statement Attending Statement Attending MD Statement: examined this patient, discuss w/resident/PA/DISTRICT FIRE MANAGEMENT OFFICER, agreed w/resident/PA/DISTRICT FIRE MANAGEMENT OFFICER, reviewed EMR data (avail), discussed with nursing, discussed with case mgmt Attending Assessment/Plan: 57-year-old woman with a history of rheumatoid arthritis, scleroderma, maintained on Plaquenil, hypothyroidism, recurrent pancreatitis, opioid dependence and diabetes, with peripheral vascular disease, status post right AKA and left lower extremity stent with a chronic left lower extremity ulcer Chronic venous ulcer of left lower extremity nonhealing with h/o PVD- patient seen by vascular surgery and her CTA with runoff was reviewed. Vascular planning to take her to OR on Sunday for angiogram based on CTA results. Continue to follow off abx per ID recommendations. MRI negative for osteomyelitis or any collections . Uncontrolled diabetes mellitus-patient's A1c level is 16.5. She's been noncompliant with her insulin and has not taken her medicines regularly over the last 1 years. Her blood sugars are better controlled compared to at admission and endocrine is following her closely. Encouraged her to be compliant with her medications Creatinine stable. Will dc losartan for now given that she has had contrast and is going to get another contrast on sunday. will f/u on her bp and BEP.
--- NOTE | 2017-11-02 07:37 | PN- Student ---
Subjective Subjective: No acut eevents ovenright. patient seen and examined thisa morning. Complain of sharp pain the the left leg that comes and goes. Patient going to the resroom okay, without any diarrhea or constipation. Patient ewating okay and trolerating PO without nausea or vomiting. Noted dizziness at rest or ambulating to the resroom. Noted thaty BP was lower that she usually is. Had questions about the results of the CTA and US, questions were answered and she feels axious about it. No other complains. Objective Objective: Vital Signs Date Time Temp Pulse Resp B/P B/P Pulse O2 O2 Flow FiO2 Mean Ox Delivery Rate 11/02 0655 98.3 74 20 90/60 98 Room Air 11/01 2217 98.1 83 20 142/80 96 Room Air 11/01 0755 97.7 71 20 100/60 Intake & Output 11/02 0800 11/02 0000 11/01 1600 Intake Total 270 340 Output Total 350 300 Balance -350 270 40 Intake, IV 20 Intake, Oral 250 340 Output, Urine 350 300 Patient 172 lb Weight Current Medications Sig/Christina Start time Last Medication Dose Route Stop Time Status Admin Acetaminophen 650 MG Q6P PRN 10/31 1500 AC PO Aspirin Buffered 81 MG DAILY 11/01 0900 AC 11/01 PO 0754 Atorvastatin Calcium 20 MG 1700 10/31 1700 AC 11/01 PO 1700 Bupropion HCl 200 MG DAILY 10/31 1631 AC 11/01 PO 0755 Ceftazidime 1,000 MG IQ8 11/01 0000 DC 11/01 IV 0753 Clopidogrel Bisulfate 75 MG DAILY 11/01 0900 AC 11/01 PO 0754 Docusate Sodium 100 MG TID 10/31 1632 AC 11/01 PO 2013 Enoxaparin Sodium 40 MG DAILY 11/01 0900 AC 11/01 SC 0940 Hydroxychloroquine 200 MG BID 10/31 2100 AC 11/01 Sulfate PO 2013 Insulin Aspart 0 TIDAC/HS 10/31 1700 AC 11/01 SC 202 Insulin Detemir 12 UNITS QPM 11/01 2100 CAN SC Insulin Detemir 30 UNITS QAM 11/01 0900 DC 11/01 SC 0831 Insulin Detemir 24 UNITS BID 11/01 0900 AC 11/01 SC 202 Levothyroxine Sodium 0.075 MG DAILY AC 10/31 1632 AC 11/02 PO 0552 Losartan Potassium 25 MG DAILY 10/31 1632 AC 11/01 PO 0755 Melatonin 5 MG QPM 10/31 2100 AC 11/01 PO 2014 Morphine Sulfate 2 MG Q6P PRN 10/31 1700 AC 11/02 IV 0434 Omeprazole 20 MG DAILY AC 10/31 1632 AC 11/02 PO 0552 Patient Medication 1 ED ONE ONE 11/01 1645 DC Teaching ED 11/01 1646 Tramadol HCl 50 MG Q6P PRN 10/31 1700 AC 11/01 PO 1705 Vancomycin HCl 1,000 MG DAILY 11/01 0900 DC 11/01 Sodium Chloride 250 ML IV 0832 PE: General= alert and oriented HEENT= NCAT, anicteric sclera, moist oral mucosa CVS= normal S1 and S2, regular rate and rythm, midsystolic ejection click sound Lungs= clrear bilateral Abdomen= +BS, soft, nontender, nondistended Extremities= R-stump, with tenderness to palpation, well healed scar. L- 3cm x 10cm oval chronic nonhealed ulcer without bone or muscle exposed. Redness around the ulcer and venous stasis skin changes in the area as well Assessment/Plan Assessment: 57 y/o F with PMHx of RA, scleroderma, DM on insulin, PVD s/p AKA, LLE stent placement, chronic nonhealing ulcer, GERD, hypothyroidism, pancreatitis and history of opioid dependence admitted with left lower extremity diabetic ulcer. Patient is afebrile without leukocytosis and x-ray was not subjective of osteomyelitis. MRI ruleout cellulitis and osteomyelitis. Vanco and fortaz were d /c as patient has no fever or leukocytosis. No evidence of infection at this point. Arerial Dupplex showed PVD of the left lower extremity with primarily inflow disease and focal stenosis within the popliteal artery. CTA showed iliac and left superficial femoral artery/popliteal disease. Angiogram is scheudled for sunday, per vacular. GRAM POSITIVE COCCI IN CLUSTERS in blood cx.
--- NOTE | 2017-11-02 07:47 | PN- Diabetes ---
Assessment/Plan Diabetes Assessment: The patient states she still has considerable pain in her left lower leg. She states she is scheduled for an angioplasty next week. The patient's fingerstick blood sugars yesterday were 326 in the AM before breakfast, 304 before dinner, 290 before lunch, and 322 at bedtime. The patient is presently on 24 units of Levemir twice a day along with sliding scale NovoLog before meals and the separate sliding scale at bedtime. Patient is also on thyroid hormone. Her TSH is 3.01 with a total thyroxine of 11.0. Plan: Suggest continue the present insulin regimen for now. We will need to observe her blood sugars further before making additional changes. Subjective Subjective: Complains of pain left lower leg Review of Systems Constitutional: Denies: chills, fever. Cardiovascular: Denies: chest pain. Respiratory: Denies: cough, short of breath. Gastrointestinal: Denies: abdominal pain, nausea, vomiting. Skin: Reports: no symptoms. Objective Last 24 Hrs of Vital Signs/I&O Vital Signs Date Time Temp Pulse Resp B/P B/P Pulse O2 O2 Flow FiO2 Mean Ox Delivery Rate 11/02 0655 98.3 74 20 90/60 98 Room Air 11/01 2217 98.1 83 20 142/80 96 Room Air 11/01 0755 97.7 71 20 100/60 Intake & Output 11/02 0800 11/02 0000 11/01 1600 Intake Total 270 340 Output Total 350 300 Balance -350 270 40 Intake, IV 20 Intake, Oral 250 340 Output, Urine 350 300 Patient 172 lb Weight Physical Exam General Appearance: alert, awake, comfortable Head: normal appearance Neck: normal inspection Respiratory: normal breath sounds Cardiovascular: regular rate/rhythm Abdomen: normal bowel sounds Current Medications: Current Medications Sig/Christina Start time Last Medication Dose Route Stop Time Status Admin Acetaminophen 650 MG Q6P PRN 10/31 1500 AC PO Aspirin Buffered 81 MG DAILY 11/01 0900 AC 11/01 PO 0754 Atorvastatin Calcium 20 MG 1700 10/31 1700 AC 11/01 PO 1700 Bupropion HCl 200 MG DAILY 10/31 1631 AC 11/01 PO 0755 Ceftazidime 1,000 MG IQ8 11/01 0000 DC 11/01 IV 0753 Clopidogrel Bisulfate 75 MG DAILY 11/01 0900 AC 11/01 PO 0754 Docusate Sodium 100 MG TID 10/31 1632 AC 11/01 PO 2013 Enoxaparin Sodium 40 MG DAILY 11/01 0900 AC 11/01 SC 0940 Hydroxychloroquine 200 MG BID 10/31 2100 AC 11/01 Sulfate PO 2013 Insulin Aspart 0 TIDAC/HS 10/31 1700 AC 11/01 SC 202 Insulin Detemir 12 UNITS QPM 11/01 2100 CAN SC Insulin Detemir 30 UNITS QAM 11/01 0900 DC 11/01 SC 0831 Insulin Detemir 24 UNITS BID 11/01 0900 AC 11/01 SC 202 Levothyroxine Sodium 0.075 MG DAILY AC 10/31 1632 AC 11/02 PO 0552 Losartan Potassium 25 MG DAILY 10/31 1632 AC 11/01 PO 0755 Melatonin 5 MG QPM 10/31 2100 AC 11/01 PO 2013 Morphine Sulfate 2 MG Q6P PRN 10/31 1700 AC 11/02 IV 0434 Omeprazole 20 MG DAILY AC 10/31 1632 AC 11/02 PO 0552 Patient Medication 1 ED ONE ONE 11/01 1645 DC Teaching ED 11/01 1646 Tramadol HCl 50 MG Q6P PRN 10/31 1700 AC 11/01 PO 1705 Vancomycin HCl 1,000 MG DAILY 11/01 0900 DC 11/01 Sodium Chloride 250 ML IV 0832 Findings Pertinent Lab/Nikolas Results: Vital Signs Date Time Temp Pulse Resp B/P B/P Pulse O2 O2 Flow FiO2 Mean Ox Delivery Rate 11/02 0655 98.3 74 20 90/60 98 Room Air 11/01 2217 98.1 83 20 142/80 96 Room Air 11/01 0755 97.7 71 20 100/60 Intake & Output 11/02 0800 11/02 0000 11/01 1600 Intake Total 270 340 Output Total 350 300 Balance -350 270 40 Intake, IV 20 Intake, Oral 250 340 Output, Urine 350 300 Patient 172 lb Weight
--- NOTE | 2017-11-02 08:28 | PN- Infect Dx ---
Subjective Subjective: Afebrile. She complains of pain over the left tibia and ankle. Objective Last 24 Hrs of Vital Signs/I&O Vital Signs Date Time Temp Pulse Resp B/P B/P Pulse O2 O2 Flow FiO2 Mean Ox Delivery Rate 11/02 0655 98.3 74 20 90/60 98 Room Air 11/01 2217 98.1 83 20 142/80 96 Room Air Intake & Output 11/02 1600 11/02 0800 11/02 0000 Intake Total 270 270 Output Total 350 Balance -80 270 Intake, IV 20 20 Intake, Oral 250 250 Output, Urine 350 Physical Exam Other Physical Findings: She appears comfortable in no acute distress Extremities left anterior tibial ulcer clean, with minimal surrounding erythema and edema, tender to palpation Results Last 24 Hours of Lab Results: No labs from today Last 24 Hours of Nikolas Results: Blood cultures October 31 bottle positive for gram-positive cocci in clusters Recent Imaging Studies: CT runoff angiogram November 01 reveals moderate aortoiliac inflow disease, left greater than right, with diffuse SFA disease, mild disease in the proximal two thirds and a short segment occlusive lesion in the distal SFA and moderate focal stenosis in the above knee popliteal artery of the left lower extremity and with a chronically occluded SFA in the right lower extremity MRI left tibia November 01 negative for osteomyelitis or focal fluid collections Assessment/Plan ID Impression: Stable, with temperatures and white blood cell count remaining normal, now off antibiotics. The positive blood culture is of unclear significance and, with her temperatures remaining normal, she can be followed off antibiotics pending results. Her MRI results have been reviewed, with no evidence for osteomyelitis or any drainable collection. She does have significant peripheral vascular disease, which likely explains her pain, and she is scheduled for a left leg angiogram on November 05. Suggestion: 1. Follow-up results of the positive blood culture 2. Local wound care to her left leg ulcer 3. Continue to follow off antibiotics pending above
--- NOTE | 2017-11-02 08:34 | PN- Wound Care ---
Subjective Subjective: Patient continues to complain of localized pain. MRI does not suggest osteomyelitis. There is evidence of significant peripheral vascular disease for which she will need angioplasty per vascular surgery. Objective Vital Signs and I&Os Vital Signs Result Date Time Pulse Ox 98 11/02 654 B/P 90/60 11/02 06 O2 Delivery Room Air 11/02 654 Temp 98.3 11/02 06 Pulse 74 11/02 0655 Resp 20 11/02 06 Intake & Output 11/02 0000 11/01 1600 11/01 0800 Intake Total 270 340 200 Output Total 300 Balance 270 40 200 Intake, IV 20 Intake, Oral 250 340 200 Output, Urine 300 Patient 172 lb Weight Physical Exam: Left lower extremity ulcer is unchanged in configuration Impression/Plan Impression/Plan Impression/Plan: 57-year-old woman with diabetes chronic ulcer in the setting of severe peripheral vascular disease and possible soft tissue infection with positive blood cultures. Identification is pending. Await vascular intervention for angioplasty. Contact infectious disease regarding resumption of antibiotics pending identification of positive blood culture
--- NOTE | 2017-11-02 10:53 | Patient Discharge Instructions ---
Discharge Instructions General Discharge Information You were seen/treated for: Leg Ulcer You had these procedures: Angiography with angioplasty Special Instructions: Please follow up with your PCP, Manager Of Product, vascular surgeon and wound doctor within one week of discharge. Before you leave the facility follow up with your Manager Of Product (blood sugar doctor) for when to discontinue insulin and resume Bydureon Diet Continue normal diet: Yes Recommended Diet: Diabetic Activity Full Activity/No Limits: Yes Activity Self Limited: Yes Acute Coronary Syndrome Inclusion Criteria At DC or during hospital stay patient has or had the following: ACS DIAGNOSIS No Discharge Core Measures Meds if any: Prescribed or Continued at Discharge Meds if any: NOT Prescribed or Continued at Discharge Congestive Heart Failure Inclusion Criteria At DC or during hospital stay patient has or had the following: CHF DIAGNOSIS No Discharge Core Measures Meds if any: Prescribed or Continued at Discharge Meds if any: NOT Prescribed or Continued at Discharge Cerebrovascular accident Inclusion Criteria At DC or during hospital stay patient has or had the following: CVA/TIA Diagnosis No Discharge Core Measures Meds if any: Prescribed or Continued at Discharge Meds if any: NOT Prescribed or Continued at Discharge Venous thromboembolism Inclusion Criteria VTE Diagnosis No VTE Type NONE VTE Confirmed by (Test) NONE Discharge Core Measures - Per Current guidelines, there needs to be overlap - treatment for the first 5 days of Warfarin therapy. - If discharged on Warfarin prior to 5 days of - overlap therapy, the patient will need to be - assessed for post discharge needs including - *Post discharge parental anticoagulation - *Warfarin and/or parental anticoagulation education - *Follow up date to check INR post discharge At least 5 days overlap therapy as Inpatient No Meds if any: Prescribed or Continued at Discharge Note: Overlap Therapy is Warfarin and Anticoagulant Meds if any: NOT Prescribed or Continued at Discharge
[2017-11-02 11:00] VITALS: BP 150/72
[2017-11-02 14:51] VITALS: BP 149/74
[2017-11-02 22:04] VITALS: BP 127/63
[2017-11-03 06:04] VITALS: BP 118/70
--- NOTE | 2017-11-03 06:15 | PN- Housestaff ---
See Addendum Subjective Follow-up For: DM PAD Subjective: Saw pt at bedside this aM. No acute overnight events or cmoplaints. Review of Systems Constitutional: Reports: weakness. Denies: chills, fever. EENTM: Reports: no symptoms. Cardiovascular: Denies: chest pain, palpitations. Respiratory: Denies: cough, short of breath. Gastrointestinal: Denies: abdominal pain. Genitourinary: Reports: no symptoms. Musculoskeletal: Reports: joint pain, muscle stiffness. Objective Last 24 Hrs of Vital Signs/I&O Vital Signs Date Time Temp Pulse Resp B/P B/P Pulse O2 O2 Flow FiO2 Mean Ox Delivery Rate 11/03 0604 98.5 83 18 118/70 97 Room Air 11/02 2204 98.0 78 18 127/63 98 11/02 1451 98.5 84 20 149/74 93 Room Air 11/02 1100 150/72 Intake & Output 11/03 0800 11/03 0000 11/02 1600 Intake Total 120 800 Output Total 850 700 Balance -730 800 -700 Intake, Oral 120 800 Number 0 Bowel Movements Output, Urine 850 700 Patient 78.018 kg Weight Physical Exam General Appearance: Alert, Oriented X3, Cooperative, No Acute Distress Skin: No Significant Lesion HEENT: Atraumatic, PERRLA, EOMI Neck: Supple Cardiovascular: Regular Rate, Normal S1, Normal S2, No Murmurs Lungs: Normal Air Movement Abdomen: Soft, No Hepatospenomegaly Extremities: r. aka. L. wound is 6 cm open ulcer in med aspect of tibia. Assessment/Plan Assessment: 56 year old female with a PMH of rheumatoid arthritis, scleroderma, diabetes mellitus, PVD s/p AKA, LLE stent placement and chronic nonhealing ulcer, GERD, hypothyroidism, and history of opioid dependence presented to ED with complains of discharge from her ulcer. Plan: DM: * Appreciate endo recs. Last glu 177, 323, 291, 311 * Her HbA1c is 16.5. * Insulin SS with Accucheks * Levemir 24 units BID * Diet: Diabetic htn: * Losartan has been discontinued due to low blood pressure * Con't monitor LE wounds: * Wound care with Aquacel Ag daily for wound dressing. * Continue off antibiotics. * Await final cultures. * Her CRP and ESR are elevated. * Arterial doppler of left lower extremity showed findings suggestive of peripheral vascular disease of the left lower extremity. * CTA runoff of lower extremities showed moderate aortoiliac inflow disease, left greater than right. * She will be scheduled for an angiogram on Sunday. Will need to be NPO on Sunday. History of RA, Scleroderma * Con't Plaquenil DVT Prophylaxis: SC Lovenox Code: Full Code Problem List: 1. Hyperglycemia 2. Wound infection Pain Ratin Pain Location: LLE Pain Goal: Remain pain free Pain Plan: Current reg Tomorrow's Labs & Rationales: cbc bep
[2017-11-03 08:51] LABS: ABSOLUTE BASOPHIL COUNT 0 /CUMM (0.0-0.2); ABSOLUTE EOSINOPHIL COUNT 0.2 /CUMM (0.0-0.7); ABSOLUTE GRANULOCYTE CT 4.4 /CUMM (1.4-6.5); ABSOLUTE LYMPH COUNT 1.5 /CUMM (1.2-3.4); ABSOLUTE MONOCYTE COUNT 0.5 /CUMM (0.10-0.60); BASOPHIL % 0.3 % (0.0-2.0); EOSINOPHIL % 2.6 % (0-5); GRANULOCYTE % 67.7 % (42.2-75.2); HEMATOCRIT 35.8 % (37-47); MEAN CORPUSCULAR HGB 28.4 PG (27.0-31.0); MEAN CORPUSCULAR HGB CONC 33.3 G/DL (33.0-37.0); MEAN CORPUSCULAR VOLUME 85.3 FL (81.0-99.0); MEAN PLATELET VOLUME 12.1 FL (7.4-10.4); PLATELET COUNT 176 /CUMM (130-400); RBC DISTRIBUTION WIDTH 14.1 % (11.5-14.5); WHITE BLOOD CELL COUNT 6.5 /CUMM (4.8-10.8)
--- NOTE | 2017-11-03 13:36 | PN- Diabetes ---
Assessment/Plan Diabetes Assessment: The patient states she still has pain in her left lower leg and she is scheduled for an angioplasty next week. The patient is presently on 24 units of Levemir twice a day along with sliding scale NovoLog before meals and the separate sliding scale at bedtime. Her FSGs were 177, 311 and 305. Plan: 1. increase Levemir to 28 units twice a day; 2. adjust Novolog coverage before meals; detail see the inpatient insulin order; 3. monitor FSGs will follow. Inpatient Diabetes Orders Before Each Meal: Bolus Insulin: Novolog < 80 mg/dl: no coverage 80-100 mg/dl: 8 units 101-120 mg/dl: 8 units 121-150 mg/dl: 8 units 151-200 mg/dl: 10 units 201-250 mg/dl: 12 units 251-300 mg/dl: 14 units 301-350 mg/dl: 15 units 351-400 mg/dl: 16 units > 400 mg/dl: 17 units Subjective Subjective: Her glucose level has been above 300 today. Objective Last 24 Hrs of Vital Signs/I&O Vital Signs Date Time Temp Pulse Resp B/P B/P Pulse O2 O2 Flow FiO2 Mean Ox Delivery Rate 11/03 0604 98.5 83 18 118/70 97 Room Air 11/02 2204 98.0 78 18 127/63 98 11/02 1451 98.5 84 20 149/74 93 Room Air Intake & Output 11/03 1600 11/03 0800 11/03 0000 Intake Total 120 800 Output Total 850 Balance -730 800 Intake, Oral 120 800 Number 0 Bowel Movements Output, Urine 850 Patient 172 lb Weight Findings Pertinent Lab/Nikolas Results: Laboratory Tests 11/03 0655 Chemistry Sodium (137 - 145 mmol/L) 138 Potassium (3.5 - 5.1 mmol/L) 4.1 Chloride (98 - 107 mmol/L) 105 Carbon Dioxide (22 - 30 mmol/L) 22 Anion Gap (5 - 16) 11 BUN (7 - 17 mg/dL) 17 Creatinine (0.5 - 1.0 mg/dL) 0.7 Estimated GFR (>60 ml/min) > 60 BUN/Creatinine Ratio (7 - 25 %) 24.3 Hematology CBC w Diff NO MAN DIFF REQ WBC (4.8 - 10.8 /CUMM) 6.5 RBC (4.20 - 5.40 /CUMM) 4.20 Hgb (12.0 - 16.0 G/DL) 11.9 L Hct (37 - 47 %) 35.8 L MCV (81.0 - 99.0 FL) 85.3 MCH (27.0 - 31.0 PG) 28.4 MCHC (33.0 - 37.0 G/DL) 33.3 RDW (11.5 - 14.5 %) 14.1 Plt Count (130 - 400 /CUMM) 176 MPV (7.4 - 10.4 FL) 12.1 H Gran % (42.2 - 75.2 %) 67.7 Lymphocytes % (20.5 - 51.1 %) 22.5 Monocytes % (1.7 - 9.3 %) 6.9 Eosinophils % (0 - 5 %) 2.6 Basophils % (0.0 - 2.0 %) 0.3 Absolute Granulocytes (1.4 - 6.5 /CUMM) 4.4 Absolute Lymphocytes (1.2 - 3.4 /CUMM) 1.5 Absolute Monocytes (0.10 - 0.60 /CUMM) 0.5 Absolute Eosinophils (0.0 - 0.7 /CUMM) 0.2 Absolute Basophils (0.0 - 0.2 /CUMM) 0
[2017-11-03 14:52] VITALS: BP 115/70
[2017-11-03 21:46] VITALS: BP 147/78
[2017-11-04 06:54] VITALS: BP 168/90
[2017-11-04 08:51] LABS: ABSOLUTE BASOPHIL COUNT 0 /CUMM (0.0-0.2); ABSOLUTE EOSINOPHIL COUNT 0.1 /CUMM (0.0-0.7); ABSOLUTE GRANULOCYTE CT 3.4 /CUMM (1.4-6.5); ABSOLUTE LYMPH COUNT 1.7 /CUMM (1.2-3.4); ABSOLUTE MONOCYTE COUNT 0.5 /CUMM (0.10-0.60); BASOPHIL % 0.3 % (0.0-2.0); EOSINOPHIL % 2.5 % (0-5); GRANULOCYTE % 59.2 % (42.2-75.2); MEAN CORPUSCULAR HGB 28.8 PG (27.0-31.0); MEAN CORPUSCULAR HGB CONC 34.3 G/DL (33.0-37.0); MEAN CORPUSCULAR VOLUME 84.1 FL (81.0-99.0); MEAN PLATELET VOLUME 11.5 FL (7.4-10.4); PLATELET COUNT 199 /CUMM (130-400); RBC DISTRIBUTION WIDTH 13.6 % (11.5-14.5); RED BLOOD CELL CT 3.92 /CUMM (4.20-5.40); WHITE BLOOD CELL COUNT 5.7 /CUMM (4.8-10.8)
--- NOTE | 2017-11-04 09:59 | PN- Housestaff ---
See Addendum Subjective Follow-up For: DM PAD Subjective: Patient was seen and examined today. FS, 220, 234, 305. Patient reports that her sugars are much better here than at home. Patient counseled on proper diabetic diet. Patient reports she has not had diabetic diet educcation here. Patient reports continued left leg pain controlled with pain medication. Denies any other complaints. Patient is NPO after midnight for surgery tomorrow. Review of Systems Constitutional: Reports: see HPI. Objective Last 24 Hrs of Vital Signs/I&O Vital Signs Date Time Temp Pulse Resp B/P B/P Pulse O2 O2 Flow FiO2 Mean Ox Delivery Rate 11/04 0654 97.5 76 18 168/90 96 Room Air 11/03 2146 97.5 84 18 147/78 97 11/03 1452 98.2 86 18 115/70 96 Intake & Output 11/04 1600 11/04 0800 11/04 0000 Intake Total 200 200 Output Total Balance 200 200 Intake, Oral 200 200 Physical Exam General Appearance: Alert, Cooperative, No Acute Distress Skin: No Rashes Skin Temp/Moisture Exam: Warm/Dry HEENT: Atraumatic, Mucous Membr. moist/pink Cardiovascular: Regular Rate, Normal S1, Normal S2 Lungs: Clear to Auscultation, Normal Air Movement Abdomen: Normal Bowel Sounds, Soft, No Tenderness Neurological: Normal Speech, Cranial Nerves 3-12 NL Extremities: left leg wrapped in dressing, s/p right bka Current Medications: Current Medications Sig/Christina Start time Last Medication Dose Route Stop Time Status Admin Acetaminophen 650 MG Q6P PRN 10/31 1500 AC PO Aspirin Buffered 81 MG DAILY 11/01 09 AC 11/04 PO 0749 Atorvastatin Calcium 20 MG 1700 10/31 1700 AC 11/03 PO 1702 Bupropion HCl 200 MG DAILY 10/31 1631 AC 11/04 PO 0749 Clopidogrel Bisulfate 75 MG DAILY 11/01 09 AC 11/04 PO 0749 Dextrose/Sodium 1,000 ML Q13H 11/05 06 AC Chloride IV Docusate Sodium 100 MG TID 10/31 1632 AC 11/04 PO 0749 Enoxaparin Sodium 40 MG DAILY 11/01 0900 AC 11/04 SC 0748 Hydroxychloroquine 200 MG BID 10/31 2100 AC 11/04 Sulfate PO 0749 Insulin Aspart 0 TIDAC/HS 10/31 1700 AC 11/04 RI 11/04 2200 0748 Insulin Detemir 12 UNITS 11/04 2100 CAN RI 11/04 2101 Insulin Detemir 28 UNITS BID 11/03 2100 11/04 SC 0748 Insulin Detemir 24 UNITS BID 11/01 0900 DC 11/03 RI 11/04 1600 0936 Insulin Human Regular 0 Q6 11/05 0000 AC SC Levothyroxine Sodium 0.075 MG DAILY AC 10/31 1632 AC 11/04 PO 0547 Melatonin 5 MG QPM 10/31 2100 AC 11/03 PO 2112 Morphine Sulfate 2 MG Q6P PRN 10/31 1700 11/04 IV 0912 Omeprazole 20 MG DAILY AC 10/31 1632 11/04 PO 0547 Tramadol HCl 50 MG Q6P PRN 10/31 1700 11/04 PO 0749 Last 24 Hrs of Lab/Nikolas Results Last 24 Hrs of Labs/Mics: Laboratory Tests 11/04/17 0730: Anion Gap 9, Estimated GFR > 60, BUN/Creatinine Ratio 20.0, CBC w Diff NO MAN DIFF REQ, RBC 3.92 L, MCV 84.1, MCH 28.8, MCHC 34.3, RDW 13.6, MPV 11.5 H, Gran % 59.2, Lymphocytes % 29.9, Monocytes % 8.1, Eosinophils % 2.5, Basophils % 0.3, Absolute Granulocytes 3.4, Absolute Lymphocytes 1.7, Absolute Monocytes 0.5 , Absolute Eosinophils 0.1, Absolute Basophils 0 Assessment/Plan Assessment: 56 year old female with a PMH of rheumatoid arthritis, scleroderma, diabetes mellitus, PVD s/p AKA, LLE stent placement and chronic nonhealing ulcer, GERD, hypothyroidism, and history of opioid dependence presented to ED with complains of discharge from her ulcer. Plan: DM: * Appreciate endo recs. Last glu 242, 220, 234, 305 * Her HbA1c is 16.5. * Insulin SS with Accucheks * Levemir 28 units BID * Endocrinolgy on board. * Diet: Diabetic * NPO after midnight with IV D51/2 NS * Patient will require diabetic dietary education prior to discharge htn: * Losartan has been discontinued due to low blood pressure * Con't monitor LE wounds: * Wound care with Aquacel Ag daily for wound dressing. * Blood cultures x 1 growing staph coag negative - likely contaminant. Patient remains afebrile with normal WBC count. Will continue to watch off antibiotics. * Her CRP and ESR are elevated. * Arterial doppler of left lower extremity showed findings suggestive of peripheral vascular disease of the left lower extremity. * CTA runoff of lower extremities showed moderate aortoiliac inflow disease, left greater than right. * She will be scheduled for an angiogram on Sunday. Will need to be NPO on Sunday. History of RA, Scleroderma * Con't Plaquenil DVT Prophylaxis: SC Lovenox Code: Full Code Problem List: 1. Hyperglycemia 2. Wound infection Pain Ratin Pain Location: left leg Pain Goal: Pain 7 or less Pain Plan: tylenol morphine tramadol Tomorrow's Labs & Rationales: cbc bep
--- NOTE | 2017-11-04 10:53 | PN- Diabetes ---
Assessment/Plan Diabetes Assessment: The patient states she still has pain in her left lower leg and she is scheduled for an angioplasty tomorrow. She will be kept NPO after midnight. The patient is presently on 28 units of Levemir twice a day along with sliding scale NovoLog before meals and the separate sliding scale at bedtime. Her FSGs were 305, 234, 220 and 242. Plan: 1. continue Levemir 28 units twice a day; 2. adjust Novolog coverage before meals; detail see the inpatient insulin order; 3. after might. she will be kept NPO; D5 1/2 NS at 75 ml/hour and RISS every 6 hours were ordered 4. monitor FSGs will follow. Inpatient Diabetes Orders Before Each Meal: Bolus Insulin: Novolog < 80 mg/dl: no coverage 80-100 mg/dl: 10 units 101-120 mg/dl: 10 units 121-150 mg/dl: 10 units 151-200 mg/dl: 12 units 201-250 mg/dl: 14 units 251-300 mg/dl: 16 units 301-350 mg/dl: 18 units 351-400 mg/dl: 20 units > 400 mg/dl: 22 units Plan: see above Subjective Subjective: She feels well. Objective Last 24 Hrs of Vital Signs/I&O Vital Signs Date Time Temp Pulse Resp B/P B/P Pulse O2 O2 Flow FiO2 Mean Ox Delivery Rate 11/04 0654 97.5 76 18 168/90 96 Room Air 11/03 2146 97.5 84 18 147/78 97 11/03 1452 98.2 86 18 115/70 96 Intake & Output 11/04 1600 11/04 0800 11/04 0000 Intake Total 200 200 Output Total Balance 200 200 Intake, Oral 200 200 Findings Pertinent Lab/Nikolas Results: Laboratory Tests 11/04 0730 Chemistry Sodium (137 - 145 mmol/L) 139 Potassium (3.5 - 5.1 mmol/L) 4.1 Chloride (98 - 107 mmol/L) 108 H Carbon Dioxide (22 - 30 mmol/L) 22 Anion Gap (5 - 16) 9 BUN (7 - 17 mg/dL) 14 Creatinine (0.5 - 1.0 mg/dL) 0.7 Estimated GFR (>60 ml/min) > 60 BUN/Creatinine Ratio (7 - 25 %) 20.0 Hematology CBC w Diff NO MAN DIFF REQ WBC (4.8 - 10.8 /CUMM) 5.7 RBC (4.20 - 5.40 /CUMM) 3.92 L Hgb (12.0 - 16.0 G/DL) 11.3 L Hct (37 - 47 %) 33.0 L MCV (81.0 - 99.0 FL) 84.1 MCH (27.0 - 31.0 PG) 28.8 MCHC (33.0 - 37.0 G/DL) 34.3 RDW (11.5 - 14.5 %) 13.6 Plt Count (130 - 400 /CUMM) 199 MPV (7.4 - 10.4 FL) 11.5 H Gran % (42.2 - 75.2 %) 59.2 Lymphocytes % (20.5 - 51.1 %) 29.9 Monocytes % (1.7 - 9.3 %) 8.1 Eosinophils % (0 - 5 %) 2.5 Basophils % (0.0 - 2.0 %) 0.3 Absolute Granulocytes (1.4 - 6.5 /CUMM) 3.4 Absolute Lymphocytes (1.2 - 3.4 /CUMM) 1.7 Absolute Monocytes (0.10 - 0.60 /CUMM) 0.5 Absolute Eosinophils (0.0 - 0.7 /CUMM) 0.1 Absolute Basophils (0.0 - 0.2 /CUMM) 0
[2017-11-04 14:31] VITALS: BP 136/63
[2017-11-04 21:58] VITALS: BP 152/71
[2017-11-05 06:36] VITALS: BP 126/64
--- NOTE | 2017-11-05 07:14 | PN- Diabetes ---
Assessment/Plan Diabetes Assessment: The patient still complains of pain in her left leg. She is n.p.o. and scheduled for angioplasty this morning. Her fingerstick blood glucose this morning is 195 and she is on regular insulin coverage every 6 hours. Plan: Suggest continue the present regimen for now. When the patient returns from surgery place her back on her usual insulin coverage including her usual dose of Levemir and NovoLog coverage before meals with a separate coverage NovoLog schedule at bedtime. Subjective Subjective: Has pain left leg Review of Systems Constitutional: Denies: chills, fever. Cardiovascular: Denies: chest pain. Respiratory: Denies: short of breath. Gastrointestinal: Denies: abdominal pain, nausea. Skin: Reports: no symptoms. Objective Last 24 Hrs of Vital Signs/I&O Vital Signs Date Time Temp Pulse Resp B/P B/P Pulse O2 O2 Flow FiO2 Mean Ox Delivery Rate 11/06 635 97.9 86 16 126/64 98 Room Air 11/04 2157 97.6 83 18 152/71 98 11/04 1431 97.8 79 20 136/63 98 Intake & Output 11/05 0800 11/05 0000 11/04 1600 Intake Total 647 246 0915 Output Total 900 350 Balance -300 800 650 Intake, IV 600 Intake, Oral 800 1000 Output, Urine 900 350 Patient 172 lb Weight Weight Bed scale Measurement Method Vital Signs Date Time Temp Pulse Resp B/P B/P Pulse O2 O2 Flow FiO2 Mean Ox Delivery Rate 11/06 635 97.9 86 16 126/64 98 Room Air 11/048 97.6 83 18 152/71 98 11/04 1431 97.8 79 20 136/63 98 Intake & Output 11/05 0800 11/05 0000 11/04 1600 Intake Total 725 471 8950 Output Total 900 350 Balance -300 800 650 Intake, IV 600 Intake, Oral 800 1000 Output, Urine 900 350 Patient 172 lb Weight Weight Bed scale Measurement Method Physical Exam General Appearance: alert, awake, comfortable Head: normal appearance Respiratory: normal breath sounds Cardiovascular: regular rate/rhythm Abdomen: normal bowel sounds, soft Current Medications: Current Medications Sig/Christina Start time Last Medication Dose Route Stop Time Status Admin Acetaminophen 650 MG Q6P PRN 10/31 1500 AC PO Aspirin Buffered 81 MG DAILY 11/01 0900 AC 11/04 PO 0749 Atorvastatin Calcium 20 MG 1700 10/31 1700 AC 11/04 PO 1644 Bupropion HCl 200 MG DAILY 10/31 1631 AC 11/04 PO 0749 Clopidogrel Bisulfate 75 MG DAILY 11/01 0900 AC 11/04 PO 0749 Dextrose/Sodium 1,000 ML Q13H 11/05 0600 DC Chloride IV Dextrose/Sodium 1,000 ML Q13H 11/05 0000 AC 11/05 Chloride IV 0014 Docusate Sodium 100 MG TID 10/31 163 AC 11/04 PO 202 Enoxaparin Sodium 40 MG DAILY 11/01 0900 AC 11/04 SC 0748 Hydroxychloroquine 200 MG BID 10/31 2100 AC 11/04 Sulfate PO 2023 Insulin Aspart 0 TIDAC/HS 10/31 1700 DC 11/04 SC 11/04 Insulin Detemir 28 UNITS BID 11/03 2100 AC 11/04 SC 202 Insulin Human Regular 0 Q6 11/05 0000 AC 11/05 SC 0617 Levothyroxine Sodium 0.075 MG DAILY AC 10/31 1632 AC 11/05 PO 0617 Melatonin 5 MG AT BEDTIME 11/05 2099 AC PO Melatonin 10 MG 2100 11/04 2100 AC 11/04 PO 2249 Melatonin 5 MG QPM 10/31 2100 DC 11/03 PO 2112 Morphine Sulfate 2 MG Q6P PRN 10/31 1700 AC 11/05 IV 0312 Omeprazole 20 MG DAILY AC 10/31 163 AC 11/05 PO 0617 Tramadol HCl 50 MG Q6P PRN 10/31 1700 AC 11/04 PO 1939 Findings Pertinent Lab/Nikolas Results: Laboratory Tests 11/04 0730 Chemistry Sodium (137 - 145 mmol/L) 139 Potassium (3.5 - 5.1 mmol/L) 4.1 Chloride (98 - 107 mmol/L) 108 H Carbon Dioxide (22 - 30 mmol/L) 22 Anion Gap (5 - 16) 9 BUN (7 - 17 mg/dL) 14 Creatinine (0.5 - 1.0 mg/dL) 0.7 Estimated GFR (>60 ml/min) > 60 BUN/Creatinine Ratio (7 - 25 %) 20.0 Hematology CBC w Diff NO MAN DIFF REQ WBC (4.8 - 10.8 /CUMM) 5.7 RBC (4.20 - 5.40 /CUMM) 3.92 L Hgb (12.0 - 16.0 G/DL) 11.3 L Hct (37 - 47 %) 33.0 L MCV (81.0 - 99.0 FL) 84.1 MCH (27.0 - 31.0 PG) 28.8 MCHC (33.0 - 37.0 G/DL) 34.3 RDW (11.5 - 14.5 %) 13.6 Plt Count (130 - 400 /CUMM) 199 MPV (7.4 - 10.4 FL) 11.5 H Gran % (42.2 - 75.2 %) 59.2 Lymphocytes % (20.5 - 51.1 %) 29.9 Monocytes % (1.7 - 9.3 %) 8.1 Eosinophils % (0 - 5 %) 2.5 Basophils % (0.0 - 2.0 %) 0.3 Absolute Granulocytes (1.4 - 6.5 /CUMM) 3.4 Absolute Lymphocytes (1.2 - 3.4 /CUMM) 1.7 Absolute Monocytes (0.10 - 0.60 /CUMM) 0.5 Absolute Eosinophils (0.0 - 0.7 /CUMM) 0.1 Absolute Basophils (0.0 - 0.2 /CUMM) 0
--- NOTE | 2017-11-05 07:15 | PN- Housestaff ---
Ayesha CURIEL,[facility] 11/05/17 0715: Subjective Follow-up For: Leg Ulcer Subjective: Patient seen and examined. Complains of knee pain after the procedure. She got some morphine which she states helps her. She does not wishes to have ibuprofen or anything similar as it gives her itching and gives a burning sensation in her stomach. Review of Systems Constitutional: Reports: no symptoms. Objective Last 24 Hrs of Vital Signs/I&O Vital Signs Date Time Temp Pulse Resp B/P B/P Pulse O2 O2 Flow FiO2 Mean Ox Delivery Rate 11/05 0636 97.9 86 16 126/64 98 Room Air 11/04 2158 97.6 83 18 152/71 98 11/04 1431 97.8 79 20 136/63 98 Intake & Output 11/05 1600 11/05 0800 11/05 0000 Intake Total 600 800 Output Total 900 Balance -300 800 Intake, IV 600 Intake, Oral 800 Output, Urine 900 Patient 172 lb Weight Weight Bed scale Measurement Method Physical Exam General Appearance: Alert, Oriented X3, Cooperative, Mild Distress Skin: No Rashes, No Breakdown Skin Temp/Moisture Exam: Warm/Dry Sepsis Skin Exam (color): Normal for Ethnicity HEENT: Atraumatic Cardiovascular: Normal S1, Normal S2, No Murmurs Lungs: Normal Air Movement Abdomen: Soft, No Tenderness Neurological: Normal Speech Extremities: left leg in sylvain wraps. 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 Last 24 Hrs of Lab/Nikolas Results Last 24 Hrs of Labs/Mics: Laboratory Tests 11/05/17 0723: Anion Gap 12, Estimated GFR > 60, BUN/Creatinine Ratio 17.1, CBC w Diff NO MAN DIFF REQ, RBC 4.14 L, MCV 85.2, MCH 28.4, MCHC 33.3, RDW 13.9, MPV 11.1 H, Gran % 58.8, Lymphocytes % 30.2, Monocytes % 8.1, Eosinophils % 2.6, Basophils % 0.3, Absolute Granulocytes 3.2, Absolute Lymphocytes 1.6, Absolute Monocytes 0.4 , Absolute Eosinophils 0.1, Absolute Basophils 0 Assessment/Plan Assessment: 56 year old female with a PMH of rheumatoid arthritis, scleroderma, diabetes mellitus, PVD s/p AKA, LLE stent placement and chronic nonhealing ulcer, GERD, hypothyroidism, and history of opioid dependence presented to ED with complains of discharge from her ulcer. Assessment: 1. Diabetic Leg Ulcer s/p angioplasty 2. Hyperglycemia 3. Hyperkalemia - resolved 4. History of diabetes 5. History of RA, Scleroderma Plan: * Blood cultures x 1 growing staph coag negative - likely contaminant. Patient remains afebrile with normal WBC count. Will continue to watch off antibiotics. * She had an angioplasty and stenting of the left SFA today. Postoperative angiogram showed showed good flow through the stent and 3 vessel run off to the foot. * She can likely be discharged tomorrow. * Her HbA1c is 16.5. * Insulin SS has been adjusted per Endo recs. * Continue Levemir 24 units BID * Her blood sugars have improved. * Losartan has been discontinued due to low blood pressure * Wound care with Aquacel Ag daily for wound dressing. * Diet: Diabetic * DVT Prophylaxis: SC Lovenox * Code: Full Code Problem List: 1. Hyperglycemia Pain Ratin Pain Location: none Pain Goal: Remain pain free Pain Plan: none Tomorrow's Labs & Rationales: CBC, BEP Jeremias CURIEL,[facility] 11/05/17 1357: Attending MD Review Statement Attending Statement Attending MD Statement: examined this patient, discuss w/resident/PA/[employer]ERIFFS OFFICER, agreed w/resident/PA/SHERIFFS OFFICER, reviewed EMR data (avail), discussed with nursing, discussed with case mgmt, reviewed images, amended to note Attending Assessment/Plan: Patient seen and examined, came back jer procedure, s/p angioplasty and stenting of the left SFA today. C/O pain lle. Vital Signs Date Time Temp Pulse Resp B/P B/P Pulse O2 O2 Flow FiO2 Mean Ox Delivery Rate 11/05 1205 97.6 88 20 140/80 96 Room Air 11/05 0636 97.9 86 16 126/64 98 Room Air 11/04 2158 97.6 83 18 152/71 98 11/04 1431 97.8 79 20 136/63 98 On exam: aox3, nad cv; s1, s2, rrr resp: clear abd: soft, nt, bs+ ext; + sylvain wrap on lle. Laboratory Tests 11/05 0723 Chemistry Sodium (137 - 145 mmol/L) 143 Potassium (3.5 - 5.1 mmol/L) 4.0 Chloride (98 - 107 mmol/L) 108 H Carbon Dioxide (22 - 30 mmol/L) 22 Anion Gap (5 - 16) 12 BUN (7 - 17 mg/dL) 12 Creatinine (0.5 - 1.0 mg/dL) 0.7 Estimated GFR (>60 ml/min) > 60 BUN/Creatinine Ratio (7 - 25 %) 17.1 Hematology CBC w Diff NO MAN DIFF REQ WBC (4.8 - 10.8 /CUMM) 5.4 RBC (4.20 - 5.40 /CUMM) 4.14 L Hgb (12.0 - 16.0 G/DL) 11.7 L Hct (37 - 47 %) 35.3 L MCV (81.0 - 99.0 FL) 85.2 MCH (27.0 - 31.0 PG) 28.4 MCHC (33.0 - 37.0 G/DL) 33.3 RDW (11.5 - 14.5 %) 13.9 Plt Count (130 - 400 /CUMM) 199 MPV (7.4 - 10.4 FL) 11.1 H Gran % (42.2 - 75.2 %) 58.8 Lymphocytes % (20.5 - 51.1 %) 30.2 Monocytes % (1.7 - 9.3 %) 8.1 Eosinophils % (0 - 5 %) 2.6 Basophils % (0.0 - 2.0 %) 0.3 Absolute Granulocytes (1.4 - 6.5 /CUMM) 3.2 Absolute Lymphocytes (1.2 - 3.4 /CUMM) 1.6 Absolute Monocytes (0.10 - 0.60 /CUMM) 0.4 Absolute Eosinophils (0.0 - 0.7 /CUMM) 0.1 Absolute Basophils (0.0 - 0.2 /CUMM) 0 A/P: 57 y/o F rheumatoid arthritis, scleroderma, diabetes mellitus, PVD s/p AKA, LLE stent placement and chronic nonhealing ulcer, GERD, hypothyroidism, and history of opioid dependence admitted with lle nonhealinh wound 2/2 to severe pvd. S/P angioplasty and stenting of the left SFA today. Continue all current medications. Continue insulin. Continue current pain meds. Dvt PX: LOVENOX.
--- NOTE | 2017-11-05 07:50 | PN- Student ---
Subjective Subjective: No acute events overnight. Patient seen and exmined this morning. Patient was in the way to [facility] today, and was anxious about it. Had no questions. No complaint at the moment. Objective Objective: Vital Signs Date Time Temp Pulse Resp B/P B/P Pulse O2 O2 Flow FiO2 Mean Ox Delivery Rate 11/05 0636 97.9 86 16 126/64 98 Room Air 11/04 2158 97.6 83 18 152/71 98 11/04 1431 97.8 79 20 136/63 98 Intake & Output 11/05 0800 11/05 0000 11/04 1600 Intake Total 268 774 4179 Output Total 900 350 Balance -300 800 650 Intake, IV 600 Intake, Oral 800 1000 Output, Urine 900 350 Patient 172 lb Weight Weight Bed scale Measurement Method General= alert and oriented HEENT= NCAT, anicteric sclera, moist oral mucosa CVS= normal S1 and S2, regular rate and rythm Lungs= clear bilateral Abdomen= +BS, soft, nontender, nondistended Extremities= R-stump L- wrap Results Results: Laboratory Tests 11/05 0723 Chemistry Sodium (137 - 145 mmol/L) 143 Potassium (3.5 - 5.1 mmol/L) 4.0 Chloride (98 - 107 mmol/L) 108 H Carbon Dioxide (22 - 30 mmol/L) 22 Anion Gap (5 - 16) 12 BUN (7 - 17 mg/dL) 12 Creatinine (0.5 - 1.0 mg/dL) 0.7 Estimated GFR (>60 ml/min) > 60 BUN/Creatinine Ratio (7 - 25 %) 17.1 Hematology CBC w Diff NO MAN DIFF REQ WBC (4.8 - 10.8 /CUMM) 5.4 RBC (4.20 - 5.40 /CUMM) 4.14 L Hgb (12.0 - 16.0 G/DL) 11.7 L Hct (37 - 47 %) 35.3 L MCV (81.0 - 99.0 FL) 85.2 MCH (27.0 - 31.0 PG) 28.4 MCHC (33.0 - 37.0 G/DL) 33.3 RDW (11.5 - 14.5 %) 13.9 Plt Count (130 - 400 /CUMM) 199 MPV (7.4 - 10.4 FL) 11.1 H Gran % (42.2 - 75.2 %) 58.8 Lymphocytes % (20.5 - 51.1 %) 30.2 Monocytes % (1.7 - 9.3 %) 8.1 Eosinophils % (0 - 5 %) 2.6 Basophils % (0.0 - 2.0 %) 0.3 Absolute Granulocytes (1.4 - 6.5 /CUMM) 3.2 Absolute Lymphocytes (1.2 - 3.4 /CUMM) 1.6 Absolute Monocytes (0.10 - 0.60 /CUMM) 0.4 Absolute Eosinophils (0.0 - 0.7 /CUMM) 0.1 Absolute Basophils (0.0 - 0.2 /CUMM) 0 L Assessment/Plan Assessment: 57 y/o F with PMHx of RA, scleroderma, DM on insulin, PVD s/p AKA, LLE stent placement, chronic nonhealing ulcer, GERD, hypothyroidism, pancreatitis and history of opioid dependence admitted with left lower extremity diabetic ulcer. Patient is afebrile without leukocytosis and x-ray was not subjective of osteomyelitis. MRI ruleout cellulitis and osteomyelitis. Vanco and fortaz were d /c as patient has no fever or leukocytosis. No evidence of infection at this point. Arerial Dupplex showed PVD of the left lower extremity with primarily inflow disease and focal stenosis within the popliteal artery. CTA showed iliac and left superficial femoral artery/popliteal disease. Angioplasty and stenting of the left SFA today. Postoperative good flow through the stent. Patient cont. afebril without leukocytosis. Positive blood culture not sujective of any infection, may have been contamination. Plan: -likely be discharged in the next 24-48 hrs -Cont. Insulin SS per Endo recs. -Cont. Levemir 24 units BID -COnt. wound care with Aquacel Ag daily for wound dressing Diet: Diabetic DVT Prophylaxis: SC Lovenox Code: Full Code
[2017-11-05 08:31] LABS: ABSOLUTE BASOPHIL COUNT 0 /CUMM (0.0-0.2); ABSOLUTE EOSINOPHIL COUNT 0.1 /CUMM (0.0-0.7); ABSOLUTE GRANULOCYTE CT 3.2 /CUMM (1.4-6.5); ABSOLUTE LYMPH COUNT 1.6 /CUMM (1.2-3.4); ABSOLUTE MONOCYTE COUNT 0.4 /CUMM (0.10-0.60); BASOPHIL % 0.3 % (0.0-2.0); EOSINOPHIL % 2.6 % (0-5); GRANULOCYTE % 58.8 % (42.2-75.2); HEMATOCRIT 35.3 % (37-47); MEAN CORPUSCULAR HGB 28.4 PG (27.0-31.0); MEAN CORPUSCULAR HGB CONC 33.3 G/DL (33.0-37.0); MEAN CORPUSCULAR VOLUME 85.2 FL (81.0-99.0); MEAN PLATELET VOLUME 11.1 FL (7.4-10.4); PLATELET COUNT 199 /CUMM (130-400); RBC DISTRIBUTION WIDTH 13.9 % (11.5-14.5); RED BLOOD CELL CT 4.14 /CUMM (4.20-5.40); WHITE BLOOD CELL COUNT 5.4 /CUMM (4.8-10.8)
--- NOTE | 2017-11-05 10:00 | Operative Report ---
See Addendum Operative/Inv Procedure Report Surgery Date: 11/05/17 Name of Procedure: 1. ultrasound guided access of the right common femoral artery 2. aortogram 3. 2nd and 3rd order arterial catheterization 4. angioplasty and stenting of the left SFA with 6mm x 100 cordis stent and post dilation with 5m x 100mm balloon. Pre-Operative Diagnosis: left leg wound Post-Operative Diagnosis: same Estimated Blood Loss: less than 50ml Surgeon/Addressograph Operator: Nick francois MD Anesthesia: local monitored anesthesi Operative Indication: 57 y/o f w/ hx of Dm, pad s/p previous right aka now with chronic non healing left leg wound with possible osteo. pt underwent arterial duplex and CTA that showed iliac and sfa disease. Therefore decided to proceed with left leg angiogram and possible intervention. Risks/benefits/alternatives were explained and informed consent obtained and placed in the chart. Operative/Procedure Note Note: pt was brought to the OR. A time out was done to verify the patients name, mrn, . She was placed under monitored anethesia care in the supine position. The right groin was prepped and draped in a sterile fashion. 1% lidocaine was injected into the planned access site and we then used the ultrasound to directly visualize access of the common femoral artery with micropuncture set. A taylor wire was then advanced into the aorta and we upsized to a 5 turkish sheath. We then used an omni flush catheter to shoot an angiogram the findings of which will be dictated in the finding section. We then accessed the left iliac system with a glide wire and advanced the catheter down to the left external iliac artery. We then shot sequential angiogram of the left leg the findings of which will be dictated in the findings section. There was a focal nearly occlusive stenosis of the distal sfa approximately 100mm in length. We decided to interevene so the patient fully heparnized. We then selected the left sfa and advanced a stiff glide wire into the SFA. We then placed a 6 x 45 cm destination sheath into the proximal SFA. We then used an .035 soft glide wire and catheter to cross the sfa stenosis and shot an angiogram to confirm we were within the true lumen. At this time we pre dilated the stenosis with a 5mm x 100 balloon. We then placed a 6mm x 100 cordis stent and post dilated with a 5mm x 100 ballon. Completion angiogram showed good flow through the stent and 3 vessel run off to the foot. We were satisfied with our results so with proceeded to close the right puncture site with a 6 turkish perclose device and we held pressure until hemostasis was obtained. The patient was then transferred to the pacu in stable condition.
--- NOTE | 2017-11-05 11:52 | Discharge Summary ---
Visit Information Visit Dates Admission Date: 10/31/17 Hospital Course Course Attending Physician: Koki Mcdowell MD Primary Care Physician: Alison CURIEL,Trae Gillis Hospital Course: * Arterial doppler of left lower extremity showed findings suggestive of peripheral vascular disease of the left lower extremity. * CTA runoff of lower extremities showed moderate aortoiliac inflow disease, left greater than right. Allergies: Coded Allergies: ibuprofen (Intermediate, HIVES 09/12/17) oxycodone (From PERCOCET) (Intermediate, HIVES 09/12/17) Penicillins (UNKNOWN 09/27/15) hydromorphone (From DILAUDID) (HIVES 07/02/17) trazodone (UNKNOWN 07/19/17) Discharge Instructions Medications at Discharge Discharge Medications: Stop taking the following medications: Losartan Potassium (Losartan Potassium) 25 MG TABLET ORAL DAILY Qty = 90
[2017-11-05 12:05] VITALS: BP 140/80
--- NOTE | 2017-11-05 12:38 | RADIOLOGY REPORT ---
EXAMINATION: CR LEFT LEG ARTERIOGRAM/INTRAOPERATIVE FLUOROSCOPY CLINICAL INDICATION: Left leg arteriogram, femoral angioplasty and stent insertion in OR. COMPARISON: CT angiography with runoff 11/01/2017. TECHNIQUE/FINDINGS: Fluoroscopic equipment was dedicated to the operating room for the performance of an intraoperative procedure. Several (6) spot films and 18 cm fluoroscopy runs were acquired and are archived in PACS. Please refer to operative notes for procedural detail. FLUOROSCOPY TIME: 9 minutes 45 seconds. IMPRESSION: Administrative dictation for intraoperative fluoroscopy and image archiving in PACS. Please refer to operative notes for details.
--- NOTE | 2017-11-05 13:53 | PN- Infect Dx ---
Subjective Subjective: Afebrile. She complains of increased pain in the left leg status post angioplasty/stenting earlier today. Objective Last 24 Hrs of Vital Signs/I&O Vital Signs Date Time Temp Pulse Resp B/P B/P Pulse O2 O2 Flow FiO2 Mean Ox Delivery Rate 11/05 1205 97.6 88 20 140/80 96 Room Air 11/05 0636 97.9 86 16 126/64 98 Room Air 11/04 2158 97.6 83 18 152/71 98 11/04 1431 97.8 79 20 136/63 98 Intake & Output 11/05 1600 11/05 0800 11/05 0000 Intake Total 600 800 Output Total 900 Balance -300 800 Intake, IV 600 Intake, Oral 800 Output, Urine 900 Patient 172 lb Weight Weight Bed scale Measurement Method Physical Exam Other Physical Findings: She appears mildly uncomfortable but in no acute distress Extremities left leg dressing intact; right groin incision clean Results Last 24 Hours of Lab Results: Laboratory Tests 11/05 0723 Chemistry Sodium (137 - 145 mmol/L) 143 Potassium (3.5 - 5.1 mmol/L) 4.0 Chloride (98 - 107 mmol/L) 108 H Carbon Dioxide (22 - 30 mmol/L) 22 Anion Gap (5 - 16) 12 BUN (7 - 17 mg/dL) 12 Creatinine (0.5 - 1.0 mg/dL) 0.7 Estimated GFR (>60 ml/min) > 60 BUN/Creatinine Ratio (7 - 25 %) 17.1 Hematology CBC w Diff NO MAN DIFF REQ WBC (4.8 - 10.8 /CUMM) 5.4 RBC (4.20 - 5.40 /CUMM) 4.14 L Hgb (12.0 - 16.0 G/DL) 11.7 L Hct (37 - 47 %) 35.3 L MCV (81.0 - 99.0 FL) 85.2 MCH (27.0 - 31.0 PG) 28.4 MCHC (33.0 - 37.0 G/DL) 33.3 RDW (11.5 - 14.5 %) 13.9 Plt Count (130 - 400 /CUMM) 199 MPV (7.4 - 10.4 FL) 11.1 H Gran % (42.2 - 75.2 %) 58.8 Lymphocytes % (20.5 - 51.1 %) 30.2 Monocytes % (1.7 - 9.3 %) 8.1 Eosinophils % (0 - 5 %) 2.6 Basophils % (0.0 - 2.0 %) 0.3 Absolute Granulocytes (1.4 - 6.5 /CUMM) 3.2 Absolute Lymphocytes (1.2 - 3.4 /CUMM) 1.6 Absolute Monocytes (0.10 - 0.60 /CUMM) 0.4 Absolute Eosinophils (0.0 - 0.7 /CUMM) 0.1 Absolute Basophils (0.0 - 0.2 /CUMM) 0 Last 24 Hours of Nikolas Results: Blood cultures October 31 1 bottle positive for coag negative Staph Assessment/Plan ID Impression: Stable, with temperatures and white blood cell count remaining normal, off antibiotics status post angioplasty and stenting of the left SFA earlier today for severe peripheral vascular disease, with a chronic, nonhealing left lower extremity ulcer. The positive blood culture for coag negative Staph presumably represents a contaminant and does not require treatment. Suggestion: 1. Continue local wound care to her left leg wound 2. Continue to follow off antibiotics Will no longer follow at this time but please call with any questions
[2017-11-05 14:33] VITALS: BP 125/61
[2017-11-05 22:09] VITALS: BP 110/62
[2017-11-05 22:10] VITALS: BP 110/62
[2017-11-06 06:07] VITALS: BP 138/78
--- NOTE | 2017-11-06 07:19 | PN- Housestaff ---
Ayesha CURIEL,[facility] 11/06/17 0719: Subjective Follow-up For: Leg Ulcer Uncontrolled Diabetes Subjective: Patient seen and examined. Complains of significant pain in her groin bilaterally around the site of catherterization for her procedure. Feels the morphine helps but still has pain. Review of Systems Constitutional: Reports: no symptoms. Objective Last 24 Hrs of Vital Signs/I&O Vital Signs Date Time Temp Pulse Resp B/P B/P Pulse O2 O2 Flow FiO2 Mean Ox Delivery Rate 11/06 0607 98.7 87 22 138/78 95 Room Air 11/05 2210 98.5 92 18 110/62 93 11/05 1433 97.9 88 20 125/61 98 Room Air 11/05 1422 Room Air 11/05 1205 97.6 88 20 140/80 96 Room Air Intake & Output 11/06 0800 11/06 0000 11/05 1600 Intake Total 400 480 800 Output Total 300 Balance 100 480 800 Intake, Oral 400 480 800 Output, Urine 300 Physical Exam General Appearance: Alert, Oriented X3, Cooperative, Mild Distress Skin: No Rashes, No Breakdown Skin Temp/Moisture Exam: Warm/Dry Sepsis Skin Exam (color): Normal for Ethnicity HEENT: Atraumatic Cardiovascular: Normal S1, Normal S2, No Murmurs Lungs: Clear to Auscultation, Normal Air Movement Abdomen: Soft, No Tenderness Neurological: Normal Speech Extremities: ulcer with small amount of drainage on LLE Right AKA with well healed stump Last 24 Hrs of Lab/Nikolas Results Last 24 Hrs of Labs/Mics: Laboratory Tests 11/06/17 0725: Anion Gap 10, Estimated GFR > 60, BUN/Creatinine Ratio 13.8, CBC w Diff NO MAN DIFF REQ, RBC 4.03 L, MCV 85.8, MCH 28.3, MCHC 32.9 L, RDW 14.1, MPV 11.1 H, Gran % 71.5, Lymphocytes % 17.6 L, Monocytes % 8.7, Eosinophils % 1.9, Basophils % 0.3, Absolute Granulocytes 5.0, Absolute Lymphocytes 1.2, Absolute Monocytes 0.6, Absolute Eosinophils 0.1, Absolute Basophils 0 Assessment/Plan Assessment: 56 year old female with a PMH of rheumatoid arthritis, scleroderma, diabetes mellitus, PVD s/p AKA, LLE stent placement and chronic nonhealing ulcer, GERD, hypothyroidism, and history of opioid dependence presented to ED with complains of discharge from her ulcer. Assessment: 1. Diabetic Leg Ulcer s/p angioplasty 2. Hyperglycemia 3. Hyperkalemia - resolved 4. History of diabetes 5. History of RA, Scleroderma Plan: * Blood cultures x 1 had staph coag negative - likely contaminant. Patient remains afebrile with normal WBC count. Will continue to watch off antibiotics. * She had an angioplasty and stenting of the left SFA yesterday. Postoperative angiogram showed showed good flow through the stent and 3 vessel run off to the foot. * Her MRI is concerning for chronic osteomyelitis. A bone biopsy would be difficult to pursue at this time as she wound need to be off the aspirin and plavix for at least 3 days for the procedure. Per conversation with Vascular, she needs to stay on at least aspirin or plavix but can't come off both. * The biopsy would likely be needed to done as an outpatient. * Her HbA1c is 16.5. * Insulin SS has been adjusted per Endo recs. * Continue Levemir 24 units BID * Her blood sugars are still high but improved. * Losartan has been discontinued due to low blood pressure * Wound care with Aquacel Ag daily for wound dressing. * Diet: Diabetic * DVT Prophylaxis: SC Lovenox * Code: Full Code Problem List: 1. Wound infection Pain Ratin Pain Location: none Pain Goal: Remain pain free Pain Plan: none Tomorrow's Labs & Rationales: none Jeremias CURIEL,[facility] 11/06/17 1141: Attending MD Review Statement Attending Statement Attending MD Statement: examined this patient, discuss w/resident/PA/MANAGER OUTPATIENT, agreed w/resident/PA/MANAGER OUTPATIENT, reviewed EMR data (avail), discussed with nursing, discussed with case mgmt, reviewed images, amended to note Attending Assessment/Plan: Patient seen and examined, does complain of some discomfort in the bilateral groin area. Patient has a is wrapped around her left lower extremity. Vital Signs Date Time Temp Pulse Resp B/P B/P Pulse O2 O2 Flow FiO2 Mean Ox Delivery Rate 11/06 0607 98.7 87 22 138/78 95 Room Air 11/05 2210 98.5 92 18 110/62 93 11/05 1433 97.9 88 20 125/61 98 Room Air 11/05 1422 Room Air 11/05 1205 97.6 88 20 140/80 96 Room Air on exam; aox3, nad. cv; s1, s2, rrr resp; clear abd; soft, nt, bs+ ext; + sylvain wrap on rle. b/l right groin with some bruising. Laboratory Tests 11/06 0725 Chemistry Sodium (137 - 145 mmol/L) 140 Potassium (3.5 - 5.1 mmol/L) 4.5 Chloride (98 - 107 mmol/L) 107 Carbon Dioxide (22 - 30 mmol/L) 23 Anion Gap (5 - 16) 10 BUN (7 - 17 mg/dL) 11 Creatinine (0.5 - 1.0 mg/dL) 0.8 Estimated GFR (>60 ml/min) > 60 BUN/Creatinine Ratio (7 - 25 %) 13.8 Hematology CBC w Diff NO MAN DIFF REQ WBC (4.8 - 10.8 /CUMM) 6.9 RBC (4.20 - 5.40 /CUMM) 4.03 L Hgb (12.0 - 16.0 G/DL) 11.4 L Hct (37 - 47 %) 34.6 L MCV (81.0 - 99.0 FL) 85.8 MCH (27.0 - 31.0 PG) 28.3 MCHC (33.0 - 37.0 G/DL) 32.9 L RDW (11.5 - 14.5 %) 14.1 Plt Count (130 - 400 /CUMM) 212 MPV (7.4 - 10.4 FL) 11.1 H Gran % (42.2 - 75.2 %) 71.5 Lymphocytes % (20.5 - 51.1 %) 17.6 L Monocytes % (1.7 - 9.3 %) 8.7 Eosinophils % (0 - 5 %) 1.9 Basophils % (0.0 - 2.0 %) 0.3 Absolute Granulocytes (1.4 - 6.5 /CUMM) 5.0 Absolute Lymphocytes (1.2 - 3.4 /CUMM) 1.2 Absolute Monocytes (0.10 - 0.60 /CUMM) 0.6 Absolute Eosinophils (0.0 - 0.7 /CUMM) 0.1 Absolute Basophils (0.0 - 0.2 /CUMM) 0 A/P: 57 y/o F rheumatoid arthritis, scleroderma, diabetes mellitus, PVD s/p AKA, LLE stent placement and chronic nonhealing ulcer, GERD, hypothyroidism, and history of opioid dependence admitted with lle nonhealing wound 2/2 to severe pvd. Is also question off from osteomyelitis. Discuss with Dr. Conway. Patient will be scheduled for bone biopsy. We have to wait for the bone biopsy results to determine if there is evidence of acute estimate lysis for her to be started on antibiotics. Please double check for vascular about any further post care. Continue other current meds. DVT px; Lovenox stopped for anticipated bone bx procedure. Pt will need to go to Rehab upon DC.
--- NOTE | 2017-11-06 07:55 | PN- Diabetes ---
Assessment/Plan Diabetes Assessment: The patient underwent angioplasty yesterday for improvement of the blood supply to the left leg. The left leg wound is still oozing. She complains of pain in the surgical site area and the left groin. The patient is now on her usual insulin including Levemir 28 units twice a day as well as sliding scale NovoLog beginning with 10 units for good sugar of 80- 150 before meals with a separate sliding scale at bedtime. Plan: Suggest continue the present insulin regimen. We will observe her blood sugars today before making any further changes. The patient has periosteal changes in the area of the fibula in the left leg. This could be osteo-myelitis. This needs to be discussed with Dr. Conway further as to whether or not the patient needs a prolonged course of antibiotics. Subjective Subjective: Has pain left groin area. Review of Systems Constitutional: Denies: chills, fever. Cardiovascular: Denies: chest pain. Respiratory: Denies: cough, short of breath. Gastrointestinal: Denies: abdominal pain, nausea. Skin: Reports: lesions (left pretibial area). Objective Last 24 Hrs of Vital Signs/I&O Vital Signs Date Time Temp Pulse Resp B/P B/P Pulse O2 O2 Flow FiO2 Mean Ox Delivery Rate 11/06 0607 98.7 87 22 138/78 95 Room Air 11/05 2210 98.5 92 18 110/62 93 11/05 1433 97.9 88 20 125/61 98 Room Air 11/05 1422 Room Air 11/05 1205 97.6 88 20 140/80 96 Room Air Intake & Output 11/06 1600 11/06 0800 11/06 0000 Intake Total 400 480 Output Total 300 Balance 100 480 Intake, Oral 400 480 Output, Urine 300 Vital Signs Date Time Temp Pulse Resp B/P B/P Pulse O2 O2 Flow FiO2 Mean Ox Delivery Rate 11/06 0607 98.7 87 22 138/78 95 Room Air 11/05 2210 98.5 92 18 110/62 93 11/05 1433 97.9 88 20 125/61 98 Room Air 11/05 1422 Room Air 11/05 1205 97.6 88 20 140/80 96 Room Air Intake & Output 11/06 1600 11/06 0800 06 0000 Intake Total 400 480 Output Total 300 Balance 100 480 Intake, Oral 400 480 Output, Urine 300 Physical Exam General Appearance: alert, awake, comfortable Head: normal appearance Neck: normal inspection Respiratory: normal breath sounds Cardiovascular: regular rate/rhythm Abdomen: normal bowel sounds Current Medications: Current Medications Sig/Christina Start time Last Medication Dose Route Stop Time Status Admin Acetaminophen 650 MG Q6P PRN 10/31 1500 AC PO Aspirin Buffered 81 MG DAILY 11/01 0900 AC 11/04 PO 0749 Atorvastatin Calcium 20 MG 1700 10/31 1700 AC 11/05 PO 1658 Bupropion HCl 200 MG DAILY 10/31 1631 AC 11/05 PO 0744 Clopidogrel Bisulfate 150 MG ONCE ONE 11/05 0950 DC 11/05 PO 11/05 0951 1122 Clopidogrel Bisulfate 75 MG DAILY 11/01 0900 AC 11/04 PO 0749 Dextrose/Sodium 1,000 ML Q13H 11/05 0000 DC 11/05 Chloride IV 0014 Docusate Sodium 100 MG TID 10/31 1632 AC 11/05 PO 2027 Enoxaparin Sodium 40 MG DAILY 11/01 0900 AC 11/04 SC 0748 Hydroxychloroquine 200 MG BID 10/31 2100 AC 11/05 Sulfate PO 2027 Insulin Aspart 0 TIDAC/HS 11/05 1200 AC 11/05 SC 1657 Insulin Detemir 28 UNITS BID 11/03 2100 AC 11/05 SC 2027 Insulin Human Regular 0 Q6 11/05 0000 DC 11/05 SC 0617 Levothyroxine Sodium 0.075 MG DAILY AC 10/31 1632 AC 11/06 PO 0608 Melatonin 5 MG AT BEDTIME 11/05 2100 AC 11/06 PO 0254 Melatonin 10 MG 2100 11/04 2100 AC 11/06 PO 0255 Morphine Sulfate 4 MG .STK-MED ONE 11/05 1039 DC IM 11/05 1040 Morphine Sulfate 4 MG .STK-MED ONE 11/05 1024 DC IM 11/05 1025 Morphine Sulfate 2 MG Q6P PRN 10/31 1700 AC 11/06 IV 0608 Omeprazole 20 MG DAILY AC 10/31 1632 11/06 PO 0608 Patient Medication 1 ED ONE ONE 11/05 1515 DC Teaching ED 11/05 1516 Tramadol HCl 50 MG Q6P PRN 10/31 1700 AC 11/05 PO 2140 Findings Pertinent Lab/Nikolas Results: Laboratory Tests 11/06 11/05 0725 0723 Chemistry Sodium (137 - 145 mmol/L) Pending 143 Potassium (3.5 - 5.1 mmol/L) Pending 4.0 Chloride (98 - 107 mmol/L) Pending 108 H Carbon Dioxide (22 - 30 mmol/L) Pending 22 Anion Gap (5 - 16) Pending 12 BUN (7 - 17 mg/dL) Pending 12 Creatinine (0.5 - 1.0 mg/dL) Pending 0.7 Estimated GFR (>60 ml/min) > 60 BUN/Creatinine Ratio (7 - 25 %) Pending 17.1 Hematology CBC w Diff Pending NO MAN DIFF REQ WBC (4.8 - 10.8 /CUMM) Pending 5.4 RBC (4.20 - 5.40 /CUMM) Pending 4.14 L Hgb (12.0 - 16.0 G/DL) Pending 11.7 L Hct (37 - 47 %) Pending 35.3 L MCV (81.0 - 99.0 FL) Pending 85.2 MCH (27.0 - 31.0 PG) Pending 28.4 MCHC (33.0 - 37.0 G/DL) Pending 33.3 RDW (11.5 - 14.5 %) Pending 13.9 Plt Count (130 - 400 /CUMM) Pending 199 MPV (7.4 - 10.4 FL) Pending 11.1 H Gran % (42.2 - 75.2 %) 58.8 Lymphocytes % (20.5 - 51.1 %) 30.2 Monocytes % (1.7 - 9.3 %) 8.1 Eosinophils % (0 - 5 %) 2.6 Basophils % (0.0 - 2.0 %) 0.3 Absolute Granulocytes (1.4 - 6.5 /CUMM) 3.2 Absolute Lymphocytes (1.2 - 3.4 /CUMM) 1.6 Absolute Monocytes (0.10 - 0.60 /CUMM) 0.4 Absolute Eosinophils (0.0 - 0.7 /CUMM) 0.1 Absolute Basophils (0.0 - 0.2 /CUMM) 0
[2017-11-06 08:28] LABS: ABSOLUTE BASOPHIL COUNT 0 /CUMM (0.0-0.2); ABSOLUTE EOSINOPHIL COUNT 0.1 /CUMM (0.0-0.7); ABSOLUTE LYMPH COUNT 1.2 /CUMM (1.2-3.4); ABSOLUTE MONOCYTE COUNT 0.6 /CUMM (0.10-0.60); BASOPHIL % 0.3 % (0.0-2.0); EOSINOPHIL % 1.9 % (0-5); GRANULOCYTE % 71.5 % (42.2-75.2); HEMATOCRIT 34.6 % (37-47); MEAN CORPUSCULAR HGB 28.3 PG (27.0-31.0); MEAN CORPUSCULAR HGB CONC 32.9 G/DL (33.0-37.0); MEAN CORPUSCULAR VOLUME 85.8 FL (81.0-99.0); MEAN PLATELET VOLUME 11.1 FL (7.4-10.4); PLATELET COUNT 212 /CUMM (130-400); RBC DISTRIBUTION WIDTH 14.1 % (11.5-14.5); RED BLOOD CELL CT 4.03 /CUMM (4.20-5.40); WHITE BLOOD CELL COUNT 6.9 /CUMM (4.8-10.8)
--- NOTE | 2017-11-06 09:34 | Discharge Summary ---
See Addendum Visit Information Visit Dates Admission Date: 10/31/17 Discharge Date: 11/07/2017 Hospital Course Course Attending Physician: Koki Mcdowell MD Primary Care Physician: Alison CURIEL,Trae Gillis Hospital Course: This is a 57-year-old female with past medical history of RA on hydroxychloroquine, scleroderma, diabetes mellitus with severe PAD, RLE AKA, LLE stent placement, chronic nonhealing ulcers, GERD, hypothyroidism, who comes in for chief complaint of worsening pain, erythema and discharge in her left lower extremity. She was diagnosed with LLE non healing wounds due to uncontrolled DM, scleroderma and severe PAD. On 11/05 pt had ultrasound guided access of the right common femoral artery with aortogram, 2nd and 3rd order arterial catheterization and angioplasty and stenting of the left SFA with 6mm x 100 cordis stent and post dilation with 5m x 100mm balloon. Notably during hospitalization she had positive blood culture for coag negative Staph which was treated as contaminant. MRI showed possible concern for osteomyelitis but given that she had new stent placed she required DAPT and obtaining a bone biopsy on anti plt therapy was felt to be too risky. On outpatient basis she will need to follow up with IR for a bone biopsy. She will likely need to be off Plavix for 5 days and ASA for 3 days. All cessation of anti plt therapy needs to be thoroughly verified by her vascular surgeon. She is currently afebrile, with nml wbc off abx. Will wait for bone biopsy prior to placing PICC and prolonged course of abx. Other pertinent data includes an A1c of 16; pt stopped taking insulin due to depression. She can continue diabetic regimen as prescribed, continue Hydroxychloroquine and other home meds. Allergies: Coded Allergies: ibuprofen (Intermediate, HIVES 09/12/17) oxycodone (From PERCOCET) (Intermediate, HIVES 09/12/17) Penicillins (UNKNOWN 09/27/15) hydromorphone (From DILAUDID) (HIVES 07/02/17) trazodone (UNKNOWN 07/19/17) Disposition Summary Disposition Principal Diagnosis: PAD Additional Diagnosis: DM Discharge Disposition: SNF Discharge Instructions General Discharge Information Code Status: Full Code Patient's Diet: CONSISTENT CARB Patient's Activity: TOLERATED. Follow-Up Instructions/Appts: SEE ABOVE Medications at Discharge Discharge Medications: Stop taking the following medications: Exenatide Microspheres (Bydureon) 2 MG VIAL Inject into fatty tissue EVERY SUNDAY Insulin Aspart, Recombinant (Novolog Flexpen) 100 UNIT/ML INSULN.PEN Inject into fatty tissue BEFORE MEALS AND AT BEDTIME Qty = 3 Insulin-Lantus (Lantus) 100 UNIT/ML VIAL Inject into fatty tissue Every Morning Insulin-Lantus (Lantus) 100 UNIT/ML VIAL Inject into fatty tissue TAKE AT BEDTIME Continue taking these medications: Docusate Sodium (Colace) 100 MG CAPSULE 1 Capsule ORAL THREE TIMES DAILY Hydroxychloroquine Sulfate (Hydroxychloroquine Sulfate) 200 MG TABLET 1 Tablet ORAL TWICE DAILY Levothyroxine Sodium (Levothyroxine Sodium) 75 MCG TABLET 1 Tablet ORAL DAILY BEFORE BREAKFAST Aspirin (Ecotrin*) 81 MG TABLET. 1 Tablet ORAL DAILY Cyanocobalamin (Vitamin B-12) (B-12 Dots) 500 MCG TABLET 1 Tablet ORAL 5 PM Losartan Potassium (Losartan Potassium) 25 MG TABLET 1 Tablet ORAL DAILY Qty = 90 Comments: NOT GIVEN IN HOSPITAL Pravastatin Sodium (Pravachol) 80 MG TABLET 1 Tablet ORAL DAILY Comments: Last Taken: 07/09/17 20 MG Time: 5:30 PM Omeprazole (Omeprazole) 20 MG TABLET.DR 1 Tablet ORAL DAILY Comments: Last Taken: 07/10/17 Time: 0600 AM Clopidogrel Bisulfate (Plavix) 75 MG TABLET 1 Tablet ORAL DAILY Comments: Last Taken: 07/10/17 Time: 0900 AM Metformin HCl (Metformin HCl) 1,000 MG TABLET 1 Tablet ORAL TWICE DAILY Comments: NOT GIVEN IN HOSPITAL Bupropion HCl (Wellbutrin Sr) 200 MG TABLET.ER 1 Tablet ORAL DAILY Melatonin (Melatonin) 5 MG TABLET 1 Tablet ORAL Every night Start taking the following new medications: Insulin Detemir (Levemir) 100 UNIT/ML VIAL 28 Units Inject into fatty tissue TWICE DAILY Qty = 1 No Refills Morphine Sulfate (Morphine Sulfate Elixir 10mg/5ml) 10 MG/5 ML SOLUTION 10 Milligram ORAL EVERY 8 HOURS NEEDED as needed for PAIN SCALE 7-10 ( SEVERE) Qty = 30 No Refills Insulin Aspart (Novolog) 100 UNIT/ML VIAL 0 Units Inject into fatty tissue BEFORE MEALS AND AT BEDTIME Qty = 30 No Refills Comments: BLOOD SUGAR Dose Bedtime less than 80 mg/dl Initiate Hypoglycemia 80-150 mg/dl 8 units 151-200 mg/dl 10 units 201-250 mg/dl 12 units 251-300 mg/dl 14 units 2 units 301-350 mg/dl 16 units 3 units 351-400 mg/dl 18 units 4 units more than 400 mg/dl 22 units and call MD 5 units and call MD Melatonin (Melatonin) 5 MG TABLET 1 Tablet ORAL Every night as needed for Insomnia Qty = 30 No Refills Tramadol HCl (Tramadol HCl) 50 MG TABLET 1 Tablet ORAL EVERY 8 HOURS NEEDED as needed for PAIN SCALE 4-6 (MODERATE ) Qty = 20 No Refills Acetaminophen (Tylenol) 325 MG TABLET 2 Tablet ORAL EVERY 8 HOURS NEEDED as needed for PAIN SCALE 1-3 (MILD) Qty = 60 No Refills Copies To: Alison CURIEL,Trae Gillis
[2017-11-06] MEDS ORDERED: LEVEMIR100 UNIT/1 SC (09:38)
--- NOTE | 2017-11-06 12:01 | PN- Infect Dx ---
Subjective Subjective: Afebrile. She complains of pain in the groin bilaterally. Objective Last 24 Hrs of Vital Signs/I&O Vital Signs Date Time Temp Pulse Resp B/P B/P Pulse O2 O2 Flow FiO2 Mean Ox Delivery Rate 11/06 0607 98.7 87 22 138/78 95 Room Air 11/05 2210 98.5 92 18 110/62 93 11/05 1433 97.9 88 20 125/61 98 Room Air 11/05 1422 Room Air 11/05 1205 97.6 88 20 140/80 96 Room Air Intake & Output 11/06 1600 11/06 0800 11/06 0000 Intake Total 400 480 Output Total 300 Balance 100 480 Intake, Oral 400 480 Output, Urine 300 Physical Exam Other Physical Findings: She appears comfortable in no acute distress Extremities left leg dressing intact Results Last 24 Hours of Lab Results: Laboratory Tests 11/06 0725 Chemistry Sodium (137 - 145 mmol/L) 140 Potassium (3.5 - 5.1 mmol/L) 4.5 Chloride (98 - 107 mmol/L) 107 Carbon Dioxide (22 - 30 mmol/L) 23 Anion Gap (5 - 16) 10 BUN (7 - 17 mg/dL) 11 Creatinine (0.5 - 1.0 mg/dL) 0.8 Estimated GFR (>60 ml/min) > 60 BUN/Creatinine Ratio (7 - 25 %) 13.8 Hematology CBC w Diff NO MAN DIFF REQ WBC (4.8 - 10.8 /CUMM) 6.9 RBC (4.20 - 5.40 /CUMM) 4.03 L Hgb (12.0 - 16.0 G/DL) 11.4 L Hct (37 - 47 %) 34.6 L MCV (81.0 - 99.0 FL) 85.8 MCH (27.0 - 31.0 PG) 28.3 MCHC (33.0 - 37.0 G/DL) 32.9 L RDW (11.5 - 14.5 %) 14.1 Plt Count (130 - 400 /CUMM) 212 MPV (7.4 - 10.4 FL) 11.1 H Gran % (42.2 - 75.2 %) 71.5 Lymphocytes % (20.5 - 51.1 %) 17.6 L Monocytes % (1.7 - 9.3 %) 8.7 Eosinophils % (0 - 5 %) 1.9 Basophils % (0.0 - 2.0 %) 0.3 Absolute Granulocytes (1.4 - 6.5 /CUMM) 5.0 Absolute Lymphocytes (1.2 - 3.4 /CUMM) 1.2 Absolute Monocytes (0.10 - 0.60 /CUMM) 0.6 Absolute Eosinophils (0.0 - 0.7 /CUMM) 0.1 Absolute Basophils (0.0 - 0.2 /CUMM) 0 Last 24 Hours of Nikolas Results: No recent cultures Assessment/Plan ID Impression: Stable, with temperatures and white blood cell count remaining normal, off antibiotics status post angioplasty and stenting of the left SFA yesterday for severe peripheral vascular disease, with a chronic, nonhealing left lower extremity ulcer. Her MRI findings were reviewed with IR, with the report stating that there was no evidence for acute osteomyelitis but with periosteal changes in the fibula, which could suggest chronic osteomyelitis. In view of this finding a CT-guided biopsy can be pursued to rule out osteomyelitis. Suggestion: 1. Would pursue CT-guided bone biopsy of the fibula and submit the specimen for pathology and culture. 2. Continue to follow off antibiotics pending above
--- NOTE | 2017-11-06 13:58 | PN- Student ---
Subjective Subjective: No acute events overnight. Patient seen and examined this morning. Patient complains of pain over the groin. Patient have not have any bowel movement. Tolerating food okay. Denied headache, SOB, chest pain, abdominal pain. Objective Objective: Vital Signs Date Time Temp Pulse Resp B/P B/P Pulse O2 O2 Flow FiO2 Mean Ox Delivery Rate 11/06 0607 98.7 87 22 138/78 95 Room Air 11/05 2210 98.5 92 18 110/62 93 11/05 1433 97.9 88 20 125/61 98 Room Air 11/05 1422 Room Air Intake & Output 11/06 1600 11/06 0800 11/06 0000 Intake Total 400 480 Output Total 300 Balance 100 480 Intake, Oral 400 480 Output, Urine 300 PE: General= alert and oriented HEENT= NCAT, anicteric sclera, moist oral mucosa CVS= normal S1 and S2, regular rate and rythm Lungs= clear bilateral Abdomen= +BS, soft, nontender, nondistended Extremities= R-stump L- wrap Results Results: Laboratory Tests 11/06/17 0725: Anion Gap 10, Estimated GFR > 60, BUN/Creatinine Ratio 13.8, CBC w Diff NO MAN DIFF REQ, RBC 4.03 L, MCV 85.8, MCH 28.3, MCHC 32.9 L, RDW 14.1, MPV 11.1 H, Gran % 71.5, Lymphocytes % 17.6 L, Monocytes % 8.7, Eosinophils % 1.9, Basophils % 0.3, Absolute Granulocytes 5.0, Absolute Lymphocytes 1.2, Absolute Monocytes 0.6, Absolute Eosinophils 0.1, Absolute Basophils 0 Assessment/Plan Assessment: 57 y/o F with PMHx of RA, scleroderma, DM on insulin, PVD s/p AKA, LLE stent placement, chronic nonhealing ulcer, GERD, hypothyroidism, pancreatitis and history of opioid dependence admitted with left lower extremity diabetic ulcer. Patient is afebrile without leukocytosis and x-ray was not subjective of osteomyelitis. MRI ruleout cellulitis and osteomyelitis, but there are some periosteal changes which may suggest chronic osteomyelitis. Vanco and fortaz were d/c as patient has no fever or leukocytosis. No evidence of infection at this point. Arterial dupplex showed PVD of the left lower extremity with primarily inflow disease and focal stenosis within the popliteal artery. CTA showed iliac and left superficial femoral artery/popliteal disease. Patient is POD#1 from an angioplasty and stenting placement Postoperative- good flow through the stent. Patient cont. afebril without leukocytosis. In the setting of possible osteomyelitis, IR bone biopsy is recommended. PAtient is on plavix and aspirin which should be stop if bone biopsy is needed. Patient benefit from antiplatelet as risk for thrombosis is high.
[2017-11-06 14:04] VITALS: BP 137/68
[2017-11-06 22:44] VITALS: BP 120/60
[2017-11-07 06:00] VITALS: BP 176/82
[2017-11-07 06:26] VITALS: BP 150/74
--- NOTE | 2017-11-07 07:13 | PN- Housestaff ---
Ayesha CURIEL,[facility] 11/07/17 0712: Subjective Follow-up For: Leg ulcer Uncontrolled Diabetes Subjective: Patient seen and examined at bedside. Feels better than yesterday but still has lower abdominal pain radiating down her leg. She feels the morphine helps. No other complaints otherwise. Review of Systems Constitutional: Reports: no symptoms. Objective Last 24 Hrs of Vital Signs/I&O Vital Signs Date Time Temp Pulse Resp B/P B/P Pulse O2 O2 Flow FiO2 Mean Ox Delivery Rate 11/07 0626 150/74 11/07 0600 98.3 93 18 176/82 93 Room Air 11/06 2244 98.1 89 20 120/60 94 Room Air 11/06 1600 Room Air 11/06 1404 98.6 88 20 137/68 95 Intake & Output 11/07 0800 11/07 0000 11/06 1600 Intake Total 480 800 730 Output Total 400 500 Balance 80 800 230 Intake, IV 10 Intake, Oral 480 800 720 Number 1 Bowel Movements Output, Urine 400 500 Physical Exam General Appearance: Alert, Oriented X3, Cooperative, Mild Distress Skin: No Rashes, No Breakdown Skin Temp/Moisture Exam: Warm/Dry Sepsis Skin Exam (color): Normal for Ethnicity HEENT: Atraumatic Cardiovascular: Normal S1, Normal S2, No Murmurs Lungs: Normal Air Movement Abdomen: Soft, No Tenderness Neurological: Normal Speech Extremities: No Edema, right AKA with well healed stump. Left leg wrapped in kerlix and ROSE MARY wraps Assessment/Plan Assessment: 56 year old female with a PMH of rheumatoid arthritis, scleroderma, diabetes mellitus, PVD s/p AKA, LLE stent placement and chronic nonhealing ulcer, GERD, hypothyroidism, and history of opioid dependence presented to ED with complains of discharge from her ulcer. Assessment: 1. Diabetic Leg Ulcer s/p angioplasty 2. Hyperglycemia 3. Hyperkalemia - resolved 4. History of diabetes 5. History of RA, Scleroderma Plan: * Blood cultures x 1 had staph coag negative - likely contaminant. Patient remains afebrile with normal WBC count. Watch off antibiotics. * She had an angioplasty and stenting of the left SFA yesterday. Postoperative angiogram showed showed good flow through the stent and 3 vessel run off to the foot. * Her MRI is concerning for chronic osteomyelitis. A bone biopsy would be difficult to pursue at this time as she wound need to be off the aspirin and plavix for at least 3 days for the procedure. Per conversation with Vascular, she needs to stay on at least aspirin or plavix but can't come off both. * After discussion with Podiatry, a bone biopsy can be deferred at this time. * Her HbA1c is 16.5. * Insulin SS has been adjusted per Endo recs. * Continue Levemir 24 units BID * Her blood sugars are still high but improved. * Losartan has been discontinued due to low blood pressure * Wound care with Aquacel Ag daily for wound dressing. * Diet: Diabetic * DVT Prophylaxis: SC Lovenox * Code: Full Code Problem List: 1. Hyperglycemia Pain Ratin Pain Location: none Pain Goal: Remain pain free Pain Plan: none Tomorrow's Labs & Rationales: REYES Mcdowell MD,Koki 11/07/17 1128: Attending MD Review Statement Attending Statement Attending MD Statement: examined this patient, discuss w/resident/PA/HANDBAG FINISHER, agreed w/resident/PA/HANDBAG FINISHER, reviewed EMR data (avail), discussed with nursing, discussed with case mgmt, reviewed images, amended to note Attending Assessment/Plan: Patient seen and examined, still c/o pain in the left groin. Morphine helps. Unfortunately IR guide bone bx cannot be dne until pt is off of her antiplatelets agents x 3-4 days. Vital Signs Date Time Temp Pulse Resp B/P B/P Pulse O2 O2 Flow FiO2 Mean Ox Delivery Rate 11/07 0626 150/74 11/07 0600 98.3 93 18 176/82 93 Room Air 11/06 2244 98.1 89 20 120/60 94 Room Air 11/06 1600 Room Air 11/06 1404 98.6 88 20 137/68 95 on exam: aox3, nad. cv; s1,s2, rrr resp; clear abd; soft, nt, bs+ ext; + rose mary wrap on lle. skin: left groin without any hematoma. no labs. A/P; 57 y/o F rheumatoid arthritis, scleroderma, diabetes mellitus, PVD s/p AKA, LLE stent placement and chronic nonhealing ulcer, GERD, hypothyroidism, and history of opioid dependence admitted with lle nonhealing wound 2/2 to severe pvd. Patient is status post angioplasty and stenting of the left SFA POD # 2 today. As discussed with infectious disease, there was a question of possible osteomyelitis. We had recommended bone biopsy but unfortunately patient cannot have a bone biopsy done by IR secondary to being on antiplatelet agents. She needs to be off antiplatelet for 3-5 days. We will try to check with orthopedic and podiatry to see if biopsy can be done by orthopedic or digital solutions architect. If the biopsy cannot be done then patient would have to be discharged and then coming back as an outpatient for the biopsy to be done. Please check for vascular surgery about this consistent groin pain. Diabetes Mx per Endo. DVT px; Hep sq.
--- NOTE | 2017-11-07 07:26 | PN- Diabetes ---
Assessment/Plan Diabetes Assessment: The patient still complains of some pain in the left groin area. She is eating okay. Her blood sugars are coming down. The patient was kept in the hospital to consider a bone biopsy under CT guidance of the fibula on the left lower leg. Plan: Suggest continue the present insulin for now. If metformin is added to the patient's regimen on discharge I would decrease the patient's sliding scale NovoLog before meals by 2 units for each interval. Subjective Subjective: Still has pain left groin Review of Systems Constitutional: Denies: chills, fever. Cardiovascular: Denies: chest pain. Respiratory: Denies: short of breath. Gastrointestinal: Denies: abdominal pain, nausea. Musculoskeletal: Denies: back pain. Skin: Reports: no symptoms. Objective Last 24 Hrs of Vital Signs/I&O Vital Signs Date Time Temp Pulse Resp B/P B/P Pulse O2 O2 Flow FiO2 Mean Ox Delivery Rate 11/07 0626 150/74 11/07 0600 98.3 93 18 176/82 93 Room Air 11/06 2244 98.1 89 20 120/60 94 Room Air 11/06 1600 Room Air 11/06 1404 98.6 88 20 137/68 95 Intake & Output 11/07 0800 11/07 0000 11/06 1600 Intake Total 480 800 730 Output Total 400 500 Balance 80 800 230 Intake, IV 10 Intake, Oral 480 800 720 Number 1 Bowel Movements Output, Urine 400 500 Vital Signs Date Time Temp Pulse Resp B/P B/P Pulse O2 O2 Flow FiO2 Mean Ox Delivery Rate 11/07 0626 150/74 11/07 0600 98.3 93 18 176/82 93 Room Air 11/06 2244 98.1 89 20 120/60 94 Room Air 11/06 1600 Room Air 11/06 1404 98.6 88 20 137/68 95 Intake & Output 11/07 0800 11/07 0000 11/06 1600 Intake Total 480 800 730 Output Total 400 500 Balance 80 800 230 Intake, IV 10 Intake, Oral 480 800 720 Number 1 Bowel Movements Output, Urine 400 500 Physical Exam General Appearance: alert, awake, comfortable Head: normal appearance Neck: normal inspection Cardiovascular: regular rate/rhythm Abdomen: normal bowel sounds Current Medications: Current Medications Sig/Christina Start time Last Medication Dose Route Stop Time Status Admin Acetaminophen 650 MG Q6P PRN 10/31 1500 AC PO Aspirin Buffered 81 MG DAILY 11/01 0900 AC 11/06 PO 0805 Atorvastatin Calcium 20 MG 1700 10/31 1700 AC 11/06 PO 1705 Bupropion HCl 200 MG DAILY 10/31 1631 AC 11/06 PO 0804 Clopidogrel Bisulfate 75 MG DAILY 11/01 0900 AC 11/06 PO 0805 Diclofenac Sodium 1 RAZA 4 TIMES/DAY 11/06 0900 CAN TOP Docusate Sodium 100 MG TID 10/31 1632 AC 11/06 PO 210 Enoxaparin Sodium 40 MG DAILY 11/01 0900 DC 11/06 SC 0804 Hydroxychloroquine 200 MG BID 10/31 2100 AC 11/06 Sulfate PO 210 Insulin Aspart 0 TIDAC/HS 11/06 2100 AC 11/06 SC 2108 Insulin Aspart 0 TIDAC/HS 11/05 1200 DC 11/06 SC 1706 Insulin Detemir 16 UNITS BID 11/06 2100 CAN SC Insulin Detemir 28 UNITS BID 11/06 2100 AC 11/06 SC 2107 Insulin Detemir 28 UNITS BID 11/03 2100 DC 11/06 SC 0804 Insulin Human Regular 0 Q6 11/06 2359 CAN SC Levothyroxine Sodium 0.075 MG DAILY AC 10/31 1632 AC 11/07 PO 0541 Melatonin 5 MG AT BEDTIME 11/05 2099 AC 11/06 PO 210 Melatonin 10 MG 11/04 2100 AC 11/06 PO 210 Morphine Sulfate 2 MG Q6P PRN 10/31 1700 AC 11/07 IV 0541 Omeprazole 20 MG DAILY AC 10/31 1632 AC 11/07 PO 0541 Polyethylene Glycol 17 GM DAILY 11/06 1030 AC PO Senna 187 MG DAILY 11/06 1030 AC 11/06 PO 1132 Tramadol HCl 50 MG Q6P PRN 10/31 1700 AC 11/06 PO 2106 Findings Pertinent Lab/Nikolas Results: Laboratory Tests 11/06 0725 Chemistry Sodium (137 - 145 mmol/L) 140 Potassium (3.5 - 5.1 mmol/L) 4.5 Chloride (98 - 107 mmol/L) 107 Carbon Dioxide (22 - 30 mmol/L) 23 Anion Gap (5 - 16) 10 BUN (7 - 17 mg/dL) 11 Creatinine (0.5 - 1.0 mg/dL) 0.8 Estimated GFR (>60 ml/min) > 60 BUN/Creatinine Ratio (7 - 25 %) 13.8 Hematology CBC w Diff NO MAN DIFF REQ WBC (4.8 - 10.8 /CUMM) 6.9 RBC (4.20 - 5.40 /CUMM) 4.03 L Hgb (12.0 - 16.0 G/DL) 11.4 L Hct (37 - 47 %) 34.6 L MCV (81.0 - 99.0 FL) 85.8 MCH (27.0 - 31.0 PG) 28.3 MCHC (33.0 - 37.0 G/DL) 32.9 L RDW (11.5 - 14.5 %) 14.1 Plt Count (130 - 400 /CUMM) 212 MPV (7.4 - 10.4 FL) 11.1 H Gran % (42.2 - 75.2 %) 71.5 Lymphocytes % (20.5 - 51.1 %) 17.6 L Monocytes % (1.7 - 9.3 %) 8.7 Eosinophils % (0 - 5 %) 1.9 Basophils % (0.0 - 2.0 %) 0.3 Absolute Granulocytes (1.4 - 6.5 /CUMM) 5.0 Absolute Lymphocytes (1.2 - 3.4 /CUMM) 1.2 Absolute Monocytes (0.10 - 0.60 /CUMM) 0.6 Absolute Eosinophils (0.0 - 0.7 /CUMM) 0.1 Absolute Basophils (0.0 - 0.2 /CUMM) 0
[2017-11-07] MEDS ORDERED: MELATONIN5 M7 PO (09:15)
[2017-11-07] MEDS ORDERED: PERCOCET 5-3251 EACH PO (09:15)
[2017-11-07] MEDS ORDERED: TYLENOL325 M1 PO (09:15)
[2017-11-07] MEDS ORDERED: TRAMADOL HCL50 M1 PO (09:15)
[2017-11-07] MEDS ORDERED: MORPHINE S10 MG/5 M2 PO (11:31)
[2017-11-07] MEDS ORDERED: NOVOLOG100 UNIT/2 SC (11:50)
--- NOTE | 2017-11-07 13:56 | PN- Vascular Surgery ---
Surgical Brief Attending Note Brief Attending Note: pt seen and examined. s/p left sfa stent for non healing left leg wound. strong signals in foot this am. right groin soft non tender. continue asa/ plavix. will stay on plavix 3 months. fu with me in 2weeks upon discharge.
--- NOTE | 2017-11-07 13:59 | Cons- Podiatry ---
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 She reports having this problem on and off for about 3 years, and reports periods of time in that span where it has completely healed. She is POD2 LLE revascularization by Dr. Lund. She was admitted on October 31, for left lower extremity cellulitis and worsening drainage from the wound. The patient subjectively denies fever, chills, nausea, vomiting, diaphoresis, shortness of breath, and chest pain throughout the admission. Allergies/Medications Allergies: Coded Allergies: ibuprofen (Intermediate, HIVES 09/12/17) oxycodone (From PERCOCET) (Intermediate, HIVES 09/12/17) Penicillins (UNKNOWN 09/27/15) hydromorphone (From DILAUDID) (HIVES 07/02/17) trazodone (UNKNOWN 07/19/17) Home Med List: Acetaminophen (Tylenol) 325 MG TABLET 2 TAB PO Q8P PRN PAIN SCALE 1-3 (MILD) Aspirin (Ecotrin*) 81 MG TABLET.DR 1 TAB PO DAILY HEART HEALTH (Reported) Bupropion HCl (Wellbutrin Sr) 200 MG TABLET.ER 1 TAB PO DAILY ANXIETY ( Reported) Clopidogrel Bisulfate (Plavix) 75 MG TABLET 1 TAB PO DAILY PVD (Reported) Cyanocobalamin (Vitamin B-12) (B-12 Dots) 500 MCG TABLET 1 TAB PO 1700 VITAMIN SUPPORT (Reported) Docusate Sodium (Colace) 100 MG CAPSULE 1 CAP PO TID CONSTIPATION (Reported) Exenatide Microspheres (Bydureon) 2 MG VIAL 2 MG SC QTUES DM (Reported) Hydroxychloroquine Sulfate 200 MG TABLET 1 TAB PO BID ARTHRITIS (Reported) Insulin Aspart (Novolog) 100 UNIT/ML VIAL 0 UNITS SC TIDAC/HS Diabetes Insulin Aspart, Recombinant (Novolog Flexpen) 100 UNIT/ML INSULN.PEN 0 SC AC & AT BEDTIME DM BEFORE MEALS. Blood Insulin Sugar Units <80 0 80-150 0 151-199 6 200-250 8 251-300 10 301-350 12 351-400 14 >400 16 units and Call Doctor AT BEDTIME Blood Insulin Sugar Units <80 0 81-150 0 151-299 0 200-250 0 251-300 2 301-350 3 351-400 4 >400 5 and Call Doctor Insulin Detemir (Levemir) 100 UNIT/ML VIAL 28 UNITS SC BID DM Insulin-Lantus (Lantus) 100 UNIT/ML VIAL 52 UNITS SC QAM DM (Reported) Insulin-Lantus (Lantus) 100 UNIT/ML VIAL 12 UNITS SC QHS DM (Reported) Levothyroxine Sodium 75 MCG TABLET 1 TAB PO DAILY AC THYROID (Reported) Losartan Potassium 25 MG TABLET 1 TAB PO DAILY HTN (Reported) Melatonin 5 MG TABLET 1 TAB PO QPM SLEEP (Reported) Melatonin 5 MG TABLET 1 TAB PO QPM PRN Insomnia Metformin HCl 1,000 MG TABLET 1 TAB PO BID DM (Reported) Morphine Sulfate (Morphine Sulfate Elixir 10mg/5ml) 10 MG/5 ML SOLUTION 10 MG PO Q8P PRN PAIN SCALE 7-10 (SEVERE) Omeprazole 20 MG TABLET.DR 1 TAB PO DAILY GERD (Reported) Pravastatin Sodium (Pravachol) 80 MG TABLET 1 TAB PO DAILY PVD (Reported) Tramadol HCl 50 MG TABLET 1 TAB PO Q8P PRN PAIN SCALE 4-6 (MODERATE) Current Medications: Current Medications Sig/Christina Start time Last Medication Dose Route Stop Time Status Admin Acetaminophen 650 MG Q6P PRN 10/31 1500 AC PO Aspirin Buffered 81 MG DAILY 11/01 0900 AC 11/07 PO 0836 Atorvastatin Calcium 20 MG 1700 10/31 1700 AC 11/06 PO 1705 Bupropion HCl 200 MG DAILY 10/31 1631 AC 11/07 PO 0836 Clopidogrel Bisulfate 75 MG DAILY 11/01 0900 AC 11/07 PO 0837 Docusate Sodium 100 MG TID 10/31 1632 AC 11/07 PO 0837 Enoxaparin Sodium 40 MG DAILY 11/07 1316 AC SC Hydroxychloroquine 200 MG BID 10/31 2100 AC 11/07 Sulfate PO 08 Insulin Aspart 0 TIDAC/HS 11/06 2100 AC 11/07 SC 1208 Insulin Aspart 0 TIDAC/HS 11/05 1200 DC 11/06 SC 1706 Insulin Detemir 16 UNITS BID 11/06 2100 CAN SC Insulin Detemir 28 UNITS BID 11/06 2100 AC 11/07 SC 0835 Insulin Detemir 28 UNITS BID 11/03 2100 DC 11/06 SC 0804 Insulin Human Regular 0 Q6 11/06 2359 CAN SC Levothyroxine Sodium 0.075 MG DAILY AC 10/31 1632 AC 11/07 PO 0541 Losartan Potassium 25 MG DAILY 11/07 1156 AC PO Melatonin 5 MG AT BEDTIME 11/05 2100 DC 11/06 PO 2106 Melatonin 10 MG 2100 11/04 2100 AC 11/06 PO 2109 Morphine Sulfate 10 MG Q6P PRN 11/07 1200 AC 11/07 PO 1210 Morphine Sulfate 2 MG Q6P PRN 10/31 1700 DC 11/07 IV 0541 Omeprazole 20 MG DAILY AC 10/31 1632 AC 11/07 PO 0541 Oxycodone/ 1 TAB Q6P PRN 11/07 0915 DC Acetaminophen PO Polyethylene Glycol 17 GM DAILY 11/06 1030 AC PO Senna 187 MG DAILY 11/06 1030 AC 11/07 PO 0836 Tramadol HCl 50 MG Q6P PRN 10/31 1700 DC 11/07 PO 0836 Past History Medical History Blood Transfusion Hx: No Neurological: NONE EENT: NONE Cardiovascular: PVD (s/p stent in left leg ), MITRAL VALVE PROLAPSE Respiratory: NONE Gastrointestinal: pancreatitis Hepatic: NONE Renal: NONE Psychiatric: anxiety, depression Endocrine: diabetes, hypothyroidism Blood Disorders: NONE Cancer(s): NONE CLINICAL CYTOGENETICIST/Reproductive: NONE Other Medical Hx: RA, Scleroderma Surgical History Pertinent Surgical History: cholecystectomy, right above knee amputation Stent to LLE Family History Relations & Conditions If Any: BROTHER *No pertinent family history FH: diabetes mellitus MOTHER FH: diabetes mellitus FATHER Relation not specified for: FH: colon cancer Psychosocial History Where Do You Live? Home Services at Home: Home Health Aide Smoking Status: Former Smoker Functional Ability ADLs Independent: dressing, eating, toileting, bathing. Ambulation: independent IADLs Independent: shopping, housework, finances, food prep, telephone, transportation , medication admin. Review of Systems Review of Systems: A 14 point review of systems was performed, and was found to be negative apart from the patient's complaints described above in the history of present illness. Exam & Diagnostic Data Vital Signs and I&O Vital Signs Date Time Temp Pulse Resp B/P B/P Pulse O2 O2 Flow FiO2 Mean Ox Delivery Rate 11/07 0626 150/74 11/07 0600 98.3 93 18 176/82 93 Room Air 11/06 2244 98.1 89 20 120/60 94 Room Air 11/06 1600 Room Air 11/06 1404 98.6 88 20 137/68 95 Intake & Output 11/07 1600 11/07 0800 11/07 0000 11/06 1600 11/06 0811/06 0000 Intake Total 480 800 730 400 480 Output Total 400 500 300 Balance 80 800 230 100 480 Intake, IV 10 Intake, Oral 480 800 720 400 480 Number 1 Bowel Movements Output, Urine 400 500 300 Physical Exam: The patient is status post right lower extremity above-knee amputation that is fully healed. On the left lower extremity, the patient has nonpalpable pedal pulses, normal temperature gradient warm to cool proximal to distal, capillary refill time is 3 seconds in all 5 toes on left side. The patient has a grossly normal peripheral neuro exam, with normal proprioceptive and light touch examinations. On the anterolateral aspect of her left leg approximately two [address] the way up the tib-fib segment there is a 6 cm x 2 cm full-thickness ulceration which has a largely granular base, a small fibrotic center, and only subcutaneous tissues exposed. The lesion is not warm, does not have any malodor , there is no purulence, there is no crepitus, there is no fluctuance, there is no surrounding lymphangitis. Patient has significant postinflammatory hyperpigmentation in the gaiter zone. Assessment/Plan Assessment/Plan 57 y/o female with DM, PVD, RA, s/p AKA, s/p LLE revascularization with chronic nonhealing ulceration of anterolateral left leg with no clinical or radiographic evidence of acute osteomyelitis. The patient was seen and evaluated at bedside. The patient's recent MRI was reviewed. Combining the lack of clinical or radiographic evidence of acute osteomyelitis with a lack of systemic inflammatory response, I believe a bone biopsy of the tibia can be deferred at this time and that her treatment for her mixed vascular insufficiency may continue in the hands of the vascular surgery team. I would also recommend against compression therapy at this time given her recent arterial procedure. I instructed patient to keep the affected limb elevated as much as possible. A dry nonadherent dressing was applied to left lower extremity wound, this may be repeated daily by the nursing staff. Case was d/w Dr. Conway, who agreed with the clinical and radiographic findings She reported she would follow up with her vascular surgeon for both the PAD and the venous stasis lesion. I also offered her f/u at the [facility] wound care center if she so wishes Reconsult prn Problem List: 1. Wound infection Consult Acknowledgment - Thank you for your consult request.
--- NOTE | 2017-11-07 14:11 | PN- Infect Dx ---
Subjective Subjective: Afebrile. She continues to complain of pain, from her left lower quadrant down the left leg Objective Last 24 Hrs of Vital Signs/I&O Vital Signs Date Time Temp Pulse Resp B/P B/P Pulse O2 O2 Flow FiO2 Mean Ox Delivery Rate 11/07 0626 150/74 11/07 0600 98.3 93 18 176/82 93 Room Air 11/06 2244 98.1 89 20 120/60 94 Room Air 11/06 1600 Room Air Intake & Output 11/07 1600 11/07 0800 11/07 0000 Intake Total 480 800 Output Total 400 Balance 80 800 Intake, Oral 480 800 Number 1 Bowel Movements Output, Urine 400 Physical Exam Other Physical Findings: She appears comfortable in no acute distress Extremities ulcer on the anterior tibial aspect of her left leg clean, with no drainage or surrounding erythema or edema; palpable pulse in the left foot Results Last 24 Hours of Lab Results: Laboratory Tests 11/06 07 Chemistry Sodium (137 - 145 mmol/L) 140 Potassium (3.5 - 5.1 mmol/L) 4.5 Chloride (98 - 107 mmol/L) 107 Carbon Dioxide (22 - 30 mmol/L) 23 Anion Gap (5 - 16) 10 BUN (7 - 17 mg/dL) 11 Creatinine (0.5 - 1.0 mg/dL) 0.8 Estimated GFR (>60 ml/min) > 60 BUN/Creatinine Ratio (7 - 25 %) 13.8 Hematology CBC w Diff NO MAN DIFF REQ WBC (4.8 - 10.8 /CUMM) 6.9 RBC (4.20 - 5.40 /CUMM) 4.03 L Hgb (12.0 - 16.0 G/DL) 11.4 L Hct (37 - 47 %) 34.6 L MCV (81.0 - 99.0 FL) 85.8 MCH (27.0 - 31.0 PG) 28.3 MCHC (33.0 - 37.0 G/DL) 32.9 L RDW (11.5 - 14.5 %) 14.1 Plt Count (130 - 400 /CUMM) 212 MPV (7.4 - 10.4 FL) 11.1 H Gran % (42.2 - 75.2 %) 71.5 Lymphocytes % (20.5 - 51.1 %) 17.6 L Monocytes % (1.7 - 9.3 %) 8.7 Eosinophils % (0 - 5 %) 1.9 Basophils % (0.0 - 2.0 %) 0.3 Absolute Granulocytes (1.4 - 6.5 /CUMM) 5.0 Absolute Lymphocytes (1.2 - 3.4 /CUMM) 1.2 Absolute Monocytes (0.10 - 0.60 /CUMM) 0.6 Absolute Eosinophils (0.0 - 0.7 /CUMM) 0.1 Absolute Basophils (0.0 - 0.2 /CUMM) 0 Last 24 Hours of Nikolas Results: No recent cultures Assessment/Plan ID Impression: Stable, with temperatures and white blood cell count remaining normal, off antibiotics status post angioplasty and stenting of the left SFA 2 days ago for severe peripheral vascular disease. Upon further review and discussion with Podiatry her MRI findings of periosteal changes to the fibula do not correlate with her clinical findings of an anterior tibial ulcer; therefore feel that further evaluation for osteomyelitis can be deferred at this point. Suggestion: 1. Would defer on a bone biopsy at this time 2. Continue to follow off antibiotics
[2017-11-07 14:20] VITALS: BP 130/70
[2017-11-07 15:19] VITALS: BP 130/70
== END 2017-11-07 15:40 | DRG 175 ==
LOC: ERH 11:08 → ERHI 14:38 → 2NA 14:38 → ENRESERV 15:04 → ENTRNSPT 16:11 → EDTRNSPTSTS 16:14 → 2NA 16:32 → CMPTRNSPT 16:40 → 2NA 11-02 17:17 → ENTRNSPT 11-05 10:44 → EDTRNSPTSTS 11-05 10:57 → CMPTRNSPT 11-05 11:22 → ENPENDDIS 11-07 13:54 → 2NA 11-07 15:40
PROVIDERS: Internal Medicine; Physician Assistant; Student in an Organized Health Care Education/Training Program
PROC: 027034Z Dilation of Coronary Artery, One Artery with Drug-eluting Intraluminal Device, Percutaneous Approach (ICD-10-PCS; principal; 2017-11-05)
PROC: B41D1ZZ Fluoroscopy of Aorta and Bilateral Lower Extremity Arteries using Low Osmolar Contrast (ICD-10-PCS; principal; 2017-11-05)
DX: E11.51 Type 2 diabetes mellitus with diabetic peripheral angiopathy without gangrene (principal); E11.65 Type 2 diabetes mellitus with hyperglycemia; E11.40 Type 2 diabetes mellitus with diabetic neuropathy, unspecified; Z79.4 Long term (current) use of insulin; Z79.84 Long term (current) use of oral hypoglycemic drugs; L03.116 Cellulitis of left lower limb; L97.821 Non-pressure chronic ulcer of other part of left lower leg limited to breakdown of skin; E03.9 Hypothyroidism, unspecified; Z89.611 Acquired absence of right leg above knee; E87.5 Hyperkalemia; I10 Essential (primary) hypertension; E78.5 Hyperlipidemia, unspecified; M06.9 Rheumatoid arthritis, unspecified; M34.9 Systemic sclerosis, unspecified; K21.9 Gastro-esophageal reflux disease without esophagitis; Z95.9 Presence of cardiac and vascular implant and graft, unspecified; Z88.6 Allergy status to analgesic agent; Z88.5 Allergy status to narcotic agent; Z88.0 Allergy status to penicillin; F32.9 Major depressive disorder, single episode, unspecified; F41.9 Anxiety disorder, unspecified; Z90.49 Acquired absence of other specified parts of digestive tract; Z98.51 Tubal ligation status
CPT/HCPCS: 2NASP; 75656; 36415; 36592; 73552; 73590-LT; 81001; 82436; 87040; 93005; 93010; 96360; 96361; 96372; A9579; C1725; C1760; J0713; J1644; J1650; J1815; J2001; J2720; J3370; J7040; J7042; Q9967

== ENCOUNTER 2017-12-02 14:36 | Emergency (ER) | payer OTHER ==
[~2017-12-02 14:36] MED LIST changes: +LEVEMIR100 UNIT/1 SC; +MELATONIN5 M7 PO; +MORPHINE S10 MG/5 M2 PO; +NOVOLOG100 UNIT/2 SC; +PERCOCET 5-3251 EACH PO; +TRAMADOL HCL50 M1 PO; +TYLENOL325 M1 PO
[2017-12-02 15:22] LABS: ABSOLUTE BASOPHIL COUNT 0 /CUMM (0.0-0.2); ABSOLUTE EOSINOPHIL COUNT 0.2 /CUMM (0.0-0.7); ABSOLUTE GRANULOCYTE CT 7.5 /CUMM (1.4-6.5); ABSOLUTE LYMPH COUNT 2.6 /CUMM (1.2-3.4); ABSOLUTE MONOCYTE COUNT 0.6 /CUMM (0.10-0.60); BASOPHIL % 0.3 % (0.0-2.0); EOSINOPHIL % 1.9 % (0-5); GRANULOCYTE % 68.5 % (42.2-75.2); HEMATOCRIT 36.5 % (37-47); MEAN CORPUSCULAR HGB 27.9 PG (27.0-31.0); MEAN CORPUSCULAR HGB CONC 33.3 G/DL (33.0-37.0); MEAN PLATELET VOLUME 10.6 FL (7.4-10.4); PLATELET COUNT 287 /CUMM (130-400); RBC DISTRIBUTION WIDTH 13.7 % (11.5-14.5); RED BLOOD CELL CT 4.34 /CUMM (4.20-5.40)
--- NOTE | 2017-12-02 17:26 | ED GI/GU/ABDOMINAL COMPLAINT ---
History of Present Illness General Chief Complaint: Abdominal Pain/Flank Pain Stated Complaint: BIBA ABD PAIN Source: patient, old records, EMS Exam Limitations: no limitations Vital Signs & Intake/Output Vital Signs & Intake/Output Vital Signs Date Time Temp Pulse Resp B/P B/P Pulse O2 O2 Flow FiO2 Mean Ox Delivery Rate 12/02 2110 97.5 80 18 135/70 98 Room Air 12/02 1933 Room Air 12/02 1917 98.1 81 18 148/69 98 Room Air 12/02 1707 98.0 88 18 151/68 100 Room Air 12/02 1448 98.2 93 16 150/67 98 Room Air Allergies Coded Allergies: ibuprofen (Intermediate, [facility] 09/12/17) oxycodone (From PERCOCET) (Intermediate, [facility] 09/12/17) Penicillins (UNKNOWN 09/27/15) diclofenac (UNKNOWN LISTED ON W10 12/02/17) hydromorphone (From DILAUDID) (HIVES 07/02/17) trazodone (UNKNOWN 07/19/17) Reconcile Medications Acetaminophen (Acephen) 650 MG SUPP.RECT 1 SUPP RI Q4H PRN PAIN/FEVER>100 ( Reported) Acetaminophen (Mapap) 325 MG TABLET 2 TAB PO Q8H PRN MILD PAIN 1-3 (Reported) Acetaminophen (Tylenol) 325 MG TABLET 2 TAB PO Q8P PRN PAIN SCALE 1-3 (MILD) Aspirin (Ecotrin*) 81 MG TABLET.DR 1 TAB PO DAILY HEART HEALTH (Reported) Bisacodyl (Dulcolax) 10 MG SUPP.RECT 1 SUP RC DAILY CONSTIPATION (Reported) Bupropion HCl (Bupropion HCl Sr) 150 MG TABLET.ER 1 TAB PO QAM MENTAL HEALTH (Reported) Bupropion HCl (Bupropion HCl Sr) 100 MG TABLET.ER 1 TAB PO QAM MENTAL HEALTH (Reported) Calcium Carbonate (TUMS) 200 MG CALCIUM (500 MG) TAB.CHEW 2 TAB PO TID UNKNOWN (Reported) Cetirizine HCl 10 MG TABLET 1 TAB PO QAM ALLERGIES (Reported) Clopidogrel Bisulfate (Plavix) 75 MG TABLET 1 TAB PO DAILY PVD (Reported) Cyanocobalamin (Vitamin B-12) (B-12 Dots) 500 MCG TABLET 1 TAB PO 1700 VITAMIN SUPPORT (Reported) Docusate Sodium (Colace) 100 MG CAPSULE 1 CAP PO TID CONSTIPATION (Reported) Doxycycline Hyclate 100 MG CAPSULE 1 CAP PO Q12H ABX (Reported) Exenatide Microspheres (Bydureon Pen) 2 MG/0.65 ML PEN.INJCTR 2 MG SQ QTHURS DM (Reported) Fluticasone Propionate 50 MCG/ACTUATION SPRAY.SUSP 1 SPRAY NASB QHS ALLERGIES (Reported) Gabapentin 400 MG CAPSULE 1 CAP PO TID UNKNOWN (Reported) Hydroxychloroquine Sulfate 200 MG TABLET 1 TAB PO BID ARTHRITIS (Reported) Insulin Glargine,Hum.rec.anlog (Lantus Solostar) 100 UNIT/ML (3 ML) INSULN.PEN 28 UNIT SC BID DM (Reported) Insulin Lispro (Humalog) 100 UNIT/ML VIAL DM (Reported) Lactobacillus Acidophilus (Probiotic) 10 BILLION CELL CAPSULE 1 CAP PO BID PROBIOTICS (Reported) Levothyroxine Sodium 75 MCG TABLET 1 TAB PO DAILY AC THYROID (Reported) Losartan Potassium 25 MG TABLET 1 TAB PO DAILY HTN (Reported) Magnesium Hydroxide (Milk Of Magnesia) 400 MG/5 ML ORAL.SUSP 30 ML PO DAILY PRN CONSTIPATION (Reported) Melatonin 5 MG TABLET 3 TAB PO QPM SLEEP (Reported) Metformin HCl 1,000 MG TABLET 1 TAB PO BID DM (Reported) Montelukast Sodium 10 MG TABLET 1 TAB PO DAILY ALLERGIES/RESP. (Reported) Morphine Sulfate 15 MG TABLET 1 TAB PO BIDP PRN PAIN Na Phos,M-B/Na Phos,Di-Ba (Fleet Enema) 19 GRAM-7 GRAM/118 ML ENEMA 1 E RC DAILY PRN CONSTIPATION (Reported) Omeprazole 20 MG TABLET.DR 1 TAB PO DAILY GERD (Reported) Ondansetron (Zofran Odt) 4 MG TAB.RAPDIS 1 TAB SL TID PRN NAUSEA Pravastatin Sodium (Pravachol) 80 MG TABLET 1 TAB PO DAILY PVD (Reported) Protein Supplement (Promod) 946 ML LIQUID 30 ML PO DAILY SUPPLEMENT (Reported ) Tramadol HCl (Ultram) 50 MG TABLET 2 TAB PO Q8H PRN PAIN (Reported) Triage Note: PT BIBA FROM [facility] WITH 8/1O ABD PAIN. STATES SHE HAS A HX OF PANCREATITIS AND STATES THAT IT FEELS THE SAME. REPORTS THAT SHE TOOK 100MG TRAMADOL WITH NO RELIEF, AND LOOKING FOR SOMETHING STRONGER SHE STATES. PT HAD VOMITING THIS AM, BUT DENIES ANY NAUSEA NOW. DENIES ANY CP/SOB. Triage Nurses Notes Reviewed? yes LMP (ages 10-50): unknown ? n Is pt currently ? No Onset: Abrupt Duration: day(s): (1), constant, continues in ED Timing: single episode today Quality/Severity: sharpness, severe, stabbing Severity Numbers: 8 Location: epigastric Radiation: no radiation Activities at Onset: none Prior Abdominal Problems: similar symptoms Past Sexual History: Unobtainable at this time No Modifying Factors: none Modifying Factors: Worsens With: movement, palpation. Associated Symptoms: abdominal pain, nausea/vomiting HPI: 57 year old female history of diabetes hypertension hyperlipidemia and pancreatitis presents for evaluation of epigastric pain. Patient states pain started yesterday and has been constant and getting worse. The pain is located in the epigastric area and does not radiate. Associated with nausea but no vomiting. She reports this is similar to previous episodes of pancreatitis. She denies any chest pain shortness breath fever diarrhea urinary symptoms. She is taking tramadol without improvement. She denies any alcohol use. No recent abdominal surgeries no back pain (Daniel Siegel) Past History Travel History Traveled to [place] past 21 day No Medical History Any Pertinent Medical History? 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 No (Daniel Siegel) Review of Systems Review of Systems Constitutional: Reports: no symptoms. EENTM: Reports: no symptoms. Respiratory: Reports: no symptoms. Cardiovascular: Reports: no symptoms. GI: Reports: see HPI, abdominal pain, nausea. Genitourinary: Reports: no symptoms. Musculoskeletal: Reports: no symptoms. Skin: Reports: no symptoms. Neurological/Psychological: Reports: no symptoms. Hematologic/Endocrine: Reports: no symptoms. Immunologic/Allergic: Reports: no symptoms. All Other Systems: Reviewed and Negative (Daniel Siegel) Physical Exam Physical Exam General Appearance: well developed/nourished, no apparent distress, alert, awake Head: atraumatic, normal appearance Eyes: Bilateral: normal appearance, PERRL, EOMI. Ears, Nose, Throat, Mouth: moist mucous membrane Neck: normal inspection, supple, full range of motion Respiratory: normal breath sounds, chest non-tender, no respiratory distress, lungs clear Cardiovascular: regular rate/rhythm, normal peripheral pulses Peripheral Pulses: 2+ radial (R), 2+ radial (L) Gastrointestinal: normal bowel sounds, soft, no organomegaly, tenderness ( epigastric luq) Back: normal inspection, normal range of motion, no vertebral tenderness Extremities: right [id number] amputation Neurologic/Psych: no motor/sensory deficits, awake, alert, oriented x 3, normal gait Skin: intact, normal color, warm/dry Core Measures ACS in differential dx? No Sepsis Present: No Sepsis Focused Exam Completed? No (Daniel Siegel) Progress Differential Diagnosis: AAA, AMI, appendicitis, biliary colic, bowel obstruction , colon cancer, cholecystitis, diverticulitis, gastritis, hepatitis, ischemic bowel, inflamm bowel dis, kidney stone, Erika-Shashi tear, pancreatitis, peptic ulcer, PUD/GERD, UTI/pyelo Plan of Care: Orders Procedure Date/time Status EKG 12/02 1540 Active URINALYSIS 12/02 1457 Complete TROPONIN LEVEL 12/02 1457 Complete LIPASE 12/02 1457 Complete COMPREHENSIVE METABOLIC PANEL 12/02 1457 Complete CBC WITHOUT DIFFERENTIAL 12/02 1457 Complete Laboratory Tests 12/02/17 1955: Urine Color YEL, Urine Clarity CLEAR, Urine pH 6.0, Ur Specific [place] 1.020, Urine Protein 30 H, Urine Ketones NEG, Urine Nitrite NEG, Urine Bilirubin NEG, Urine Urobilinogen 0.2, Ur Leukocyte Esterase NEG, Ur Microscopic SEDIMENT EXAMINED, Urine RBC RARE, Urine WBC RARE, Ur Epithelial Cells FEW, Urine Bacteria FEW H, Urine Hemoglobin NEG, Urine Glucose NEG 12/02/17 1510: Anion Gap 14, Estimated GFR > 60, BUN/Creatinine Ratio 41.4 H, Glucose 132 H, Calcium 10.0, Total Bilirubin < 0.1 L, AST 23, ALT 34, Alkaline Phosphatase 139 H, Troponin I < 0.01, Total Protein 6.8, Albumin 3.8, Globulin 3.0, Albumin/ Globulin Ratio 1.3, Lipase 75, CBC w Diff NO MAN DIFF REQ, RBC 4.34, MCV 84.0, MCH 27.9, MCHC 33.3, RDW 13.7, MPV 10.6 H, Gran % 68.5, Lymphocytes % 23.8, Monocytes % 5.5, Eosinophils % 1.9, Basophils % 0.3, Absolute Granulocytes 7.5 H, Absolute Lymphocytes 2.6, Absolute Monocytes 0.6, Absolute Eosinophils 0.2, Absolute Basophils 0 She is here with epigastric abdominal pain. She's had this multiple times in the past related to acute pancreatitis. She reports associated nausea but no vomiting. On exam her epigastric area is tender to palpation. Vital signs are stable. Labs CT scan EKG ordered. Patient medicated with morphine and Zofran. Labs are not showing any significant acute findings. Skin is also negative. EKG is stable. Troponin negative. Patient is feeling better. She was able tolerate clear fluids. CT scan is negative for acute findings. There is mild dilation of the common bile duct status post cholecystectomy without stones. T bili is within normal limits. Reviewed all results of today's visit with patient. She was given a prescription for oral morphine and Zofran. Follow up with gastroenterology and primary care. Discussed return precautions patient agrees the plan Diagnostic Imaging: Viewed by Me: CT Scan. Discussed w/RAD: CT Scan. Radiology Impression: PATIENT: IRENA BUTLER PRESENT AGE: 57 PATIENT ACCOUNT NO: [id number] : 60 LOCATION: [facility] ORDERING PHYSICIAN: Daniel MEADOWS SERVICE DATE: 12/02/17 EXAM TYPE: CAT - CT ABD & PELVIS W IV CONTRAST EXAMINATION: CT ABDOMEN AND PELVIS WITH CONTRAST CLINICAL INFORMATION: Epigastric pain, right upper quadrant pain COMPARISON: CT 07/14/2017 TECHNIQUE: Multidetector volumetric imaging was performed of the abdomen and pelvis following IV administration of 95 mL of Optiray 320 intravenous contrast. Sagittal and coronal reformatted images were obtained on the technologist's workstation. DLP: 634 mGy-cm FINDINGS: LUNG BASES: The visualized lung bases are unremarkable. LIVER, GALLBLADDER, AND BILIARY TREE: Unchanged hepatic steatosis. Mild prominence of the intrahepatic biliary system. No focal lesion. Status post cholecystectomy. The common bile duct measures 1.1 cm in diameter. PANCREAS: Unremarkable. SPLEEN: Unremarkable. ADRENAL GLANDS: Unremarkable. KIDNEYS AND URETERS: The kidneys are normal in size, shape, and attenuation. No hydronephrosis, hydroureter, or calculi seen. No perinephric stranding. BLADDER: Unremarkable. GASTROINTESTINAL TRACT: Moderate stool present throughout the colon. No dilated loops of small or large bowel. No intra- abdominal free air or free fluid. ABDOMINAL WALL: No significant hernia is appreciated. LYMPH NODES: Normal. VASCULAR: Mild atherosclerotic calcific disease involving the abdominal aorta and branches.. PELVIC VISCERA: Uterus and ovaries appear within normal range. No free fluid in the pelvis. OSSEOUS STRUCTURES: Unremarkable. IMPRESSION: Mildly prominent common bile duct the setting of cholecystectomy. Otherwise stable abdominal and pelvic CT. DICTATED BY: Gianna Rios MD DATE/TIME DICTATED:12/02/171837 NURSE ASSESSOR:CRYSTAL DATE/TIME TRANSCRIBED:12/02/171837 CONFIDENTIAL, DO NOT COPY WITHOUT APPROPRIATE AUTHORIZATION. <Electronically signed in Other Vendor System> SIGNED BY: Gianna Rios MD 12/02/171845 Initial ED EKG: normal sinus rhythm, no ST T wave changes (Daniel Siegel) Departure Departure Disposition: HOME OR SELF CARE Condition: Stable Clinical Impression Primary Impression: Abdominal pain Qualifiers: Abdominal location: epigastric Qualified Code: R10.13 - Epigastric pain Referrals: Teodora CURIEL,Dalton Ochoa MD,Moe Manrique (PCP/Family) Additional Instructions: Rest drink plenty of fluids. Clear diet for the next 24 hours and advance as tolerated. Continue all your medications as directed. Tylenol and morphine for pain Zofran for nausea. Follow up with inspection and testing supervisor provided. Monitor symptoms and return with any concerns. Departure Forms: Customer Survey General Discharge Information Prescriptions: Current Visit Scripts Ondansetron (Zofran Odt) 1 TAB SL TID PRN NAUSEA #15 TAB Morphine Sulfate 1 TAB PO BIDP PRN PAIN #10 TAB (Daniel Siegel) PA/ENROBING MACHINE CORDER Co-Sign Statement Statement: ED Attending supervision documentation- [] I saw and evaluated the patient. I have also reviewed all the pertinent lab results and diagnostic results. I agree with the findings and the plan of care as documented in the PA's/ENROBING MACHINE CORDER's documentation. [x] I have reviewed the ED Record and agree with the PA's/ENROBING MACHINE CORDER's documentation. [] Additions or exceptions (if any) to the PAs/ENROBING MACHINE CORDER's note and plan are summarized below: [] (Corie CURIEL,Jann Angela)
[2017-12-02] MEDS ORDERED: FLUTICASONE PRO16 GM NASB (18:42)
[2017-12-02] MEDS ORDERED: CETIRIZINE HCL10 M2 PO (18:42)
[2017-12-02] MEDS ORDERED: BUPROPION HCL100 M3 PO (18:44)
[2017-12-02] MEDS ORDERED: BUPROPION HCL150 M4 PO (18:44)
[2017-12-02] MEDS ORDERED: GABAPENTIN400 M2 PO (18:45)
[2017-12-02] MEDS ORDERED: TUMS200 MG PO (18:46)
--- NOTE | 2017-12-02 18:46 | CT SCAN REPORT ---
EXAMINATION: CT ABDOMEN AND PELVIS WITH CONTRAST CLINICAL INFORMATION: Epigastric pain, right upper quadrant pain COMPARISON: CT 07/14/2017 TECHNIQUE: Multidetector volumetric imaging was performed of the abdomen and pelvis following IV administration of 95 mL of Optiray 320 intravenous contrast. Sagittal and coronal reformatted images were obtained on the technologist's workstation. DLP: 634 mGy-cm FINDINGS: LUNG BASES: The visualized lung bases are unremarkable. LIVER, GALLBLADDER, AND BILIARY TREE: Unchanged hepatic steatosis. Mild prominence of the intrahepatic biliary system. No focal lesion. Status post cholecystectomy. The common bile duct measures 1.1 cm in diameter. PANCREAS: Unremarkable. SPLEEN: Unremarkable. ADRENAL GLANDS: Unremarkable. KIDNEYS AND URETERS: The kidneys are normal in size, shape, and attenuation. No hydronephrosis, hydroureter, or calculi seen. No perinephric stranding. BLADDER: Unremarkable. GASTROINTESTINAL TRACT: Moderate stool present throughout the colon. No dilated loops of small or large bowel. No intra-abdominal free air or free fluid. ABDOMINAL WALL: No significant hernia is appreciated. LYMPH NODES: Normal. VASCULAR: Mild atherosclerotic calcific disease involving the abdominal aorta and branches.. PELVIC VISCERA: Uterus and ovaries appear within normal range. No free fluid in the pelvis. OSSEOUS STRUCTURES: Unremarkable. IMPRESSION: Mildly prominent common bile duct the setting of cholecystectomy. Otherwise stable abdominal and pelvic CT.
[2017-12-02] MEDS ORDERED: BYDUREON P2 MG/0.65 SQ (18:47)
[2017-12-02] MEDS ORDERED: HUMALOG100 UNIT/2 SC (18:49)
[2017-12-02] MEDS ORDERED: LANTUS SOL100 UNIT/1 SC (18:50)
[2017-12-02] MEDS ORDERED: PROMOD946 ML PO (18:53)
[2017-12-02] MEDS ORDERED: DOXYCYCLINE HY100 M2 PO (18:56)
[2017-12-02] MEDS ORDERED: PROBIOTIC1 EACH PO (18:57)
[2017-12-02] MEDS ORDERED: MONTELUKAST SOD10 M1 PO (18:58)
[2017-12-02] MEDS ORDERED: MILK OF MA400 MG/52 PO (18:59)
[2017-12-02] MEDS ORDERED: DULCOLAX10 M1 RC (19:00)
[2017-12-02] MEDS ORDERED: FLEET ENEMA133 ML RC (19:00)
[2017-12-02] MEDS ORDERED: ULTRAM50 M1 PO (19:02)
[2017-12-02] MEDS ORDERED: ACEPHEN650 M1 PR (19:03)
[2017-12-02] MEDS ORDERED: MAPAP325 M1 PO (19:06)
[2017-12-02] MEDS ORDERED: ZOFRAN ODT4 M1 SL (20:45)
[2017-12-02] MEDS ORDERED: MORPHINE SULFAT15 M4 PO (20:46)
[2017-12-02 21:11] VITALS: BP 135/70
== END 2017-12-02 21:51 ==
LOC: ERH 14:36
PROVIDERS: Physician Assistant Medical
DX: R10.13 Epigastric pain (principal)
CPT/HCPCS: 74177; 81001; 93005; 93010; 96374; 96375; 96376; J2405

== ENCOUNTER 2018-01-03 13:46 | Emergency (ER) | payer OTHER ==
[~2018-01-03] VITALS: Ht 170.2 cm; Wt 77.6 kg
[~2018-01-03 13:46] MED LIST changes: +BUPROPION HCL100 M3 PO; +BUPROPION HCL150 M4 PO; +BYDUREON P2 MG/0.65 SQ; +CETIRIZINE HCL10 M2 PO; +DOXYCYCLINE HY100 M2 PO; +DULCOLAX10 M1 RC; +FLUTICASONE PRO16 GM NASB; +GABAPENTIN400 M2 PO; +HUMALOG100 UNIT/2 SC; +MAPAP325 M1 PO; +MONTELUKAST SOD10 M1 PO; +MORPHINE SULFAT15 M4 PO; +PROBIOTIC1 EACH PO; +PROMOD946 ML PO; +REGLAN10 M1 PO; +TUMS200 MG PO; +ULTRAM50 M1 PO
[2018-01-03 14:16] LABS: ABSOLUTE BASOPHIL COUNT 0 /CUMM (0.0-0.2); ABSOLUTE EOSINOPHIL COUNT 0.1 /CUMM (0.0-0.7); ABSOLUTE GRANULOCYTE CT 6.7 /CUMM (1.4-6.5); ABSOLUTE LYMPH COUNT 1.3 /CUMM (1.2-3.4); ABSOLUTE MONOCYTE COUNT 0.4 /CUMM (0.10-0.60); BASOPHIL % 0.2 % (0.0-2.0); EOSINOPHIL % 1.2 % (0-5); GRANULOCYTE % 78.1 % (42.2-75.2); HEMATOCRIT 37.8 % (37-47); MEAN CORPUSCULAR HGB 28.1 PG (27.0-31.0); MEAN CORPUSCULAR HGB CONC 33.6 G/DL (33.0-37.0); MEAN CORPUSCULAR VOLUME 83.7 FL (81.0-99.0); MEAN PLATELET VOLUME 10.8 FL (7.4-10.4); PLATELET COUNT 294 /CUMM (130-400); RBC DISTRIBUTION WIDTH 14.2 % (11.5-14.5); RED BLOOD CELL CT 4.52 /CUMM (4.20-5.40); WHITE BLOOD CELL COUNT 8.6 /CUMM (4.8-10.8)
--- NOTE | 2018-01-03 14:56 | ED GI/GU/ABDOMINAL COMPLAINT ---
History of Present Illness General Chief Complaint: Abdominal Pain/Flank Pain Stated Complaint: BIBA, ABD PAIN Source: patient, old records Exam Limitations: no limitations Vital Signs & Intake/Output Vital Signs & Intake/Output Vital Signs Date Time Temp Pulse Resp B/P B/P Pulse O2 O2 Flow FiO2 Mean Ox Delivery Rate 01/03 1632 98.0 92 18 131/66 96 Room Air 01/03 1401 97.1 96 18 169/88 97 Room Air Allergies Coded Allergies: ibuprofen (Intermediate, HIVES 01/07/18) oxycodone (From PERCOCET) (Intermediate, HIVES 01/07/18) Penicillins (UNKNOWN 01/07/18) diclofenac (UNKNOWN LISTED ON W10 01/07/18) hydromorphone (From DILAUDID) (HIVES 01/07/18) trazodone (UNKNOWN 01/07/18) Reconcile Medications Acetaminophen (Mapap) 325 MG TABLET 2 TAB PO Q8H PRN MILD PAIN 1-3 (Reported) Aspirin (Ecotrin*) 81 MG TABLET.DR 1 TAB PO DAILY HEART HEALTH (Reported) Bisacodyl (Dulcolax) 10 MG SUPP.RECT 1 SUP RC DAILY CONSTIPATION (Reported) Bupropion HCl (Bupropion HCl Sr) 150 MG TABLET.ER 1 TAB PO QAM MENTAL HEALTH (Reported) Calcium Carbonate (TUMS) 200 MG CALCIUM (500 MG) TAB.CHEW 2 TAB PO TID UNKNOWN (Reported) Cetirizine HCl 10 MG TABLET 1 TAB PO QAM ALLERGIES (Reported) Clopidogrel Bisulfate (Plavix) 75 MG TABLET 1 TAB PO DAILY PVD (Reported) Cyanocobalamin (Vitamin B-12) (B-12 Dots) 500 MCG TABLET 1 TAB PO 1700 VITAMIN SUPPORT (Reported) Docusate Sodium (Colace) 100 MG CAPSULE 1 CAP PO TID CONSTIPATION (Reported) Exenatide Microspheres (Bydureon Pen) 2 MG/0.65 ML PEN.INJCTR 2 MG SQ QTHURS DM (Reported) Fluticasone Propionate 50 MCG/ACTUATION SPRAY.SUSP 1 SPRAY NASB QHS ALLERGIES (Reported) Gabapentin 400 MG CAPSULE 1 CAP PO TID UNKNOWN (Reported) Hydroxychloroquine Sulfate 200 MG TABLET 1 TAB PO BID ARTHRITIS (Reported) Insulin Glargine,Hum.rec.anlog (Lantus Solostar) 100 UNIT/ML (3 ML) INSULN.PEN 28 UNIT SC BID DM (Reported) Insulin Lispro (Humalog) 100 UNIT/ML VIAL DM (Reported) Lactobacillus Acidophilus (Probiotic) 10 BILLION CELL CAPSULE 1 CAP PO BID PROBIOTICS (Reported) Levothyroxine Sodium 75 MCG TABLET 1 TAB PO DAILY AC THYROID (Reported) Losartan Potassium 25 MG TABLET 1 TAB PO DAILY HTN (Reported) Magnesium Hydroxide (Milk Of Magnesia) 400 MG/5 ML ORAL.SUSP 30 ML PO DAILY PRN CONSTIPATION (Reported) Melatonin 5 MG TABLET 3 TAB PO QPM SLEEP (Reported) Metformin HCl 1,000 MG TABLET 1 TAB PO BID DM (Reported) Metoclopramide HCl (Reglan) 10 MG TABLET 1 TAB PO 4 TIMES/DAY PRN nausea 30 minutes before meals and bedtime Montelukast Sodium 10 MG TABLET 1 TAB PO DAILY ALLERGIES/RESP. (Reported) Morphine Sulfate 15 MG TABLET 1 TAB PO BIDP PRN PAIN Na Phos,M-B/Na Phos,Di-Ba (Fleet Enema) 19 GRAM-7 GRAM/118 ML ENEMA 1 E RC DAILY PRN CONSTIPATION (Reported) Omeprazole 20 MG TABLET.DR 1 TAB PO DAILY GERD (Reported) Ondansetron (Zofran Odt) 4 MG TAB.RAPDIS 1 TAB SL TID PRN NAUSEA Pravastatin Sodium (Pravachol) 80 MG TABLET 1 TAB PO DAILY PVD (Reported) Protein Supplement (Promod) 946 ML LIQUID 30 ML PO DAILY SUPPLEMENT (Reported ) Tramadol HCl (Ultram) 50 MG TABLET 1 TAB PO Q6P PRN pain Triage Note: 57 YEAR OLD FEMALE STATES THAT SHE WAS HERE YESTERDAY FOR HER UPPER ABD PAIN A ND WAS DIAGNOSED WITH PANCREATITIS, STATES THAT SHE HAS NO INSURANCE SO SHE CAN'T GET MEDS. PT IS IDDM AND DID NOT TAKE HER INSULIN TODAY DUE TO THE PAIN.FS 450. PAIN IS CONSTANT AND 10/10, ALSO STATES THAT SHE HAS HAD N/V Triage Nurses Notes Reviewed? yes ? n Is pt currently ? No Onset: Gradual Duration: day(s): Timing: recent history Quality/Severity: moderate Location: epigastric HPI: 57yo female with hx of pancreatitis, DM, RA presents to ED complaining of persistent epigastric abdominal pain. Patient was seen and evaluated here yesterday. She was discharged following CT scan and labs. Patient states she received IV pain meds which helped her symptoms however they have worn off and her abdominal pain returned. 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 She states she has been diagnosed with pancreatitis and has pain in this area relating to pancreatitis. Pain currently sharp, 10/10. Patient reports associated nausea however no vomiting. She has had normal bowel movements. The patient denies chest pain, dyspnea, alcoholism, fever, chills. Past History Travel History Traveled to [place] past 21 day No Medical History Any Pertinent Medical History? 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 No Review of Systems Review of Systems Constitutional: Reports: no symptoms. EENTM: Reports: no symptoms. Respiratory: Reports: no symptoms. Cardiovascular: Reports: no symptoms. GI: Reports: see HPI. Genitourinary: Reports: no symptoms. Musculoskeletal: Reports: no symptoms. Skin: Reports: no symptoms. Neurological/Psychological: Reports: no symptoms. Hematologic/Endocrine: Reports: no symptoms. Immunologic/Allergic: Reports: no symptoms. All Other Systems: Reviewed and Negative Physical Exam Physical Exam General Appearance: well developed/nourished, no apparent distress, alert, awake Head: atraumatic, normal appearance Eyes: Bilateral: normal appearance. Ears, Nose, Throat, Mouth: hearing grossly normal Neck: normal inspection, supple, full range of motion Respiratory: normal breath sounds, no respiratory distress, lungs clear Cardiovascular: regular rate/rhythm Gastrointestinal: RUQ, LUQ, epigastric tenderness, no rebound Back: normal inspection, normal range of motion Extremities: normal range of motion Neurologic/Psych: awake, alert, oriented x 3 Skin: intact, normal color, warm/dry Core Measures ACS in differential dx? Yes Sepsis Present: No Sepsis Focused Exam Completed? No Progress Differential Diagnosis: bowel obstruction, gastritis, hernia, pancreatitis, peptic ulcer, PUD/GERD, perforated viscous, SBO Plan of Care: Orders Procedure Date/time Status Add-on Test (ER Only) 01/03 1502 Active EKG 01/03 1502 Active TROPONIN LEVEL 01/03 1408 Complete AMYLASE 01/03 1408 Complete URINALYSIS 01/03 1349 Active LIPASE 01/03 1349 Complete LACTIC ACID 01/03 1349 Complete COMPREHENSIVE METABOLIC PANEL 01/03 1349 Complete CBC WITHOUT DIFFERENTIAL 01/03 1349 Complete Laboratory Tests 01/03/18 1649: Lactic Acid Cancelled 01/03/18 1408: Anion Gap 13, Estimated GFR > 60, BUN/Creatinine Ratio 26.7 H, Glucose 477 H, Lactic Acid 1.2, Calcium 10.3 H, Total Bilirubin 0.3, AST 18, ALT 34, Alkaline Phosphatase 168 H, Troponin I < 0.01, Total Protein 6.9, Albumin 3.9, Globulin 3.0, Albumin/Globulin Ratio 1.3, Amylase 48, Lipase 161, CBC w Diff NO MAN DIFF REQ, RBC 4.52, MCV 83.7, MCH 28.1, MCHC 33.6, RDW 14.2, MPV 10.8 H, Gran % 78.1 H, Lymphocytes % 15.3 L, Monocytes % 5.2, Eosinophils % 1.2, Basophils % 0.2, Absolute Granulocytes 6.7 H, Absolute Lymphocytes 1.3, Absolute Monocytes 0.4, Absolute Eosinophils 0.1, Absolute Basophils 0 Patient was seen and evaluated yesterday for the same complaints. At that time her CT scan was within normal limits. Will obtain repeat labs, EKG, troponin to further evaluate this patient's epigastric abdominal pain. Patient's labs are stable compared to her baseline. EKG and troponin are stable. Patient is requesting pain medications. She was given IM shot. Given her stable findings, prescription for PO narcotics for home is not appropriate. I encouraged the patient to continue to seek assistance in obtaining health insurance and follow-up with primary care doctor after she has done so. She will return to emergency department with worsening symptoms or concerns. The patient was seen and evaluated by Dr. Jackson who agrees with this plan. Initial ED EKG: sinus rhythm @91bpm, nonspecific ST changes Prior EKG: unchanged (01/02/18) Departure Departure Disposition: HOME OR SELF CARE Condition: Stable Clinical Impression Primary Impression: Abdominal pain Referrals: Alison CURIEL,Trae Gillis (PCP/Family) Additional Instructions: Return if any worsening symptoms or concerns. Please note that there might be incidental findings in your evaluation that are unrelated to the current emergency department visit. Please notify your primary care doctor about this emergency department visit in order to obtain and review all of the testing performed so that these incidental findings can be monitored as needed. If you had an x-ray performed, please understand that some fractures may not be seen on the initial set of x-rays. If your symptoms persist you might need a repeat set of x-rays to check for such a fracture. If you had a laceration evaluated, please understand that foreign bodies such as glass or wood may not be visible to the naked eye or on plain x-rays. If the wound becomes red, swollen, increasingly more painful or if there is any drainage from the wound, please have it reevaluated by a physician for the possibility of a retained foreign body. If you're unable to follow up as outlined in the discharge instructions please return to the emergency department. Thank you for choosing the [facility] Emergency Department for your care. It was a pleasure to serve you today. Departure Forms: Customer Survey General Discharge Information
[2018-01-03 16:32] VITALS: BP 131/66
[2018-01-23] MEDS ORDERED: LANTUS SOL100 UNIT/1 SC (08:55)
[2018-01-24] MEDS ORDERED: ZOLOFT25 M1 PO (08:41)
== END 2018-01-03 19:51 ==
LOC: ERH 13:46
PROVIDERS: Physician Assistant
DX: R10.11 Right upper quadrant pain (principal); R10.12 Left upper quadrant pain; R10.13 Epigastric pain; R11.0 Nausea; K85.90 Acute pancreatitis without necrosis or infection, unspecified; E11.9 Type 2 diabetes mellitus without complications; E03.9 Hypothyroidism, unspecified
CPT/HCPCS: 93005; 93010; 96374

== ENCOUNTER 2018-01-07 11:06 | Emergency (ER) | payer OTHER ==
[~2018-01-07] VITALS: Ht 170.2 cm; Wt 77.6 kg
--- NOTE | 2018-01-07 12:04 | ED GI/GU/ABDOMINAL COMPLAINT ---
History of Present Illness General Chief Complaint: Nausea, Vomiting, Diarrhea Stated Complaint: BIBA +N/V/D X 3-4 DAYS Source: patient, old records Exam Limitations: no limitations Vital Signs & Intake/Output Vital Signs & Intake/Output Vital Signs Date Time Temp Pulse Resp B/P B/P Pulse O2 O2 Flow FiO2 Mean Ox Delivery Rate 01/07 1410 97.5 80 18 130/80 97 Room Air 01/07 1210 96 Room Air 01/07 1119 96.4 86 15 138/83 97 Room Air Room Air Allergies Coded Allergies: ibuprofen (Intermediate, HIVES 01/07/18) oxycodone (From PERCOCET) (Intermediate, HIVES 01/07/18) Penicillins (UNKNOWN 01/07/18) diclofenac (UNKNOWN LISTED ON W10 01/07/18) hydromorphone (From DILAUDID) (HIVES 01/07/18) trazodone (UNKNOWN 01/07/18) Reconcile Medications Acetaminophen (Mapap) 325 MG TABLET 2 TAB PO Q8H PRN MILD PAIN 1-3 (Reported) Aspirin (Ecotrin*) 81 MG TABLET.DR 1 TAB PO DAILY HEART HEALTH (Reported) Bisacodyl (Dulcolax) 10 MG SUPP.RECT 1 SUP RC DAILY CONSTIPATION (Reported) Bupropion HCl (Bupropion HCl Sr) 150 MG TABLET.ER 1 TAB PO QAM MENTAL HEALTH (Reported) Calcium Carbonate (TUMS) 200 MG CALCIUM (500 MG) TAB.CHEW 2 TAB PO TID UNKNOWN (Reported) Cetirizine HCl 10 MG TABLET 1 TAB PO QAM ALLERGIES (Reported) Clopidogrel Bisulfate (Plavix) 75 MG TABLET 1 TAB PO DAILY PVD (Reported) Cyanocobalamin (Vitamin B-12) (B-12 Dots) 500 MCG TABLET 1 TAB PO 1700 VITAMIN SUPPORT (Reported) Docusate Sodium (Colace) 100 MG CAPSULE 1 CAP PO TID CONSTIPATION (Reported) Exenatide Microspheres (Bydureon Pen) 2 MG/0.65 ML PEN.INJCTR 2 MG SQ QTHURS DM (Reported) Fluticasone Propionate 50 MCG/ACTUATION SPRAY.SUSP 1 SPRAY NASB QHS ALLERGIES (Reported) Gabapentin 400 MG CAPSULE 1 CAP PO TID UNKNOWN (Reported) Hydroxychloroquine Sulfate 200 MG TABLET 1 TAB PO BID ARTHRITIS (Reported) Insulin Glargine,Hum.rec.anlog (Lantus Solostar) 100 UNIT/ML (3 ML) INSULN.PEN 28 UNIT SC BID DM (Reported) Insulin Lispro (Humalog) 100 UNIT/ML VIAL DM (Reported) Lactobacillus Acidophilus (Probiotic) 10 BILLION CELL CAPSULE 1 CAP PO BID PROBIOTICS (Reported) Levothyroxine Sodium 75 MCG TABLET 1 TAB PO DAILY AC THYROID (Reported) Losartan Potassium 25 MG TABLET 1 TAB PO DAILY HTN (Reported) Magnesium Hydroxide (Milk Of Magnesia) 400 MG/5 ML ORAL.SUSP 30 ML PO DAILY PRN CONSTIPATION (Reported) Melatonin 5 MG TABLET 3 TAB PO QPM SLEEP (Reported) Metformin HCl 1,000 MG TABLET 1 TAB PO BID DM (Reported) Metoclopramide HCl (Reglan) 10 MG TABLET 1 TAB PO 4 TIMES/DAY PRN nausea 30 minutes before meals and bedtime Montelukast Sodium 10 MG TABLET 1 TAB PO DAILY ALLERGIES/RESP. (Reported) Morphine Sulfate 15 MG TABLET 1 TAB PO BIDP PRN PAIN Na Phos,M-B/Na Phos,Di-Ba (Fleet Enema) 19 GRAM-7 GRAM/118 ML ENEMA 1 E RC DAILY PRN CONSTIPATION (Reported) Omeprazole 20 MG TABLET.DR 1 TAB PO DAILY GERD (Reported) Ondansetron (Zofran Odt) 4 MG TAB.RAPDIS 1 TAB SL TID PRN NAUSEA Pravastatin Sodium (Pravachol) 80 MG TABLET 1 TAB PO DAILY PVD (Reported) Protein Supplement (Promod) 946 ML LIQUID 30 ML PO DAILY SUPPLEMENT (Reported ) Tramadol HCl (Ultram) 50 MG TABLET 1 TAB PO Q6P PRN pain Triage Note: PT BIBA FROM HOME FOR WEAKNESS, NAUSEA, VOMITING , DIARRHEA, HIGH BLOOD SUGARS (GREATER THAN 500 IN TRIAGE), NON-COMPLIANT WITH MEDICATIONS DUE TO LACK OF INSURANCE. RECENTLY DIAGNOSED WITH PANCREATITIS A COUPLE WEEKS AGO. Triage Nurses Notes Reviewed? yes ? N Is pt currently ? No HPI: Patient presents for evaluation of a severe constant epigastric pain that she feels is secondary to pancreatitis. The pain began 2 or 3 months ago but got worse over the past 2 days. Patient states she has no insurance and has been unable to follow up as an outpatient. Past History Travel History Traveled to [place] past 21 day No Medical History Any Pertinent Medical History? 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 No Review of Systems Review of Systems Constitutional: Reports: no symptoms. EENTM: Reports: no symptoms. Respiratory: Reports: no symptoms. Cardiovascular: Reports: no symptoms. GI: Reports: see HPI. Genitourinary: Reports: no symptoms. Musculoskeletal: Reports: no symptoms. Skin: Reports: no symptoms. Neurological/Psychological: Reports: no symptoms. Hematologic/Endocrine: Reports: no symptoms. Immunologic/Allergic: Reports: no symptoms. All Other Systems: Reviewed and Negative Physical Exam Physical Exam Gastrointestinal: SEE BELOW Comments: Gen.: Well-nourished, well-developed, no acute respiratory distress. Appears relatively comfortable and is conversant. Head: Normocephalic, atraumatic. Eyes: Normal inspection bilaterally Ears: Normal inspection bilaterally Nose: Normal inspection Throat/mouth : Moist mucosa Neck: Supple, full range of motion, no goiter Lungs: Quiet respirations Abdomen: Epigastric tenderness with brief voluntary guarding but no rebound, normal bowel sounds Back: Normal range of motion Extremities: Normal range of motion grossly, no cyanosis clubbing or edema of the upper extremities Neurologic: Cranial nerves grossly intact, speech is clear Skin: warm and dry Psychiatric: Calm, cooperative, no apparent delusions or hallucinations Core Measures ACS in differential dx? No Sepsis Present: No Sepsis Focused Exam Completed? No Progress Differential Diagnosis: biliary colic, bowel obstruction, cholecystitis, diverticulitis, gastritis, ischemic bowel, inflamm bowel dis, pancreatitis, PUD/ GERD, perforated viscous Plan of Care: Orders Procedure Date/time Status FingerStick- Glucose 01/07 1719 Active LACTIC ACID 01/07 1421 Active FingerStick- Glucose 01/07 1415 Active MIXED VENOUS BLOOD GAS (GEN) 01/07 1122 Active SERUM OSMOLALITY 01/07 1121 Complete LACTIC ACID 01/07 1121 Complete ACETONE 01/07 1121 Complete URINALYSIS 01/07 1114 Complete TROPONIN LEVEL 01/07 1114 Complete LIPASE 01/07 111 Complete COMPREHENSIVE METABOLIC PANEL 01/07 111 Complete CBC WITHOUT DIFFERENTIAL 01/07 111 Complete Laboratory Tests 01/07/18 1454: Urine Color YEL, Urine Clarity CLEAR, Urine pH 6.0, Ur Specific [place] 1.020, Urine Protein 100 H, Urine Ketones NEG, Urine Nitrite NEG, Urine Bilirubin NEG, Urine Urobilinogen 0.2, Ur Leukocyte Esterase NEG, Ur Microscopic SEDIMENT EXAMINED, Urine RBC RARE, Urine WBC RARE, Ur Epithelial Cells FEW, Urine Bacteria FEW H, Micro UA Comment [place] H, Urine Hemoglobin TRACE- INTACT, Urine Glucose >=1000 H 01/07/18 1155: Bicarbonate Actual 22, Mixed VBG pH 7.32, Mixed VBG pCO2 44, Mixed VBG O2 Saturation 25 L, Carboxyhemoglobin 1.8, O2 Concentration % 21, O2 Delivery Method RA, Phlebotomy Draw Site VENOUS L 01/07/18 1150: Serum Osmolality 312 H, Lactic Acid 1.9 01/07/18 1150: Anion Gap 10, Estimated GFR > 60, BUN/Creatinine Ratio 38.3 H, Glucose 502 *H, Calcium 9.1, Total Bilirubin 0.5, AST 26, ALT 21, Alkaline Phosphatase 171 H, Troponin I < 0.01, Total Protein 7.0, Albumin 3.7, Globulin 3.3, Albumin/ Globulin Ratio 1.1, Lipase 276, CBC w Diff NO MAN DIFF REQ, RBC 4.45, MCV 82.3, MCH 28.0, MCHC 34.0, RDW 14.0, MPV 11.2 H, Gran % 76.7 H, Lymphocytes % 17.4 L, Monocytes % 4.1, Eosinophils % 1.5, Basophils % 0.3, Absolute Granulocytes 6.2, Absolute Lymphocytes 1.4, Absolute Monocytes 0.3, Absolute Eosinophils 0.1, Absolute Basophils 0, Acetone Level NEGATIVE Initial ED EKG: none Comments: I have reviewed patient's CAT scan from January 02 which showed no acute findings. 01/07/2018 2:22:32 PM I have updated IRENA on her test results. A fingerstick blood sugar level is pending. Seems to be no convincing indication of acute pancreatitis and I feel that since the patient has had 3 CAT scans recently that further imaging is potentially harmful to her. I have requested she follow up with GI specialist to manage her abdominal pain syndrome (we have discussed the possibility of diabetic gastroparesis and acid reflux). 01/07/2018 6:08:53 PM patient's fingerstick blood glucose is 186. I feel the patient is now stable for discharge. Departure Departure Disposition: HOME OR SELF CARE Condition: Stable Clinical Impression Primary Impression: Hyperglycemia Secondary Impressions: Glucosuria, Nonspecific abdominal pain Referrals: Alison CURIEL,Trae Gillsi (PCP/Family) Additional Instructions: Strict diabetic diet. Take all your medications as prescribed. Follow-up with your nurse tech and GI specialist this week for reevaluation. Return if any concerns or sudden worsening. Please note that there might be incidental findings in your evaluation that are unrelated to the current emergency department visit. Please notify your primary care doctor about this emergency department visit in order to obtain and review all of the testing performed so that these incidental findings can be monitored as needed. If you had an x-ray performed, please understand that some fractures or other findings may not be seen on the initial set of x-rays. If your symptoms persist you might need a repeat set of x-rays to check for such a fracture. If you had a laceration evaluated, please understand that foreign bodies such as glass or wood may not be visible to the naked eye or on plain x-rays. If the wound becomes red, swollen, increasingly more painful or if there is any drainage from the wound, please have it reevaluated by a physician for the possibility of a retained foreign body. If you're unable to follow up as outlined in the discharge instructions please return to the emergency department. Thank you for choosing the [facility] Emergency Department for your care. It was a pleasure to serve you today. Gab Jackson M.D. [facility] Departure Forms: Customer Survey General Discharge Information
[2018-01-07 12:19] LABS: ABSOLUTE BASOPHIL COUNT 0 /CUMM (0.0-0.2); ABSOLUTE EOSINOPHIL COUNT 0.1 /CUMM (0.0-0.7); ABSOLUTE GRANULOCYTE CT 6.2 /CUMM (1.4-6.5); ABSOLUTE LYMPH COUNT 1.4 /CUMM (1.2-3.4); ABSOLUTE MONOCYTE COUNT 0.3 /CUMM (0.10-0.60); BASOPHIL % 0.3 % (0.0-2.0); EOSINOPHIL % 1.5 % (0-5); GRANULOCYTE % 76.7 % (42.2-75.2); HEMATOCRIT 36.6 % (37-47); MEAN CORPUSCULAR VOLUME 82.3 FL (81.0-99.0); MEAN PLATELET VOLUME 11.2 FL (7.4-10.4); PLATELET COUNT 263 /CUMM (130-400); RED BLOOD CELL CT 4.45 /CUMM (4.20-5.40)
[2018-01-07 18:30] VITALS: BP 132/84
== END 2018-01-07 19:57 ==
LOC: ERH 11:06
PROVIDERS: Physician Assistant Medical
DX: E11.65 Type 2 diabetes mellitus with hyperglycemia (principal); E74.8 Other specified disorders of carbohydrate metabolism; Z79.4 Long term (current) use of insulin; R10.13 Epigastric pain
CPT/HCPCS: 81001; 96372; 96374; 96375; 99291; J0131; J1815; J2405